=== PATIENT | female | born 1985 | race Caucasian/White ===

== ENCOUNTER 2024-01-09 06:07 | Emergency (ER) | payer OTHER, SELFPAY ==
[2024-01-09 06:11] VITALS: BP 149/101; PULSE 91; RESP 20; TEMP 36.8; O2SAT 99; BMI 24.4
--- NOTE | 2024-01-09 06:32 | ED.GENADULT ---
HPI - General Adult General Chief complaint: Chest Pain Stated complaint: Chest Pain Time Seen by Provider: 01/09/24 06:12 Source: patient Mode of arrival: ambulatory Limitations: no limitations History of Present Illness HPI narrative: 38-year-old female presents to the emergency department with 24 hours of vague chest pain and general malaise. Symptoms are very nondescript. No trauma or injury. Has a mild headache as well. Was at a track contracture pull a few nights ago and wonders if she may have ?caught something. She says that she wonders if she may have just gotten a little dehydrated from working out in the intense heat the last few days. 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 She says that when she tries to sit up she gets a little lightheaded. She has been trying to drink increased water it does not seem to be helping. She said her head hurts more when she lies down. She admits that she drinks about 8 white claws per day, less over the last couple days since she has not been feeling as well. No vomiting, no abdominal pain. No shortness of breath. Describes the chest pain as anterior lower chest, achy. Nonexertional. Has not tried any medications to help with her symptoms. No prior history of heart problems, no current GI symptoms. Reports that she had a mild URI 3 weeks ago that resolved without complication. No history of DVT or PE, no prescription medications. No bloody stools. Last menstrual cycle was about 10 days ago, ending 4 days ago, uncomplicated. Called 911 for her symptoms. No additional pertinent history or abnormalities noted by EMS team. Past medical history notable for the heavy regular alcohol use as described above, otherwise denies any long-term medical problems. No long-term medications. Heavy alcohol use as described above. ROS is notable for the generalized and chest symptoms as described above, otherwise denies times 12 systems. Related Data Home Medications ?Medication ?Instructions ?Recorded ?Confirmed No Known Home Medications 01/09/24 01/09/24 Allergies Allergy/AdvReac Type Severity Reaction Status Date / Time No Known Drug Allergies Allergy Verified 01/09/24 06:14 [facility] Social History Smoking Status: Never smoker Second hand tobacco smoke exposure: No How often do you have a drink containing alcohol: 4 or more times a week How often do you have six or more drinks on one occasion: Daily or almost daily AUDIT-C Alcohol total score: 8 Non-prescribed substance use: denies use Exam Const: Vital Signs, click to edit/add: Vital Signs - 24 hr 01/09/24 06:11 01/09/24 06:42 01/09/24 06:43 Temperature 98.2 F Pulse Rate 82 84 Pulse Rate [Right Pulse Oximeter] 91 Respiratory Rate 20 16 Blood Pressure 141/102 H Blood Pressure [Ri ght Upper Arm] 149/101 H Pulse Oximetry 99 96 97 Oxygen Delivery Me thod Room Air Documenting provider has reviewed patient's vital signs: yes Common normals: no apparent distress and alert General appearance: comfortable HENMT: Common normals: normocephalic Head and scalp: normocephalic Face and sinus: normal facial exam Mouth: oral and palatal mucosa normal Throat: posterior oropharynx normal Eye: Common normals: conjunctivae normal General eye: normal appearance of both eyes Conjunctiva: conjunctiva(e) normal Neck & C-Spine: Common normals: no lymphadenopathy General: normal visual inspection Resp: Common normals: normal respiratory effort, no use of accessory muscles and clear to auscultation bilaterally Effort & inspection: able to speak in complete sentences Auscultation: clear to auscultation bilaterally Cardio: Common normals: regular rate, regular rhythm, S1 normal heart sound, S2 normal heart sound and no murmurs Rate: regular rate Rhythm: regular rhythm Heart sounds: S1 normal and S2 normal GI: Common normals: Normal to inspection, nondistended, normoactive bowel sounds present, soft to palpation, non-tender and no masses Palpation: soft Other: Liver does feel about 1-2 cm enlarged below right costal margin. No obvious mass. Nontender Back & Pelvis: Common normals: thoracic and lumbar spine normal to inspection Extremity: Common normals: normal to inspection and normal capillary refill Neuro: Sensorium/orientation: alert Speech: speech normal Motor exam: no tremor noted and no movement abnormalities noted Psych: Attitude: engaged Mood and affect: euthymic mood Insight: insight good Judgement: judgment good Skin: Common normals: no rashes or lesions noted General skin exam: no rashes or lesions noted Course Course ED Course: 38-year-old female with 24 hours of chest pain, nonexertional in nature with generalized malaise and headache with history of heavy regular alcohol use. Differential diagnosis including acute coronary syndrome, dehydration, electrolyte abnormality, viral illness, anemia, GI illness, , amongst multiple others. Recommend basic blood work, EKG, 1 L normal saline, famotidine and Zofran. Re-evaluate once findings are back. Chest x-ray. Reevaluation(s) Time of Reevaluation #1: 07:32 Reevaluation #1: Updated patient on mostly normal labs and reassuring findings. She is not feeling any better after the famotidine, Zofran, Toradol, Vistaril and IV fluids. She is tolerating oral rehydration here in the ED, has not had any vomiting. Vitals remained stable. Chest x-ray and EKG are all reassuring as are her labs with the exception of her elevated liver enzymes. Discussed with her that this is a specific type of inflammation and pattern that we tend to see with alcohol. She is encouraged to re-evaluate her relationship with alcohol and discontinue drinking. She does verbalize understanding and agreement. She is not exhibiting any severe features of alcohol withdrawal, delirium or tremors at this time. She is encouraged to continue watchful monitoring at home, returning to the ED if symptoms worsen. Tylenol, ibuprofen. Encouraged to try some melatonin for sleep if needed. Alarm symptoms reviewed and written instructions were provided. She verbalizes understanding and agreement. Vital Signs Vital signs: Initial Vital Signs Temperature 98.2 F 01/09/24 06:11 Temperature Source Temporal Artery Scan 01/09/24 06:11 Pulse Rate 91 01/09/24 06:11 Respiratory Rate 20 01/09/24 06:11 Blood Pressure 149/101 H 01/09/24 06:11 Blood Pressure Mean 117 H 01/09/24 06:11 Blood Pressure Position Sitting 01/09/24 06:11 Pulse Oximetry 99 01/09/24 06:11 Oxygen Delivery Method Room Air 01/09/24 06:11 Vital Signs Temperature 98.2 F 01/09/24 06:11 Pulse Rate 91 01/09/24 06:11 Respiratory Rate 20 01/09/24 06:11 Blood Pressure 149/101 H 01/09/24 06:11 Pulse Oximetry 99 01/09/24 06:11 Oxygen Delivery Method Room Air 01/09/24 06:11 Temperature 98.2 F 01/09/24 06:11 Pulse Rate 84 01/09/24 06:43 Respiratory Rate 16 01/09/24 06:43 Blood Pressure 141/102 H 01/09/24 06:42 Pulse Oximetry 97 01/09/24 06:43 Oxygen Delivery Method Room Air 01/09/24 06:11 Medications Administered Medications: Discontinued Medications Generic Name Dose Route Start Last Admin Trade Name Gaurang PRN Reason Stop Dose Admin Famotidine 20 mg 01/09/24 06:27 01/09/24 06:36 Famotidine 20 Mg Tablet PO 01/09/24 06:28 20 mg ONCE ONE Administration Hydroxyzine Pamoate 50 mg 01/09/24 06:42 01/09/24 06:45 Hydroxyzine Pamoate 25 Mg Capsule PO 01/09/24 06:43 50 mg ONCE ONE Administration Sodium Chloride 1,000 mls @ 1,000 mls/hr 01/09/24 06:27 01/09/24 06:36 0.9 % Sodium Chloride 1000 Ml IV 01/09/24 07:26 1,000 mls/hr .Q1H RUBEN Administration Ketorolac Tromethamine 10 mg 01/09/24 06:54 01/09/24 07:06 Ketorolac 10 Mg Tablet PO 01/09/24 06:55 10 mg ONCE ONE Administration Ondansetron HCl 4 mg 01/09/24 06:27 01/09/24 06:36 Ondansetron 2 Mg/Ml Inj IVP 01/09/24 06:28 4 mg ONCE ONE Administration Medical Decision Making Lab Data Lab results reviewed: Yes I reviewed the patient's lab results Lab results narrative: AST to ALT ratio elevated suspicious of alcoholic liver disease. Bilirubin is okay however. Labs: Lab Results 01/09/24 01/09/24 Range/Units 06:30 06:36 WBC 5.47 (4.50-11.00) K/uL RBC 4.62 (4.00-5.20) m/uL Hgb 14.6 (12.0-16.0) gm/dL Hct 43.3 (33.0-51.0) % MCV 94 (80-100) fL MCH 32 (26-34) pg MCHC 34 (32-36) gm/dL RDW Coeff of Elliott 11.8 (11.5-15.5) % Plt Count 309 (140-440) K/uL Neut % (Auto) 59.8 (42.0-72.0) % Lymph % (Auto) 25.2 (20-44) % [place] % (Auto) 10.6 (0.0-11.0) % Eos % (Auto) 3.7 (0.0-7.0) % Baso % (Auto) 0.5 (0.0-3.0) % Neut # (Auto) 3.27 (1.7-7.0) K/uL Lymph # (Auto) 1.38 (0.90-2.90) K/uL [place] # (Auto) 0.60 (0.00-0.90) K/UL Eos # (Auto) 0.20 (0.00-0.50) K/uL Baso # (Auto) 0.03 (0.00-0.30) K/uL Abs Immat Gran (auto) 0.01 (0.00-0.30) K/uL Imm/Tot Granulo (auto) 0.2 % Sodium 142 (135-149) mmol/L Potassium 3.7 (3.6-5.1) mmol/L Chloride 107 (96-114) mmol/L Carbon Dioxide 23 (20-32) mmol/L Anion Gap 12 (7-15) mEq/L BUN 5 (5-24) mg/dL Creatinine 0.5 (0.5-1.5) mg/dL Estimated Creat Clear 166.59 Estimated GFR 124 ml/min Glucose 98 (60-115) mg/dL Calcium 9.7 (8.4-10.6) mg/dL Magnesium 2.0 (1.5-2.6) mg/dL Total Bilirubin 0.5 (0.1-1.5) mg/dL AST 134 H (12-35) U/L ALT 69 H (4-35) U/L Alkaline Phosphatase 67 (40-150) U/L Total Protein 8.5 H (6.0-8.3) g/dL Albumin 4.9 (3.3-5.0) g/dL Urine Color Yellow (Yellow) Urine Appearance Clear (Clear) Urine pH 6.5 (5.0-8.5) Ur Specific [place] 1.010 (1.000-1.030) Urine Protein Negative (Negative) Urine Glucose (UA) Negative (Negative) Urine Ketones Negative (Negative) Urine Blood Negative (Negative) Urine Nitrite Negative (Negative) Urine Bilirubin Negative (Negative) Urine Urobilinogen 0.2 (0.2-1.0) Ur Leukocyte Esterase Negative (Negative) Urine HCG, Qual Negative (Negative) SARS-CoV-2 (PCR) Negative SARS-CoV-2 (Negative) Influenza Type A (PCR) Negative PCR FLU A (Negative) Influenza Type B (PCR) Negative PCR FLU B (Negative) RSV (PCR) Negative PCR RSV (Negative) POC Troponin I 0.01 (0.01-0.04) ng/ml Imaging Data Chest x-ray: Attestation: I have reviewed the pertinent imaging results. My impression: Normal chest x-ray Radiologist's impression: Findings/Impression: Cardiovascular and mediastinum: Heart size and vasculature are normal in caliber and appearance. Mediastinum is within normal limits. Lungs and pleural spaces: Lungs are clear. No sign of infiltrate or mass. No sign of pleural effusion. No pneumothorax. Bones and soft tissues: No significant findings. Dictated by Arcenio Shi MD @ 01/09/2024 7:11:29 AM ECG Data Attestation: I personally reviewed and interpreted this ECG as follows: Prior ECG tracings: not available for review Interpretation: Normal sinus rhythm, rate of 82. No significant ST or T-wave abnormalities. Normal intervals and axis, normal EKG. Discharge Plan Discharge Clinical Impression: Acute viral syndrome, Elevated liver enzymes Patient Disposition: Home w/ Parent or Adult Condition: Stable Instructions: Viral Syndrome (ED) Additional Instructions: As we discussed, your headache, chest pain and vertigo seem to be connected to a viral syndrome. There are no signs of heart attack, strokes or infection at this time. COVID swabs are thankfully negative. To help reduce her symptoms somewhat, you were given a L of fluid, Zofran for your nausea, Toradol for her headache and some famotidine to help her stomach heal. Your blood work does reflect inflammation of the liver, specifically in a pattern with too much alcohol. It is not severe at this time but you are at a point with this disease where you do need to stop drinking all alcohol. There were no signs of electrolyte abnormality or dehydration today. I do suspect that you have a viral illness triggering these symptoms. Symptoms should improve in a few days. As we discussed, you should come back to emergency department if you have persistent vomiting, severe weakness, high fever or other signs of worsening. I would like for you to continue using Tylenol 1000 mg every 6 hours, please take this if her headache persists once you get home. You would be due for more ibuprofen at about 1:00 p.m., continue taking this every 6 hours. He has salty foods and try to drink lots of fluids and take it easy for the next 1-2 days. Please avoid alcohol. It is okay to use melatonin 10 mg at bedtime to help with sleep if needed as well. If her symptoms are not improving in 3 days, please seek re-evaluation in the clinic or urgent care. ED if symptoms are severe. Activity Level: Activity as Tolerated Discharge Diet: Regular Prescriptions: No Action No Known Home Medications Follow Up/Referrals: Provider,Not a Local [Primary Care Provider] - Stand Alone Forms: [employer] Info Instructions
[2024-01-09] MEDS: ONDANSETRON 2 MG/ML inj 4 MG IVP (06:36)
[2024-01-09] MEDS: 0.9 % SODIUM CHLORIDE 1000 ml 1,000 ML IV (06:36)
[2024-01-09] MEDS: FAMOTIDINE 20 MG TABLET PO (06:36)
--- NOTE | 2024-01-09 06:36 | CRLHL7_ITS ---
For Patients: As a result of the Century Cures Act, medical imaging exams and procedure reports are released immediately into your electronic medical record. You may view this report before your referring provider. If you have questions, please contact your health care provider. Indication: Chest pain Technique: Chest 2 views Comparison: Chest x-ray 10/15/2013 Findings/Impression: Cardiovascular and mediastinum: Heart size and vasculature are normal in caliber and appearance. Mediastinum is within normal limits. Lungs and pleural spaces: Lungs are clear. No sign of infiltrate or mass. No sign of pleural effusion. No pneumothorax. Bones and soft tissues: No significant findings. Dictated by Arcenio Shi MD @ 01/09/2024 7:11:29 AM (Electronically Signed)
[2024-01-09 06:42] VITALS: BP 141/102; PULSE 82; O2SAT 96
[2024-01-09 06:42] LABS: Appearance Urine Clear (Clear); Bilirubin Urine Negative (Negative); Blood Urine Negative (Negative); Color Urine Yellow (Yellow); Glucose Urine Negative (Negative); Ketones Urine Negative (Negative); Leukocyte Esterase Urine Negative (Negative); Nitrite Urine Negative (Negative); Protein Urine Negative (Negative); Urobilinogen Urine 0.2 (0.2-1.0); pH Urine 6.5 (5.0-8.5)
[2024-01-09 06:43] VITALS: PULSE 84; RESP 16; O2SAT 97
[2024-01-09] MEDS: hydrOXYzine pamoate 25 MG CAPSULE 50 MG PO (06:45)
[2024-01-09 06:48] LABS: Troponin, Point-of-Care* 0.01 ng/ml (0.01-0.04)
--- OUTSIDE RECORDS SUMMARY | 2024-01-09 06:51 | XMS_ITS | Encounter Summary ---
Author Organization [place] Address [facility] [place] [address] Care Team Providers Care Career Center Director Name Role Phone Alex Koo MD Primary Care Provider + Alex Koo MD Unavailable [phone] Alex Koo MD Unavailable [phone] Encounter Details Date Type Department Care Team (Latest Contact Info) Description 12/05/2023 Travel Social History Tobacco Use Types Packs/Day Years Used Date Smoking Tobacco: Never Passive Smoke Exposure: Never Smokeless Tobacco: Never Alcohol Use Standard Drinks/Week Comments Yes 0 (1 standard drink = 0.6 oz pur e alcohol) occasional 2-4 monthly PHQ-2 Answer Date Recorded PHQ-2 Score 2 03/29/2022 Adolescent Education Answer Date Record ed Getting School Help Needed Not on file 03/03 Sex and Gender Information Value Date Recorded Sex Assigned at Not on file Gender Identity Not on file Sexual Orientation Not on file documented as of this encounter Plan of Treatment Not on file documented as of this encounter Visit Diagnoses Not on filedocumented in this encounter Additional Health Concerns Assessment Noted Time PHQ-9 Depression Total Score: 5 03/29/20 22 8:19 AM CDT documented as of this encounter Care Teams Career Center Director Relationship Specialty [place] [address] [place] [address] PCP - General Family Practice 10/27/20 [place] [address] [address] [address] Family Practice 10/27/20 [place] [address] [address] [address] Assigned PCP 10/03/23 01/01/24 documented as of this encounter
--- OUTSIDE RECORDS SUMMARY | 2024-01-09 06:51 | XMS_ITS | Encounter Summary ---
Author Organization [place] Address [facility] [place] [address] Care Team Providers Care Icu Specialist Name Role Phone Alex Koo MD Primary Care Provider + Alex Koo MD Unavailable [phone] Alex Koo MD Unavailable [phone] Reason for Visit * Diagnostic Imaging XR (Routine) - Pending Review Specialty Diagnoses / Procedures Referred By Contac t Referred To Contact Radiology. Diagnoses Injury of right hand, initial encounter Procedures XR Hand Right G/E 3 Views Tequila Ojeda PA-C [address] [place] [address] Referral ID Status Reason Start Date Expiration Date V isits Requested Visits Authorized [id number] Pending Review 12/05/2023 12/04/2024 1 1 Encounter Details Date Type Department Care Team (Latest Contact Info) Description 12/05/2023 7:30 PM CDT Ancillary Procedure [facility] [address] [place] [address] Tequila Ojeda PA-C [address] [place] [address] Injury of right hand, initial encounter Social History Tobacco Use Types Packs/Day Years [...] on file documented as of this encounter Procedures Procedure Name Priority Date/Time Associated Diagnosis Comments XR HAND RIGHT G/E 3 VIEWS STAT 12/05/2023 7:42 PM CDT Injury of right hand, initial encounter documented in this encounter Results * XR Hand Right G/E 3 Views (12/05/2023 7:42 PM CDT) Anatomical Region Laterality Modality Hand, Wrist Right Computed Radiogr aphy 12/05/2023 7:42 PM CDT Impressions 12/05/2023 7:45 PM CDT IMPRESSION: Normal joint spaces and alignment. No fracture. Narrative 12/05/2023 7:45 PM CDT EXAM: XR HAND RIGHT G/E 3 VIEWS LOCATION: [facility] DATE: 12/05/2023 INDICATION: swelling ecchymosis dorsum of hand, more tender 4th and 5th metacarpals COMPARISON: None. Procedure Note Stephen Piedra MD - 12/05/2023 EXAM: XR HAND RIGHT G/E 3 VIEWS LOCATION: [facility] DATE: 12/05/2023 INDICATION: swelling ecchymosis dorsum of hand, more tender 4th and 5thmetacarpals COMPARISON: None. IMPRESSION: Normal joint spaces and alignment. No fracture. Tequila Ojeda PA-C [facility] ORDER[facility]LES documented in this encounter Visit Diagnoses Diagnosis Injury of right hand, initial encounter documented in this encounter Additional Health Concerns Assessment Noted Time PHQ-9 Depression Total Score: 5 03/29/20 22 8:19 AM CDT documented as of this encounter Care Teams Icu Specialist Relationship Specialty [place] [address] [address] [address] PCP - General Family Practice 10/27/20 [place] [address] [address] [address] Family Practice 10/27/20 [place] [address] [address] [address] Assigned PCP 10/03/23 01/01/24 documented as of this encounter
--- OUTSIDE RECORDS SUMMARY | 2024-01-09 06:51 | XMS_ITS | Encounter Summary ---
Author Organization [place] Address [facility] [place] [address] Care Team Providers Care Tie Binder Name Role Phone Alex Koo MD Primary Care Provider + Alex Koo MD Primary Care Provider + Alex Koo MD Unavailable + Radha Knight COPPER TAPPER PRESCRIPTION CLERK Unavailable + Alex Koo MD Unavailable + Radha Knight COPPER TAPPER PRESCRIPTION CLERK Unavailable + Alex Koo MD Unavailable + Radha Knight COPPER TAPPER PRESCRIPTION CLERK Unavailable + Dinesh Mac MD Unavailable [facility] September Vicki IBRAHIM Unavailable [phone] Alex Koo MD Unavailable + Rosa MoyerM Unavailable Barbara Cheng MD Unavailable [phone] Umesh iLma PA-C Unavailable + Umesh Lima PA-C Unavailable + Alex Koo MD Unavailable + Umesh Lima PA-C Unavailable Encounter Details Date Type Department Care Team (Late st Contact Info) Description 02/02/2018 [facility] Medical Advice [address], [address] [place] [address] 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, SPINE SPECIALIST Social History Tobacco Use Types Packs/Day Years Used Date Smoking Tobacco: Never Smokeless Tobacco: Never Alcohol Use Standard Drinks/Week Comments Yes 0 (1 standard drink = 0.6 oz pur e alcohol) occasional 2-4 monthly Sex and Gender Information Value Date Recorded Sex Assigned at Not on file Gender Identity Not on file Sexual Orientation Not on file documented as of this encounter Plan of Treatment Not on file documented as of this encounter Visit Diagnoses Not on filedocumented in this encounter Additional Health Concerns Assessment Noted Time PHQ-9 Depression Total Score: 2 11/17/19 17 7:16 AM CDT documented as of this encounter Care Teams Tie Binder Relationship Specialty Start Date End Date Alex Koo MD PCP - General Family Practice 04/19/16 10/26/20 [place] [address] [address] [address] PCP - General Family Practice 10/27/20 Radha Knight APRN PRESCRIPTION CLERK [address] [address] [place] [address] PCP - Assigned PCP 11/19/17 07/21/18 [place] [address] [address] [place] [address] PCP - Assigned PCP 07/22/18 08/14/18 Alex Koo MD Family Practice 10/27/20 Radha Knight APRN PRESCRIPTION CLERK [address] [place] [address] Assigned PCP 11/19/17 07/21/18 [place] [address] [place] [address] Assigned PCP 07/22/18 11/16/19 Radha Knight APRN PRESCRIPTION CLERK [address] [place] [address] Assigned PCP 11/17/19 03/14/20 Dinesh Mac MD [address] [place] [address] Assigned PCP 03/15/20 08/15/20 [place] [address] [facility] [place] [address] Assigned PCP 08/16/20 11/21/20 [place] [address] [place] [address] Assigned PCP 11/22/20 05/20/22 Rosa Moyer CNM [address] [place] [address] Assigned OBGYN Provider 12/25/2004/08 Barbara Cheng MD [address] [place] [address] Assigned OBGYN Provider 04/09/22 Umesh Lima PADanyelleC [address] [place] [address] Assigned PCP 05/21/22 10/02/23 Umesh Lima PA-C [address] [place] [address] Assigned Pain Medication Provider 06/20/22 12/09/22 [place] [address] [address] [place], [address] [address] Assigned PCP 10/03/23 01/01/24 Umesh Lima PA-C [address] [place], [address] [address] Assigned PCP 01/02/24 documented as of this encounter
--- OUTSIDE RECORDS SUMMARY | 2024-01-09 06:51 | XMS_ITS | Referral Summary ---
Author Organization [facility] Address [address] [place] [id number] Care Team Providers Care Ham Marker Name Role Phone Alex Koo MD Primary Care Provider + Alex Koo MD Unavailable [phone] Umesh Lima PA-C Unavailable + [phone] Encounters Date Type Department Care Team Description 12/05/2023 7:30 PM CDT Ancillary Procedure [address] [phone] Tequila Ojeda PA-C Injury of right hand, initial encounter 12/05/2023 Travel 12/05/2023 6:45 PM CDT Office Visit [facility] [address] [phone] Tequila Ojeda PA-C Injury of right hand, initial encounter (Primary Dx); Contusion of right hand, initial encounter from Last 3 Months Allergies No known active allergies Medications Medication Sig Dispensed Refills Start Date End Date Status melatonin 3 MG tablet Take 1 mg by mouth nightly as needed for sleep Active hydrOXYzine (ATARAX) 25 MG tabletIndications:R LQ abdominal pain Take 2 tablets (50 mg) by mouth nightly as needed for itching or other (pain, sleep) 20 tablet 1 04/06/2022 Active Additional Information Patient not taking.Reported on 07/30/2022 meloxicam (MOBIC) 15 MG tabletIndications:I njury of right hand, initial encounter,Contusion of right hand, initial encounter Take 1 tablet (15 mg) by mouth daily as needed for moderate pain 10 tablet 12/05/2023 Active Active Problems Patient Care Coordination No te Formatting of this note migh t be different from the original. [email or web address] Problem Noted Date Diagnosed Date Jaw pain 08/09/2021 Otalgia, right 08/09/2021 Recurrent major depressive d isorder, in full remission (H24) 12/08/2020 Acetabular labrum tear 01/02/2014 Encounter for medication refill 12/25/2013 Overview: Pain agreement signed 12/25/13. Percocet 5 #60 per month. Diagnosis: left hip pain, SI inflammation, possible left labral hip tear. [facility] Amie Stoll, DO .................... 12/25/2013 11:48 AM SI (sacroiliac) joint inflammation (H24) 014 Trochanteric bursitis of left hip 12/25/2013 Left hip pain 11/14/2013 Overview: MRI and physical therapy ordered. Mastalgia 04/25/2010 Overview: Right Ultrasound 04/2010 recommend follow up ultrasound in one month. Dysplasia of cervix, low grade (QUINCY 1) 8 Overview: 2005 QUINCY 1 07/2007 ASCUS, +HPV @ age 21 09/2007 colposcopy with negative ECC and biopsy. 03/2009 Normal, HPV - 05/2010 Normal 02/2012 Normal, + HR HPV (type not specified) [gap in pap follow up] 12/16/20 NIL pap, neg HR HPV. Plan 1 year cotest 01/24/22 Lost to follow-up for pap tracking 04/06/22 NIL pap, Neg HPV. Plan cotest in 3 years. Allergic rhinitis due to other allergen 02/16/20 07 Overview: CATS,PERENNIAL Resolved Problems Problem Noted Date Diagnosed Date Resolved Date Recurrent major depression (H24) 04/19/2016 12/08/2020 Other postprocedural status(V45.89) 05/30/2014 06/21/2017 Immunizations Name Administration Dates Next Due HPV Quadrivalent 08/02/2007 TDAP Vaccine (Adacel) 03/17/2009 Social History Tobacco Use Types Packs/Day Years Used Date Smoking Tobacco: Never Passive Smoke Exposure: Never Smokeless Tobacco: Never Tobacco Cessation:Counseling Given: Not Answered Alcohol Use Standard Drinks/Week Comments Yes 0 [...] on file Sexual Orientation Not on file Last Filed Vital Signs Vital Sign Reading Time Taken Comments Blood Pressure 156/99 12/05/2023 7:04 PM CDT Pulse 71 12/05/2023 7:04 PM CDT Temperature 36.4 ??C (97.5 ??F) 12/05/2023 7:04 PM CD T Respiratory Rate 16 09/28/2022 11:53 AM CDT Oxygen Saturation 99% 12/05/2023 7:04 PM CDT Inhaled Oxygen Concentration - - Weight 77.1 kg (170 lb) 12/05/2023 7:04 PM CDT Height 177.8 cm (5' 10) 12/05/2023 7:04 PM CDT Body Mass Index 24.39 12/05/2023 7:04 PM CDT Plan of Treatment Not on file Procedures Procedure Name Priority Date/Time Associated Diagnosis Comments XR HAND RIGHT G/E 3 VIEWS STAT 12/05/2023 7:42 PM CDT Injury of right hand, initial encounter HPV HIGH RISK TYPES DNA CERVICAL Routine 04/06/2022 3:42 PM CDT Dysplasia of cervix, low grade (QUINCY 1) GYNECOLOGIC CYTOLOGY Routine 04/06/2022 3:42 PM CDT Dysplasia of cervix, low grade (QUINCY 1) BASIC METABOLIC PANEL Routine 08/09/2021 2:53 PM LIGHTNING ROD ERECTOR Jaw pain from Last 3 Months or Most Recently Relevant to Health Maintenance Results * XR Hand Right G/E 3 Views (12/05/2023 7:42 PM CDT) Anatomical Region Laterality Modality Hand, Wrist Right Computed Radiogr aphy 12/05/2023 7:42 PM CDT Impressions 12/05/2023 7:45 PM CDT IMPRESSION: Normal joint spaces and alignment. No fracture. Narrative 12/05/2023 7:45 PM CDT EXAM: XR HAND RIGHT G/E 3 VIEWS LOCATION: [facility] DATE: 12/05/2023 INDICATION: swelling ecchymosis dorsum of hand, more tender 4th and 5th metacarpals COMPARISON: None. Procedure Note Stephen Piedra MD - 12/05/2023 EXAM: XR HAND RIGHT G/E 3 VIEWS LOCATION: [facility] DATE: 12/05/2023 INDICATION: swelling ecchymosis dorsum of hand, more tender 4th and 5thmetacarpals COMPARISON: None. IMPRESSION: Normal joint spaces and alignment. No fracture. Tequila Ojeda PA-C IMG DIAGNOSTIC IMAGING ORDERABLES * Pap diagnostic with HPV (04/06/2022 3:42 PM CDT) Interpretation Negative for Intraepithelial Lesion or Malignancy (NILM) 04/08/2022 2:31 PM CDT [facility] Comment Papanicolaou Test Limitations: Cervical cytology is a screening test with limited sensitivity, and regular screening is critical for cancer prevention. Pap tests are primarily effective for the diagnosis/prevent ion of squamous cell carcinoma, not adenocarcinoma or other cancers. 04/08/2022 2:31 PM CDT [facility] Specimen Adequacy Satisfactory for evaluation, endocervical/franks sformation zone component present 04/08/2022 2:31 PM CDT [facility] Clinical Information none 04/08/2022 2:31 PM CDT [facility] LMP/Menopause Date 03/13/2022 04/08/2022 2:31 PM CDT [facility] Reflex Testing Yes regardless of result 04/08/2022 2:31 PM CDT [facility] Previous Abnormal? Yes 04/08/2022 2:31 PM CDT [facility] Previous Abnormal Diagnosis history of CIN1 04/08/2022 2:31 PM CDT [facility] Performing Labs The technical component of this testing was completed at [facility] 04/08/2022 2:31 PM CDT [facility] Brushing CERVIX UTERI STRUCTURE / Unknown Non-blood Collection / Unknown 04/06/2022 3:42 PM CDT 04/06/2022 4:02 PM CDT Barbara SALAZAR - ZULEMA CARMEN [facility] Specialty Lab [address] [facility], [address] [place] [id number], [facility] [phone] * HPV High Risk Types DNA Cervical (04/06/2022 3:42 PM CDT) Other HR HPV Negative Negative 04/12/2022 2:09 PM CDT [facility] HPV16 DNA Negative Negative 04/12/2022 2:09 PM CDT [facility] HPV18 DNA Negative Negative 04/12/2022 2:09 PM CDT [facility] FINAL DIAGNOSIS This patient's sample is negative for HPV DNA. This test was developed and its performance characteristics determined by the [facility], [facility]. It has not been cleared or approved by the FDA. The laboratory is regulated under CLIA as qualified to perform high-complexity testing. This test is used for clinical purposes. It should not be regarded as investigational or for research. METHODOLOGY: The Nirav Elpidio 4800 system uses automated extraction, simultaneous amplification of HPV (L1 region) and beta-globin, followed by real time detection of fluorescent labeled HPV and beta globin using specific oligonucleotide probes. The test specifically identifies types HPV 16 DNA and HPV 18 DNA while concurrently detecting the rest of the high risk types (31, 33, 35, 39, 45, 51, 52, 56, 58, 59, 66 or 68). COMMENTS: This test is not intended for use as a screening device for woman under age 30 with normal cervical cytology. Results should be correlated with cytologic and histologic findings. Close clinical followup is recommended. 04/12/2022 2:09 PM CDT [facility] Brushing CERVIX UTERI STRUCTURE / Unknown Non-blood Collection / Unknown 04/06/2022 3:42 PM CDT 04/11/2022 9:01 AM CDT Barbara Cheng MD LAB - BLOOD ORDERABL ES [facility] Molecular Diagn[facility] [address] [facility], [address] [address], [facility] [phone] * Basic metabolic panel (08/09/2021 2:53 PM LIGHTNING ROD ERECTOR) Sodium 142 136 - 145 mmol/L 08/09/2021 8:36 PM LIGHTNING ROD ERECTOR [facility] Potassium 4.4 3.5 - 5.0 mmol/L 08/09/2021 8:36 PM LIGHTNING ROD ERECTOR [facility] Chloride 104 98 - 107 mmol/L 08/09/2021 8:36 PM LIGHTNING ROD ERECTOR [facility] Carbon Dioxide (CO2) 25 22 - 31 mmol/L 08/09/2021 8:36 PM LIGHTNING ROD ERECTOR [facility] Anion Gap 13 5 - 18 mmol/L 08/09/2021 8:36 PM LIGHTNING ROD ERECTOR [facility] Urea Nitrogen 9 8 - 22 mg/dL 08/09/2021 8:36 PM LIGHTNING ROD ERECTOR [facility] Creatinine 0.67 0.60 - 1.10 mg/dL 08/09/2021 8:36 PM LIGHTNING ROD ERECTOR [facility] Calcium 10.0 8.5 - 10.5 mg/dL 08/09/2021 8:36 PM LIGHTNING ROD ERECTOR [facility] Glucose 89 70 - 125 mg/dL 08/09/2021 8:36 PM LIGHTNING ROD ERECTOR [facility] GFR Estimate >90 >60 mL/min/1.7 3m2 08/09/2021 8:36 PM LIGHTNING ROD ERECTOR [facility] Comment:Effective May 132020 eGFRcr in adults is calculated using the 2020 CKD-EPI creatinine equation which includes age and gender (Beata et al., NEJM, DOI: 10.1056/MLXYjk4621974) Blood STRUCTURE OF RIGHT UPPER LIMB / Unknown Venipuncture / Unknown 08/09/2021 2:53 PM LIGHTNING ROD ERECTOR 08/09/2021 2:53 PM LIGHTNING ROD ERECTOR Ky Aguirre PA-C LAB - BLOOD ORDERAB LES [facility] [id number] [place] [address] from Last 3 Months or Most Recently Relevant to Health Maintenance Care Teams Ham Marker Relationship Specialty [place] [id number] [address] [address] PCP - General Family Practice 10/27/20 [place] [address] [address] [address] Family Practice 10/27/20 Umesh Lima PA-C [address] [address] [address] Assigned PCP 01/02/24
--- OUTSIDE RECORDS SUMMARY | 2024-01-09 06:51 | XMS_ITS | Clinical Summary ---
Author Organization [facility] Address [place], [place] [address] Care Team Providers Care Prospect Manager Name Role Phone Pcp, No Primary Care Provider Unavailabl e Allergies No known active allergies Medications Medication Sig Dispensed Refills Start Date End Date Status oxyCODONE-acetamin ophen, 5-325 mg, (PERCOCET) 5-325 mg per tabletIndications: Costochondritis Take 1 tablet by mouth every 12 hours if needed for Pain. Max acetaminophen dose: 4000mg in 24 hrs. 15 tablet 0 08/07/2015 Active diclofenac (VOLTAREN) 75 mg delayed-release tabletIndications: Costochondritis Take 1 tablet by mouth 2 times daily with meals. 60 tablet 0 08/07/2015 Active sertraline (ZOLOFT) 50 mg tabletIndications: Depression with anxiety TAKE ONE TABLET BY MOUTH EVERY DAY 30 tablet 0 02/17/2016 Active Active Problems Problem Noted Date Diagnosed Date Acetabular labrum tear 01/02/2014 Issue of repeat prescriptions 12/25/2013 Overview: Pain agreement signed 12/25/13. Percocet 5/325 #60 per month. Diagnosis: left hip pain, SI inflammation, possible left labral hip tear. [facility] Amie Stoll DO .................... 12/25/2013 11:48 AM SI (sacroiliac) joint inflammation 12/25/2013 Trochanteric bursitis of left hip 12/25/2013 Chest wall pain 11/14/2013 Left hip pain 11/14/2013 Overview: MRI and physical therapy ordered. Mastalgia 04/25/2010 Overview: Right Ultrasound 04/2010 recommend follow up ultrasound in one month. Dysplasia of cervix, unspecified 09/26/2007 Overview: 2005 QUINCY 1 07/2007 ASCUS, +HPV 09/2007 colposcopy with negative ECC and biopsy. 03/2009 Normal, HPV - 05/2010 Normal 02/2012 Normal, HPV + RHINITIS ALLERGIC, OTHER ALLERGEN 02/15/2007 Overview: CATS,PERENNIAL Resolved Problems Problem Noted Date Diagnosed Date Resolved Date Other abnormal Papanicolaou smear of cervix and cervical HPV(795.09) 09/26/2007 05/15/2012 Immunizations Name Administration Dates Next Due Human Papilloma Virus Vaccine 05/15/2012, 012,08/02/2007 05/14/2012 Td (Age >=7 Years) 07/13/1998 Tdap 03/17/2009 Family History Medical History Relation Name Comments Good Health Father smoker Good Health Mother Relation Name Status Comments Father Alive Mother Alive Social History Tobacco Use Types Packs/Day Years Used Date Smoking Tobacco: Never Smokeless Tobacco: Never Comments:No exposure Alcohol Use Standard Drinks/Week Comments Yes 6 (1 standard drink = 0.6 oz pur e alcohol) 0-1 drink per week Sex and Gender Information Value Date Recorded Sex Assigned at Not on file Gender Identity Not on file Sexual Orientation Not on file Obstetrics History Para Term AB IAB SAB Ectopic Multiple Livin g Live Births 0 0 0 0 0 0 0 0 0 0 Last Filed Vital Signs Vital Sign Reading Time Taken Comments Blood Pressure 122/78 03/18/2022 12:30 AM CDT Pulse 74 03/18/2022 12:30 AM CDT Temperature 37.1 ??C (98.7 ??F) 03/17/2022 11:36 PM C DT Respiratory Rate 16 03/17/2022 11:36 PM CDT Oxygen Saturation 98% 03/18/2022 12:30 AM CDT Inhaled Oxygen Concentration - - Weight 74.8 kg (165 lb) 03/17/2022 10:23 PM CDT Height 177.8 cm (5' 10) 03/17/2022 10:23 PM CDT Body Mass Index 23.68 03/17/2022 10:23 PM CDT Plan of Treatment Health Maintenance Due Date Last Done Comments HIV for age 15-65 2001 Hepatitis C screening for age 18-79 2004 Pap test for age 21-65 02/22/2015 2, 02/23/2012, 06/04/2010, Additional history exists BMI (ht and wt on same day) for age 18+ 08/07/2016 08/07/2015 Depression screening for age 12+ 08/07/2016 08/07/2015 Tetanus booster 03/17/2019 03/17/2009, 07/13/1998 COVID-19 vaccine series ( season) 2023 Influenza for age 9-49 02/11/2024 Tdap Completed 03/17/2009 Pneumococcal series for age 6-64 Aged Out No longer eligible based on patient's age to complete this topic Procedures Procedure Name Priority Date/Time Associated Diagnosis Comments MANAGER PHOTO THIN PREP PAP DIAGNOSTIC IMAGED Routine 02/23/2012 1:31 PM CDT Screening for malignant neoplasm of the cervix from Last 3 Months or Most Recently Relevant to Health Maintenance Results * MANAGER PHOTO THIN PREP PAP DIAGNOSTIC IMAGED (02/23/2012 1:31 PM CDT) CYTOLOGY CYTOPATHOLOGY REPORT [facility] Valued Relationships/[facility] Status: Final Status ?[id number] CLINICAL INFORMATION Last Date of LMP ? :02/04/2012 Last Pap Date ?:06/04/2010 Last Pap Result ?:NIL ABN [place]/Bx Past 5 YRS :None Hormone Usage ?:None Menstrual Status ? :Regular Periods [place]/Bx done today ? :No Additional Information :None given HPV Request ?:HPV and PAP. See Separate Report. SPECIMEN SOURCE ?:Cervical/vagina l ThinPrep Vial, diagnostic SPECIMEN ADEQUACY ?:Satisfactory for evaluation Endocervical component ? present. INTERPRETATION/RES ULT Negative for intraepithelial lesion or malignancy (NIL) Cytology 1st Screener ??:tll Cytology 2nd Screener ??:lgb Signed by ?:lgb This specimen was screened by the FDA approved ThinPrep Imaging System and manually reviewed. NOTE: ??The Pap test is a screening technique, not a diagnostic procedure. ??It is used ??primarily to screen for squamous cancers and precursor lesions. ??Published studies have shown that it is subject to both false negative and false positive results. ??The pap test should not be used as the sole means to diagnose or exclude pre-malignant and malignant lesions. COLLECTED:02/23/12 ? ACCESSIONED: ??02/24/12 ?? SIGNED: ??02/29/12 [facility] PAP [place] CODE NIL [facility] Tissue specimen (specimen) (Cervical/Vagina l) 02/23/2012 1:31 PM CDT 02/23/2012 1:27 PM CDT Barbara Cassidy MD PATHOLOGY/CYTOLOGY [facility] [place]NAL ZIP [id number] [place] [address] from Last 3 Months or Most Recently Relevant to Health Maintenance Care Teams Prospect Manager Relationship Specialty Start Date End Date Pcp, No . PCP - General 03/21/16
--- OUTSIDE RECORDS SUMMARY | 2024-01-09 06:51 | XMS_ITS | Clinical Summary ---
Author Organization [facility] Address [address] [facility] [place] [address] Care Team Providers Care Artifacts Conservator Name Role Phone Alex Koo MD Primary Care Provider + Alex Koo MD Unavailable [phone] Umesh Lima PA-C Unavailable + [phone] Allergies No known active allergies Medications Medication [...] migh t be different from the original. [email or web address] Problem Noted Date Diagnosed Date Jaw pain [...] 04/19/2016 12/08/2020 Other postprocedural status(V45.89) 05/30/2014 06/21/2017 Encounters Date Type Department Care Team Description 12/05/2023 7:30 PM CDT Ancillary Procedure [address] [phone] Tequila Ojeda PA-C Injury of right hand, initial encounter 12/05/2023 6:45 PM CDT Office Visit [facility] [address] [place] [address] Tequila Ojeda PA-C Injury of right hand, initial encounter (Primary Dx); Contusion of right hand, initial encounter 12/05/2023 Travel from Last 3 Months Immunizations Name Administration Dates Next Due HPV Quadrivalent 08/02/2007 TDAP Vaccine (Adacel) 03/17/2009 Family History Medical History Relation Comments Lung Cancer Paternal Grandfather Relation Status Comments Father Alive Mother Alive Paternal Grandfather Social History Tobacco Use Types Packs/Day Years [...] 12/05/2023 7:04 PM CDT Plan of Treatment Health Maintenance Due Date Last Done Comments ADVANCE CARE PLANNING 1986 HEPATITIS B IMMUNIZATION (1 of 3 - 19+ 3-dose series) 2005 HPV IMMUNIZATION (2 - 3-dose series) 08/30/2007 08/02/2007 DTAP/TDAP/TD IMMUNIZATION (2 - Td or Tdap) 03/17/2019 03/17/2009 ANNUAL REVIEW OF HM ORDERS 11/13/2021 11/13/2020 YEARLY PREVENTIVE VISIT 12/16/2021 12/16/2020 PHQ-9 09/27/2022 03/29/2022, 07/13, 11/15/2016, Additional history exists COVID-19 Vaccine ( season) 2023 INFLUENZA VACCINE (#1) 2024 GLUCOSE 08/09/2024 08/09/2021, 10/10, 03/02/2020 HPV FOLLOW-UP 04/06/2025 04/06/2022, 07/0 12/2020, 02/23/2012, Additional history exists PAP FOLLOW-UP 04/06/2025 04/06/2022, 07/0 12/2020, 02/23/2012, Additional history exists HEPATITIS C SCREENING 2026 Postpo erwin from 2004 (Other) DEPRESSION ACTION PLAN Completed 06/10/2016 PAP Discontinued 04/06/2022, 07/0 12/2020, 02/23/2012, Additional history exists HIV SCREENING Discontinued IPV IMMUNIZATION Aged Out No longer e ligible based on patient's age to complete this topic MENINGITIS IMMUNIZATION Aged Out No l onger eligible based on patient's age to complete this topic Pneumococcal Vaccine: Pediatrics (0 to 5 Years) and At-Risk Patients (6 to 64 Years) Aged Out No longer eligible based on patient's age to complete this topic RSV MONOCLONAL ANTIBODY Aged Out No l onger eligible based on patient's age to complete [...] BASIC METABOLIC PANEL Routine 08/09/2021 2:53 PM GAS LEAK INSPECTOR HELPER Jaw pain from Last 3 Months or [...] XR HAND RIGHT G/E 3 VIEWS LOCATION: [facility] DATE: 12/05/2023 INDICATION: swelling ecchymosis dorsum of hand, more tender 4th and 5th metacarpals COMPARISON: None. Procedure Note Stephen Piedra MD - 12/05/2023 EXAM: XR HAND RIGHT G/E 3 VIEWS LOCATION: [facility] DATE: 12/05/2023 INDICATION: swelling ecchymosis dorsum of [...] or other cancers. 04/08/2022 2:31 PM CDT [facility] Specimen Adequacy Satisfactory for evaluation, [...] component of this testing was completed at [facility] 04/08/2022 2:31 PM CDT [facility] Brushing CERVIX UTERI STRUCTURE / Unknown Non-blood Collection / Unknown 04/06/2022 3:42 PM CDT 04/06/2022 4:02 PM CDT Barbara SALAZAR - ZULEMA CARMEN [facility] Specialty Lab [address] [facility], [address] [address], [facility] [phone] * HPV High Risk Types DNA Cervical (04/06/2022 3:42 PM CDT) Other HR HPV Negative Negative 04/12/2022 2:09 PM CDT [facility] HPV16 DNA Negative Negative 04/12/2022 2:09 PM CDT [facility] HPV18 DNA Negative Negative 04/12/2022 2:09 PM CDT [facility] FINAL DIAGNOSIS This patient's sample is negative for HPV DNA. This test was developed and its performance characteristics determined by the [facility], Molecular Diagnostics Laboratory. It has not been [...] ORDERABL ES [facility] [address] [facility], [address] [address], [facility] [phone] * Basic metabolic panel (08/09/2021 2:53 PM GAS LEAK INSPECTOR HELPER) Sodium 142 136 - 145 mmol/L 08/09/2021 8:36 PM GAS LEAK INSPECTOR HELPER [facility] Potassium 4.4 3.5 - 5.0 mmol/L 08/09/2021 8:36 PM GAS LEAK INSPECTOR HELPER [facility] Chloride 104 98 - 107 mmol/L 08/09/2021 8:36 PM GAS LEAK INSPECTOR HELPER [facility] Carbon Dioxide (CO2) 25 22 - 31 mmol/L 08/09/2021 8:36 PM GAS LEAK INSPECTOR HELPER [facility] Anion Gap 13 5 - 18 mmol/L 08/09/2021 8:36 PM GAS LEAK INSPECTOR HELPER [facility] Urea Nitrogen 9 8 - 22 mg/dL 08/09/2021 8:36 PM GAS LEAK INSPECTOR HELPER [facility] Creatinine 0.67 0.60 - 1.10 mg/dL 08/09/2021 8:36 PM GAS LEAK INSPECTOR HELPER [facility] Calcium 10.0 8.5 - 10.5 mg/dL 08/09/2021 8:36 PM GAS LEAK INSPECTOR HELPER [facility] Glucose 89 70 - 125 mg/dL 08/09/2021 8:36 PM GAS LEAK INSPECTOR HELPER [facility] GFR Estimate >90 >60 mL/min/1.7 3m2 08/09/2021 8:36 PM GAS LEAK INSPECTOR HELPER [facility] Comment:Effective May 132020 eGFRcr in adults is calculated using the 2020 CKD-EPI creatinine equation which includes age and gender (Beata et al., NEJM, DOI: 10.1056/MRXTid4668930) Blood STRUCTURE OF RIGHT UPPER LIMB / Unknown Venipuncture / Unknown 08/09/2021 2:53 PM GAS LEAK INSPECTOR HELPER 08/09/2021 2:53 PM GAS LEAK INSPECTOR HELPER Ky Aguirre PA-C LAB - BLOOD ORDERAB LES [facility] [phone] [place] [address] from Last 3 Months or Most Recently Relevant to Health Maintenance Care Teams Artifacts Conservator Relationship Specialty [place] [address] [address] [address] PCP - General Family Practice 10/27/20 [place] [address] [address] [address] Family Practice 10/27/20 Umesh Lima PA-C [address] [address] [id number] Assigned PCP 01/02/24
--- OUTSIDE RECORDS SUMMARY | 2024-01-09 06:51 | XMS_ITS | Encounter Summary ---
Author Organization [place] Address [facility] [place] [address] Care Team Providers Care Side Show Entertainer Name Role Phone Alex Koo MD Primary Care Provider + Alex Koo MD Primary Care Provider + Alex Koo MD Unavailable + Radha Knight TABLET MAKING MACHINE OPERATOR HELPER CHURN OPERATOR MARGARINE Unavailable + Alex Koo MD Unavailable + Radha Knight TABLET MAKING MACHINE OPERATOR HELPER CHURN OPERATOR MARGARINE Unavailable + Alex Koo MD Unavailable + Radha Knight TABLET MAKING MACHINE OPERATOR HELPER CHURN OPERATOR MARGARINE Unavailable + Dinesh Mac MD Unavailable [facility] September Vicki IBRAHIM Unavailable +[phone] Alex Koo MD Unavailable + Rosa MoyerM Unavailable +[phone] Barbara Cheng MD Unavailable [phone] Umesh Lima PA-C Unavailable + Uemsh Lima PA-C Unavailable + Alex Koo MD Unavailable + Umesh Lima PA-C Unavailable Encounter Details Date Type Department Care Team (Late st Contact Info) Description 07/12/2017 [facility] [address], [address] [place] [address] Mary Joshi, SUPERVISOR FINISHING DEPARTMENT Social History Tobacco Use Types Packs/Day Years [...] documented as of this encounter Care Teams Side Show Entertainer Relationship Specialty Start Date End Date Alex Koo MD PCP - General Family Practice 04/19/16 10/26/20 [place] [address] [place] [address] PCP - General Family Practice 10/27/20 Radha Knight APRN CHURN OPERATOR MARGARINE [address] [place] [address] PCP - Assigned PCP 11/19/17 07/21/18 [place] [address] [place] [address] PCP - Assigned PCP 07/22/18 08/14/18 Alex Koo MD Family Practice 10/27/20 Radha Knight APRN CHURN OPERATOR MARGARINE [address] [place] [address] Assigned PCP 11/19/17 07/21/18 [place] [address] [place] [address] Assigned PCP 07/22/18 11/16/19 Radha nKight APRN CHURN OPERATOR MARGARINE [address] [place] [address] Assigned PCP 11/17/19 03/14/20 Dinesh Mac MD [address] [place] [address] Assigned PCP 03/15/20 08/15/20 [place] [address] [facility] [place] [address] Assigned PCP 08/16/20 11/21/20 [place] [address] [place] [address] Assigned PCP 11/22/20 05/20/22 Rosa Moyer CNM [address] [place] [address] Assigned OBGYN Provider 12/25/2004/08 Barbara Cheng MD [address] [facility] [address] Assigned OBGYN Provider 04/09/22 Umesh Lima PADanyelleC [address] [place] [address] Assigned PCP 05/21/22 10/02/23 Umesh Lima PA-C [address] [place] [address] Assigned Pain Medication Provider 06/20/22 12/09/22 [place] [address] [place] [place], [place] [address] Assigned PCP 10/03/23 01/01/24 Umesh Lima PA-C [address] [place], [place] [address] Assigned PCP 01/02/24 documented as of this encounter
--- OUTSIDE RECORDS SUMMARY | 2024-01-09 06:51 | XMS_ITS | Encounter Summary ---
Author Organization [place] Address [address] [place] [address] Care Team Providers Care Pitch Flaker Name Role Phone Alex Koo MD Primary Care Provider + Alex Koo MD Primary Care Provider + Alex Koo MD Unavailable + Alex Koo MD Unavailable + Alex Koo MD Unavailable + Radha Knight APRN CAREER SERVICES COORDINATOR Unavailable + Dinesh Mac MD Unavailable [facility] Yancy Ramirez MD Unavailable [phone] Alex Koo MD Unavailable + Rosa Moyer CNM Unavailable [phone] Barbara Cheng MD Unavailable [phone] Umesh Lima PA-C Unavailable + Umesh Lima PA-C Unavailable + Alex Koo MD Unavailable + Umesh Lima PA-C Unavailable + Encounter Details Date Type Department Care Team (Late st Contact Info) Description 07/24/2018 [facility] [address], [address] [place] [address] Mary Joshi CMA Social History Tobacco Use Types Packs/Day Years Used Date Smoking Tobacco: Never Smokeless Tobacco: Never Alcohol Use Standard Drinks/Week Comments Yes 0 (1 standard drink = 0.6 oz pur e alcohol) occasional 2-4 monthly PHQ-2 Answer Date Recorded PHQ-2 Score 6 06/20/2018 Sex and Gender Information Value Date Recorded Sex Assigned at Not on file Gender Identity Not on file Sexual Orientation Not on file documented as of this encounter Miscellaneous Notes * Telephone Encounter - Mary Joshi CMA - 08/24/2018 2:01 PM CDT Left message on personal [employer] to return call. 2nd outreach. Mary Joshi CMA (AAKY) documented in this encounter Plan of Treatment Not on file documented as of this encounter Visit Diagnoses Not on filedocumented in this encounter Additional Health Concerns Assessment Noted Time PHQ-9 Depression Total Score: 2 11/17/19 17 7:16 AM CDT documented as of this encounter Care Teams Pitch Flaker Relationship Specialty Start Date End Date Alex Koo MD PCP - General Family Practice 04/19/16 10/26/20 [place] [address] [place] [address] PCP - General Family Practice 10/27/20 [place] [address] [place] [address] PCP - Assigned PCP 07/22/18 08/14/18 Alex Koo MD Family Practice 10/27/20 [place] [address] [place] [address] Assigned PCP 07/22/18 11/16/19 Radha Knight APRN CAREER SERVICES COORDINATOR [address] [place] [address] Assigned PCP 11/17/19 03/14/20 Dinesh Mac MD [address] [place] [address] Assigned PCP 03/15/20 08/15/20 [place] [address] [place] [address] Assigned PCP 08/16/20 11/21/20 [place] [address] [place] [address] Assigned PCP 11/22/20 05/20/22 Rosa Moyer CNM [address] [place] [address] Assigned OBGYN Provider 12/25/2004/08 Barbara Cheng MD [address] [place] [address] Assigned OBGYN Provider 04/09/22 Umesh Lima PA-C [address] [place] [address] Assigned PCP 05/21/22 10/02/23 Umesh Lima PA-C [address]25[address] [place] [address] Assigned Pain Medication Provider 06/20/22 12/09/22 [place] [address] [place] [address] Assigned PCP 10/03/23 01/01/24 Umesh Lima PA-C [address]26[address] [place] [address] Assigned PCP 01/02/24 documented as of this encounter
--- OUTSIDE RECORDS SUMMARY | 2024-01-09 06:51 | XMS_ITS | Encounter Summary ---
Author Organization [place] Address [facility] [place] [address] Care Team Providers Care Visual Journalist Name Role Phone Alex Koo MD Primary Care Provider + Alex Koo MD Unavailable + Coming Yancy Vicki IBRAHIM Unavailable +[phone] Alex Koo MD Unavailable + Rosa Moyer CNM Unavailable [phone] Barbara Cheng MD Unavailable [phone] Umesh Lima PA-C Unavailable + Umesh Lmia PA-C Unavailable + Alex Koo MD Unavailable + Umesh Lima PA-C Unavailable + Encounter Details Date Type Department Care Team (Late st Contact Info) Description 10/27/2020 Records - [facility] CONVERSION Scan, Non-Provider Social History Tobacco Use Types Packs/Day Years Used Date Smoking Tobacco: Never Assessed PHQ-2 Answer Date Recorded PHQ-2 Score 2 07/31/2020 Sex and Gender Information Value Date Recorded Sex Assigned at Not on file Gender Identity Not on file Sexual Orientation Not on file documented as of this encounter Plan of Treatment Not on file documented as of this encounter Visit Diagnoses Not on filedocumented in this encounter Additional Health Concerns Assessment Noted Time PHQ-9 Depression Total Score: 4 07/31/19 21 5:02 PM DAG COATER documented as of this encounter Care Teams Visual Journalist Relationship Specialty [place] [address] [place] [address] PCP - General [facility] Practice 10/27/20 [place] [address] [place] [address] Family Practice 10/27/20 [place] [address] [address] Assigned PCP 08/16/20 11/21/20 [place] [address] [place] [address] Assigned PCP 11/22/20 05/20/22 Rosa Moyer CNM [address] [place] [address] Assigned OBGYN Provider 12/25/2004/08 Barbara Cheng MD [address] [place] [address] Assigned OBGYN Provider 04/09/22 Umesh Lima PA-C 387[address] [place] [address] Assigned PCP 05/21/22 10/02/23 Umesh Lima PA-C 26556 [place] [address] Assigned Pain Medication Provider 06/20/22 12/09/22 [place] [address] [place] [address] Assigned PCP 10/03/23 01/01/24 Umesh Lima PA-C 38169 [place] [address] Assigned PCP 01/02/24 documented as of this encounter
--- OUTSIDE RECORDS SUMMARY | 2024-01-09 06:51 | XMS_ITS | Encounter Summary ---
Author Organization [place] Address [address] [place] [address] Care Team Providers Care Handbook Writer Name Role Phone Alex Koo MD Primary Care Provider + Alex Koo MD Primary Care Provider + Alex Koo MD Unavailable + Radha Knight PARTS COUNTER SALES PERSON SAFETY ASSOCIATE Unavailable + Alex Koo MD Unavailable + Radha Knight PARTS COUNTER SALES PERSON SAFETY ASSOCIATE Unavailable + Alex Koo MD Unavailable + Radha Knight PARTS COUNTER SALES PERSON SAFETY ASSOCIATE Unavailable + Dinesh Mac MD Unavailable [facility] September Vicki IBRAHIM Unavailable [phone] Alex Koo MD Unavailable + Rosa MoyerM Unavailable Barbara Cheng MD Unavailable [phone] Umesh Lima PA-C Unavailable + Umesh Lima PA-C Unavailable + Alex Koo MD Unavailable + Umesh Lima PA-C Unavailable Reason for Visit * Reason Onset Date Comments Outreach 11/24/2017 [facility] ATT 1 Outreach 12/29/2017 [facility] ATT 2 Encounter Details Date Type Department Care Team (Late st Contact Info) Description 11/24/[address], [address] [place] [address] Eugene Radha Duenas, PARTS COUNTER SALES PERSON SAFETY ASSOCIATE [address] [place] [address] Outreach (PHS ATT 1); Outreach (PHS ATT 2) Social History Tobacco Use Types Packs/Day Years [...] encounter Miscellaneous Notes * Telephone Encounter - SinghChristie - 12/29/2017 12:51 PM CDT 12/29/2017 Call Regarding Preventive Health Screening Cervical/PAP Attempt 2 Message on voicemail Comments: Outreach Speech And Language Assistant CC * Telephone Encounter - Francisco Jeremíascastro - 11/24/2017 11:20 AM CDT 11/24/2017 Call Regarding Preventive Health Screening Cervical/PAP Attempt 1 Message on voicemail Comments: Outreach Speech And Language Assistant CC documented in this encounter Plan of Treatment Not on file documented as of this encounter Visit Diagnoses Not on filedocumented in this encounter Additional Health Concerns Assessment Noted Time PHQ-9 Depression Total Score: 2 11/17/19 17 7:16 AM CDT documented as of this encounter Care Teams Handbook Writer Relationship Specialty Start Date End Date Alex Koo MD PCP - General Family Practice 04/19/16 10/26/20 [place] [address] [place] [address] PCP - General Family Practice 10/27/20 Radha Knight APRN SAFETY ASSOCIATE [address] [place] [address] PCP - Assigned PCP 11/19/17 07/21/18 [place] [address] [place] [address] PCP - Assigned PCP 07/22/18 08/14/18 Alex Koo MD Family Practice 10/27/20 Radha Knight APRN SAFETY ASSOCIATE [address] [place] [address] Assigned PCP 11/19/17 07/21/18 [place] [address] [place] [address] Assigned PCP 07/22/18 11/16/19 Radha Knight APRN SAFETY ASSOCIATE [address] [place] [address] Assigned PCP 11/17/19 03/14/20 Dinesh Mac MD [address] [place] [address] Assigned PCP 03/15/20 08/15/20 [place] [address] [place] [address] Assigned PCP 08/16/20 11/21/20 [place] [address] [place] [address] Assigned PCP 11/22/20 05/20/22 Rosa Moyer CNM [address] [place] [address] Assigned OBGYN Provider 12/25/2004/08 Barbara Cheng MD [address] [place] [address] Assigned OBGYN Provider 04/09/22 Umesh Lima PA-C [address] [place] [address] Assigned PCP 05/21/22 10/02/23 Umesh Lima PA-C [address] [place] [address] Assigned Pain Medication Provider 06/20/22 12/09/22 [place] [address] [place] [address] Assigned PCP 10/03/23 01/01/24 Umesh Lima PA-C [address] [place] [address] Assigned PCP 01/02/24 documented as of this encounter
--- OUTSIDE RECORDS SUMMARY | 2024-01-09 06:51 | XMS_ITS | Encounter Summary ---
Author Organization [place] Address [address] [place] [address] Care Team Providers Care Clinical Quality Manager Name Role Phone Alex Koo MD Primary Care Provider + Alex Koo MD Unavailable [phone] Alex Koo MD Unavailable [phone] Reason for Referral * Diagnostic Imaging XR (Routine) - Pending Review Specialty Diagnoses / Procedures Referred By Contac t Referred To Contact Radiology. Diagnoses Injury of right hand, initial encounter Procedures XR Hand Right G/E 3 Views Tequila Ojeda PA-C [address] [place] [address] Referral ID Status Reason Start Date Expiration Date V isits Requested Visits Authorized [id number] Pending Review 12/05/2023 12/04/2024 1 1 Reason for Visit * Reason Comments Urgent Care Had rt hand crushed by horse 2d ago. Progressive swelling and bruising. Encounter Details Date Type Department Care Team (Late st Contact Info) Description 12/05/2023 6:45 PM CDT Office Visit [facility] [address] [place] [id number] Tequila Ojeda PA-C [address] [place] [address] Injury of right hand, initial encounter (Primary Dx); Contusion of right hand, initial encounter Social History [...] on file documented as of this encounter Last Filed Vital Signs Vital Sign Reading Time Taken Comments Blood Pressure 156/99 12/05/2023 7:04 PM CDT Pulse 71 12/05/2023 7:04 PM CDT Temperature 36.4 ??C (97.5 ??F) 12/05/2023 7:04 PM CD T Respiratory Rate - - Oxygen Saturation 99% 12/05/2023 7:04 PM CDT Inhaled Oxygen Concentration - - Weight 77.1 kg (170 lb) 12/05/2023 7:04 PM CDT Height 177.8 cm (5' 10) 12/05/2023 7:04 PM CDT Body Mass Index 24.39 12/05/2023 7:04 PM CDT documented in this encounter Patient Instructions * Attachments The following attachments cannot be sent through Care Everywhere. * Contusion: Hand (Rwandan) documented in this encounter Progress Notes * Tequila Ojeda PA-C - 12/05/2023 6:45 PM CDT Assessment & Plan Injury of right hand, initial encounter Acute problem. Fortunately today x-ray of the right hand is negative for acute fracture or dislocation. We discussed soft tissue contusion. Would anticipate gradual improvement in symptoms. Recommended RICE. Meloxicam is prescribed for moderate to severe pain. Advised to keep monitoring symptoms. Follow-up if any worsening symptoms. Patient agrees to the plan. - XR Hand Right G/E 3 Views - meloxicam (MOBIC) 15 MG tablet Dispense: 10 tablet; Refill: 0 Contusion of right hand, initial encounter - meloxicam (MOBIC) 15 MG tablet Dispense: 10 tablet; Refill: 0 Return in about 1 week (around 12/12/2023) for Symptoms failing to improve. Tequila Ojeda PA-C [facility] Phyllis Harmon is a 38 year old female who presents to clinic today for the following health issues: Chief Complaint Patient presents with Urgent Care Had rt hand crushed by horse 2d ago. Progressive swelling and bruising. HPI Patient is presenting to urgent care today with complaint of right hand injury. Inadvertently had her right hand stuck between a metal stall and a horse head a couple days ago. Patient reports swelling and bruising and decreased range of motion. Treatment tried: ibuprofen/Tylenol. Review of Systems Constitutional, HEENT, cardiovascular, pulmonary, GI, , musculoskeletal, neuro, skin, endocrine and psych systems are negative, except as otherwise noted. Objective BP (!) 156/99 Pulse 71 Temp 97.5 ??F (36.4 ??C) (Tympanic) Ht 1.778 m (5' 10) Wt 77.1 kg (170 lb) SpO2 99% BMI 24.39 kg/m?? Physical Exam GENERAL: alert and no distress MS: moderate swelling and ecchymosis noted on the dorsum of the right hand, there is tenderness over the fourth and fifth metacarpals, range of motion is limited due to pain. No open wounds or sores. EXAM: XR HAND RIGHT G/E 3 VIEWS LOCATION: [facility] DATE: 12/05/2023 INDICATION: swelling ecchymosis dorsum of hand, more tender 4th and 5th metacarpals COMPARISON: None. IMPRESSION: Normal joint spaces and alignment. No fracture. documented in this encounter Plan of Treatment Not on file documented as of this encounter Results * XR Hand Right G/E 3 Views (12/05/2023 7:42 PM CDT) Anatomical Region Laterality Modality Hand, Wrist Right Computed Radiogr aphy 12/05/2023 7:42 PM CDT Impressions 12/05/2023 7:45 PM CDT IMPRESSION: Normal joint spaces and alignment. No fracture. Narrative 12/05/2023 7:45 PM CDT EXAM: XR HAND RIGHT G/E 3 VIEWS LOCATION: [facility] DATE: 12/05/2023 INDICATION: swelling ecchymosis dorsum of hand, more tender 4th and 5th metacarpals COMPARISON: None. Procedure Note Stephen Piedra MD - 12/05/2023 EXAM: XR HAND RIGHT G/E 3 VIEWS LOCATION: [facility] DATE: 12/05/2023 INDICATION: swelling ecchymosis dorsum of hand, more tender 4th and 5thmetacarpals COMPARISON: None. IMPRESSION: Normal joint spaces and alignment. No fracture. Tequila Ojeda PA-C [facility] documented in this encounter Visit Diagnoses Diagnosis Injury of right hand, initial encounter- Primary Contusion of right hand, initial encounter Injury of right hand, initial encounter documented in this encounter Additional Health Concerns Assessment Noted Time PHQ-9 Depression Total Score: 5 03/29/20 22 8:19 AM CDT documented as of this encounter Care Teams Clinical Quality Manager Relationship Specialty [place] [address] [place] [place] [address] PCP - General Family Practice 10/27/20 [place] [address] [place] [address] Family Practice 10/27/20 [place] [address] [place] [address] Assigned PCP 10/03/23 01/01/24 documented as of this encounter
[2024-01-09 06:53] LABS: Ur HCG Qualitative* Negative (Negative)
[2024-01-09 06:55] LABS: Basophils Absolute Auto 0.03 K/uL (0.00-0.30); Basophils Percent Auto 0.5 % (0.0-3.0); Eosinophils Percent Auto 3.7 % (0.0-7.0); Hematocrit 43.3 % (33.0-51.0); Hemoglobin* 14.6 gm/dL (12.0-16.0); Immature Granulocytes Abs Auto 0.01 K/uL (0.00-0.30); Immature Granulocytes Pct Auto 0.2 %; Lymphocytes Absolute Auto 1.38 K/uL (0.90-2.90); Lymphocytes Percent Auto 25.2 % (20-44); Mean Corpuscular HGB Conc 34 gm/dL (32-36); Mean Corpuscular Hemoglobin 32 pg (26-34); Mean Corpuscular Volume 94 fL (80-100); Monocytes Percent Auto 10.6 % (0.0-11.0); Neutrophils Absolute Auto 3.27 K/uL (1.7-7.0); Neutrophils Percent Auto 59.8 % (42.0-72.0); Platelet Count* 309 K/uL (140-440); RDW Coefficient of Variation % 11.8 % (11.5-15.5); Red Blood Count 4.62 m/uL (4.00-5.20); White Blood Count* 5.47 K/uL (4.50-11.00)
[2024-01-09 06:59] LABS: Slide Review Reflex No
[2024-01-09 07:03] LABS: Albumin* 4.9 g/dL (3.3-5.0); Chloride* 107 mmol/L (96-114)
[2024-01-09 07:04] LABS: Potassium* 3.7 mmol/L (3.6-5.1); Sodium* 142 mmol/L (135-149)
[2024-01-09 07:06] LABS: Anion Gap 12 mEq/L (7-15); Aspartate Amino Transferase* 134 U/L (12-35); Bilirubin Total* 0.5 mg/dL (0.1-1.5); Carbon Dioxide* 23 mmol/L (20-32); Creatinine* 0.5 mg/dL (0.5-1.5); Est. Creatinine Clearance* 166.59; Estimated Glomerular Filt Rate 124 ml/min; Total Protein* 8.5 g/dL (6.0-8.3)
[2024-01-09] MEDS: KETOROLAC 10 MG TABLET PO (07:06)
[2024-01-09 07:07] LABS: Alanine Aminotransferase* 69 U/L (4-35); Alkaline Phosphatase* 67 U/L (40-150); Blood Urea Nitrogen* 5 mg/dL (5-24); Calcium* 9.7 mg/dL (8.4-10.6); Glucose* 98 mg/dL (60-115)
[2024-01-09 07:19] LABS: PCR FLU A Negative PCR FLU A (Negative); PCR FLU B Negative PCR FLU B (Negative); PCR RSV Negative PCR RSV (Negative); SARS PCR* Negative SARS-CoV-2 (Negative)
[2024-01-09 07:40] VITALS: BP 138/100; PULSE 74; RESP 18; O2SAT 96
== END 2024-01-09 07:54 | disposition home or self-care (01) ==
PROVIDERS: Emergency Provider Family Medicine
DX: B34.9 Viral infection, unspecified (principal); R74.01 Elevation of levels of liver transaminase levels
CPT/HCPCS: 36415; 71046; 80053; 81003; 81025; 83735; 84484; 85025; 87631; 93005; 96361; 96374; 99284; 99285; A9270; J2405; J7030

== ENCOUNTER 2024-01-11 23:20 | Emergency (ER) | payer OTHER, SELFPAY ==
[2024-01-11 23:32] VITALS: BP 196/128; PULSE 73; RESP 18; TEMP 35.7; O2SAT 97; BMI 24.4
--- NOTE | 2024-01-12 00:15 | CRLHL7_ITS ---
For Patients: As a result of the Century Cures Act, medical imaging exams and procedure reports are released immediately into your electronic medical record. You may view this report before your referring provider. If you have questions, please contact your health care provider. INDICATION: Headache TECHNIQUE: CT Head without i.v. contrast. Coronal and sagittal reformats were obtained. COMPARISON: 01/01/2016 FINDINGS: CSF space: The ventricles are normal for age. Brain: No evidence of mass, acute infarction or hemorrhage is seen. No mass-effect or midline shift is seen. The brain parenchyma is otherwise normal in appearance with preservation of the zapata-white matter junction. Calvarium: The visualized paranasal sinuses are well aerated. The mastoid air cells are clear. The visualized orbits are grossly unremarkable. The calvarium is unremarkable in appearance with no fractures identified. IMPRESSION: 1. No evidence of acute infarction, intracranial hemorrhage, or mass-effect seen. Please note that all CT scans at this facility use dose modulation, iterative reconstruction, and/or weight-based dosing when appropriate to reduce radiation dose to as low as reasonably achievable. Dictated by: Kvng Jones MD @ 01/12/2024 01:51:56 (Electronically Signed)
--- NOTE | 2024-01-12 00:16 | ED_ITS ---
HPI - Headache General Chief Complaint: Headache/Migraine Stated Complaint: headache Time Seen by Provider: 01/12/24 00:07 History of Present Illness HPI Narrative: Patient is a 38-year-old woman who was seen 2 days ago with a viral syndrome who presents with global headache nausea and fatigue. She drinks alcohol chronically in actually had 5 white claws to try to make herself feel better tonight which did not help. She is vomiting but not vomiting blood. She has no specific abdominal pain. She has had no blood in her stool. She has no stiff neck no fevers no chills. Her blood pressure is elevated upon arrival and she is noted by staff to be agitated. She states that she is not . Related Data Home Medications ?Medication ?Instructions ?Recorded ?Confirmed No Known Home Medications 01/09/24 01/09/24 Allergies Allergy/AdvReac Type Severity Reaction Status Date / Time No Known Drug Allergies Allergy Verified 01/09/24 06:14 Review of Systems Status of ROS: Reports: 10 or more systems reviewed and unremarkable except as noted in History and below PFSH PFS Social History Smoking Status: Never smoker Second hand tobacco smoke exposure: No How often do you have a drink containing alcohol: 4 or more times a week How many standard drinks containing alcohol do you have on a typical day: 7 to 9 How often do you have six or more drinks on one occasion: Daily or almost daily AUDIT-C Alcohol total score: 11 Non-prescribed substance use: denies use service: No Exam Narrative: Exam Narrative: EXAM GENERAL: Patient appears comfortable and well. EYES: No scleral icterus. ENT: Tympanic membranes and oropharynx normal. THYROID: no thyroid nodules or thyromegaly. LYMPH: No supraclavicular or cervical lymphadenopathy. SKIN: Visible skin seen during exam normal or with benign process only. EXT: No dependent lower extremity pedal edema. HEART: Regular rate and rhythm with no murmurs, rubs, or gallops. LUNGS: Clear to auscultation bilaterally with no crackles or wheezes. ABD: Soft, non tender, non distended. PSYCH: Good eye contact, speech is not pressured. Neurologic cranial nerves 2-12 grossly intact no focal defects. Const: Vital Signs, click to edit/add: Vital Signs - 24 hr 01/11/24 23:32 01/12/24 01:19 01/12/24 01:44 Temperature 96.3 F L 97.8 F Pulse Rate [Pulse Oximeter] 73 66 69 Respiratory Rate 18 16 16 Blood Pressure [Ri t Upper Arm] 196/128 H 153/102 H 146/111 H Pulse Oximetry 97 98 98 Oxygen Delivery Me thod Room Air Room Air Room Air Course Course ED Course: Patient seen and examined. 1 L of normal saline given 25 mg of IV Benadryl 30 mg of IV Toradol and 4 mg of IV Zofran given. CBC CMP ETOH CT of the head pending. Vital Signs Vital signs: Initial Vital Signs Temperature 96.3 F L 01/11/24 23:32 Temperature Source Temporal Artery Scan 01/11/24 23:32 Pulse Rate 73 01/11/24 23:32 Pulse Rhythm Regular 01/11/24 23:32 Respiratory Rate 18 01/11/24 23:32 Blood Pressure 196/128 H 01/11/24 23:32 Blood Pressure Mean 150 H 01/11/24 23:32 Blood Pressure Position Supine 01/11/24 23:32 Pulse Oximetry 97 01/11/24 23:32 Oxygen Delivery Method Room Air 01/11/24 23:32 Vital Signs Temperature 96.3 F L 01/11/24 23:32 Pulse Rate 73 01/11/24 23:32 Respiratory Rate 18 01/11/24 23:32 Blood Pressure 196/128 H 01/11/24 23:32 Pulse Oximetry 97 01/11/24 23:32 Oxygen Delivery Method Room Air 01/11/24 23:32 Temperature 97.8 F 01/12/24 01:44 Pulse Rate 69 01/12/24 01:44 Respiratory Rate 16 01/12/24 01:44 Blood Pressure 146/111 H 01/12/24 01:44 Pulse Oximetry 98 01/12/24 01:44 Oxygen Delivery Method Room Air 01/12/24 01:44 Medications Administered Medications: Discontinued Medications Generic Name Dose Route Start Last Admin Trade Name Freq PRN Reason Stop Dose Admin Diphenhydramine HCl 25 mg 01/12/24 00:12 01/12/24 00:25 Diphenhydramine 50 Mg/Ml Inj IVP 01/12/24 00:13 25 mg ONCE ONE Administration Sodium Chloride 1,000 mls @ 1,000 mls/hr 01/12/24 00:13 01/12/24 01:22 0.9 % Sodium Chloride 1000 Ml IV 01/12/24 01:12 Infused .Q1H RUBEN Infusion Ketorolac Tromethamine 30 mg 01/12/24 00:12 01/12/24 00:22 Ketorolac 30 Mg/Ml Inj IVP 01/12/24 00:13 30 mg ONCE ONE Administration Ondansetron HCl 4 mg 01/12/24 00:12 01/12/24 00:21 Ondansetron 2 Mg/Ml Inj IVP 01/12/24 00:13 4 mg ONCE ONE Administration MDM - Headache MDM Narrative Medical decision making narrative: Patient presents with headache general malaise and fatigue. She has been drinking and her blood alcohol is 0.12. She has elevated liver function tests that are chronic appearing. Patient was given IV Toradol IV normal saline Zofran and Benadryl with minimal change in her symptoms. Patient would like to go home now and not wait for the rest for results. Head CT in the remainder of the labs are normal on my review and I will follow up based on the radiology impression. Patient is intoxicated. This is certainly not helping her chronic headache. I did recommend close outpatient follow-up and she does have a follow-up visit. Lab Data Labs: Lab Results 01/12/24 Range/Units 01:05 WBC 8.37 (4.50-11.00) K/uL RBC 4.20 (4.00-5.20) m/uL Hgb 13.3 (12.0-16.0) gm/dL Hct 39.2 (33.0-51.0) % MCV 93 (80-100) fL MCH 32 (26-34) pg MCHC 34 (32-36) gm/dL RDW Coeff of Elliott 11.8 (11.5-15.5) % Plt Count 264 (140-440) K/uL Neut % (Auto) 68.1 (42.0-72.0) % Lymph % (Auto) 19.7 L (20-44) % [place] % (Auto) 9.0 (0.0-11.0) % Eos % (Auto) 2.6 (0.0-7.0) % Baso % (Auto) 0.4 (0.0-3.0) % Neut # (Auto) 5.70 (1.7-7.0) K/uL Lymph # (Auto) 1.60 (0.90-2.90) K/uL [place] # (Auto) 0.80 (0.00-0.90) K/UL Eos # (Auto) 0.22 (0.00-0.50) K/uL Baso # (Auto) 0.03 (0.00-0.30) K/uL Abs Immat Gran (auto) 0.02 (0.00-0.30) K/uL Imm/Tot Granulo (auto) 0.2 % Sodium 137 (135-149) mmol/L Potassium 3.4 L (3.6-5.1) mmol/L Chloride 104 (96-114) mmol/L Carbon Dioxide 22 (20-32) mmol/L Anion Gap 11 (7-15) mEq/L BUN 2 L (5-24) mg/dL Creatinine 0.4 L (0.5-1.5) mg/dL Estimated Creat Clear 208.24 Estimated GFR 131 ml/min Glucose 87 (60-115) mg/dL Calcium 9.4 (8.4-10.6) mg/dL Total Bilirubin 0.6 (0.1-1.5) mg/dL AST 92 H (12-35) U/L ALT 53 H (4-35) U/L Alkaline Phosphatase 63 (40-150) U/L Total Protein 7.6 (6.0-8.3) g/dL Albumin 4.5 (3.3-5.0) g/dL Ethyl Alcohol 0.12 H (0.01-0.03) % Discharge Plan Discharge Clinical Impression: Headache Patient Disposition: Home, Self-Care Condition: Stable Instructions: Acute Headache (ED) Additional Instructions: Rest Motrin as needed Cut down on alcohol intake Keep primary care follow-up. Activity Level: No Restrictions Discharge Diet: Regular Prescriptions: No Action No Known Home Medications Follow Up/Referrals: Provider,Not a Local [Primary Care Provider] - Stand Alone Forms: [employer] Info Instructions
[2024-01-12] MEDS: 0.9 % SODIUM CHLORIDE 1000 ml 1,000 ML IV (00:20)
[2024-01-12] MEDS: ONDANSETRON 2 MG/ML inj 4 MG IVP (00:21)
[2024-01-12] MEDS: KETOROLAC 30 MG/ML inj IVP (00:22)
[2024-01-12] MEDS: diphenhydrAMINE 50 MG/ML inj 25 MG IVP (00:25)
--- OUTSIDE RECORDS SUMMARY | 2024-01-12 00:50 | XMS_ITS | Encounter Summary ---
Author Organization [place] Address [address] [place] [address] Care Team Providers Care Patient Assessment Coordinator Name Role Phone Alex Koo MD Primary Care Provider + Alex Koo MD Primary Care Provider + Alex Koo MD Unavailable + Alex Koo MD Unavailable + Alex Koo MD Unavailable + Radha Knight APRN [employer] Unavailable + Dinesh Mac MD Unavailable [facility] Yancy Ramirez MD Unavailable [phone] Alex Koo MD Unavailable + Rosa Moyer CNM Unavailable [phone] Barbara Cheng MD Unavailable [phone] Umesh Lima PA-C Unavailable + Umesh Lima PA-C Unavailable + Alex Koo MD Unavailable + Umesh Lima PA-C Unavailable + Encounter Details Date Type Department Care Team (Late st Contact Info) Description 07/24/2018 [facility] [address], [address] [place] [address] Mary Joshi CMA Social History Tobacco Use [...] 2:01 PM CDT Left message on personal Betweenmail to return call. 2nd outreach. Mary Joshi CMA (AAMA) documented in this encounter Plan of Treatment Upcoming Encounters Date Type Department Care Team (Late st Contact Info) Description 01/15/2024 2:30 PM CDT Virtual Visit [facility] [address] [facility] [place] [address] [place] [address] [facility] [place] [address] documented as of this encounter Visit Diagnoses Not on filedocumented in this encounter Additional Health Concerns Assessment Noted Time PHQ-9 Depression Total Score: 2 11/17/19 17 7:16 AM CDT documented as of this encounter Care Teams Patient Assessment Coordinator Relationship Specialty Start Date End Date Alex Koo MD PCP - General Family Practice 04/19/16 10/26/20 [place] [address] [address] [place] [address] PCP - General Family Practice 10/27/20 [place] [address] [place] [address] PCP - Assigned PCP 07/22/18 08/14/18 Alex Koo MD Family Practice 10/27/20 [place] [address] [place] [address] Assigned PCP 07/22/18 11/16/19 Radha Knight APRN [facility] [address] [place], [place] [id number] Assigned PCP 11/17/19 03/14/20 Dinesh Mac MD [address] [facility] [place] [address] Assigned PCP 03/15/20 08/15/20 [place] [address] [place], [place] [id number] Assigned PCP 08/16/20 11/21/20 [place] [address] [place] [address] Assigned PCP 11/22/20 05/20/22 Rosa Moyer CNM [address] [place] [id number] Assigned OBGYN Provider 12/25/2004/08 Barbara Cheng MD [address] [place] [address] Assigned OBGYN Provider 04/09/22 Umesh Lima PA-C [address] [place] [address] Assigned PCP 05/21/22 10/02/23 Umesh Lima PA-C [address] [place], [place] [address] Assigned Pain Medication Provider 06/20/22 12/09/22 [place] [address] [place] [address] Assigned PCP 10/03/23 01/01/24 Umesh Lima PA-C [address] [place] [address] Assigned PCP 01/02/24 documented as of this encounter
--- OUTSIDE RECORDS SUMMARY | 2024-01-12 00:50 | XMS_ITS | Encounter Summary ---
Author Organization [place] Address [address] [place] [address] Care Team Providers Care Manager Of Digital Name Role Phone Alex Koo MD Primary Care Provider + Alex Koo MD Unavailable [phone] Alex Koo MD Unavailable [phone] Reason for Referral * Diagnostic Imaging XR (Routine) - Pending Review Specialty Diagnoses / Procedures Referred By Contac t Referred To Contact Radiology. Diagnoses Injury of right hand, initial encounter Procedures XR Hand Right G/E 3 Views Tequila Ojeda PA-C [address] [place] [address] Referral ID Status Reason Start Date Expiration Date V isits Requested Visits Authorized [id number] Pending Review 12/05/2023 12/04/2024 1 1 Reason for Visit * Reason Comments Urgent Care Had rt hand crushed by horse 2d ago. Progressive swelling and bruising. Encounter Details Date Type Department Care Team (Late st Contact Info) Description 12/05/2023 6:45 PM CDT Office Visit [facility] [place] [address] [place] [phone] Tequila Ojeda PA-C [address] [place] [address] Injury of right hand, initial [...] sent through Care Everywhere. * Contusion: Hand ([place] Islander) documented in this encounter Progress Notes * [...] Symptoms failing to improve. Tequila Ojeda PA-C [facility] [place] Phyllis Harmon is a 38 year old [...] XR HAND RIGHT G/E 3 VIEWS LOCATION: [facility] DATE: 12/05/2023 INDICATION: swelling ecchymosis dorsum of hand, more tender 4th and 5th metacarpals COMPARISON: None. IMPRESSION: Normal joint spaces and alignment. No fracture. documented in this encounter Plan of Treatment Upcoming Encounters Date Type Department Care Team (Late st Contact Info) Description 01/15/2024 2:30 PM CDT Virtual Visit [facility] [address] [place] [address] [place] [address] [place] [address] documented as of this encounter Results * XR Hand Right G/E 3 Views (12/05/2023 7:42 PM CDT) Anatomical Region Laterality Modality Hand, Wrist Right Computed Radiogr aphy 12/05/2023 7:42 PM CDT Impressions 12/05/2023 7:45 PM CDT IMPRESSION: Normal joint spaces and alignment. No fracture. Narrative 12/05/2023 7:45 PM CDT EXAM: XR HAND RIGHT G/E 3 VIEWS LOCATION: [facility] DATE: 12/05/2023 INDICATION: swelling ecchymosis dorsum of hand, more tender 4th and 5th metacarpals COMPARISON: None. Procedure Note Stephen Piedra MD - 12/05/2023 EXAM: XR HAND RIGHT G/E 3 VIEWS LOCATION: [facility] DATE: 12/05/2023 INDICATION: swelling ecchymosis dorsum [...] documented as of this encounter Care Teams Manager Of Digital Relationship Specialty [place] [address] [address] [address] PCP - General Family Practice 10/27/20 [place] [address] [address] [place] [address] Family Practice 10/27/20 [place] [address] [place] [address] Assigned PCP 10/03/23 01/01/24 documented as of this encounter
--- OUTSIDE RECORDS SUMMARY | 2024-01-12 00:50 | XMS_ITS | Encounter Summary ---
Author Organization [place] Address [address] [place] [address] Care Team Providers Care Chief Lending Officer Name Role Phone Alex Koo MD Primary Care Provider + Alex Koo MD Unavailable +September Vicki IBRAHIM Unavailable [phone] Alex Koo MD Unavailable + Rosa Moyer CNM Unavailable [phone] Barbara Cheng MD Unavailable [phone] Umesh Lima PA-C Unavailable + Umesh [...] as of this encounter Plan of Treatment Upcoming Encounters Date Type Department Care Team (Late Contact Info) Description 01/15/2024 2:30 PM CDT Virtual Visit [address] [address] [place] [address] [place] [address] documented as of this encounter Visit Diagnoses Not on filedocumented in this encounter Additional Health Concerns Assessment Noted Time PHQ-9 Depression Total Score: 4 07/31/19 21 5:02 PM ANALYTICS LEADER documented as of this encounter Care Teams Chief Lending Officer Relationship Specialty [place] [address] [place] [address] PCP - General Family Practice 10/27/20 [place] [address] [place] [address] Family Practice 10/27/20 [place] [address] [place] [address] Assigned PCP 08/16/20 11/21/20 [place] [address] [place] [address] Assigned PCP 11/22/20 05/20/22 Rosa Moyer CNM [address] [place] [address] Assigned OBGYN Provider 12/25/2004/08 Barbara Cheng MD [address] [place] [address] Assigned OBGYN Provider 04/09/22 Umesh Lima PA-C [address] [place] [address] Assigned PCP 05/21/22 10/02/23 Umesh Lima PA-C [address] [place] [address] Assigned Pain Medication Provider 06/20/22 12/09/22 [place] [address] [place] [address] Assigned PCP 10/03/23 01/01/24 Umesh Lima PA-C [address] [place] [address] Assigned PCP 01/02/24 documented as of this encounter
--- OUTSIDE RECORDS SUMMARY | 2024-01-12 00:50 | XMS_ITS | Clinical Summary ---
Author Organization [place] Address [address] [place] [address] Care Team Providers Care Black Top Raker Name Role Phone Alex Koo MD Primary Care Provider + Alex Koo MD Unavailable [phone] Umesh Lima PA-C Unavailable [phone] Allergies No known active allergies Medications Medication [...] for moderate pain 10 tablet 12/05/2023 Active sertraline (ZOLOFT) 100 MG tabletIndications:M ild episode of recurrent major depressive disorder (H24) Take 1 tablet (100 mg) by mouth daily 90 tablet 01/11/2024 Active Active Problems Patient Care Coordination No te Formatting of this note migh t be different from the original. [email or web address] Problem Noted Date Diagnosed Date Jaw pain 08/09/2021 Otalgia, right 08/09/2021 Recurrent major depressive d isorder, in full remission (H24) 12/08/2020 Acetabular labrum tear 01/02/2014 Encounter for medication refill 12/25/2013 Overview: Pain agreement signed 12/25/13. Percocet 5/325 #60 per month. Diagnosis: left hip pain, SI inflammation, possible left labral hip tear. [facility] Amie Stoll, .................... 12/25/2013 11:48 AM SI (sacroiliac) joint [...] Description 12/05/2023 7:30 PM CDT Ancillary Procedure [place] [id number] [place] [phone] Tequila Ojeda PA-C Injury of right hand, initial encounter 12/05/2023 6:45 PM CDT Office Visit [facility] [address] [place] [address] Tequila Ojeda PA-C Injury of right hand, [...] 12/05/2023 7:04 PM CDT Plan of Treatment Upcoming Encounters Date Type Department Care Team (Late st Contact Info) Description 01/15/2024 2:30 PM CDT Virtual [facility] [address] [place] [address] [place] [address] [facility] [place] [address] Health Maintenance Due Date Last Done Comments [...] 08/09/2021, 10/10, 03/02/2020 HPV FOLLOW-UP 04/06/2025 04/06/2022, 070 12/2020, 02/23/2012, Additional history exists PAP FOLLOW-UP [...] BASIC METABOLIC PANEL Routine 08/09/2021 2:53 PM EAP COUNSELOR Jaw pain from Last 3 Months or [...] XR HAND RIGHT G/E 3 VIEWS LOCATION: [facility] DATE: 12/05/2023 INDICATION: swelling ecchymosis dorsum of hand, more tender 4th and 5th metacarpals COMPARISON: None. Procedure Note Stephen Piedra MD - 12/05/2023 EXAM: XR HAND RIGHT G/E 3 VIEWS LOCATION: [facility] DATE: 12/05/2023 INDICATION: swelling ecchymosis dorsum of hand, more tender 4th and 5thmetacarpals COMPARISON: None. IMPRESSION: Normal joint spaces and alignment. No fracture. Tequila Ojeda PA-C [facility] ORDERABLES * Pap diagnostic with [...] component of this testing was completed at [facility] 04/08/2022 2:31 PM CDT SPECIALTY LABS Brushing CERVIX UTERI STRUCTURE / Unknown Non-blood Collection / Unknown 04/06/2022 3:42 PM CDT 04/06/2022 4:02 PM CDT Barbara SALAZAR - [facility]ULE[facility] Specialty Lab [address] [facility], [address] [place] [address], [facility] [phone] * HPV High Risk Types DNA Cervical (04/06/2022 3:42 PM CDT) Other HR HPV Negative Negative 04/12/2022 2:09 PM CDT [facility]ST[facility] HPV16 DNA Negative Negative 04/12/2022 2:09 PM CDT [facility] HPV18 DNA Negative Negative 04/12/2022 2:09 PM CDT [facility]ST[facility] FINAL DIAGNOSIS This patient's sample is negative for HPV DNA. This test was developed and its performance characteristics determined by the [facility], Molecular Diagnostics Laboratory. It has not [...] Cheng MD LAB - BLOOD ORDERABL ES [facility] [address] [facility], [address] [place] [address], [facility] [phone] * Basic metabolic panel (08/09/2021 2:53 PM EAP COUNSELOR) Sodium 142 136 - 145 mmol/L 08/09/2021 8:36 PM EAP COUNSELOR [facility] Potassium 4.4 3.5 - 5.0 mmol/L 08/09/2021 8:36 PM EAP COUNSELOR [facility] Chloride 104 98 - 107 mmol/L 08/09/2021 8:36 PM EAP COUNSELOR [facility] Carbon Dioxide (CO2) 25 22 - 31 mmol/L 08/09/2021 8:36 PM EAP COUNSELOR [facility] Anion Gap 13 5 - 18 mmol/L 08/09/2021 8:36 PM EAP COUNSELOR [facility] Urea Nitrogen 9 8 - 22 mg/dL 08/09/2021 8:36 PM EAP COUNSELOR [facility] Creatinine 0.67 0.60 - 1.10 mg/dL 08/09/2021 8:36 PM EAP COUNSELOR [facility] Calcium 10.0 8.5 - 10.5 mg/dL 08/09/2021 8:36 PM EAP COUNSELOR [facility] Glucose 89 70 - 125 mg/dL 08/09/2021 8:36 PM EAP COUNSELOR [facility] GFR Estimate >90 >60 mL/min/1.7 3m2 08/09/2021 8:36 PM EAP COUNSELOR [facility] Comment:Effective May 132020 eGFRcr in adults is calculated using the 2020 CKD-EPI creatinine equation which includes age and gender (Beata et al., NEJM, DOI: 10.1056/MQLCbh6082539) Blood STRUCTURE OF RIGHT UPPER LIMB / Unknown Venipuncture / Unknown 08/09/2021 2:53 PM EAP COUNSELOR 08/09/2021 2:53 PM EAP COUNSELOR Ky Aguirre PA-C LAB - BLOOD ORDERAB LES [facility] Organization Address City/State/ZIP Co de Phone Number [facility] [phone] [place] [address] from Last 3 Months or Most Recently Relevant to Health Maintenance Care Teams Black Top Raker Relationship Specialty [place] [address] [place] [address] PCP - General Family Practice 10/27/20 [place] [address] [place] [address] Family Practice 10/27/20 Umesh Lima PA-C [address] [place] [address] Assigned PCP 01/02/24
--- OUTSIDE RECORDS SUMMARY | 2024-01-12 00:50 | XMS_ITS | Referral Summary ---
Author Organization [place] Address [address] [place] [address] Care Team Providers Care Dosimetrist Name Role Phone Alex Koo MD Primary Care Provider + Alex Koo MD Unavailable [phone] Umesh Lima PA-C Unavailable + [phone] Encounters Date Type Department Care Team Description 12/05/2023 7:30 PM CDT Ancillary Procedure [address] [address] Tequila Ojeda PA-C Injury of right hand, initial encounter 12/05/2023 Travel 12/05/2023 6:45 PM CDT Office Visit [facility] [address] [phone] Tequila Ojeda PA-C Injury of right hand, [...] migh t be different from the original. [email or web address] Problem Noted Date Diagnosed Date Jaw pain 08/09/2021 Otalgia, right 08/09/2021 Recurrent major depressive d isorder, in full remission (H24) 12/08/2020 Acetabular labrum tear 01/02/2014 Encounter for medication refill 12/25/2013 Overview: Pain agreement signed 12/25/13. Percocet #60 per month. Diagnosis: left hip pain, [...] 01/15/2024 2:30 PM CDT Virtual Visit [facility] [address] [place] [address] [place] [address] [place] [address] Procedures Procedure Name Priority Date/Time Associated Diagnosis [...] BASIC METABOLIC PANEL Routine 08/09/2021 2:53 PM STEEL DIE PRESS SET UP OPERATOR Jaw pain from Last 3 Months or [...] XR HAND RIGHT G/E 3 VIEWS LOCATION: [facility] DATE: 12/05/2023 INDICATION: swelling ecchymosis dorsum of hand, more tender 4th and 5th metacarpals COMPARISON: None. Procedure Note Stephen Piedra MD - 12/05/2023 EXAM: XR HAND RIGHT G/E 3 VIEWS LOCATION: [facility] DATE: 12/05/2023 INDICATION: swelling ecchymosis dorsum of [...] component of this testing was completed at [facility] 04/08/2022 2:31 PM CDT SPECIAL[facility] LAB[facility] Brushing CERVIX UTERI STRUCTURE / Unknown Non-blood Collection / Unknown 04/06/2022 3:42 PM CDT 04/06/2022 4:02 PM CDT Barbara SALAZAR - ZULEMA [facility] Specialty Lab [address] [facility], Room [address] [place] [address], [facility] [phone] * HPV High Risk Types DNA Cervical (04/06/2022 3:42 PM CDT) Other HR HPV Negative Negative 04/12/2022 2:09 PM CDT [facility] HPV16 DNA Negative Negative 04/12/2022 2:09 PM CDT [facility] HPV18 DNA Negative Negative 04/12/2022 2:09 PM CDT [facility] FINAL DIAGNOSIS This patient's sample is negative for HPV DNA. This test was developed and its performance characteristics determined by the [facility], Molecular Diagnostics Laboratory. It has not [...] followup is recommended. 04/12/2022 2:09 PM CDT [facility] Brushing CERVIX UTERI STRUCTURE / Unknown Non-blood Collection / Unknown 04/06/2022 3:42 PM CDT 04/11/2022 9:01 AM CDT Barbara Cheng MD LAB - BLOOD ORDERABL ES [facility] Molecular Diagnostics [address] [facility], [address] [place] [phone], [facility] [phone] * Basic metabolic panel (08/09/2021 2:53 PM STEEL DIE PRESS SET UP OPERATOR) Sodium 142 136 - 145 mmol/L 08/09/2021 8:36 PM STEEL DIE PRESS SET UP OPERATOR [facility] Potassium 4.4 3.5 - 5.0 mmol/L 08/09/2021 8:36 PM STEEL DIE PRESS SET UP OPERATOR [facility] Chloride 104 98 - 107 mmol/L 08/09/2021 8:36 PM STEEL DIE PRESS SET UP OPERATOR [facility] Carbon Dioxide (CO2) 25 22 - 31 mmol/L 08/09/2021 8:36 PM STEEL DIE PRESS SET UP OPERATOR [facility] Anion Gap 13 5 - 18 mmol/L 08/09/2021 8:36 PM STEEL DIE PRESS SET UP OPERATOR [facility] Urea Nitrogen 9 8 - 22 mg/dL 08/09/2021 8:36 PM STEEL DIE PRESS SET UP OPERATOR [facility] Creatinine 0.67 0.60 - 1.10 mg/dL 08/09/2021 8:36 PM STEEL DIE PRESS SET UP OPERATOR [facility] Calcium 10.0 8.5 - 10.5 mg/dL 08/09/2021 8:36 PM STEEL DIE PRESS SET UP OPERATOR [facility] Glucose 89 70 - 125 mg/dL 08/09/2021 8:36 PM STEEL DIE PRESS SET UP OPERATOR [facility] GFR Estimate >90 >60 mL/min/1.7 3m2 08/09/2021 8:36 PM STEEL DIE PRESS SET UP OPERATOR [facility] Comment:Effective May 132020 eGFRcr in adults is calculated using the 2020 CKD-EPI creatinine equation which includes age and gender (Beata et al., NEJ, DOI: 10.1056/WGCMme1946357) Blood STRUCTURE OF RIGHT UPPER LIMB / Unknown Venipuncture / Unknown 08/09/2021 2:53 PM STEEL DIE PRESS SET UP OPERATOR 08/09/2021 2:53 PM STEEL DIE PRESS SET UP OPERATOR Ky Aguirre PA-C LAB - BLOOD ORDERAB LES [facility] Organization Address City/State/ZIP Co de Phone Number [facility] [address] [phone] from Last 3 Months or Most Recently Relevant to Health Maintenance Care Teams Dosimetrist Relationship Specialty [place] [address] [place] [address] PCP - General Family Practice 10/27/20 [place] [address] [place] [address] Family Practice 10/27/20 Umesh Lima PA-C [address] [place] [address] Assigned PCP 01/02/24
--- OUTSIDE RECORDS SUMMARY | 2024-01-12 00:50 | XMS_ITS | Encounter Summary ---
Author Organization [place] Address [address] [place] [address] Care Team Providers Care Bead Forming Machine Set Up Operator Name Role Phone Alex Koo MD Primary Care Provider + Alex Koo MD Unavailable [phone] Alex Koo MD Unavailable [phone] Encounter Details Date Type Department Care Team [...] Description 01/15/2024 2:30 PM CDT Virtual Visit [facility] [address] [place] [address] [place] [address] [place] [address] documented as of this encounter Visit Diagnoses Not on filedocumented in this encounter Additional Health Concerns Assessment Noted Time PHQ-9 Depression Total Score: 5 03/29/20 22 8:19 AM CDT documented as of this encounter Care Teams Bead Forming Machine Set Up Operator Relationship Specialty [place] [address] [place] [address] PCP - General Family Practice 10/27/20 [place] [address] [place] [address] Family Practice 10/27/20 [place] [address] [place] [address] Assigned PCP 10/03/23 01/01/24 documented as of this encounter
--- OUTSIDE RECORDS SUMMARY | 2024-01-12 00:50 | XMS_ITS | Encounter Summary ---
Author Organization [place] Address [facility] [place] [address] Care Team Providers Care Panel Installer Name Role Phone Alex Koo MD Primary Care Provider + Alex Koo MD Unavailable [phone] Alex Koo MD Unavailable [phone] Reason for Visit * Diagnostic Imaging XR (Routine) - Pending Review Specialty Diagnoses / Procedures Referred By Contac t Referred To Contact Radiology. Diagnoses Injury of right hand, initial encounter Procedures XR Hand Right G/E 3 Views Tequila Ojeda PA-C [address] [place] [address] Referral ID Status Reason Start Date Expiration Date V isits Requested Visits Authorized [id number] Pending Review 12/05/2023 12/04/2024 1 1 Encounter Details Date Type Department Care Team (Latest Contact Info) Description 12/05/2023 7:30 PM CDT Ancillary Procedure [facility] [address] [place] [address] Tequila Ojeda PA-C [address] [place] [address] Injury of right hand, initial [...] Description 01/15/2024 2:30 PM CDT Virtual Visit [facility] [address] [place] [address] [place] [address] [place] [address] documented as of this encounter Procedures Procedure [...] XR HAND RIGHT G/E 3 VIEWS LOCATION: [facility] DATE: 12/05/2023 INDICATION: swelling ecchymosis dorsum of hand, more tender 4th and 5th metacarpals COMPARISON: None. Procedure Note Stephen Piedra MD - 12/05/2023 EXAM: XR HAND RIGHT G/E 3 VIEWS LOCATION: [facility] DATE: 12/05/2023 INDICATION: swelling ecchymosis dorsum of hand, more tender 4th and 5thmetacarpals COMPARISON: None. IMPRESSION: Normal joint spaces and alignment. No fracture. Tequlia Ojeda PA-C [facility] ORDER[facility] documented in this encounter Visit Diagnoses Diagnosis Injury of right hand, initial encounter documented in this encounter Additional Health Concerns Assessment Noted Time PHQ-9 Depression Total Score: 5 03/29/20 22 8:19 AM CDT documented as of this encounter Care Teams Panel Installer Relationship Specialty [place] [address] [place] [address] PCP - General Family Practice 10/27/20 [place] [address] [place] [address] Family Practice 10/27/20 [place] [address] [place] [address] Assigned PCP 10/03/23 01/01/24 documented as of this encounter
--- OUTSIDE RECORDS SUMMARY | 2024-01-12 00:51 | XMS_ITS | Clinical Summary ---
Author Organization [employer] [facility] Address [place], [place] [address] Care Team Providers Care Refrigerator Room Clerk Name Role Phone Pcp, No Primary Care [...] Procedure Name Priority Date/Time Associated Diagnosis Comments TREE TOPPER THIN PREP PAP DIAGNOSTIC IMAGED Routine 02/23/2012 1:31 PM CDT Screening for malignant neoplasm of the cervix from Last 3 Months or Most Recently Relevant to Health Maintenance Results * TREE TOPPER THIN PREP PAP DIAGNOSTIC IMAGED (02/23/2012 1:31 PM CDT) CYTOLOGY CYTOPATHOLOGY REPORT [facility] Status: Final Status ?[id number] CLINICAL INFORMATION Last Date of LMP ? :02/04/2012 Last Pap Date ?:06/04/2010 Last Pap Result ?:NIL ABN [place]/Bx Past 5 YRS :None Hormone Usage ?:None Menstrual Status ? :Regular Periods [place]/Bx done today ? :No Additional Information :None [...] COLLECTED:02/23/12 ? ACCESSIONED: ??02/24/12 ?? SIGNED: ??02/29/12 [facility] PAP [place] CODE NIL [facility] Tissue specimen (specimen) (Cervical/Vagina l) 02/23/2012 1:31 PM CDT 02/23/2012 1:27 PM CDT Barbara Cassidy MD PATHOLOGY/CYTOLOGY [facility] INTERNAL ZIP [address] [place] [address] from Last 3 Months or Most Recently Relevant to Health Maintenance Care Teams Refrigerator Room Clerk Relationship Specialty Start Date End Date Pcp, No . PCP - General 03/21/16
--- OUTSIDE RECORDS SUMMARY | 2024-01-12 00:51 | XMS_ITS | Encounter Summary ---
Author Organization [place] Address [address] [place] [address] Care Team Providers Care Model Set Artist Name Role Phone Alex Koo MD Primary Care Provider + Alex Koo MD Primary Care Provider + Alex Koo MD Unavailable + Radha Knight HOME HEALTH CARE CASE MANAGER ICT BUSINESS ANALYST Unavailable + Alex Koo MD Unavailable + Radha Knight HOME HEALTH CARE CASE MANAGER ICT BUSINESS ANALYST Unavailable + Alex Koo MD Unavailable + Radha Knight HOME HEALTH CARE CASE MANAGER ICT BUSINESS ANALYST Unavailable + Dinesh Mac MD Unavailable [facility] September Vicki IBRAHIM Unavailable [phone] Alex Koo MD Unavailable + Rosa MoyerM Unavailable [phone] Barbara Cheng MD Unavailable [phone] Umesh Lima PA-C Unavailable + Umesh Lima PA-C Unavailable + Alex Koo MD Unavailable + Umesh Lima PA-C Unavailable Reason for Visit * Reason Onset Date Comments Outreach 11/24/2017 [facility] ATT 1 Outreach 12/29/2017 [facility] ATT 2 Encounter Details Date Type Department Care Team (Late st Contact Info) Description 11/24/2017 Telephone M [address], [address] [place] [address] [place] Radhamarie Duenas, HOME HEALTH CARE CASE MANAGER ICT BUSINESS ANALYST [address] [place] [address] Outreach (PHS ATT 1); Outreach (PHS ATT [...] encounter Miscellaneous Notes * Telephone Encounter - Christie Singh - 12/29/2017 12:51 PM CDT 12/29/2017 Call Regarding Preventive Health Screening Cervical/PAP Attempt 2 Message on voicemail Comments: Outreach Copywriting Intern CC * Telephone Encounter - Singh Christie - 11/24/2017 11:20 AM CDT 11/24/2017 Call Regarding Preventive Health Screening Cervical/PAP Attempt 1 Message on voicemail Comments: Outreach Copywriting Intern CC documented in this encounter Plan of Treatment Upcoming Encounters Date Type Department Care Team (Late st Contact Info) Description 01/15/2024 2:30 PM CDT Virtual Visit [facility] [address] [place] [address] [place] [address] [place] [address] documented as of this encounter Visit Diagnoses Not on filedocumented in this encounter Additional Health Concerns Assessment Noted Time PHQ-9 Depression Total Score: 2 11/17/19 17 7:16 AM CDT documented as of this encounter Care Teams Model Set Artist Relationship Specialty Start Date End Date Alex Koo MD PCP - General Family Practice 04/19/16 10/26/20 [place] [address] [place], [place] [address] PCP - General [facility] Practice 10/27/20 Radha Knight APRN ICT BUSINESS ANALYST [address] [place] [address] PCP - Assigned PCP 11/19/17 07/21/18 [place] [address] [address] [place], [place] [address] PCP - Assigned PCP 07/22/18 08/14/18 Alex Koo MD Family Practice 10/27/20 Radha Knight APRN ICT BUSINESS ANALYST [address] [place] [address] Assigned PCP 11/19/17 07/21/18 [place] [address] [place] [address] Assigned PCP 07/22/18 11/16/19 Radha Knight APRN ICT BUSINESS ANALYST [address] [place] [address] Assigned PCP 11/17/19 03/14/20 Dinesh Mac MD [address] [address] Assigned PCP 03/15/20 08/15/20 [place] [address] [place] [address] Assigned PCP 08/16/20 11/21/20 [place] [address] [place] [address] Assigned PCP 11/22/20 05/20/22 Rosa Moyer CNM [address] [place] [address] Assigned OBGYN Provider 12/25/2004/08 Barbara Cheng MD [address] [place] [address] Assigned OBGYN Provider 04/09/22 Umesh Lima PA-C [address] [place] [address] Assigned PCP 05/21/22 10/02/23 Umesh Lima PA-C [address] [place] [address] Assigned Pain Medication Provider 06/20/22 12/09/22 [place] [address] [place] [address] Assigned PCP 10/03/23 01/01/24 Umesh Lima PA-C [address] [place] [address] Assigned PCP 01/02/24 documented as of this encounter
--- OUTSIDE RECORDS SUMMARY | 2024-01-12 00:51 | XMS_ITS | Encounter Summary ---
Author Organization [place] Address [facility] [place] [address] Care Team Providers Care Piling Setter Name Role Phone Alex Koo MD Primary Care Provider + Alex Koo MD Primary Care Provider + Alex Koo MD Unavailable + Radha Knight ETL ARCHITECT RUG WASHER Unavailable + Alex Koo MD Unavailable + Radha Knight ETL ARCHITECT RUG WASHER Unavailable + Alex Koo MD Unavailable + Radha Knight ETL ARCHITECT RUG WASHER Unavailable + Dinesh Mac MD Unavailable [facility] September Vicki IBRAHIM Unavailable [phone] Alex Koo MD Unavailable + Roas MoyerM Unavailable [phone] Barbara Cheng MD Unavailable [phone] Umesh Lima PA-C Unavailable + Umesh Lima PA-C Unavailable + Alex Koo MD Unavailable + Umesh Lima PA-C Unavailable Encounter Details Date Type Department Care Team (Late st Contact Info) Description 07/12/2017 MyC Medical Advice [address], [address] [place] [phone] Mary Joshi, MEN'S LEATHER DRESS BELT MAKER Social History Tobacco Use Types Packs/Day Years [...] Description 01/15/2024 2:30 PM CDT Virtual Visit [facility] [address] [place] [address] [place] [address] [place] [address] documented as of this encounter Visit Diagnoses Not on filedocumented in this encounter Additional Health Concerns Assessment Noted Time PHQ-9 Depression Total Score: 2 11/17/19 17 7:16 AM CDT documented as of this encounter Care Teams Piling Setter Relationship Specialty Start Date End Date Alex Koo MD PCP - General Family Practice 04/19/16 10/26/[place] [address] [place] [address] PCP - General Family Practice 10/27/20 Radha Knight APRN CNP 42134 [place] [address] PCP - Assigned PCP 11/19/17 07/21/18 [place] [address] [place] [address] PCP - Assigned PCP 07/22/18 08/14/18 Alex Koo MD Family Practice 10/27/20 Radha Knight APRN RUG WASHER [address] [place] [address] Assigned PCP 11/19/17 07/21/18 [place] [address] [place] [address] Assigned PCP 07/22/18 11/16/19 Radha Knight APRN RUG WASHER [address] [place] [address] Assigned PCP 11/17/19 03/14/20 Dinesh Mac MD [address] [place] [address] Assigned PCP 03/15/20 08/15/20 [place] [address] [place] [address] Assigned PCP 08/16/20 11/21/20 [place] [address] [place] [address] Assigned PCP 11/22/20 05/20/22 Rosa Moyer CNM [address] [place] [address] Assigned OBGYN Provider 12/25/2004/08 Barbara Cheng MD [address] [place] [address] Assigned OBGYN Provider 04/09/22 Umesh Lima PA-C [address] [place] [address] Assigned PCP 05/21/22 10/02/23 Umesh Lima PA-C [address] [place] [address] Assigned Pain Medication Provider 06/20/22 12/09/22 [place] [address] [place] [address] Assigned PCP 10/03/23 01/01/24 Umesh Lima PA-C [address] [place] [address] Assigned PCP 01/02/24 documented as of this encounter
--- OUTSIDE RECORDS SUMMARY | 2024-01-12 00:51 | XMS_ITS | Encounter Summary ---
Author Organization [place] Address [facility] [place] [address] Care Team Providers Care Industrial Maintenance Electrician Name Role Phone Alex Koo MD Primary Care Provider + Alex Koo MD Primary Care Provider + Alex Koo MD Unavailable + Radha Knight PLAYERS CLUB REPRESENTATIVE RECORDING STUDIO INTERN Unavailable + Alex Koo MD Unavailable + Radha Knight PLAYERS CLUB REPRESENTATIVE RECORDING STUDIO INTERN Unavailable + Alex Koo MD Unavailable + Radha Knight PLAYERS CLUB REPRESENTATIVE RECORDING STUDIO INTERN Unavailable + Dinesh Mac MD Unavailable [facility] September Vicki IBRAHIM Unavailable [phone] Alex Koo MD Unavailable + Rosa MoyerM Unavailable [phone] Barbara Cheng MD Unavailable [phone] Umesh Lima PA-C Unavailable + Umesh Lima PA-C Unavailable + Alex Koo MD Unavailable + Umesh Lima PA-C Unavailable Encounter Details Date Type Department Care Team (Late st Contact Info) Description 02/02/2018 MyC Medical Advice [address], [address] [place] [phone] 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, CHEMICAL PROCESSING TECHNICIAN Social History Tobacco Use Types Packs/Day Years [...] 01/15/2024 2:30 PM CDT Virtual Visit [facility] [address] [place] [address] [place] [address] [place] [address] documented as of this encounter Visit Diagnoses Not on filedocumented in this encounter Additional Health Concerns Assessment Noted Time PHQ-9 Depression Total Score: 2 11/17/19 17 7:16 AM CDT documented as of this encounter Care Teams Industrial Maintenance Electrician Relationship Specialty Start Date End Date Alex Koo MD PCP - General Family Practice 04/19/16 10/26/20 [place] [address] [place] [address] PCP - General Family Practice 10/27/20 Radha Knight APRN CNP 66407 [place] [address] PCP - Assigned PCP 11/19/17 07/21/18 [place] [address] [place] [address] PCP - Assigned PCP 07/22/18 08/14/18 Alex Koo MD Family Practice 10/27/20 Radha Knight APRN RECORDING STUDIO INTERN [address] [place] [address] Assigned PCP 11/19/17 07/21/18 [place] [address] [place] [address] Assigned PCP 07/22/18 11/16/19 Radha Knight APRN RECORDING STUDIO INTERN [address] [place] [address] Assigned PCP 11/17/19 03/14/20 Dinesh Mac MD [address] [facility] [address] [place] [address] Assigned PCP 03/15/20 08/15/20 [place] [address] [place] [address] Assigned PCP 08/16/20 11/21/20 [place] [address] [place] [address] Assigned PCP 11/22/20 05/20/22 Rosa Moyer CNM [address] [place] [address] Assigned OBGYN Provider 12/25/2004/08 Barbara Cheng MD [address] [place] [address] Assigned OBGYN Provider 04/09/22 Umesh Lima PA-C [address] [place] [address] Assigned PCP 05/21/22 10/02/23 Umesh Lima PA-C [address] [place] [address] Assigned Pain Medication Provider 06/20/22 12/09/22 [place] [address] [place] [address] Assigned PCP 10/03/23 01/01/24 Umesh Lima PA-C [address] [place] [address] Assigned PCP 01/02/24 documented as of this encounter
[2024-01-12 01:11] LABS: Basophils Absolute Auto 0.03 K/uL (0.00-0.30); Basophils Percent Auto 0.4 % (0.0-3.0); Eosinophils Absolute Auto 0.22 K/uL (0.00-0.50); Eosinophils Percent Auto 2.6 % (0.0-7.0); Hematocrit 39.2 % (33.0-51.0); Hemoglobin* 13.3 gm/dL (12.0-16.0); Immature Granulocytes Abs Auto 0.02 K/uL (0.00-0.30); Immature Granulocytes Pct Auto 0.2 %; Lymphocytes Percent Auto 19.7 % (20-44); Mean Corpuscular HGB Conc 34 gm/dL (32-36); Mean Corpuscular Hemoglobin 32 pg (26-34); Mean Corpuscular Volume 93 fL (80-100); Neutrophils Percent Auto 68.1 % (42.0-72.0); Platelet Count* 264 K/uL (140-440); RDW Coefficient of Variation % 11.8 % (11.5-15.5); White Blood Count* 8.37 K/uL (4.50-11.00)
[2024-01-12 01:12] LABS: Slide Review Reflex No
[2024-01-12 01:19] VITALS: BP 153/102; PULSE 66; RESP 16; O2SAT 98
--- NOTE | 2024-01-12 01:21 | PC.NURSE ---
Pt states she is still having a lot of pain in forehead, top of head. Rates a 5/10. States she is feeling anxious also.
[2024-01-12 01:22] LABS: Albumin* 4.5 g/dL (3.3-5.0); Chloride* 104 mmol/L (96-114); Sodium* 137 mmol/L (135-149)
[2024-01-12 01:23] LABS: Potassium* 3.4 mmol/L (3.6-5.1)
[2024-01-12 01:25] LABS: Alanine Aminotransferase* 53 U/L (4-35); Alkaline Phosphatase* 63 U/L (40-150); Anion Gap 11 mEq/L (7-15); Aspartate Amino Transferase* 92 U/L (12-35); Bilirubin Total* 0.6 mg/dL (0.1-1.5); Blood Urea Nitrogen* 2 mg/dL (5-24); Carbon Dioxide* 22 mmol/L (20-32); Creatinine* 0.4 mg/dL (0.5-1.5); Est. Creatinine Clearance* 208.24; Estimated Glomerular Filt Rate 131 ml/min; Glucose* 87 mg/dL (60-115); Total Protein* 7.6 g/dL (6.0-8.3)
[2024-01-12 01:26] LABS: Calcium* 9.4 mg/dL (8.4-10.6); Ethanol* 0.12 % (0.01-0.03)
[2024-01-12 01:44] VITALS: BP 146/111; PULSE 69; RESP 16; TEMP 36.6; O2SAT 98
== END 2024-01-12 02:13 | disposition home or self-care (01) ==
PROVIDERS: Emergency Provider Internal Medicine
DX: R51.9 Headache, unspecified (principal)
CPT/HCPCS: 36415; 70450; 80053; 82077; 85025; 96361; 96374; 96375; 99283; 99284; J1200; J1885; J2405; J7030

== ENCOUNTER 2024-06-03 20:25 | Emergency (ER) | payer MEDICAID, SELFPAY ==
[2024-06-03 20:46] VITALS: BP 155/95; PULSE 85; RESP 18; TEMP 36.6; O2SAT 96; BMI 27.3
--- NOTE | 2024-06-03 20:50 | ED_ITS ---
HPI - Abdominal Pain General Time Seen by Provider: 20:51 <Latricia Middleton MD - Last Filed: 06/08/24 13:22> Date Seen: 06/03/24 <Latricia Middleton MD - Last Filed: 06/08/24 13:22> Chief Complaint: Abdominal Pain <Latricia Middleton MD - Last Filed: 06/08/24 13:22> Stated Complaint: severe abdomnial pain lower rt side <Latricia Middleton MD - Last Filed: 06/08/24 13:22> Time Seen by Provider: 06/03/24 20:46 <Latricia Middleton MD - Last Filed: 06/08/24 13:22> Source: patient and RN notes reviewed <Latricia Middleton MD - Last Filed: 06/08/24 13:22> Mode of arrival: ambulatory <Latricia Middleton MD - Last Filed: 06/08/24 13:22> Limitations: no limitations <Latricia Middleton MD - Last Filed: 06/08/24 13:22> History of Present Illness HPI narrative: This 38-year-old female is coming in with severe right lower quadrant abdominal pain that has been present since Monday. She has had no prior abdominal surgeries. She has had a history of imaging confirmed ovarian cysts that have ruptured. She states this feels different. Pain has progressively worsened. She has tried ice, heat, Tylenol, ibuprofen and it is not helping. She did vomit once last night, appetite has been diminished. She feels bloated. She had a small stool this morning but does not feel like she has had usual stool output. She is still feeling nauseated. She notes when she pushes to urinate or even when she had a bowel movement this morning, felt pain inside the abdomen the right lower quadrant. No dysuria or urinary changes in of itself. Her mom is present with her, they are not aware of any family history of appendicitis. She had been on control for control of her ovarian cysts, had been off of it for about a year and was not noting problems with her menstrual cycles or any recurrent pain. <Latricia Middleton MD - Last Filed: 06/08/24 13:22> MD elicited complaint: abdominal pain <Latricia Middleton MD - Last Filed: 06/08/24 13:22> Related Data Home Medications: Home Medications ?Medication ?Instructions ?Recorded ?Confirmed No Known Home Medications 01/09/24 01/09/24 <Latricia Middleton MD - Last Filed: 06/08/24 13:22> Allergies/Adverse Reactions: Allergies Allergy/AdvReac Type Severity Reaction Status Date / Time No Known Drug Allergies Allergy Verified 06/03/24 20:49 <Latricia Middleton MD - Last Filed: 06/08/24 13:22> Review of Systems Status of ROS Reports: 6 or more systems reviewed and unremarkable except as noted in History and below <Latricia Middleton MD - Last Filed: 06/08/24 13:22> PFSH PFSH Social History: Social History Smoking Status: Never smoker Second hand tobacco smoke exposure: No How often do you have a drink containing alcohol: 4 or more times a week How many standard drinks containing alcohol do you have on a typical day: 7 to 9 How often do you have six or more drinks on one occasion: Daily or almost daily AUDIT-C Alcohol total score: 11 Non-prescribed substance use: denies use service: No <Latricia Middleton MD - Last Filed: 06/08/24 13:22> Exam Const: Vital Signs, click to edit/add: Vital Signs - 24 hr 06/03/24 20:46 06/03/24 22:32 06/03/24 22:42 Temperature 97.8 F Pulse Rate [Pulse Oximeter] 85 74 Respiratory Rate 18 16 Blood Pressure [Ri ght Upper Arm] 155/95 H Pulse Oximetry 96 97 98 Oxygen Delivery Me thod Room Air Room Air This 38-year-old female is alert, interactive, no apparent distress. Sclera clear, no icterus. Able speak in complete sentences. Lungs are clear, good air entry, no wheezing crackles. CV regular rate and rhythm, no murmur, normal S1- S2, no S3-S4. Abdomen is soft, normal bowel sounds, no organomegaly, does not seem distended. She has right lower quadrant abdominal pain, no rebound or guarding at this time, do not feel any organomegaly. Bimanual exam deferred at this point. I do not feel any inguinal masses or bulging. <Latricia Middleton MD - Last Filed: 06/08/24 13:22> Vital Signs, click to edit/add: Vital Signs - 24 hr 06/03/24 20:46 06/03/24 22:32 06/03/24 22:42 Temperature 97.8 F Pulse Rate [Pulse Oximeter] 85 74 Respiratory Rate 18 16 Blood Pressure [Ri ght Upper Arm] 155/95 H Pulse Oximetry 96 97 98 Oxygen Delivery Me thod Room Air Room Air <Alis Mulligan MD - Last Filed: 06/04/24 01:47> Documenting provider has reviewed patient's vital signs: yes <Latricia Middleton MD - Last Filed: 06/08/24 13:22> Course Course ED Course: This 38-year-old female has history of very in cyst but she states this feels different, more severe. Discussed imaging starting with ultrasound versus CT. We did decide upon starting with CT imaging. She understands if this does appear to be ovarian, may need to follow up with pelvic ultrasound. Will get appropriate labs including urinalysis, confirmed negative urine test. We will start with Toradol 15 mg IV and 4 mg IV Zofran for symptom control. Unfortunately who with pain on the right side, need to consider disorders of the appendix, other disorders of bowel. Does not seem to be urinary but will look at urinalysis as well as see on CT imaging. <Latricia Middleton MD - Last Filed: 06/08/24 13:22> Reevaluation(s) Time of Reevaluation #1: 22:31 <Latricia Middleton MD - Last Filed: 06/08/24 13:22> Reevaluation #1: Toradol has not helped the patient at all. She has no concerning reactions prior with other pain medicines such as narcotics. Will try some IV morphine. <Latricia Middleton MD - Last Filed: 06/08/24 13:22> Time of Reevaluation #2: 23:05 <Latricia Middleton MD - Last Filed: 06/08/24 13:22> Reevaluation #2: Have reviewed that the CT showing no acute abnormality explain her pain. I do wonder if there is a small ovarian cyst when I looked at the CT images but Radiology is not commenting on anything. Given the severity of her pain, history of ovarian cysts, will proceed with pelvic ultrasound. <Latricia Middleton MD - Last Filed: 06/08/24 13:22> Time of Reevaluation #3: 01:45 <Alis Mulligan MD - Last Filed: 06/04/24 01:47> Reevaluation #3: Dr. Darian Xie inherited care from evening provider. CT and now ultrasound are reviewed and are negative. Labs were reassuring. Findings reviewed with patient. I suspect that her pain may be musculoskeletal in nature. There are no life-threatening causes found. Will dose hydrocodone p.o. x1 here in the ED but I am hesitant to give her narcotics as this could potentially mask any worsening and or other alarming symptoms. Evening provider had recommended this course of action as well. Counseled on Tylenol 1000 mg every 6 hours and or ibuprofen 600 mg every 6 hours as needed for pain. Heat as needed. If things are not improving at the 2 week eliseo, primary care follow-up, physical therapy referral and lumbar imaging. Okay to continue chiropractic adjustments. Alarm symptoms reviewed, written instructions provided. <Alis Mulligan MD - Last Filed: 06/04/24 01:47> Vital Signs Vital signs: Initial Vital Signs Temperature 97.8 F 06/03/24 20:46 Temperature Source Temporal Artery Scan 06/03/24 20:46 Pulse Rate 85 06/03/24 20:46 Respiratory Rate 18 06/03/24 20:46 Blood Pressure 155/95 H 06/03/24 20:46 Blood Pressure Mean 115 H 06/03/24 20:46 Blood Pressure Position Sitting 06/03/24 20:46 Pulse Oximetry 96 06/03/24 20:46 Oxygen Delivery Method Room Air 06/03/24 20:46 Vital Signs Temperature 97.8 F 06/03/24 20:46 Pulse Rate 85 06/03/24 20:46 Respiratory Rate 18 06/03/24 20:46 Blood Pressure 155/95 H 06/03/24 20:46 Pulse Oximetry 96 06/03/24 20:46 Oxygen Delivery Method Room Air 06/03/24 20:46 Temperature 98.3 F 06/04/24 01:30 Pulse Rate 71 06/04/24 01:30 Respiratory Rate 16 06/04/24 01:30 Blood Pressure 143/82 H 06/04/24 01:30 Pulse Oximetry 96 06/04/24 01:30 Oxygen Delivery Method Room Air 06/04/24 01:30 <Latricia Middleton MD - Last Filed: 06/08/24 13:22> Initial Vital Signs Temperature 97.8 F 06/03/24 20:46 Temperature Source Temporal Artery Scan 06/03/24 20:46 Pulse Rate 85 06/03/24 20:46 Respiratory Rate 18 06/03/24 20:46 Blood Pressure 155/95 H 06/03/24 20:46 Blood Pressure Mean 115 H 06/03/24 20:46 Blood Pressure Position Sitting 06/03/24 20:46 Pulse Oximetry 96 06/03/24 20:46 Oxygen Delivery Method Room Air 06/03/24 20:46 Vital Signs Temperature 97.8 F 06/03/24 20:46 Pulse Rate 85 06/03/24 20:46 Respiratory Rate 18 06/03/24 20:46 Blood Pressure 155/95 H 06/03/24 20:46 Pulse Oximetry 96 06/03/24 20:46 Oxygen Delivery Method Room Air 06/03/24 20:46 Temperature 98.3 F 06/04/24 01:30 Pulse Rate 71 06/04/24 01:30 Respiratory Rate 16 06/04/24 01:30 Blood Pressure 143/82 H 06/04/24 01:30 Pulse Oximetry 96 06/04/24 01:30 Oxygen Delivery Method Room Air 06/04/24 01:30 <Alis Mulligan MD - Last Filed: 06/04/24 01:47> Medications Administered Medications: Discontinued Medications Generic Name Dose Route Start Last Admin Trade Name Freq PRN Reason Stop Dose Admin Hydrocodone Bitart/Acetaminophen 1 tab 06/04/24 01:30 06/04/24 01:35 Hydrocodone-Acetamin 5-325 Mg 1 Tab PO 06/04/24 01:31 1 tab ONCE ONE Administration Ketorolac Tromethamine 15 mg 06/03/24 21:07 06/03/24 21:21 Ketorolac 15 Mg/Ml Inj IVP 06/03/24 21:08 15 mg ONCE ONE Administration Morphine Sulfate 4 mg 06/03/24 22:32 06/03/24 22:36 Morphine 4 Mg/Ml Inj IVP 06/03/24 22:33 4 mg ONCE ONE Administration Ondansetron HCl 4 mg 06/03/24 21:07 06/03/24 21:22 Ondansetron 2 Mg/Ml Inj IVP 06/03/24 21:08 4 mg ONCE ONE Administration <Latricia Middleton MD - Last Filed: 06/08/24 13:22> Discontinued Medications Generic Name Dose Route Start Last Admin Trade Name Felizq PRN Reason Stop Dose Admin Hydrocodone Bitart/Acetaminophen 1 tab 06/04/24 01:30 06/04/24 01:35 Hydrocodone-Acetamin 5-325 Mg 1 Tab PO 06/04/24 01:31 1 tab ONCE ONE Administration Ketorolac Tromethamine 15 mg 06/03/24 21:07 06/03/24 21:21 Ketorolac 15 Mg/Ml Inj IVP 06/03/24 21:08 15 mg ONCE ONE Administration Morphine Sulfate 4 mg 06/03/24 22:32 06/03/24 22:36 Morphine 4 Mg/Ml Inj IVP 06/03/24 22:33 4 mg ONCE ONE Administration Ondansetron HCl 4 mg 06/03/24 21:07 06/03/24 21:22 Ondansetron 2 Mg/Ml Inj IVP 06/03/24 21:08 4 mg ONCE ONE Administration <Alis Mulligan MD - Last Filed: 06/04/24 01:47> MDM - Abdominal Pain Differential Diagnosis Differential diagnosis: Likely abdominal pain, acute appendicitis, calculus of kidney, constipation, diverticulitis, endometriosis, gastroenteritis, pancreatitis and small bowel obstruction <Alis Mulligan MD - Last Filed: 06/04/24 01:47> Lab Data Attestation: I reviewed the patient's lab results. <Latricia Middleton MD - Last Filed: 06/08/24 13:22> Labs: Lab Results 06/03/24 06/03/24 Range/Units 21:13 21:18 WBC 8.13 (4.50-11.00) K/uL RBC 4.93 (4.00-5.20) m/uL Hgb 15.7 (12.0-16.0) gm/dL Hct 46.8 (33.0-51.0) % MCV 95 (80-100) fL MCH 32 (26-34) pg MCHC 34 (32-36) gm/dL RDW Coeff of [place] 11.7 (11.5-15.5) % Plt Count 327 (140-440) K/uL Neut % (Auto) 71.1 (42.0-72.0) % Lymph % (Auto) 16.4 L (20-44) % [place] % (Auto) 9.2 (0.0-11.0) % Eos % (Auto) 3.0 (0.0-7.0) % Baso % (Auto) 0.2 (0.0-3.0) % Neut # (Auto) 5.78 (1.7-7.0) K/uL Lymph # (Auto) 1.30 (0.90-2.90) K/uL [place] # (Auto) 0.70 (0.00-0.90) K/UL Eos # (Auto) 0.24 (0.00-0.50) K/uL Baso # (Auto) 0.02 (0.00-0.30) K/uL Abs Immat Gran (auto) 0.01 (0.00-0.30) K/uL Imm/Tot Granulo (auto) 0.1 % Sodium 137 (135-149) mmol/L Potassium 3.9 (3.6-5.1) mmol/L Chloride 101 (96-114) mmol/L Carbon Dioxide 29 (20-32) mmol/L Anion Gap 7 (7-15) mEq/L BUN 6 (5-24) mg/dL Creatinine 0.5 (0.5-1.5) mg/dL Estimated Creat Clear 166.59 Estimated GFR 124 ml/min Glucose 96 (60-115) mg/dL Lactate 1.0 (0.5-1.9) mmol/L Calcium 10.4 (8.4-10.6) mg/dL C-Reactive Protein < 0.5 L (0.5-1.0) mg/dL Urine Color Light yellow (Yellow) Urine Appearance Clear (Clear) Urine pH 6.0 (5.0-8.5) Ur Specific [place] < 1.005 (1.000-1.030) Urine Protein Negative (Negative) Urine Glucose (UA) Negative (Negative) Urine Ketones Negative (Negative) Urine Blood Negative (Negative) Urine Nitrite Negative (Negative) Urine Bilirubin Negative (Negative) Urine Urobilinogen 0.2 (0.2-1.0) Ur Leukocyte Esterase Negative (Negative) Urine RBC 0-2 (0-2) Urine WBC 0-2 (0-5) Ur Squamous Epith Cells None (None-Few) Urine Bacteria None (None) Urine HCG, Qual Negative (Negative) <Latricia Middleton MD - Last Filed: 06/08/24 13:22> Lab Results 06/03/24 06/03/24 Range/Units 21:13 21:18 WBC 8.13 (4.50-11.00) K/uL RBC 4.93 (4.00-5.20) m/uL Hgb 15.7 (12.0-16.0) gm/dL Hct 46.8 (33.0-51.0) % MCV 95 (80-100) fL MCH 32 (26-34) pg MCHC 34 (32-36) gm/dL RDW Coeff of [place] 11.7 (11.5-15.5) % Plt Count 327 (140-440) K/uL Neut % (Auto) 71.1 (42.0-72.0) % Lymph % (Auto) 16.4 L (20-44) % [place] % (Auto) 9.2 (0.0-11.0) % Eos % (Auto) 3.0 (0.0-7.0) % Baso % (Auto) 0.2 (0.0-3.0) % Neut # (Auto) 5.78 (1.7-7.0) K/uL Lymph # (Auto) 1.30 (0.90-2.90) K/uL [place] # (Auto) 0.70 (0.00-0.90) K/UL Eos # (Auto) 0.24 (0.00-0.50) K/uL Baso # (Auto) 0.02 (0.00-0.30) K/uL Abs Immat Gran (auto) 0.01 (0.00-0.30) K/uL Imm/Tot Granulo (auto) 0.1 % Sodium 137 (135-149) mmol/L Potassium 3.9 (3.6-5.1) mmol/L Chloride 101 (96-114) mmol/L Carbon Dioxide 29 (20-32) mmol/L Anion Gap 7 (7-15) mEq/L BUN 6 (5-24) mg/dL Creatinine 0.5 (0.5-1.5) mg/dL Estimated Creat Clear 166.59 Estimated GFR 124 ml/min Glucose 96 (60-115) mg/dL Lactate 1.0 (0.5-1.9) mmol/L Calcium 10.4 (8.4-10.6) mg/dL C-Reactive Protein < 0.5 L (0.5-1.0) mg/dL Urine Color Light yellow (Yellow) Urine Appearance Clear (Clear) Urine pH 6.0 (5.0-8.5) Ur Specific [place] < 1.005 (1.000-1.030) Urine Protein Negative (Negative) Urine Glucose (UA) Negative (Negative) Urine Ketones Negative (Negative) Urine Blood Negative (Negative) Urine Nitrite Negative (Negative) Urine Bilirubin Negative (Negative) Urine Urobilinogen 0.2 (0.2-1.0) Ur Leukocyte Esterase Negative (Negative) Urine RBC 0-2 (0-2) Urine WBC 0-2 (0-5) Ur Squamous Epith Cells None (None-Few) Urine Bacteria None (None) Urine HCG, Qual Negative (Negative) <Alis Mulligan MD - Last Filed: 06/04/24 01:47> Imaging Data CT scan - abdomen: Attestation: I have reviewed the pertinent imaging results. <Latricia Nunez MD - Last Filed: 06/08/24 13:22> Radiologist's impression: Patient: MARCUS SHORT Facility:[facility] Patient ID:?[id number] Site Patient ID:?[id number]. Site :?[id number] Study:?CT-Abdomen/Pelvis w/iv-06/03/2024 10:01:05 PM Ordering Physician:Osmel Rome Final Report: Indication: Right lower quadrant pain, nausea Technique: CT through the abdomen and pelvis following 93 mL Isovue 370 IV contrast Comparison: None Findings: Lower chest: No acute abnormality appreciated. Hepatobiliary: Hypodensity in segment 4, likely focal fatty infiltration but indeterminate. Spleen: Unremarkable. Pancreas: No acute abnormality appreciated. Adrenal glands: No acute abnormality appreciated. Kidneys: No significant parenchymal abnormality appreciated. No visualized calculi. No hydronephrosis. Bowel: No obstruction. No focal perienteric or pericolonic stranding is appreciated. The appendix is visualized and appears unremarkable. Vascular: No acute abnormality appreciated. Lymph nodes: No gross lymphadenopathy. Peritoneum: No free air. No free fluid. : No acute abnormality appreciated. Soft tissues: No acute abnormality appreciated. Bones: No acute fracture. No lytic or blastic lesion. Impression: 1. No acute abnormality appreciated to account for patient`s reported symptoms. 2. There is focal hypodensity in the posteromedial aspect of segment 4 of the liver, appearance most suggestive of focal fatty infiltration but overall indeterminate. Consider nonemergent outpatient liver ultrasound for further evaluation. Please note that all CT scans at this facility use dose modulation, iterative reconstruction, and/or weight-based dosing when appropriate to reduce radiation dose to as low as reasonably achievable. Dictated by Nabil Ray MD @ 06/03/2024 11:03:37 PM (Electronic Signature) <Latricia Middleton MD - Last Filed: 06/08/24 13:22> US pelvis: Attestation: I have reviewed the pertinent imaging results. <Alis Mulligan MD - Last Filed: 06/04/24 01:47> My impression: Negative pelvic ultrasound <Alis Mulligan MD - Last Filed: 06/04/24 01:47> Radiologist's impression: Findings: Uterus: 7.1 x 3.7 x 4.0 centimeters. No masses or other significant parenchymal abnormality appreciated. Endometrium: 8 millimeters. Endometrium appears homogeneous. Right ovary: 3.4 x 2.0 x 2.1 centimeters. Unremarkable sonographic appearance. Arterial and venous waveforms detected. Left ovary: 3.0 x 1.5 x 2.0 centimeters. Unremarkable sonographic appearance. Arterial and venous waveforms detected. Other: No free fluid. Impression: No significant sonographic abnormality appreciated. Dictated by Nabil Ray MD @ 06/04/2024 1:30:43 AM (Electronic Signature) <Alis Mulligan MD - Last Filed: 06/04/24 01:47> Discharge Plan Discharge Clinical Impression: Pelvic pain <Latricia Middleton MD - Last Filed: 06/08/24 13:22> Patient Disposition: Home w/ Parent or Adult <Latricia Middleton MD - Last Filed: 06/08/24 13:22> Additional Instructions: As we discussed, there are no signs of appendicitis, ovarian cyst, free fluid in the pelvis, kidney stones, infection or other abnormality. My guess is that your symptoms are most likely musculoskeletal in nature. These tend to resolve after about 5-7 days. It is okay for you to continue performing your typical activities, increase your food intake as tolerated. He should come back to emergency room if you have significant weakness in your legs, loss of bowel or bladder function, high fevers, bloody stools or other signs of serious abnormality. For pain, I recommend Tylenol 1000 mg every 6 hours and or ibuprofen 600 mg every 6 hours. It is okay to use heating pads, stretching as needed. It is okay to continue chiropractic adjustments if you find these helpful. If symptoms are still bothersome at the 2 week eliseo, I would recommend primary care follow-up for referral to physical therapy and/or consideration of more complete imaging of the lumbar spine. We do see some elements of this on the tests that we performed today but it would not be comprehensive. <Latricia Middleton MD - Last Filed: 06/08/24 13:22> Activity Level: No Restrictions <Latricia Middleton MD - Last Filed: 06/08/24 13:22> No Restrictions <Alsi Mulligan MD - Last Filed: 06/04/24 01:47> Discharge Diet: Regular <Latricia Middleton MD - Last Filed: 06/08/24 13:22> Regular <Alis Mulligan MD - Last Filed: 06/04/24 01:47> Prescriptions: No Action No Known Home Medications <Latricia Middleton MD - Last Filed: 06/08/24 13:22> Follow Up/Referrals: Provider,Not a Local [Primary Care Provider] - <Latricia Middleton MD - Last Filed: 06/08/24 13:22> Stand Alone Forms: MyHealth Info Instructions <Latricia Middleton MD - Last Filed: 06/08/24 13:22>
--- NOTE | 2024-06-03 21:07 | CRLHL7_ITS ---
For Patients: As a result of the Century Cures Act, medical imaging exams and procedure reports are released immediately into your electronic medical record. You may view this report before your referring provider. If you have questions, please contact your health care provider. Indication: Right lower quadrant pain, nausea Technique: CT through the abdomen and pelvis following 93 mL Isovue 370 IV contrast Comparison: None Findings: Lower chest: No acute abnormality appreciated. Hepatobiliary: Hypodensity in segment 4, likely focal fatty infiltration but indeterminate. Spleen: Unremarkable. Pancreas: No acute abnormality appreciated. Adrenal glands: No acute abnormality appreciated. Kidneys: No significant parenchymal abnormality appreciated. No visualized calculi. No hydronephrosis. Bowel: No obstruction. No focal perienteric or pericolonic stranding is appreciated. The appendix is visualized and appears unremarkable. Vascular: No acute abnormality appreciated. Lymph nodes: No gross lymphadenopathy. Peritoneum: No free air. No free fluid. : No acute abnormality appreciated. Soft tissues: No acute abnormality appreciated. Bones: No acute fracture. No lytic or blastic lesion. Impression: 1. No acute abnormality appreciated to account for patient`s reported symptoms. 2. There is focal hypodensity in the posteromedial aspect of segment 4 of the liver, appearance most suggestive of focal fatty infiltration but overall indeterminate. Consider nonemergent outpatient liver ultrasound for further evaluation. Please note that all CT scans at this facility use dose modulation, iterative reconstruction, and/or weight-based dosing when appropriate to reduce radiation dose to as low as reasonably achievable. Dictated by Nabil Ray MD @ 06/03/2024 11:03:37 PM (Electronically Signed)
[2024-06-03] MEDS: KETOROLAC 15 MG/ML inj IVP (21:21)
[2024-06-03] MEDS: ONDANSETRON 2 MG/ML inj 4 MG IVP (21:22)
[2024-06-03 21:26] LABS: Basophils Absolute Auto 0.02 K/uL (0.00-0.30); Basophils Percent Auto 0.2 % (0.0-3.0); Eosinophils Absolute Auto 0.24 K/uL (0.00-0.50); Hematocrit* 46.8 % (33.0-51.0); Hemoglobin* 15.7 gm/dL (12.0-16.0); Immature Granulocytes Abs Auto 0.01 K/uL (0.00-0.30); Immature Granulocytes Pct Auto 0.1 %; Lymphocytes Percent Auto 16.4 % (20-44); Mean Corpuscular HGB Conc 34 gm/dL (32-36); Mean Corpuscular Hemoglobin 32 pg (26-34); Mean Corpuscular Volume 95 fL (80-100); Monocytes Percent Auto 9.2 % (0.0-11.0); Neutrophils Absolute Auto 5.78 K/uL (1.7-7.0); Neutrophils Percent Auto 71.1 % (42.0-72.0); Platelet Count* 327 K/uL (140-440); RDW Coefficient of Variation % 11.7 % (11.5-15.5); Red Blood Count* 4.93 m/uL (4.00-5.20); White Blood Count* 8.13 K/uL (4.50-11.00)
[2024-06-03 21:35] LABS: Slide Review Reflex No
[2024-06-03 21:38] LABS: Appearance Urine Clear (Clear); Bilirubin Urine Negative (Negative); Blood Urine Negative (Negative); Color Urine Light yellow (Yellow); Glucose Urine Negative (Negative); Ketones Urine Negative (Negative); Leukocyte Esterase Urine Negative (Negative); Nitrite Urine Negative (Negative); Protein Urine Negative (Negative); RBC Urine 0-2 (0-2); Specific Gravity Urine < 1.005 (1.000-1.030); Urobilinogen Urine 0.2 (0.2-1.0); WBC Urine 0-2 (0-5)
[2024-06-03 21:39] LABS: Ur HCG Qualitative* Negative (Negative)
[2024-06-03 21:43] LABS: Chloride* 101 mmol/L (96-114); Potassium* 3.9 mmol/L (3.6-5.1); Sodium* 137 mmol/L (135-149)
[2024-06-03 21:46] LABS: Creatinine* 0.5 mg/dL (0.5-1.5); Est. Creatinine Clearance* 166.59; Estimated Glomerular Filt Rate 124 ml/min
[2024-06-03 21:47] LABS: Anion Gap 7 mEq/L (7-15); Blood Urea Nitrogen* 6 mg/dL (5-24); Calcium* 10.4 mg/dL (8.4-10.6); Carbon Dioxide* 29 mmol/L (20-32); Glucose* 96 mg/dL (60-115)
[2024-06-03 21:50] LABS: C Reactive Protein* < 0.5 mg/dL (0.5-1.0)
[2024-06-03 22:32] VITALS: O2SAT 97
[2024-06-03] MEDS: MORPHINE 4 MG/ML INJ IVP (22:36)
[2024-06-03 22:42] VITALS: PULSE 74; RESP 16; O2SAT 98
--- NOTE | 2024-06-03 23:06 | CRLHL7_ITS ---
For Patients: As a result of the Cures Act, medical imaging exams and procedure reports are released immediately into your electronic medical record. You may view this report before your referring provider. If you have questions, please contact your health care provider. Indication: Right lower quadrant abdominal pain, history of ovarian cysts Technique: Transabdominal and transvaginal pelvic ultrasound. Grayscale and color Doppler imaging utilized. Comparison: Same day CT abdomen and pelvis Findings: Uterus: 7.1 x 3.7 x 4.0 centimeters. No masses or other significant parenchymal abnormality appreciated. Endometrium: 8 millimeters. Endometrium appears homogeneous. Right ovary: 3.4 x 2.0 x 2.1 centimeters. Unremarkable sonographic appearance. Arterial and venous waveforms detected. Left ovary: 3.0 x 1.5 x 2.0 centimeters. Unremarkable sonographic appearance. Arterial and venous waveforms detected. Other: No free fluid. Impression: No significant sonographic abnormality appreciated. Dictated by Nabil Ray MD @ 06/04/2024 1:30:43 AM (Electronically Signed)
[2024-06-04 01:30] VITALS: BP 143/82; PULSE 71; RESP 16; TEMP 36.8; O2SAT 96
[2024-06-04] MEDS: HYDROCODONE-ACETAMIN 5-325 MG 1 TAB PO (01:35)
== END 2024-06-04 01:57 | disposition home or self-care (01) ==
PROVIDERS: Family Medicine; Emergency Provider Family Medicine
DX: R10.2 Pelvic and perineal pain (principal)
CPT/HCPCS: 36415; 74177; 76830; 76856; 80048; 81001; 81025; 83605; 85025; 86140; 93976; 94761; 96374; 96375; 99284; 99285; A9270; J1885; J2270; J2405; Q9967

== ENCOUNTER 2024-06-13 13:20 | Emergency (ER) | payer MEDICAID, SELFPAY ==
--- OUTSIDE RECORDS SUMMARY | 2024-06-13 13:24 | XMS_ITS | Encounter Summary ---
Author Organization [facility] Address [address] [place] [address] Care Team Providers Care Ski Patrol Director Name Role Phone Alex Koo MD Primary Care Provider + 2 Alex Koo MD Primary Care Provider + 2 Alex Koo MD Unavailable + Radha Knight APRN SUPERVISOR FILM PROCESSING Unavailable + Alex Koo MD Unavailable + Radha Knight APRN SUPERVISOR FILM PROCESSING Unavailable + Alex Koo MD Unavailable + Radha Knight APRN SUPERVISOR FILM PROCESSING Unavailable + Dinesh Mac MD Unavailable Coming September Vicki IBRAHIM Unavailable + [phone] Alex Koo MD Unavailable + Rosa Moyer CNM Unavailable +[phone] Barbara Cheng MD Unavailable [phone] Umesh Lima PA-C Unavailable + Umesh Lima PA-C Unavailable + Alex Koo MD Unavailable + Umesh Lima-Mandie Unavailable + Encounter Details Date Type Department Care Team (Late st Contact Info) Description 07/12/2017 [facility] Medical Advice M [address], [address] [place] [address] Mary Joshi, DERMATOLOGIST AND DERMATOPATHOLOGIST Social History Tobacco Use Types Packs/Day Years Used Date Smoking Tobacco: Never Smokeless Tobacco: Never Alcohol Use Standard Drinks/Week Comments Yes 0 (1 standard drink = 0.6 oz pur e alcohol) occasional 2-4 monthly Comments No Sex and Gender Information Value Date Recorded Sex Assigned at Not on file Legal Sex Female 11:55 AM SUPERINTENDENT PIER Gender Identity Not on file Sexual Orientation Not on file documented as of this encounter Plan of Treatment Not on file documented as of this encounter Visit Diagnoses Not on filedocumented in this encounter Additional Health Concerns Assessment Noted Time PHQ-9 Depression Total Score: 2 11/17/19 17 7:16 AM CDT documented as of this encounter Care Teams Ski Patrol Director Relationship Specialty Start Date End Date Alex Koo MD PCP - General Family Practice 04/19/16 10/26/20 [place] [address] [place] [address] PCP - General Family Practice 10/27/20 Radha Knight APRN SUPERVISOR FILM PROCESSING [address] [place] [address] PCP - Assigned PCP 11/19/17 07/21/18 [place] [address] [place] [address] PCP - Assigned PCP 07/22/18 08/14/18 Alex Koo MD Family Practice 10/27/20 Radha Knight APRN SUPERVISOR FILM PROCESSING 26938 [place] [address] Assigned PCP 11/19/17 07/21/18 [place] [address] [place] [address] Assigned PCP 07/22/18 11/16/19 Radha Knight APRN SUPERVISOR FILM PROCESSING [address] [place], [place] [address] Assigned PCP 11/17/19 03/14/20 Dinesh Mac MD [address] [facility] [address] Assigned PCP 03/15/20 08/15/20 [place] [address] [place], [place] [id number] Assigned PCP 08/16/20 11/21/20 [place] [address] [place] [address] Assigned PCP 11/22/20 05/20/22 Rosa Moyer CNM [address] [place] [address] Assigned OBGYN Provider 12/25/2004/08 Barbara Cheng MD [address] [place] [address] Assigned OBGYN Provider 04/09/22 Umesh Lima PA-C [address] [place], [place] [address] Assigned PCP 05/21/22 10/02/23 Umesh Lima PA-C 55947 [place] [address] Assigned Pain Medication Provider 06/20/22 12/09/22 [place] [address] [place] [address] Assigned PCP 10/03/23 01/01/24 Umesh Lima PA-C 79450 [place] [address] Assigned PCP 01/02/24 documented as of this encounter
--- OUTSIDE RECORDS SUMMARY | 2024-06-13 13:24 | XMS_ITS | Encounter Summary ---
Author Organization [facility] Address [address] [place] [address] Care Team Providers Care Senior Catering Sales Manager Name Role Phone Alex Koo MD Primary Care Provider + 2 Alex Koo MD Primary Care Provider + 2 Alex Koo MD Unavailable + Radha Knight APRN CO FOUNDER AND CHIEF STRATEGY OFFICER Unavailable + Alex Koo MD Unavailable + Radha Knight APRN CO FOUNDER AND CHIEF STRATEGY OFFICER Unavailable + Alex Koo MD Unavailable + Radha Knight APRN CO FOUNDER AND CHIEF STRATEGY OFFICER Unavailable + Dinesh Mac MD Unavailable Coming September Vicki IBRAHIM Unavailable + [phone] Alex Koo MD Unavailable + Rosa Moyer Unavailable +[phone] Barbara Cheng MD Unavailable +[phone] Umesh Lima-Mandie Unavailable +[phone] Umesh Lima-Mandie Unavailable + Alex Koo MD Unavailable + Umesh Lima PA-C Unavailable +[phone] Reason for Visit * Reason Onset Date Comments Outreach 11/24/2017 [facility] ATT 1 Outreach 12/29/2017 [facility] ATT 2 Encounter Details Date Type Department Care Team (Late st Contact Info) Description 11/24/[address], [address] [place] [address] Radha Knight APRN CO FOUNDER AND CHIEF STRATEGY OFFICER [address] [place] [address] Outreach ([facility] ATT 1); Outreach ([facility]S ATT 2) Social History Tobacco Use Types Packs/Day Years Used Date Smoking Tobacco: Never Smokeless Tobacco: Never Alcohol Use Standard Drinks/Week Comments Yes 0 (1 standard drink = 0.6 oz pur e alcohol) occasional 2-4 monthly Comments No Sex and Gender Information Value Date Recorded Sex Assigned at Not on file Legal Sex Female 11:55 AM DIRECTOR TRADING Gender Identity Not on file Sexual Orientation Not on file documented as of this encounter Miscellaneous Notes * Telephone Encounter - Christie Singh - 12/29/2017 12:51 PM CDT 12/29/2017 Call Regarding Preventive Health Screening Cervical/PAP Attempt 2 Message on voicemail Comments: Outreach Air Brake Tester CC * Telephone Encounter - Christie Singh - 11/24/2017 11:20 AM CDT 11/24/2017 Call Regarding Preventive Health Screening Cervical/PAP Attempt 1 Message on voicemail Comments: Outreach Air Brake Tester CC documented in this encounter Plan of Treatment Not on file documented as of this encounter Visit Diagnoses Not on filedocumented in this encounter Additional Health Concerns Assessment Noted Time PHQ-9 Depression Total Score: 2 11/17/19 17 7:16 AM CDT documented as of this encounter Care Teams Senior Catering Sales Manager Relationship Specialty Start Date End Date Alex Koo MD PCP - General Family Practice 04/19/16 10/26/20 [place] [address] [place] [address] PCP - General Family Practice 10/27/20 Radha Knight APRN CO FOUNDER AND CHIEF STRATEGY OFFICER [address] [place] [address] PCP - Assigned PCP 11/19/17 07/21/18 [place] [address] [place] [address] PCP - Assigned PCP 07/22/18 08/14/18 Alex Koo MD Family Practice 10/27/20 Radha Knight APRN CO FOUNDER AND CHIEF STRATEGY OFFICER [address] [place] [address] Assigned PCP 11/19/17 07/21/18 [place] [address] [place] [address] Assigned PCP 07/22/18 11/16/19 Radha Knight APRN CO FOUNDER AND CHIEF STRATEGY OFFICER [address] [place] [address] Assigned PCP 11/17/19 03/14/20 Dinesh Mac MD [address] [facility] [place] [address] Assigned PCP 03/15/20 08/15/20 [place] [address] [place] [address] Assigned PCP 08/16/20 11/21/20 [place] [address] [place] [address] Assigned PCP 11/22/20 05/20/22 Rosa Moyer CNM [address] [place] [address] Assigned OBGYN Provider 12/25/2004/08 Barbara Cheng MD [address] [place] [address] Assigned OBGYN Provider 04/09/22 Umesh Lima PA-C [address] [place] [address] Assigned PCP 05/21/22 10/02/23 Umesh Lima PA-C [address] [place] [address] Assigned Pain Medication Provider 06/20/22 12/09/22 [place] [address] [place] [address] Assigned PCP 10/03/23 01/01/24 Umesh Lima PA-C [address] [place] [address] Assigned PCP 01/02/24 documented as of this encounter
--- OUTSIDE RECORDS SUMMARY | 2024-06-13 13:24 | XMS_ITS | Referral Summary ---
Author Organization [facility] Address [address] [place] [address] Care Team Providers Care Ammunition Storage Superintendent Name Role Phone Alex Koo MD Primary Care Provider [phone] Alex Koo MD Unavailable Umesh Lima PA-C Unavailable [phone] Encounters Date Type Department Care Team Description 04/08/[address] [address] Luis Carlos Roblero APRN CASTING MACHINE OPERATOR Medication Refill from Last 3 Months Allergies No known active allergies Medications melatonin 3 MG tablet Take 1 mg by mouth nightly as needed for sleep Active hydrOXYzine (ATARAX) 25 MG tabletIndicatio ns:RLQ abdominal pain Take 2 tablets (50 mg) by mouth nightly as needed for itching or other (pain, sleep) 20 tablet 1 2 Active Additional Information Patient not taking.Reported on 07/30/2022 meloxicam (MOBIC) 15 MG tabletIndicatio ns:Injury of right hand, initial encounter,Contu ysabel of right hand, initial encounter Take 1 tablet (15 mg) by mouth daily as needed for moderate pain 10 tablet 4 Active ondansetron (ZOFRAN ODT) 4 MG ODT tabIndications: Nausea Take 1 tablet (4 mg) by mouth every 8 hours as needed for nausea 30 tablet 4 Active sertraline (ZOLOFT) 25 MG tabletIndicatio ns:Mild episode of recurrent major depressive disorder (H) Take 1 tablet (25 mg) by mouth daily for 7 days 7 tablet 4 Active LORazepam (ATIVAN) 0.5 MG tabletIndicatio ns:Panic attack Take 1 tablet (0.5 mg) by mouth every 8 hours as needed for anxiety. 10 tablet 4 Active sertraline (ZOLOFT) 100 MG tabletIndicatio ns:Mild episode of recurrent major depressive disorder (H) Take 1 tablet (100 mg) by mouth daily. 90 tablet 4 07/07/19 25 Active Active Problems Patient Care Coordination No te Formatting of this note migh t be different from the original. [email or web address] Problem Noted Date Diagnosed Date Jaw pain 08/09/2021 Otalgia, right 08/09/2021 Recurrent major depressive disorder, in full rem ission 12/08/2020 Acetabular labrum tear 01/02/2014 Encounter for medication refill 12/25/2013 Overview (12/16/2020): Pain agreement signed 12/25/13. Percocet #60 per month. Diagnosis: left hip pain, SI inflammation, possible left labral hip tear. [facility] Amie Stoll DO .................... 12/25/2013 11:48 AM SI (sacroiliac) joint inflammation 12/25/2013 Trochanteric bursitis of left hip 12/25/2013 Left hip pain 11/14/2013 Overview (12/16/2020): MRI and physical therapy ordered. Mastalgia 04/25/2010 Overview (12/16/2020): Right Ultrasound 04/2010 recommend follow up ultrasound in one month. Dysplasia of cervix, low grade (QUINCY 1) 8 Overview (04/14/2022): 2006 QUINCY 1 07/2007 ASCUS, +HPV @ age [...] rhinitis due to other allergen 02/16/20 07 Overview (12/16/2020): CATS,PERENNIAL Resolved Problems Problem Noted Date Diagnosed Date Resolved Date Recurrent major depression 04/19/2016 0 12/08/2020 Other postprocedural status(V45.89) 05/30/2014 06/21/2017 Immunizations [...] PHQ-2 Answer Date Recorded PHQ-2 Score 2 01/12/2024 Adolescent Education Answer Date Record ed Getting School Help Needed Not on file 03/03 Comments No Sex and Gender Information Value Date Recorded Sex Assigned at Not on file Legal Sex Female 11:55 AM SPECIAL EDUCATION AIDE Gender Identity Not on file Sexual Orientation Not on file Last Filed Vital Signs Vital Sign Reading Time Taken Comments Blood Pressure 145/90 01/12/2024 4:04 PM CDT Pulse 85 01/12/2024 4:04 PM CDT Temperature 36.6 C (97.9 F) 01/12/2024 4:04 PM CDT Respiratory Rate 14 01/12/2024 4:04 PM CDT Oxygen Saturation 100% 01/12/2024 4:04 PM CDT Inhaled Oxygen Concentration - - Weight 82.6 kg (182 lb 1.6 oz) 01/12/2024 4:04 P M CDT Height 177.8 cm (5' 10) 01/12/2024 4:04 PM CDT Body Mass Index 26.13 01/12/2024 4:04 PM CDT Plan of Treatment Not on file Procedures Procedure Name Priority Date/Time Associated Diagnosis Comments HPV HIGH RISK TYPES DNA CERVICAL Routine 04/06/2022 3:42 PM CDT Dysplasia of cervix, low grade (QUINCY 1) GYNECOLOGIC CYTOLOGY Routine 04/06/2022 3:42 PM CDT Dysplasia of cervix, low grade (QUINCY 1) BASIC METABOLIC PANEL Routine 08/09/2021 2:53 PM SPECIAL EDUCATION AIDE Jaw pain from Last 3 Months or Most Recently Relevant to Health Maintenance Results * Pap diagnostic with HPV (04/06/2022 3:42 [...] component of this testing was completed at [facility] 04/08/2022 2:31 PM CDT [facility] Brushing CERVIX UTERI STRUCTURE / Unknown Non-blood Collection / Unknown 04/06/2022 3:42 PM CDT 04/06/2022 4:02 PM CDT Barbara SALAZAR - ZULEMA CARMEN Final Result [facility] Specialty Lab [address] [facility] [address] Building, Room [address] [place] [address], [facility] [phone] * HPV High Risk Types DNA Cervical (04/06/2022 3:42 PM CDT) Other HR HPV Negative Negative 04/12/2022 2:09 PM CDT [facility] HPV16 DNA Negative Negative 04/12/2022 2:09 PM CDT [facility] HPV18 DNA Negative Negative 04/12/2022 2:09 PM CDT [facility] FINAL DIAGNOSIS This patient's sample is negative for HPV DNA. This test was developed and its performance characteristics determined by the [facility], Molecular Diagnostics Laboratory. It has not [...] 3:42 PM CDT 04/11/2022 9:01 AM CDT us Barbara Cheng MD LAB - BLOOD ORDERABLES Final R esult [facility] [address] [facility], Room [address] [place] [address], [facility] [phone] * Basic metabolic panel (08/09/2021 2:53 PM SPECIAL EDUCATION AIDE) Sodium 142 136 - 145 mmol/L 08/09/2021 8:36 PM SPECIAL EDUCATION AIDE [facility] Potassium 4.4 3.5 - 5.0 mmol/L 08/09/2021 8:36 PM SPECIAL EDUCATION AIDE [facility] Chloride 104 98 - 107 mmol/L 08/09/2021 8:36 PM SPECIAL EDUCATION AIDE [facility] Carbon Dioxide (CO2) 25 22 - 31 mmol/L 08/09/2021 8:36 PM SPECIAL EDUCATION AIDE [facility] Anion Gap 13 5 - 18 mmol/L 08/09/2021 8:36 PM SPECIAL EDUCATION AIDE [facility] Urea Nitrogen 9 8 - 22 mg/dL 08/09/2021 8:36 PM SPECIAL EDUCATION AIDE [facility] Creatinine 0.67 0.60 - 1.10 mg/dL 08/09/2021 8:36 PM SPECIAL EDUCATION AIDE [facility] Calcium 10.0 8.5 - 10.5 mg/dL 08/09/2021 8:36 PM SPECIAL EDUCATION AIDE [facility] Glucose 89 70 - 125 mg/dL 08/09/2021 8:36 PM SPECIAL EDUCATION AIDE [facility] GFR Estimate >90 >60 mL/min/1.7 3m2 08/09/2021 8:36 PM SPECIAL EDUCATION AIDE [facility] Comment:Effective May 132020 eGFRcr in adults is calculated using the 2020 CKD-EPI creatinine equation which includes age and gender (Beata et al., NEJM, DOI: 10.1056/NACByh5938105) Blood STRUCTURE OF RIGHT UPPER LIMB / Unknown Venipuncture / Unknown 08/09/2021 2:53 PM SPECIAL EDUCATION AIDE 08/09/2021 2:53 PM SPECIAL EDUCATION AIDE us Ky Aguirre PA-C LAB - BLOOD ORDERABLES Meghan l Result [facility] [address] [address], [facility] [phone] from Last 3 Months or Most Recently Relevant to Health Maintenance Care Teams Ammunition Storage Superintendent Relationship Specialty [place] [address] [place] [address] PCP - General Family Practice 10/27/20 [place] [address] [place] [address] Family Practice 10/27/20 Umesh Lima PA-C [address] [place] [address] Assigned PCP 01/02/24
--- OUTSIDE RECORDS SUMMARY | 2024-06-13 13:24 | XMS_ITS | Encounter Summary ---
Author Organization [facility] Address [address] [place] [address] Care Team Providers Care Precast Molder Name Role Phone Alex Koo MD Primary Care Provider + 2 Alex Koo MD Primary Care Provider + 2 Alex Koo MD Unavailable + Radha Knight APRN ASSOCIATE PRODUCER Unavailable + Alex Koo MD Unavailable + Radha Knight APRN ASSOCIATE PRODUCER Unavailable + Alex Koo MD Unavailable + Radha Knight APRN ASSOCIATE PRODUCER Unavailable + Dinesh Mac MD Unavailable Coming September Vicki IBRAHIM Unavailable + [phone] Alex Koo MD Unavailable + Rosa Moyer CNM Unavailable +[phone] Barbara Cheng MD Unavailable [phone] Umesh Lima PA-C Unavailable + Umesh Lima PA-C Unavailable + Alex Koo MD Unavailable + Umesh Lima-Mandie Unavailable + Encounter Details Date Type Department Care Team (Late st Contact Info) Description 02/02/2018 [facility] Medical Advice M [address], [address] [place] [address] 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, CASE CONSULTANT Social History Tobacco Use Types Packs/Day Years Used Date Smoking Tobacco: Never Smokeless Tobacco: Never Alcohol Use Standard Drinks/Week Comments Yes 0 (1 standard drink = 0.6 oz pur e alcohol) occasional 2-4 monthly Comments No Sex and Gender Information Value Date Recorded Sex Assigned at Not on file Legal Sex Female 11:55 AM NUMBERER AND WIRER Gender Identity Not on file Sexual Orientation Not on file documented as of this encounter Plan of Treatment Not on file documented as of this encounter Visit Diagnoses Not on filedocumented in this encounter Additional Health Concerns Assessment Noted Time PHQ-9 Depression Total Score: 2 11/17/19 17 7:16 AM CDT documented as of this encounter Care Teams Precast Molder Relationship Specialty Start Date End Date Alex Koo MD PCP - General Family Practice 04/19/16 10/26/20 [place] [address] [place] [address] PCP - General Family Practice 10/27/20 Radha Knight APRN ASSOCIATE PRODUCER [address]25[address] [place] [address] PCP - Assigned PCP 11/19/17 07/21/18 [place] [address] [place] [address] PCP - Assigned PCP 07/22/18 08/14/18 Alex Koo MD Family Practice 10/27/20 Radha Knight APRN ASSOCIATE PRODUCER [address] [place] [address] Assigned PCP 11/19/17 07/21/18 [place] [address] [place] [address] Assigned PCP 07/22/18 11/16/19 Radha Knight APRN ASSOCIATE PRODUCER [address] [address] [place], [place] [address] Assigned PCP 11/17/19 03/14/20 Dinesh Mac MD [address] [facility] [place] [address] Assigned PCP 03/15/20 08/15/20 [place] [address] [place], [place] [address] Assigned PCP 08/16/20 11/21/20 [place] [address] [place] [address] Assigned PCP 11/22/20 05/20/22 Rosa Moyer CNM [address] [place] [address] Assigned OBGYN Provider 12/25/2004/08 Barbara Cheng MD [address] [place] [address] Assigned OBGYN Provider 04/09/22 Umesh Lima PA-C [address] [place] [place], [place] [address] Assigned PCP 05/21/22 10/02/23 Umesh Lima PA-C 01242 [place] [address] Assigned Pain Medication Provider 06/20/22 12/09/22 [place] [address] [place] [address] Assigned PCP 10/03/23 01/01/24 Umesh Lima PA-C 55502 [place] [address] Assigned PCP 01/02/24 documented as of this encounter
--- OUTSIDE RECORDS SUMMARY | 2024-06-13 13:24 | XMS_ITS | Encounter Summary ---
Author Organization [facility] Address [address] [place] [address] Care Team Providers Care Demolition Crane Operator Name Role Phone Alex Koo MD Primary Care Provider + 2 Alex Koo MD Primary Care Provider + 2 Alex Koo MD Unavailable + Alex Koo MD Unavailable + Alex Koo MD Unavailable + Radha Knight APRN MAINTENANCE PAINTER APPRENTICE Unavailable + Dinesh Mac MD Unavailable Coming Yancy Ramirez MD Unavailable + [phone] Alex Koo MD Unavailable + Rosa Moyer CNM Unavailable [phone] Barbara Cheng MD Unavailable [phone] Umesh Lima PA-C Unavailable + Umesh Lima PA-C Unavailable + Alex Koo MD Unavailable + Umesh Lima PA-C Unavailable +[phone] Encounter Details Date Type Department Care Team (Late st Contact Info) Description 07/24/2018 [facility] Advice [address], [address] [place] [address] Mary Joshi, [facility] Social History Tobacco Use Types Packs/Day Years Used Date Smoking Tobacco: Never Smokeless Tobacco: Never Alcohol Use Standard Drinks/Week Comments Yes 0 (1 standard drink = 0.6 oz pur e alcohol) occasional 2-4 monthly PHQ-2 Answer Date Recorded PHQ-2 Score 6 06/20/2018 Comments No Sex and Gender Information Value Date Recorded Sex Assigned at Not on file Legal Sex Female 11:55 AM CASING FLUSHER Gender Identity Not on file Sexual Orientation Not on file documented as of this encounter Miscellaneous Notes * Telephone Encounter - Mary Joshi CMA - 08/24/2018 2:01 PM CDT Left message on personal [employer] to return call. 2nd outreach. Mary Joshi CMA (AAMA) documented in this encounter Plan of Treatment Not on file documented as of this encounter Visit Diagnoses Not on filedocumented in this encounter Additional Health Concerns Assessment Noted Time PHQ-9 Depression Total Score: 2 11/17/19 17 7:16 AM CDT documented as of this encounter Care Teams Demolition Crane Operator Relationship Specialty Start Date End Date Alex Koo MD PCP - General Family Practice 04/19/16 10/26/20 [place] [address] [place] [address] PCP - General Family Practice 10/27/20 [place] [address] [place] [address] PCP - Assigned PCP 07/22/18 08/14/18 Alex Koo MD Family Practice 10/27/20 [place] [address] [place] [address] Assigned PCP 07/22/18 11/16/19 Radha Knight APRN CNP [address] [place] [address] Assigned PCP 11/17/19 03/14/20 Dinesh Mac MD [address] [facility] [address] Assigned PCP 03/15/20 08/15/20 [place] [address] [facility] [place] [address] Assigned PCP 08/16/20 11/21/20 [place] [address] [place] [address] Assigned PCP 11/22/20 05/20/22 Rosa Moyer CNM [address] [place] [address] Assigned OBGYN Provider 12/25/2004/08 Barbara Cheng MD [address] [place] [address] Assigned OBGYN Provider 04/09/22 Umesh Lima PA-C [address] [place] [address] Assigned PCP 05/21/22 10/02/23 Umesh Lima PA-C 33059 [place] [address] Assigned Pain Medication Provider 06/20/22 12/09/22 [place] [address] [place] [address] Assigned PCP 10/03/23 01/01/24 Umesh Lima PA-C 82470 [place] [address] Assigned PCP 01/02/24 documented as of this encounter
--- OUTSIDE RECORDS SUMMARY | 2024-06-13 13:24 | XMS_ITS | Encounter Summary ---
Author Organization [facility] Address [address] [place] [address] Care Team Providers Care Translator Name Role Phone Alex Koo MD Primary Care Provider [phone] Alex Koo MD Unavailable September Vicki IBRAHIM Unavailable + [phone] Alex Koo MD Unavailable Rosa Moyer CNM Unavailable [phone] Barbara Cheng MD Unavailable +[phone] Umesh Lima PA-C Unavailable +[phone] Umesh Lima PA-C Unavailable +[phone] Alex Koo MD Unavailable Umesh Lima PA-C Unavailable +[phone] Encounter Details Date Type Department Care Team (Late st Contact Info) Description 10/27/2020 Records - [facility] CONVERSION Scan, Non-Provider Social History Tobacco Use Types Packs/Day Years Used Date Smoking Tobacco: Never Assessed PHQ-2 Answer Date Recorded PHQ-2 Score 2 07/31/2020 Comments No Sex and Gender Information Value Date Recorded Sex Assigned at Not on file Legal Sex Female 11:55 AM CONSTRUCTION ENGINEER Gender Identity Not on file Sexual Orientation Not on file documented as of this encounter Plan of Treatment Not on file documented as of this encounter Visit Diagnoses Not on filedocumented in this encounter Additional Health Concerns Assessment Noted Time PHQ-9 Depression Total Score: 4 07/31/19 21 5:02 PM CONSTRUCTION ENGINEER documented as of this encounter Care Teams Translator Relationship Specialty [place] [address] [place] COLES [address] PCP - General Family Practice 10/27/20 [place] [address] [place] [address] Family Practice 10/27/20 [place] [address] [facility] [place] [address] Assigned PCP 08/16/20 11/21/20 [place] [address] [place] [address] Assigned PCP 11/22/20 05/20/22 Rosa Moyer CNM [address] [place] [address] Assigned OBGYN Provider 12/25/2004/08 Barbara Cheng MD [address] [place] [address] Assigned OBGYN Provider 04/09/22 Umesh Lima PA-C 34679 [place] [address] Assigned PCP 05/21/22 10/02/23 Umesh Lima PA-C 73829 [place] [address] Assigned Pain Medication Provider 06/20/22 12/09/22 [place] [address] [place] [address] Assigned PCP 10/03/23 01/01/24 Umesh Lima PA-C 09104 [place] [address] Assigned PCP 01/02/24 documented as of this encounter
--- OUTSIDE RECORDS SUMMARY | 2024-06-13 13:24 | XMS_ITS | Clinical Summary ---
Author Organization [facility] Address [place], [place] [address] Care Team Providers Care Cistern Room Working Supervisor Name Role Phone Pcp, No Primary Care Provider Unavailabl e Allergies No known active allergies Medications oxyCODONE-acet aminophen, 5-325 mg, (PERCOCET) 5-325 mg per tabletIndicati ons:Costochond ritis Take 1 tablet by mouth every 12 hours if needed for Pain. Max acetaminophen dose: 4000mg in 24 hrs. 15 tablet 0 6 Active diclofenac (VOLTAREN) 75 mg delayed-releas e tabletIndicati ons:Costochond ritis Take 1 tablet by mouth 2 times daily with meals. 60 tablet 0 6 Active sertraline (ZOLOFT) 50 mg tabletIndicati ons:Depression with anxiety TAKE ONE TABLET BY MOUTH EVERY DAY 30 tablet 0 6 Active Active Problems Problem Noted Date Diagnosed Date Acetabular labrum tear 01/02/2014 Issue of repeat prescriptions 12/25/2013 Overview (12/25/2013): Pain agreement signed 12/25/13. Percocet 5/325 #60 per month. Diagnosis: left hip pain, SI inflammation, possible left labral hip tear. [facility] Amie Stoll, .................... 12/25/2013 11:48 AM SI (sacroiliac) joint inflammation 12/25/2013 Trochanteric bursitis of left hip 12/25/2013 Chest wall pain 11/14/2013 Left hip pain 11/14/2013 Overview (12/25/2013): MRI and physical therapy ordered. Mastalgia 04/25/2010 Overview (04/25/2010): Right Ultrasound 04/2010 recommend follow up ultrasound in one month. Dysplasia of cervix, unspecified 09/26/2007 Overview (05/15/2012): 2005 QUINCY 1 07/2007 ASCUS, +HPV 09/2007 colposcopy with negative ECC and biopsy. 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 Not on file Not on file Not on file Obstetrics History Para Term AB IAB SAB Ectopic Multiple Livin g Live Births 0 0 0 0 0 0 0 0 0 0 Last Filed Vital Signs Vital Sign Reading Time Taken Comments Blood Pressure 122/78 03/18/2022 12:30 AM CDT Pulse 74 03/18/2022 12:30 AM CDT Temperature 37.1 C (98.7 F) 03/17/2022 11:36 PM CDT Respiratory Rate 16 03/17/2022 11:36 PM CDT [...] booster 03/17/2019 03/17/2009, 07/13/1998 COVID-19 vaccine series (2023- season) 2024 Influenza for age 9-49 02/11/2024 Tdap Completed 03/17/2009 Pneumococcal series for age 6-49 Aged Out No longer eligible based on patient's age to complete this topic Procedures Procedure Name Priority Date/Time Associated Diagnosis Comments WEED INSPECTOR THIN PREP PAP DIAGNOSTIC IMAGED Routine 02/23/2012 1:31 PM CDT Screening for malignant neoplasm of the cervix from Last 3 Months or Most Recently Relevant to Health Maintenance Results * WEED INSPECTOR THIN PREP PAP DIAGNOSTIC IMAGED (02/23/2012 1:31 PM CDT) CYTOLOGY CYTOPATHOLOGY REPORT [facility] Status: Final Status [id number] CLINICAL INFORMATION Last Date of LMP :02/04/2012 Last Pap Date :06/04/2010 Last Pap Result :NIL ABN Kent/Bx Past 5 YRS :None Hormone Usage :None Menstrual Status :Regular Periods Kent/Bx done today :No Additional Information :None given HPV Request :HPV and PAP. See Separate Report. SPECIMEN SOURCE :Cervical/vaginal ThinPrep Vial, diagnostic SPECIMEN ADEQUACY :Satisfactory for evaluation Endocervical component present. INTERPRETATION/RES ULT Negative for intraepithelial lesion or malignancy (NIL) Cytology 1st Screener :tll Cytology 2nd Screener :frank Signed by :frank This specimen was screened by the FDA approved ThinPrep Imaging System and manually reviewed. NOTE: The Pap test is a screening technique, not a diagnostic procedure. It is used primarily to screen for squamous cancers and precursor lesions. Published studies have shown that it is subject to both false negative and false positive results. The pap test should not be used as the sole means to diagnose or exclude pre-malignant and malignant lesions. COLLECTED:02/23/12 ACCESSIONED: 02/24/12 SIGNED: 02/29/12 [facility] PAP [place] CODE NIL [facility] Tissue specimen (specimen) (Cervical/Vagina l) 02/23/2012 1:31 PM CDT 02/23/2012 1:27 PM CDT us Barbara Cassidy MD PATHOLOGY/CYTOLOGY Final Resu lt [facility] INTERNAL ZIP [id number] [place] [phone] from Last 3 Months or Most Recently Relevant to Health Maintenance Insurance [facility] Care Teams Cistern Room Working Supervisor Relationship Specialty Start Date End Date Pcp, No . PCP - General 03/21/16
--- OUTSIDE RECORDS SUMMARY | 2024-06-13 13:24 | XMS_ITS | Clinical Summary ---
Author Organization [facility] Address [address] [place] [address] Care Team Providers Care Inside Sales Account Representative Name Role Phone Alex Koo MD Primary Care Provider [phone] Alex Koo MD Unavailable Umesh Lima PA-C Unavailable [phone] Allergies No known active allergies Medications melatonin [...] migh t be different from the original. [email or web address] Problem Noted Date Diagnosed Date Jaw pain [...] 0 12/08/2020 Other postprocedural status(V45.89) 05/30/2014 06/21/2017 Encounters Date Type Department Care Team Description 04/08/[address] [address] Luis Carlos Roblero APRN MODEL AND DYE PERSON Medication Refill from Last 3 Months Immunizations Name Administration [...] on file Legal Sex Female 11:55 AM MANAGER EMERGENCY DEPARTMENT Gender Identity Not on file Sexual Orientation [...] 01/12/2024 4:04 PM CDT Plan of Treatment Health Maintenance Due Date Last Done Comments ADVANCE CARE PLANNING 1985 HEPATITIS B IMMUNIZATION (1 of 3 - 19+ 3-dose series) 2005 HPV IMMUNIZATION (2 - 3-dose series) 08/30/2007 08/02/2007 DTAP/TDAP/TD IMMUNIZATION (2 - Td or Tdap) 03/17/2019 03/17/2009 ANNUAL REVIEW OF HM ORDERS 11/13/2021 11/13/2020 YEARLY PREVENTIVE VISIT 12/16/2021 12/16/2020 COVID-19 Vaccine ( season) 2024 INFLUENZA VACCINE (#1) 2024 DEPRESSION 6 MO INDEX REPEAT PHQ-9 05/15/2024 01/12/2024, 03/29/2022, 07/31/2020, Additional history exists PHQ-9 07/14/2024 01/12/2024, 03/12, 07/31/2020, Additional history exists GLUCOSE 08/09/2024 08/09/2021, 10/10, 03/02/2020 HPV FOLLOW-UP 04/06/2025 04/06/2022, 07/0 12/2020, 02/23/2012, Additional history exists PAP FOLLOW-UP 04/06/2025 04/06/2022, 07/0 12/2020, 02/23/2012, Additional history exists HEPATITIS C SCREENING 2026 Postpo erwin from 2004 (Other) RSV VACCINE (1 - 1-dose 75+ series) 2061 DEPRESSION ACTION PLAN Completed 06/10/2016 PAP Discontinued 04/06/2022, 07/0 12/2020, 02/23/2012, Additional history exists HIV SCREENING Discontinued MENINGITIS IMMUNIZATION Aged Out No l onger eligible based on patient's age to complete this topic Pneumococcal Vaccine: Pediatrics (0 to 5 Years) and At-Risk Patients (6 to 49 Years) Aged Out No longer eligible based [...] BASIC METABOLIC PANEL Routine 08/09/2021 2:53 PM MANAGER EMERGENCY DEPARTMENT Jaw pain from Last 3 Months or [...] component of this testing was completed at [facility] 04/08/2022 2:31 PM CDT [facility] Brushing CERVIX UTERI STRUCTURE / Unknown Non-blood Collection / Unknown 04/06/2022 3:42 PM CDT 04/06/2022 4:02 PM CDT Barbara SALAZAR - BEAKER Final Result [facility] Specialty Lab [address] [facility], [address] [address], [facility] [phone] * HPV High Risk Types DNA Cervical (04/06/2022 3:42 PM CDT) Other HR HPV Negative Negative 04/12/2022 2:09 PM CDT [facility] HPV16 DNA Negative Negative 04/12/2022 2:09 PM CDT [facility] HPV18 DNA Negative Negative 04/12/2022 2:09 PM CDT [facility] FINAL DIAGNOSIS This patient's sample is negative for HPV DNA. This test was developed and its performance characteristics determined by the [facility]. It has not been [...] [facility] [address] [facility] [address] [facility], [address] [address], [facility] [phone] * Basic metabolic panel (08/09/2021 2:53 PM MANAGER EMERGENCY DEPARTMENT) Sodium 142 136 - 145 mmol/L 08/09/2021 8:36 PM MANAGER EMERGENCY DEPARTMENT [facility] Potassium 4.4 3.5 - 5.0 mmol/L 08/09/2021 8:36 PM MANAGER EMERGENCY DEPARTMENT [facility] Chloride 104 98 - 107 mmol/L 08/09/2021 8:36 PM MANAGER EMERGENCY DEPARTMENT [facility] Carbon Dioxide (CO2) 25 22 - 31 mmol/L 08/09/2021 8:36 PM MANAGER EMERGENCY DEPARTMENT [facility] Anion Gap 13 5 - 18 mmol/L 08/09/2021 8:36 PM MANAGER EMERGENCY DEPARTMENT [facility] Urea Nitrogen 9 8 - 22 mg/dL 08/09/2021 8:36 PM MANAGER EMERGENCY DEPARTMENT [facility] Creatinine 0.67 0.60 - 1.10 mg/dL 08/09/2021 8:36 PM MANAGER EMERGENCY DEPARTMENT [facility] Calcium 10.0 8.5 - 10.5 mg/dL 08/09/2021 8:36 PM MANAGER EMERGENCY DEPARTMENT [facility] Glucose 89 70 - 125 mg/dL 08/09/2021 8:36 PM MANAGER EMERGENCY DEPARTMENT [facility] GFR Estimate >90 >60 mL/min/1.7 3m2 08/09/2021 8:36 PM MANAGER EMERGENCY DEPARTMENT [facility] Comment:Effective May 132020 eGFRcr in adults is calculated using the 2020 CKD-EPI creatinine equation which includes age and gender (Beata et al., NEJM, DOI: 10.1056/WDETmv5470245) Blood STRUCTURE OF RIGHT UPPER LIMB / Unknown Venipuncture / Unknown 08/09/2021 2:53 PM MANAGER EMERGENCY DEPARTMENT 08/09/2021 2:53 PM MANAGER EMERGENCY DEPARTMENT us Ky Aguirre PA-C LAB - BLOOD ORDERABLES Meghan urbano Result [facility] [address] [address], [place] [phone] from Last 3 Months or Most Recently Relevant to Health Maintenance Care Teams Inside Sales Account Representative Relationship Specialty [place] [address] [address] [address] PCP - General Family Practice 10/27/20 [place] [id number] [address] [place] [address] Family Practice 10/27/20 Umesh Lima PA-C [id number] [address] [place] [id number] Assigned PCP 01/02/24
[2024-06-13 13:25] VITALS: BP 144/88; PULSE 80; RESP 18; TEMP 36.8; O2SAT 100; BMI 27.3
[2024-06-13 13:46] LABS: Appearance Urine Clear (Clear); Bilirubin Urine Negative (Negative); Blood Urine Negative (Negative); Color Urine Light yellow (Yellow); Glucose Urine Negative (Negative); Ketones Urine Trace (Negative); Leukocyte Esterase Urine Negative (Negative); Nitrite Urine Negative (Negative); Protein Urine Negative (Negative); Specific Gravity Urine <= 1.005 (1.000-1.030); Urobilinogen Urine 0.2 (0.2-1.0); pH Urine 5.5 (5.0-8.5)
--- NOTE | 2024-06-13 13:51 | ED.GENADULT ---
HPI - General Adult General Chief complaint: Back Injury/Pain Stated complaint: middle back pain Time Seen by Provider: 06/13/24 13:30 History of Present Illness HPI narrative: Patient is a 38-year-old woman here with her mom for evaluation of pain in her left flank region. She says that this started several days ago, she does do a lot of physical activity and thought she just pulled a muscle, but it has not been improving with Tylenol, ibuprofen and ice. Pain is exacerbated by any kind of movement, including deep breath. She denies respiratory symptoms otherwise, has not been short of breath, denies urinary symptoms. No fevers or chills. Has been nauseated no vomiting. Seen here little over week ago with severe right lower quadrant pain without etiology found. She says that pain has continued but is not as severe. She had a CT scan of the abdomen and pelvis at that time which was entirely negative, she did not have any kidney stones. Related Data Home Medications ?Medication ?Instructions ?Recorded ?Confirmed No Known Home Medications 01/09/24 06/13/24 Allergies Allergy/AdvReac Type Severity Reaction Status Date / Time No Known Drug Allergies Allergy Verified 06/13/24 13:34 Review of Systems Status of ROS: Reports: 10 or more systems reviewed and unremarkable except as noted in History and below PFSH [facility] Social History Smoking Status: Never smoker Second hand tobacco smoke exposure: No How often do you have a drink containing alcohol: 4 or more times a week How many standard drinks containing alcohol do you have on a typical day: 7 to 9 How often do you have six or more drinks on one occasion: Daily or almost daily AUDIT-C Alcohol total score: 11 Non-prescribed substance use: denies use service: No Exam Narrative: Exam Narrative: Vital signs reviewed In general, alert, nontoxic woman. She looks comfortable, winces with movement. Head: Normocephalic, atraumatic. Eyes: Sclera clear. Pupils equal and reactive. ENT: Mucous membranes moist. Neck: Supple without adenopathy. Heart: Regular rate and rhythm without murmur. Lungs: Clear. No increased work of breathing, crackles or wheezes. Back: Largely nontender to palpation, no visible trauma. Abdomen: Soft, nondistended. A little bit of left upper quadrant tenderness without rebound guarding or rigidity. Remainder of the abdomen is nontender palpation. Extremities: Well perfused, pulses intact. No significant edema. Neurologic: Alert, conversant. Speech fluent, face symmetric. Moves all extremities equally. Skin: Warm, dry well perfused. Affect: Normal. Const: Vital Signs, click to edit/add: Vital Signs - 24 hr 06/13/24 13:25 Temperature 98.3 F Pulse Rate [Pulse Oximeter] 80 Respiratory Rate 18 Blood Pressure [Ri ght Upper Arm] 144/88 H Pulse Oximetry 100 Oxygen Delivery Me thod Room Air Documenting provider has reviewed patient's vital signs: yes Course Course ED Course: Patient presents with pain in the left posterior thoracic region, worse with movement. This seems most likely to be musculoskeletal, but will evaluate for possible pulmonary or abdominal etiology. Given recent CT scan without kidney stones, I doubt this represents kidney stone, will check a UA to rule out pyelonephritis. Urinalysis is negative. CBC shows a normal white blood cell count of 8.3 with an unremarkable diff. Hemoglobin is normal. D-dimer is reassuring at 0.38. Metabolic panel is unremarkable aside from a sodium which is slightly low 132. Blood sugars 121, LFTs notable for mild elevations in transaminases with an AST of 66 and ALT of 38, I do not think this is directly related to her symptoms today. I did [address] scan that she had perhaps fatty infiltration of the liver, that could be reviewed further with her primary doctor. CRP is normal at 0.7. Lipase is 41. Overall, evaluation does not reveal an alternate cause for her symptoms. Presentation is consistent with muscular back pain. I recommended Tylenol and ibuprofen together 3 times daily. I have prescribed cyclobenzaprine to add for symptomatic relief as well. Continue with ice and/or heat. Discussed that symptoms should gradually improve over the next week. See primary doctor for persistent pain. Return any time for severe uncontrolled pain, high fevers, vomiting or other worsening. Vital Signs Vital signs: Initial Vital Signs Temperature 98.3 F 06/13/24 13:25 Temperature Source Temporal Artery Scan 06/13/24 13:25 Pulse Rate 80 06/13/24 13:25 Respiratory Rate 18 06/13/24 13:25 Blood Pressure 144/88 H 06/13/24 13:25 Blood Pressure Mean 106 H 06/13/24 13:25 Blood Pressure Position Sitting 06/13/24 13:25 Pulse Oximetry 100 06/13/24 13:25 Oxygen Delivery Method Room Air 06/13/24 13:25 Vital Signs Temperature 98.3 F 06/13/24 13:25 Pulse Rate 80 06/13/24 13:25 Respiratory Rate 18 06/13/24 13:25 Blood Pressure 144/88 H 06/13/24 13:25 Pulse Oximetry 100 06/13/24 13:25 Oxygen Delivery Method Room Air 06/13/24 13:25 Temperature 98.3 F 06/13/24 13:25 Pulse Rate 80 06/13/24 13:25 Respiratory Rate 18 06/13/24 13:25 Blood Pressure 144/88 H 06/13/24 13:25 Pulse Oximetry 100 06/13/24 13:25 Oxygen Delivery Method Room Air 06/13/24 13:25 Medications Administered Medications: Discontinued Medications Generic Name Dose Route Start Last Admin Trade Name Freq PRN Reason Stop Dose Admin Ketorolac Tromethamine 15 mg 06/13/24 13:43 06/13/24 13:52 Ketorolac 15 Mg/Ml Inj IVP 06/13/24 13:44 15 mg ONCE ONE Administration Ondansetron HCl 4 mg 06/13/24 13:43 06/13/24 13:52 Ondansetron 2 Mg/Ml Inj IVP 06/13/24 13:44 4 mg ONCE ONE Administration Medical Decision Making Lab Data Labs: Lab Results 06/13/24 06/13/24 Range/Units 13:34 14:02 WBC 8.26 (4.50-11.00) K/uL RBC 4.49 (4.00-5.20) m/uL Hgb 14.4 (12.0-16.0) gm/dL Hct 43.1 (33.0-51.0) % MCV 96 (80-100) fL MCH 32 (26-34) pg MCHC 33 (32-36) gm/dL RDW Coeff of Elliott 11.8 (11.5-15.5) % Plt Count 249 (140-440) K/uL Neut % (Auto) 71.7 (42.0-72.0) % Lymph % (Auto) 14.0 L (20-44) % [place] % (Auto) 10.3 (0.0-11.0) % Eos % (Auto) 3.4 (0.0-7.0) % Baso % (Auto) 0.5 (0.0-3.0) % Neut # (Auto) 5.92 (1.7-7.0) K/uL Lymph # (Auto) 1.20 (0.90-2.90) K/uL [place] # (Auto) 0.90 (0.00-0.90) K/UL Eos # (Auto) 0.28 (0.00-0.50) K/uL Baso # (Auto) 0.04 (0.00-0.30) K/uL Abs Immat Gran (auto) 0.01 (0.00-0.30) K/uL Imm/Tot Granulo (auto) 0.1 % D-Dimer Quant (PE/DVT) 0.38 (0.00-0.50) ug/ml Sodium 132 L (135-149) mmol/L Potassium 3.6 (3.6-5.1) mmol/L Chloride 100 (96-114) mmol/L Carbon Dioxide 23 (20-32) mmol/L Anion Gap 9 (7-15) mEq/L BUN 8 (5-24) mg/dL Creatinine 0.4 L (0.5-1.5) mg/dL Estimated Creat Clear 208.24 Estimated GFR 131 ml/min Glucose 121 H (60-115) mg/dL Calcium 9.4 (8.4-10.6) mg/dL Total Bilirubin 1.3 (0.1-1.5) mg/dL Direct Bilirubin 0.4 (0.0-0.5) mg/dL AST 66 H (12-35) U/L ALT 38 H (4-35) U/L Alkaline Phosphatase 55 (40-150) U/L C-Reactive Protein 0.7 (0.5-1.0) mg/dL Total Protein 8.2 (6.0-8.3) g/dL Albumin 4.6 (3.3-5.0) g/dL Lipase 41 (23-300) U/L Urine Color Light yellow (Yellow) Urine Appearance Clear (Clear) Urine pH 5.5 (5.0-8.5) Ur Specific [place] <= 1.005 (1.000-1.030) Urine Protein Negative (Negative) Urine Glucose (UA) Negative (Negative) Urine Ketones Trace A (Negative) Urine Blood Negative (Negative) Urine Nitrite Negative (Negative) Urine Bilirubin Negative (Negative) Urine Urobilinogen 0.2 (0.2-1.0) Ur Leukocyte Esterase Negative (Negative) Urine RBC 0-2 (0-2) Urine WBC 0-2 (0-5) Ur Squamous Epith Cells None (None-Few) Urine Bacteria None (None) Urine HCG, Qual Negative (Negative) Imaging Data Chest x-ray: Attestation: I have reviewed the pertinent imaging results. Radiologist's impression: Patient: Eden Seth MR#: [id number] : 1985 Acct:[id number] Loc: ED Service Date: 06/13/[address]: Ordering Physician: Gayatri Millan M.D. Date of Service: 06/13/24 Procedure(s): XR chest 2V Accession Number(s): [id number] cc: Gayatri Millan M.D.; Provider,Not a Local~ For Patients: As a result of the Cures Act, medical imaging exams and procedure reports are released immediately into your electronic medical record. You may view this report before your referring provider. If you have questions, please contact your health care provider. Indication: Left posterior thoracic pain Technique: Chest 2 views Comparison: Chest x-ray 01/09/2024 Findings/Impression: Cardiovascular and mediastinum: Heart size and vasculature are normal in caliber and appearance. Mediastinum is within normal limits. Lungs and pleural spaces: Lungs are clear. No sign of infiltrate or mass. No sign of pleural effusion. No pneumothorax. Bones and soft tissues: No significant findings. Dictated by Arcenio Shi MD @ 06/13/2024 3:33:44 PM Discharge Plan Discharge Clinical Impression: Left-sided thoracic back pain Patient Disposition: Home, Self-Care Condition: Stable Instructions: Thoracic Pain (ED) Additional Instructions: Your test today are reassuring. There is no evidence of blood clot, pneumonia, collapsed lung. Your CT scan did not show evidence of kidney stones or hydronephrosis. Pancreatic labs are normal, liver tests are largely normal although you have mild elevations in her transaminases. The CT scan you had last week showed probably fatty infiltration of the liver, which likely explains your liver function test today, but this could be discussed further with your primary doctor to see if additional evaluation is needed. I do not think these findings are responsible for symptoms today. Would recommend ibuprofen 400 mg plus Tylenol 1000 mg 3 times daily for pain. Continue with heat and or ice. I have prescribed a muscle relaxer that you can use as well. Would anticipate these symptoms to improve over the next week or so. For ongoing pain, please see your primary doctor for recheck. Return any time for new symptoms such as high fevers, severe uncontrolled pain, significant shortness of breath, vomiting or other worsening. Prescriptions: No Action No Known Home Medications Follow Up/Referrals: Provider,Not a Local [Primary Care Provider] - Stand Alone Forms: [employer] Info Instructions
[2024-06-13 13:52] LABS: Ur HCG Qualitative* Negative (Negative)
[2024-06-13] MEDS: KETOROLAC 15 MG/ML inj IVP (13:52)
[2024-06-13] MEDS: ONDANSETRON 2 MG/ML inj 4 MG IVP (13:52)
[2024-06-13 14:31] LABS: Basophils Absolute Auto 0.04 K/uL (0.00-0.30); Basophils Percent Auto 0.5 % (0.0-3.0); Eosinophils Absolute Auto 0.28 K/uL (0.00-0.50); Eosinophils Percent Auto 3.4 % (0.0-7.0); Hematocrit 43.1 % (33.0-51.0); Hemoglobin* 14.4 gm/dL (12.0-16.0); Immature Granulocytes Abs Auto 0.01 K/uL (0.00-0.30); Immature Granulocytes Pct Auto 0.1 %; Mean Corpuscular HGB Conc 33 gm/dL (32-36); Mean Corpuscular Hemoglobin 32 pg (26-34); Mean Corpuscular Volume 96 fL (80-100); Monocytes Percent Auto 10.3 % (0.0-11.0); Neutrophils Absolute Auto 5.92 K/uL (1.7-7.0); Neutrophils Percent Auto 71.7 % (42.0-72.0); Platelet Count* 249 K/uL (140-440); RDW Coefficient of Variation % 11.8 % (11.5-15.5); Red Blood Count 4.49 m/uL (4.00-5.20); White Blood Count* 8.26 K/uL (4.50-11.00)
[2024-06-13 14:42] LABS: Albumin* 4.6 g/dL (3.3-5.0); Chloride* 100 mmol/L (96-114)
[2024-06-13 14:43] LABS: Potassium* 3.6 mmol/L (3.6-5.1); Sodium* 132 mmol/L (135-149)
[2024-06-13 14:44] LABS: D Dimer Quantitative* 0.38 ug/ml (0.00-0.50); Slide Review Reflex No
[2024-06-13 14:44] LABS: RBC Urine 0-2 (0-2); WBC Urine 0-2 (0-5)
[2024-06-13 14:45] LABS: Creatinine* 0.4 mg/dL (0.5-1.5); Est. Creatinine Clearance* 208.24; Estimated Glomerular Filt Rate 131 ml/min
[2024-06-13 14:46] LABS: Alanine Aminotransferase* 38 U/L (4-35); Alkaline Phosphatase* 55 U/L (40-150); Anion Gap 9 mEq/L (7-15); Aspartate Amino Transferase* 66 U/L (12-35); Bilirubin Direct* 0.4 mg/dL (0.0-0.5); Bilirubin Total* 1.3 mg/dL (0.1-1.5); Blood Urea Nitrogen* 8 mg/dL (5-24); Calcium* 9.4 mg/dL (8.4-10.6); Carbon Dioxide* 23 mmol/L (20-32); Glucose* 121 mg/dL (60-115); Lipase* 41 U/L (23-300); Total Protein* 8.2 g/dL (6.0-8.3)
[2024-06-13 14:48] LABS: C Reactive Protein* 0.7 mg/dL (0.5-1.0)
--- NOTE | 2024-06-13 15:17 | CRLHL7_ITS ---
For Patients: As a result of the Century Cures Act, medical imaging exams and procedure reports are released immediately into your electronic medical record. You may view this report before your referring provider. If you have questions, please contact your health care provider. Indication: Left posterior thoracic pain Technique: Chest 2 views Comparison: Chest x-ray 01/09/2024 Findings/Impression: Cardiovascular and mediastinum: Heart size and vasculature are normal in caliber and appearance. Mediastinum is within normal limits. Lungs and pleural spaces: Lungs are clear. No sign of infiltrate or mass. No sign of pleural effusion. No pneumothorax. Bones and soft tissues: No significant findings. Dictated by Arcenio Shi MD @ 06/13/2024 3:33:44 PM (Electronically Signed)
== END 2024-06-13 16:02 | disposition home or self-care (01) ==
PROVIDERS: Emergency Provider Emergency Medicine
DX: M54.6 Pain in thoracic spine (principal)
CPT/HCPCS: 36415; 71046; 80048; 80076; 81001; 81003; 81025; 83690; 85025; 85379; 86140; 96374; 96375; 99283; 99284; J1885; J2405

== ENCOUNTER 2024-06-22 13:55 | Emergency (ER) | payer MEDICAID, SELFPAY ==
--- OUTSIDE RECORDS SUMMARY | 2024-06-22 13:56 | XMS_ITS | Encounter Summary ---
Author Organization [facility] Address [address] [place] [address] Care Team Providers Care Manager Process Improvement Name Role Phone Alex Koo MD Primary Care Provider + 2 Alex Koo MD Primary Care Provider + 2 Alex Koo MD Unavailable + Radha Knight APRN SOFT WORK WRAPPER LAYER AND EXAMINER Unavailable + Alex Koo MD Unavailable + Radha Knight APRN SOFT WORK WRAPPER LAYER AND EXAMINER Unavailable + Alex Koo MD Unavailable + Radha Knight APRN SOFT WORK WRAPPER LAYER AND EXAMINER Unavailable + Dinesh Mac MD Unavailable Coming September Vicki IBRAHIM Unavailable + [phone] Alex Koo MD Unavailable + Rosa Moyer CNM Unavailable [phone] Barbara Cheng MD Unavailable [phone] Umesh Lima PA-C Unavailable + Umesh Lima PA-C Unavailable + Alex Koo MD Unavailable + Umesh Lima-Mandie Unavailable + Encounter Details Date Type Department Care Team (Late st Contact Info) Description 02/02/[place] [facility] [place] [address], [address] [place] [address] 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, 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 Social History Tobacco Use Types Packs/Day Years Used Date Smoking Tobacco: Never Smokeless Tobacco: Never Alcohol Use Standard Drinks/Week Comments Yes 0 (1 standard drink = 0.6 oz pur e alcohol) occasional 2-4 monthly Comments No Sex and Gender Information Value Date Recorded Sex Assigned at Not on file Legal Sex Female 11:55 AM PRACTICE OFFICE 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 Gender Identity Not on file Sexual Orientation Not on file documented as of this encounter Plan of Treatment Not on file documented as of this encounter Visit Diagnoses Not on filedocumented in this encounter Additional Health Concerns Assessment Noted Time PHQ-9 Depression Total Score: 2 11/17/19 17 7:16 AM CDT documented as of this encounter Care Teams Manager Process Improvement Relationship Specialty Start Date End Date Alex Koo MD PCP - General Family Practice 04/19/16 10/26/20 [place] [address] [place] [address] PCP - General Family Practice 10/27/20 Radha Knight APRN SOFT WORK WRAPPER LAYER AND EXAMINER [address] [place] [address] PCP - Assigned PCP 11/19/17 07/21/18 [place] [address] [place] 13885 PCP - Assigned PCP 07/22/18 08/14/18 Alex Koo MD Family Practice 10/27/20 Radha Knight APRN SOFT WORK WRAPPER LAYER AND EXAMINER [address] [place] [address] Assigned PCP 11/19/17 07/21/18 [place] [address] [place] [address] Assigned PCP 07/22/18 11/16/19 Radha Knight APRN SOFT WORK WRAPPER LAYER AND EXAMINER [address] [address] [place], [place] [id number] Assigned PCP 11/17/19 03/14/20 Dinesh Mac MD [address] [facility] [address] Assigned PCP 03/15/20 08/15/20 [place] [address] [place], [place] [id number] Assigned PCP 08/16/20 11/21/20 [place] [address] [place] [address] Assigned PCP 11/22/20 05/20/22 Rosa Moyer CNM [address] [place] [address] Assigned OBGYN Provider 12/25/2004/08 Barbara Cheng MD [address] [place] [address] Assigned OBGYN Provider 04/09/22 Umesh Lima PA-C [address] [place], [place] [address] Assigned PCP 05/21/22 10/02/23 Umesh Lima PA-C 63369 [place] [address] Assigned Pain Medication Provider 06/20/22 12/09/22 [place] [address] [place] [address] Assigned PCP 10/03/23 01/01/24 Umesh Lima PA-C 60181 [place] [address] Assigned PCP 01/02/24 documented as of this encounter
--- OUTSIDE RECORDS SUMMARY | 2024-06-22 13:56 | XMS_ITS | Encounter Summary ---
Author Organization [facility] Address [address] [place] [address] Care Team Providers Care Fretted String Instrument Repairer Name Role Phone Alex Koo MD Primary Care Provider [phone] Alex Koo MD Unavailable September Vicki IBRAHIM Unavailable + [phone] Alex Koo MD Unavailable Rosa Moyer CNM Unavailable [phone] Barbara Cheng MD Unavailable [phone] Umesh Lima PA-C Unavailable +[phone] Umesh Lima PA-C Unavailable +[phone] Alex Koo MD Unavailable Umesh Lima PA-C Unavailable +[phone] Encounter Details Date Type Department Care Team (Late st Contact Info) Description 10/27/2020 Records - [facility] CONVERSION Scan, Non-Provider Social History Tobacco Use Types Packs/Day Years Used Date Smoking Tobacco: Never Assessed PHQ-2 Answer Date Recorded PHQ-2 Score 2 07/31/2020 Comments No Sex and Gender Information Value Date Recorded Sex Assigned at Not on file Legal Sex Female 11:55 AM HEEL WHEELER Gender Identity Not on file Sexual Orientation Not on file documented as of this encounter Plan of Treatment Not on file documented as of this encounter Visit Diagnoses Not on filedocumented in this encounter Additional Health Concerns Assessment Noted Time PHQ-9 Depression Total Score: 4 07/31/19 21 5:02 PM HEEL WHEELER documented as of this encounter Care Teams Fretted String Instrument Repairer Relationship Specialty [place] [address] [place] [address] PCP - General Family Practice 10/27/20 [place] [address] [place] [address] Family Practice 10/27/20 [place] [address] [facility] [place] [address] Assigned PCP 08/16/20 11/21/20 [place] [address] [place] [address] Assigned PCP 11/22/20 05/20/22 Rosa Moyer CNM [address] [place] [address] Assigned OBGYN Provider 12/25/2004/08 Barbara Cheng MD [address] [place] [address] Assigned OBGYN Provider 04/09/22 Umesh Lima PA-C 82043 [place] [address] Assigned PCP 05/21/22 10/02/23 Umesh Lima PA-C 94652 [place] [address] Assigned Pain Medication Provider 06/20/22 12/09/22 [place] [address] [place] [address] Assigned PCP 10/03/23 01/01/24 Umesh Lima PA-C 70329 [place] [address] Assigned PCP 01/02/24 documented as of this encounter
--- OUTSIDE RECORDS SUMMARY | 2024-06-22 13:56 | XMS_ITS | Encounter Summary ---
Author Organization [facility] Address [address] [place] [address] Care Team Providers Care Provider Relations Specialist Name Role Phone Alex Koo MD Primary Care Provider + 2 Alex Koo MD Primary Care Provider + 2 Alex Koo MD Unavailable + Alex Koo MD Unavailable + Alex Koo MD Unavailable Radha Knight APRN CISCO CONSULTANT Unavailable + Dinesh Mac MD Unavailable Coming Yancy Ramirez MD Unavailable + [phone] Alex Koo MD Unavailable + Rosa Moyer CNM Unavailable [phone] Barbara Cheng MD Unavailable [phone] Umesh Lima PA-C Unavailable + Umesh Lima PA-C Unavailable + Alex Koo MD Unavailable + Umesh Lima PA-C Unavailable [phone] Encounter Details Date Type Department Care Team (Late st Contact Info) Description 07/24/2018 [facility]ice [address], [address] [place] [address] Mary Joshi, CARD ASSEMBLER Social History Tobacco Use Types Packs/Day Years Used Date Smoking Tobacco: Never Smokeless Tobacco: Never Alcohol Use Standard Drinks/Week Comments Yes 0 (1 standard drink = 0.6 oz pur e alcohol) occasional 2-4 monthly PHQ-2 Answer Date Recorded PHQ-2 Score 6 06/20/2018 Comments No Sex and Gender Information Value Date Recorded Sex Assigned at Not on file Legal Sex Female 11:55 AM INSULATION HOSEMAN Gender Identity Not on file Sexual Orientation Not on file documented as of this encounter Miscellaneous Notes * Telephone Encounter - Mary Joshi CMA - 08/24/2018 2:01 PM CDT Left message on personal AppwoRxmail to return call. 2nd outreach. Mary Joshi CMA (AAMA) documented in this encounter Plan of Treatment Not on file documented as of this encounter Visit Diagnoses Not on filedocumented in this encounter Additional Health Concerns Assessment Noted Time PHQ-9 Depression Total Score: 2 11/17/19 17 7:16 AM CDT documented as of this encounter Care Teams Provider Relations Specialist Relationship Specialty Start Date End Date Alex Koo MD PCP - General Family Practice 04/19/16 10/26/20 [place] [address] [place] [address] PCP - General Family Practice 10/27/20 [place] [address] [place] [address] PCP - Assigned PCP 07/22/18 08/14/18 Alex Koo MD Family Practice 10/27/20 [place] [address] [place] [address] Assigned PCP 07/22/18 11/16/19 Radha Knight APRN CNP [address] [place] [address] Assigned PCP 11/17/19 03/14/20 Dinesh Mac MD [address] [facility] [place] [address] Assigned PCP 03/15/20 08/15/20 [place] [address] [facility] [place] [address] Assigned PCP 08/16/20 11/21/20 [place] [address] [place] [address] Assigned PCP 11/22/20 05/20/22 Rosa Moyer CNM [address] [place] [address] Assigned OBGYN Provider 12/25/2004/08 Barbara Cheng MD [address] [place] [address] Assigned OBGYN Provider 04/09/22 Umesh Lima PA-C [address] [place] [address] Assigned PCP 05/21/22 10/02/23 Umesh Lima PA-C 64129 [place] [address] Assigned Pain Medication Provider 06/20/22 12/09/22 [place] [address] [place] [address] Assigned PCP 10/03/23 01/01/24 Umesh Lima PA-C 90159 [place] [address] Assigned PCP 01/02/24 documented as of this encounter
--- OUTSIDE RECORDS SUMMARY | 2024-06-22 13:56 | XMS_ITS | Clinical Summary ---
Author Organization [facility] Address [address] [place] [address] Care Team Providers Care Director Network Development Name Role Phone Alex Koo MD Primary Care Provider +[phone] Alex Koo MD Unavailable Umesh Lima PA-C Unavailable [phone] Allergies No known active allergies Medications melatonin [...] ns:Mild episode of recurrent major depressive disorder Take 1 tablet (25 mg) by mouth daily for 7 days 7 tablet 4 Active LORazepam (ATIVAN) 0.5 MG tabletIndicatio ns:Panic attack Take 1 tablet (0.5 mg) by mouth every 8 hours as needed for anxiety. 10 tablet 4 Active sertraline (ZOLOFT) 100 MG tabletIndicatio ns:Mild episode of recurrent major depressive disorder Take 1 tablet (100 mg) by mouth daily. 90 tablet 4 07/07/19 25 Active Active Problems Patient Care Coordination No te Formatting of this note migh t be different from the original. [email or web address] Problem Noted Date Diagnosed Date Jaw pain [...] Type Department Care Team Description 04/08/[address] [address] Luis Carlos Roblero APRN TELESALES TEAM LEADER Medication Refill from Last 3 Months Immunizations [...] on file Legal Sex Female 11:55 AM LINEN ROOM HOUSEPERSON Gender Identity Not on file Sexual Orientation [...] BASIC METABOLIC PANEL Routine 08/09/2021 2:53 PM LINEN ROOM HOUSEPERSON Jaw pain from Last 3 Months or [...] component of this testing was completed at [facility] 04/08/2022 2:31 PM CDT [facility] Brushing CERVIX UTERI STRUCTURE / Unknown Non-blood Collection / Unknown 04/06/2022 3:42 PM CDT 04/06/2022 4:02 PM CDT Barbara Cheng MD LAB - BEAKER AP Final Result [facility] Specialty Lab [address] [facility], [address] [address], [facility] [phone] * HPV High Risk Types DNA Cervical (04/06/2022 3:42 PM CDT) Other HR HPV Negative Negative 04/12/2022 2:09 PM CDT [facility] HPV16 DNA Negative Negative 04/12/2022 2:09 PM CDT [facility] HPV18 DNA Negative Negative 04/12/2022 2:09 PM CDT [facility] FINAL DIAGNOSIS This patient's sample is negative for HPV DNA. This test was developed and its performance characteristics determined by the [facility], Molecular Diagnostics Laboratory. It has not [...] CDT Barbara Cheng MD LAB - BLOOD ORDERABLES Final R esult [facility] [address] [facility] [address] [facility], [address] [id number], [facility] [phone] * Basic metabolic panel (08/09/2021 2:53 PM LINEN ROOM HOUSEPERSON) Sodium 142 136 - 145 mmol/L 08/09/2021 8:36 PM LINEN ROOM HOUSEPERSON [facility] Potassium 4.4 3.5 - 5.0 mmol/L 08/09/2021 8:36 PM LINEN ROOM HOUSEPERSON [facility] Chloride 104 98 - 107 mmol/L 08/09/2021 8:36 PM LINEN ROOM HOUSEPERSON [facility] Carbon Dioxide (CO2) 25 22 - 31 mmol/L 08/09/2021 8:36 PM LINEN ROOM HOUSEPERSON [facility] Anion Gap 13 5 - 18 mmol/L 08/09/2021 8:36 PM LINEN ROOM HOUSEPERSON [facility] Urea Nitrogen 9 8 - 22 mg/dL 08/09/2021 8:36 PM LINEN ROOM HOUSEPERSON [facility] Creatinine 0.67 0.60 - 1.10 mg/dL 08/09/2021 8:36 PM LINEN ROOM HOUSEPERSON [facility] Calcium 10.0 8.5 - 10.5 mg/dL 08/09/2021 8:36 PM LINEN ROOM HOUSEPERSON [facility] Glucose 89 70 - 125 mg/dL 08/09/2021 8:36 PM LINEN ROOM HOUSEPERSON [facility] GFR Estimate >90 >60 mL/min/1.7 3m2 08/09/2021 8:36 PM LINEN ROOM HOUSEPERSON [facility] Comment:Effective May 132020 eGFRcr in adults is calculated using the 2020 CKD-EPI creatinine equation which includes age and gender (Beata et al., NEJM, DOI: 10.1056/BGIQyd3685130) Blood STRUCTURE OF RIGHT UPPER LIMB / Unknown Venipuncture / Unknown 08/09/2021 2:53 PM LINEN ROOM HOUSEPERSON 08/09/2021 2:53 PM LINEN ROOM HOUSEPERSON us Ky Aguirre PA-C LAB - BLOOD ORDERABLES Meghan l Result [facility] [id number] [place] [address] from Last 3 Months or Most Recently Relevant to Health Maintenance Care Teams Director Network Development Relationship Specialty [place] [address] [place] [address] PCP - General Family Practice 10/27/20 [place] [address] [place] [address] Family Practice 10/27/20 Umesh Lima PA-C 59258 [place] [address] Assigned PCP 01/02/24
--- OUTSIDE RECORDS SUMMARY | 2024-06-22 13:56 | XMS_ITS | Clinical Summary ---
Author Organization [employer] [facility] Address [place], [place] [address] Care Team Providers Care Supervisor Lending Activities Name Role Phone Pcp, No Primary Care [...] on file Legal Sex Female 5:26 AM OVERLOCK SLEEVE SETTER Gender Identity Not on file Sexual Orientation [...] Procedure Name Priority Date/Time Associated Diagnosis Comments RAILROAD SIGNAL AND SWITCH OPERATOR THIN PREP PAP DIAGNOSTIC IMAGED Routine 02/23/2012 1:31 PM CDT Screening for malignant neoplasm of the cervix from Last 3 Months or Most Recently Relevant to Health Maintenance Results * RAILROAD SIGNAL AND SWITCH OPERATOR THIN PREP PAP DIAGNOSTIC IMAGED (02/23/2012 1:31 PM CDT) CYTOLOGY CYTOPATHOLOGY REPORT [facility] Status: Final Status [id number] CLINICAL INFORMATION Last Date of LMP :02/04/2012 Last Pap Date :06/04/2010 Last Pap Result :NIL ABN [place]/Bx Past 5 YRS :None Hormone Usage :None Menstrual Status :Regular Periods Fishtail/Bx done today :No Additional Information :None given [...] malignant lesions. COLLECTED:02/23/12 ACCESSIONED: 02/24/12 SIGNED: 02/29/12 [facility] PAP [place] CODE NIL [facility] Tissue specimen (specimen) (Cervical/Vagina l) 02/23/2012 1:31 PM CDT 02/23/2012 1:27 PM CDT us Barbara Cassidy MD PATHOLOGY/CYTOLOGY Final Resu lt [facility] [place]IP [address] [place] [phone] from Last 3 Months or Most Recently Relevant to Health Maintenance Insurance [facility] Care Teams Supervisor Lending Activities Relationship Specialty Start Date End Date Pcp, No . PCP - General 03/21/16
--- OUTSIDE RECORDS SUMMARY | 2024-06-22 13:56 | XMS_ITS | Referral Summary ---
Author Organization [facility] Address [address] [place] [address] Care Team Providers Care Dish Maker Name Role Phone Alex Koo MD Primary Care Provider [phone] Alex oKo MD Unavailable Umesh Lima PA-C Unavailable [phone] Encounters Date Type Department Care Team Description 04/08/[address] [address] Luis Carlos Roblero APRN SILVERWARE WASHER Medication Refill from Last 3 Months Allergies [...] migh t be different from the original. [email or web address] Problem Noted Date Diagnosed Date Jaw pain 08/09/2021 Otalgia, right 08/09/2021 Recurrent major depressive disorder, in full rem ission 12/08/2020 Acetabular labrum tear 01/02/2014 Encounter for medication refill 12/25/2013 Overview (12/16/2020): Pain agreement signed 12/25/13. Percocet #60 per month. Diagnosis: left hip pain, SI inflammation, possible left labral hip tear. Pharmacy Family [facility]. Amie Stoll DO .................... 12/25/2013 11:48 AM [...] on file Legal Sex Female 11:55 AM LOAD TEST MECHANIC Gender Identity Not on file Sexual Orientation [...] BASIC METABOLIC PANEL Routine 08/09/2021 2:53 PM LOAD TEST MECHANIC Jaw pain from Last 3 Months or [...] component of this testing was completed at [facility] 04/08/2022 2:31 PM CDT [facility] Brushing CERVIX UTERI STRUCTURE / Unknown Non-blood Collection / Unknown 04/06/2022 3:42 PM CDT 04/06/2022 4:02 PM CDT us Barbara POOLE Final Result [facility] Specialty Lab [address] [facility], [address] [address], [facility] [phone] * HPV High Risk Types DNA Cervical (04/06/2022 3:42 PM CDT) Other HR HPV Negative Negative 04/12/2022 2:09 PM CDT [facility] HPV16 DNA Negative Negative 04/12/2022 2:09 PM CDT [facility] HPV18 DNA Negative Negative 04/12/2022 2:09 PM CDT [facility] FINAL DIAGNOSIS This patient's sample is negative for HPV DNA. This test was developed and its performance characteristics determined by the [facility], Molecular Diagnostics Laboratory. It has [...] [facility] [address] [facility] [address] Building, Room [address] [place] [address], [facility] [phone] * Basic metabolic panel (08/09/2021 2:53 PM LOAD TEST MECHANIC) Sodium 142 136 - 145 mmol/L 08/09/2021 8:36 PM LOAD TEST MECHANIC [facility] Potassium 4.4 3.5 - 5.0 mmol/L 08/09/2021 8:36 PM LOAD TEST MECHANIC [facility] Chloride 104 98 - 107 mmol/L 08/09/2021 8:36 PM LOAD TEST MECHANIC [facility] Carbon Dioxide (CO2) 25 22 - 31 mmol/L 08/09/2021 8:36 PM LOAD TEST MECHANIC [facility] Anion Gap 13 5 - 18 mmol/L 08/09/2021 8:36 PM LOAD TEST MECHANIC [facility] Urea Nitrogen 9 8 - 22 mg/dL 08/09/2021 8:36 PM LOAD TEST MECHANIC [facility] Creatinine 0.67 0.60 - 1.10 mg/dL 08/09/2021 8:36 PM LOAD TEST MECHANIC [facility] Calcium 10.0 8.5 - 10.5 mg/dL 08/09/2021 8:36 PM LOAD TEST MECHANIC [facility] Glucose 89 70 - 125 mg/dL 08/09/2021 8:36 PM LOAD TEST MECHANIC [facility] GFR Estimate >90 >60 mL/min/1.7 3m2 08/09/2021 8:36 PM LOAD TEST MECHANIC [facility] Comment:Effective May 132020 eGFRcr in adults is calculated using the 2020 CKD-EPI creatinine equation which includes age and gender (Beata et al., NEJM, DOI: 10.1056/SWXMoj6244492) Blood STRUCTURE OF RIGHT UPPER LIMB / Unknown Venipuncture / Unknown 08/09/2021 2:53 PM LOAD TEST MECHANIC 08/09/2021 2:53 PM LOAD TEST MECHANIC us Ky Aguirre PA-C LAB - BLOOD ORDERABLES Meghan l Result [facility] [address] [place] [address], [facility] [phone] from Last 3 Months or Most Recently Relevant to Health Maintenance Care Teams Dish Maker Relationship Specialty [place] [address] [place] COL[place] [address] PCP - General Family Practice 10/27/20 [place] [address] [place] [address] Family Practice 10/27/20 Umesh Lima PA-C 40913 [place] [address] Assigned PCP 01/02/24
--- OUTSIDE RECORDS SUMMARY | 2024-06-22 13:57 | XMS_ITS | Encounter Summary ---
Author Organization [facility] Address [address] [place] [address] Care Team Providers Care Shrimp Trawler Name Role Phone Alex Koo MD Primary Care Provider + 2 Alex Koo MD Primary Care Provider + 2 Alex Koo MD Unavailable + Radha Knight APRN TREE MARKER Unavailable + Alex Koo MD Unavailable + Radha Knight APRN TREE MARKER Unavailable + Alex Koo MD Unavailable + Radha Knight APRN TREE MARKER Unavailable + Dinesh Mac MD Unavailable Coming September Vicki IBRAHIM Unavailable + [phone] Alex Koo MD Unavailable + Rosa Moyer Unavailable [phone] Barbara Cheng MD Unavailable Umesh Lima-Mandie Unavailable +[phone] Umesh Lima-Mandie Unavailable + Alex Koo MD Unavailable + Umesh Lima PA-C Unavailable +[phone] Reason for Visit * Reason Onset Date Comments Outreach 11/24/2017 [facility] ATT 1 Outreach 12/29/2017 [facility] ATT 2 Encounter Details Date Type Department Care Team (Late st Contact Info) Description 11/24/[address], [address] [place] [address] Radha Knight APRN TREE MARKER [address] [place] [address] Outreach ([facility] ATT 1); Outreach (PHS ATT 2) Social History Tobacco Use Types Packs/Day Years Used Date Smoking Tobacco: Never Smokeless Tobacco: Never Alcohol Use Standard Drinks/Week Comments Yes 0 (1 standard drink = 0.6 oz pur e alcohol) occasional 2-4 monthly Comments No Sex and Gender Information Value Date Recorded Sex Assigned at Not on file Legal Sex Female 11:55 AM SHOULDER BONER Gender Identity Not on file Sexual Orientation Not on file documented as of this encounter Miscellaneous Notes * Telephone Encounter - Christie Singh - 12/29/2017 12:51 PM CDT 12/29/2017 Call Regarding Preventive Health Screening Cervical/PAP Attempt 2 Message on voicemail Comments: Outreach Hydrologist CC * Telephone Encounter - Christie Singh - 11/24/2017 11:20 AM CDT 11/24/2017 Call Regarding Preventive Health Screening Cervical/PAP Attempt 1 Message on voicemail Comments: Outreach Hydrologist CC documented in this encounter Plan of Treatment Not on file documented as of this encounter Visit Diagnoses Not on filedocumented in this encounter Additional Health Concerns Assessment Noted Time PHQ-9 Depression Total Score: 2 11/17/19 17 7:16 AM CDT documented as of this encounter Care Teams Shrimp Trawler Relationship Specialty Start Date End Date Alex Koo MD PCP - General Family Practice 04/19/16 10/26/20 [place] [address] [place] [address] PCP - General Family Practice 10/27/20 Radha Knight APRN TREE MARKER [address] [place] [address] PCP - Assigned PCP 11/19/17 07/21/18 [place] [address] [place] [address] PCP - Assigned PCP 07/22/18 08/14/18 Alex Koo MD Family Practice 10/27/20 Radha Knight APRN TREE MARKER [address] [place] [address] Assigned PCP 11/19/17 07/21/18 [place] [address] [place] [address] Assigned PCP 07/22/18 11/16/19 Radha Knight APRN TREE MARKER [address] [place] [address] Assigned PCP 11/17/19 03/14/20 Dinesh Mac MD [address] [facility] [place] [address] Assigned PCP 03/15/20 08/15/20 [place] [address] [place] [address] Assigned PCP 08/16/20 11/21/20 [place] [address] [place] [address] Assigned PCP 11/22/20 05/20/22 Rosa Moyer CNM [address] [place] [address] Assigned OBGYN Provider 12/25/2004/08 Barbara Cheng MD [address] [place] [address] Assigned OBGYN Provider 04/09/22 Umesh Lima PA-C [address] [place] [address] Assigned PCP 05/21/22 10/02/23 Umesh Lima PA-C [address] [place] [address] Assigned Pain Medication Provider 06/20/22 12/09/22 [place] [address] [place] [address] Assigned PCP 10/03/23 01/01/24 Umesh Lima PA-C [address] [place] [address] Assigned PCP 01/02/24 documented as of this encounter
--- OUTSIDE RECORDS SUMMARY | 2024-06-22 13:57 | XMS_ITS | Encounter Summary ---
Author Organization [facility] Address [address] [place] [address] Care Team Providers Care Feed Mill Supervisor Name Role Phone Alex Koo MD Primary Care Provider + 2 Alex Koo MD Primary Care Provider + 2 Alex Koo MD Unavailable + Radha Knight APRN ORTHOPEDICS PEDIATRIC PHYSICIAN Unavailable + Alex Koo MD Unavailable + Radha Knight APRN ORTHOPEDICS PEDIATRIC PHYSICIAN Unavailable + Alex Koo MD Unavailable + Radha Knight APRN ORTHOPEDICS PEDIATRIC PHYSICIAN Unavailable + Dinesh Mac MD Unavailable Coming September Vicki IBRAHIM Unavailable + [phone] Alex Koo MD Unavailable + Rosa Moyer CNM Unavailable [phone] Barbara Cheng MD Unavailable [phone] Umesh Lima PA-C Unavailable + Umesh Lima PA-C Unavailable + Alex Koo MD Unavailable + Umesh Lima-Mandie Unavailable + Encounter Details Date Type Department Care Team (Late st Contact Info) Description 07/12/2017 [facility] [place] Medical Advice M [address], [address] [place] [address] Mary Joshi, BILLING CONTROL CLERK Social History Tobacco Use Types Packs/Day Years Used Date Smoking Tobacco: Never Smokeless Tobacco: Never Alcohol Use Standard Drinks/Week Comments Yes 0 (1 standard drink = 0.6 oz pur e alcohol) occasional 2-4 monthly Comments No Sex and Gender Information Value Date Recorded Sex Assigned at Not on file Legal Sex Female 11:55 AM DATA CONVERSION ANALYST Gender Identity Not on file Sexual Orientation Not on file documented as of this encounter Plan of Treatment Not on file documented as of this encounter Visit Diagnoses Not on filedocumented in this encounter Additional Health Concerns Assessment Noted Time PHQ-9 Depression Total Score: 2 11/17/19 17 7:16 AM CDT documented as of this encounter Care Teams Feed Mill Supervisor Relationship Specialty Start Date End Date Alex Koo MD PCP - General Family Practice 04/19/16 10/26/20 [place] [address] [place] [address] PCP - General Family Practice 10/27/20 Radha Knight APRN ORTHOPEDICS PEDIATRIC PHYSICIAN [address] [address] [place] [address] PCP - Assigned PCP 11/19/17 07/21/18 [place] [address] [address] [address] PCP - Assigned PCP 07/22/18 08/14/18 Alex Koo MD Family Practice 10/27/20 Radha Knight APRN ORTHOPEDICS PEDIATRIC PHYSICIAN [address] [place] [address] Assigned PCP 11/19/17 07/21/18 [place] [address] [place] [address] Assigned PCP 07/22/18 11/16/19 Radha Knight APRN ORTHOPEDICS PEDIATRIC PHYSICIAN [address] [address] [place], [place] [id number] Assigned PCP 11/17/19 03/14/20 Dinesh Mac MD [address] [place] [address] Assigned PCP 03/15/20 08/15/20 [place] [address] [place], [place] [id number] Assigned PCP 08/16/20 11/21/20 [place] [address] [place] [address] Assigned PCP 11/22/20 05/20/22 Rosa Moyer CNM [address] [place] [address] Assigned OBGYN Provider 12/25/2004/08 Barbara Cheng MD [address] [place] [address] Assigned OBGYN Provider 04/09/22 Umesh Lima PA-C [address] [address] [place], [place] [address] Assigned PCP 05/21/22 10/02/23 Umesh Lima PA-C [address] [address] [address] Assigned Pain Medication Provider 06/20/22 12/09/22 [place] [address] [place] [address] Assigned PCP 10/03/23 01/01/24 Umesh Lima PA-C [address] [address] [address] Assigned PCP 01/02/24 documented as of this encounter
[2024-06-22 14:09] VITALS: BP 160/110; PULSE 78; RESP 18; TEMP 36.3; O2SAT 100; BMI 27.5
[2024-06-22 16:26] VITALS: BP 138/97; PULSE 73; RESP 18; O2SAT 99
--- NOTE | 2024-06-22 16:57 | ED.GENADULT ---
HPI - General Adult General Date Seen: 06/22/24 Chief complaint: Back Injury/Pain Stated complaint: Rib/back pain Time Seen by Provider: 06/22/24 16:11 History of Present Illness HPI narrative: 38-year-old female presenting the ER today with her mother with concern for left flank pain and left rib pain. They report that symptoms actually began about 2 weeks ago. Sounds like pain came on fairly abruptly initially. There was no antecedent injury or unusual activity that would have led to an injury. A she does not recall exactly what she was doing when it started. Prior to that she recalls that a few weeks ago she had some right lower quadrant abdominal pain prompting an ER visit without clear source for pain discovered. She recalls that over the past few years she has had perhaps 2 or 3 other ER visits for pelvic pain without a clear source (she has been told that she might have had ruptured ovarian cysts, but that was not a definitive diagnosis). She has no history of DVT or PE. She has no recent travel. No leg swelling. No recent cough. No chest injury. She has not noted any rash on her chest She was in the ER about 9 days ago and had a workup that was negative. She was given a prescription for muscle relaxers which were partially helpful but ultimately the pain is been getting worse and worse each day. She is out of the muscle relaxers in bed much more uncomfortable past couple of days. Now also she is getting nauseous from the pain (no vomiting). Bowel movements have been normal. Urination has been normal. No fever. No cough. She is not short of breath but her side hurts a lot when she tries to breathe in and out. Was in the ER 9 days ago on 06/13 for pain in her left flank. Workup showed: WBC 8.2, hemoglobin 14.4, platelet count 249 Sodium 132, potassium 3.6, chloride 100, bicarb 23, BUN 8, creatinine 0.4, glucose 121, AST 66, ALT 38, alk-phos 55, total bili 1.3 CRP 0.7, lipase 41 Urinalysis normal except for trace ketones Chest x-ray negative. Related Data Home Medications ?Medication ?Instructions ?Recorded ?Confirmed No Known Home Medications 01/09/24 06/22/24 Allergies Allergy/AdvReac Type Severity Reaction Status Date / Time No Known Drug Allergies Allergy Verified 06/22/24 14:16 [facility] Social History Smoking Status: Never smoker Second hand tobacco smoke exposure: No How often do you have a drink containing alcohol: 4 or more times a week How many standard drinks containing alcohol do you have on a typical day: 7 to 9 How often do you have six or more drinks on one occasion: Daily or almost daily AUDIT-C Alcohol total score: 11 Non-prescribed substance use: denies use service: No Exam Narrative: Exam Narrative: Constitutional: Appears well-developed and well-nourished. Alert. Conversant. Non toxic. Uncomfortable and is leaning slightly to the left and guarding her left flank. She requires assistance to sit forward for exam because she is too uncomfortable to sit up on her own HENT: Head: Atraumatic. Nose: Nose normal. Mouth/Throat: Oral mucosa is clear and moist. no trismus. Pharynx normal. Tonsils symmetric. No tonsillar enlargement, erythema, or exudate. Eyes: Conjunctivae normal. EOM normal. Pupils equal, round, and reactive to light. No scleral icterus. Neck: Normal range of motion. Neck supple. No tracheal deviation present. Cardiovascular: Normal rate, regular rhythm. No gallop. No friction rub. No murmur heard. Symmetric radial artery pulses Pulmonary/Chest: Effort normal. No stridor. No respiratory distress. No wheezes. No rales. No rhonchi . Marked left posterolateral rib cage tenderness. No crepitus. No redness. No rash. No bruising Abdominal: Soft. Bowel sounds normal. No distension. No mass. No anterior tenderness. No rebound. No guarding. left CVA tender Musculoskeletal: RUE: Normal range of motion. No tenderness. No deformity LUE: Normal range of motion. No tenderness. No deformity RLE: Normal range of motion. No edema. No tenderness. No deformity LLE: Normal range of motion. No edema. No tenderness. No deformity Neurological: Alert and oriented to person, place, and time. Normal strength. CN II-VII intact. No sensory deficit. GCS eye subscore is 4. GCS verbal subscore is 5. GCS motor subscore is 6. Normal coordination Skin: Skin is warm and dry. No rash noted. No pallor. Normal capillary refill. Psychiatric: Normal mood. Normal affect allowing for pain. Mother attentive.. Const: Vital Signs, click to edit/add: Vital Signs - 24 hr 06/22/24 14:09 06/22/24 16:26 06/22/24 20:00 Temperature 97.4 F L Pulse Rate [Right Pulse Oximeter] 78 73 80 Respiratory Rate 18 18 16 Blood Pressure [Ri ght Upper Arm] 160/110 H 138/97 H 137/103 H Pulse Oximetry 100 99 99 Oxygen Delivery Me thod Room Air Room Air Room Air Course Course ED Course: Recheck-somewhat more comfortable after Dilaudid. Able to text and talk with her mother Reevaluation(s) Reevaluation #1: [id number]. Discussed workup so far Vital Signs Vital signs: Initial Vital Signs Temperature 97.4 F L 06/22/24 14:09 Temperature Source Temporal Artery Scan 06/22/24 14:09 Pulse Rate 78 06/22/24 14:09 Pulse Rhythm Regular 06/22/24 14:09 Respiratory Rate 18 06/22/24 14:09 Blood Pressure 160/110 H 06/22/24 14:09 Blood Pressure Mean 126 H 06/22/24 14:09 Blood Pressure Position Sitting 06/22/24 14:09 Pulse Oximetry 100 06/22/24 14:09 Oxygen Delivery Method Room Air 06/22/24 14:09 Vital Signs Temperature 97.4 F L 06/22/24 14:09 Pulse Rate 78 06/22/24 14:09 Respiratory Rate 18 06/22/24 14:09 Blood Pressure 160/110 H 06/22/24 14:09 Pulse Oximetry 100 06/22/24 14:09 Oxygen Delivery Method Room Air 06/22/24 14:09 Temperature 97.4 F L 06/22/24 14:09 Pulse Rate 80 06/22/24 20:00 Respiratory Rate 16 06/22/24 20:00 Blood Pressure 137/103 H 06/22/24 20:00 Pulse Oximetry 99 06/22/24 20:00 Oxygen Delivery Method Room Air 06/22/24 20:00 Medications Administered Medications: Discontinued Medications Generic Name Dose Route Start Last Admin Trade Name Freq PRN Reason Stop Dose Admin Hydromorphone HCl 1 mg 06/22/24 17:20 06/22/24 18:16 Hydromorphone 0.5 Mg/0.5 Ml Inj IVP 06/22/24 17:21 1 mg ONCE ONE Administration Sodium Chloride 500 mls @ 500 mls/hr 06/22/24 17:20 06/22/24 20:12 0.9 % Sodium Chloride 500 Ml IV 06/22/24 18:19 Infused .Q1H ONE Infusion Ondansetron HCl 4 mg 06/22/24 17:20 06/22/24 18:21 Ondansetron 2 Mg/Ml Inj IVP 06/22/24 17:21 4 mg ONCE ONE Administration Oxycodone/Acetaminophen 2 tab 06/22/24 20:02 06/22/24 20:12 Oxycodone/Apap 5-325 Tablet PO 06/22/24 20:03 2 tab ONCE ONE Administration Medical Decision Making MDM Narrative Medical decision making narrative: 38-year-old female presenting to ER today accompanied by her mother. She has been experiencing pain in her left flank and left posterolateral rib cage for the past couple weeks that is been getting steadily worse. Differential is broad. No recent trauma. No signs of any bruising or abrasion on her chest wall. X-ray during her previous ER visit was negative for any visible rib fracture. CT imaging today is again negative for any fracture or other signs of trauma Recent x-ray was negative for pneumonia, pleural effusion, pneumothorax, rib fracture. Given ongoing worsening pain we decided to go ahead with CT for enhanced sensitivity and is again negative for those conditions. PE protocol CT is also obtained and is fortunately negative for PE. CT abdomen pelvis at this point shows no evidence for any splenic lesions, renal infarcts, perinephric abscess or hematoma, hydronephrosis or kidney stone. Urinalysis is normal. CT scan shows no evidence for pancreatitis, diverticulitis, perforation, abscess, retroperitoneal hematoma, or other cause for her left flank pain. Other lab workup is reassuring. Discussed the workup with the patient and her mother. At this point the cause of her pain is not certain. We discussed this could potentially be something like endometriosis. The patient did describe a pattern of recurrent episodes of pelvic pain without a clear diagnosis over the past couple of years. 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 Patient and her mother are agreeable to this plan of care. Discussed precautions for return to the ER Pain is controlled after Dilaudid here in the ER. Additional Percocet ordered as well. Instymeds prescription for Percocet provided. Opiate and sedation precautions reviewed. Patient is agreeable to plan of care Lab Data Labs: Lab Results 06/22/24 06/22/24 Range/Units 18:10 18:42 WBC 7.08 (4.50-11.00) K/uL RBC 4.55 (4.00-5.20) m/uL Hgb 14.6 (12.0-16.0) gm/dL Hct 42.8 (33.0-51.0) % MCV 94 (80-100) fL MCH 32 (26-34) pg MCHC 34 (32-36) gm/dL RDW Coeff of Elliott 11.7 (11.5-15.5) % Plt Count 312 (140-440) K/uL Neut % (Auto) 64.2 (42.0-72.0) % Lymph % (Auto) 22.9 (20-44) % Oliver % (Auto) 8.9 (0.0-11.0) % Eos % (Auto) 3.7 (0.0-7.0) % Baso % (Auto) 0.3 (0.0-3.0) % Neut # (Auto) 4.55 (1.7-7.0) K/uL Lymph # (Auto) 1.62 (0.90-2.90) K/uL Oliver # (Auto) 0.60 (0.00-0.90) K/UL Eos # (Auto) 0.26 (0.00-0.50) K/uL Baso # (Auto) 0.02 (0.00-0.30) K/uL Abs Immat Gran (auto) 0.00 (0.00-0.30) K/uL Imm/Tot Granulo (auto) 0.0 % Sodium 139 (135-149) mmol/L Potassium 3.7 (3.6-5.1) mmol/L Chloride 104 (96-114) mmol/L Carbon Dioxide 24 (20-32) mmol/L Anion Gap 11 (7-15) mEq/L BUN 6 (5-24) mg/dL Creatinine 0.5 (0.5-1.5) mg/dL Estimated Creat Clear 166.59 Estimated GFR 124 ml/min Glucose 81 (60-115) mg/dL Calcium 9.6 (8.4-10.6) mg/dL Total Bilirubin 0.6 (0.1-1.5) mg/dL AST 43 H (12-35) U/L ALT 25 (4-35) U/L Alkaline Phosphatase 57 (40-150) U/L Total Protein 8.4 H (6.0-8.3) g/dL Albumin 4.7 (3.3-5.0) g/dL Lipase 34 (23-300) U/L Urine Color Yellow (Yellow) Urine Appearance Clear (Clear) Urine pH 5.5 (5.0-8.5) Ur Specific [place] <= 1.005 (1.000-1.030) Urine Protein Negative (Negative) Urine Glucose (UA) Negative (Negative) Urine Ketones Negative (Negative) Urine Blood Negative (Negative) Urine Nitrite Negative (Negative) Urine Bilirubin Negative (Negative) Urine Urobilinogen 0.2 (0.2-1.0) Ur Leukocyte Esterase Negative (Negative) Urine RBC 0-2 (0-2) Urine WBC 0-2 (0-5) Ur Squamous Epith Cells None (None-Few) Urine Bacteria None (None) Urine HCG, Qual Negative (Negative) Imaging Data CT scan - chest: Attestation: I have reviewed the pertinent imaging results. Radiologist's impression: FINDINGS: Heart and vasculature: Contrast opacification of the pulmonary arterial tree is adequate. No sign of pulmonary embolism. Heart size is normal. Thoracic aorta and pulmonary artery are normal in caliber. Lungs and pleura: No suspicious nodules or infiltrates. Scattered atelectasis. No pleural effusions, pleural thickening, or pneumothorax. Lymph nodes/mediastinum: No mediastinal, hilar, or axillary adenopathy. Chest wall: No masses. Upper abdomen: No acute or significant findings. Bones: Unremarkable for age. IMPRESSION: No pulmonary embolism. No focal consolidations. CT scan - abdomen: Attestation: I have reviewed the pertinent imaging results. Radiologist's impression: IMPRESSION: No acute intra-abdominal/pelvic abnormality including obstructive uropathy as questioned. Discharge Plan Discharge Clinical Impression: Left-sided thoracic back pain, Left flank pain Patient Disposition: Home, Self-Care Condition: Stable Instructions: Flank Pain (ED) Additional Instructions: As we discussed, use the prescription pain killer if needed for pain. Be careful because oxycodone can cause dizziness, drowsiness, constipation, and can be addictive. Use the nausea medication if needed. Come back to the ER right away if you have any concerns especially worsening pain, trouble breathing, high fever, weakness, or any other problems Please recheck with your regular doctor or your doctors at the [facility] within the next 2-3 days. Prescriptions: No Action No Known Home Medications Follow Up/Referrals: Provider,Not a Local [Primary Care Provider] - Stand Alone Forms: [facility] Info Instructions
[2024-06-22] MEDS: 0.9 % SODIUM CHLORIDE 500 ML 500 ML IV (17:00)
--- NOTE | 2024-06-22 18:13 | CRLHL7_ITS ---
For Patients: As a result of the Century Cures Act, medical imaging exams and procedure reports are released immediately into your electronic medical record. You may view this report before your referring provider. If you have questions, please contact your health care provider. INDICATION: Left flank pain. TECHNIQUE: CT chest PE was acquired with 100 cc Omnipaque 350 IV contrast. COMPARISON: None. FINDINGS: Heart and vasculature: Contrast opacification of the pulmonary arterial tree is adequate. No sign of pulmonary embolism. Heart size is normal. Thoracic aorta and pulmonary artery are normal in caliber. Lungs and pleura: No suspicious nodules or infiltrates. Scattered atelectasis. No pleural effusions, pleural thickening, or pneumothorax. Lymph nodes/mediastinum: No mediastinal, hilar, or axillary adenopathy. Chest wall: No masses. Upper abdomen: No acute or significant findings. Bones: Unremarkable for age. IMPRESSION: No pulmonary embolism. No focal consolidations. Please note that all CT scans at this facility use dose modulation, iterative reconstruction, and/or weight-based dosing when appropriate to reduce radiation dose to as low as reasonably achievable. Dictated by Vijay Morales MD @ 06/22/2024 7:07:53 PM (Electronically Signed)
--- NOTE | 2024-06-22 18:13 | CRLHL7_ITS ---
For Patients: As a result of the Century Cures Act, medical imaging exams and procedure reports are released immediately into your electronic medical record. You may view this report before your referring provider. If you have questions, please contact your health care provider. INDICATION: Left flank pain. TECHNIQUE: CT abdomen and pelvis acquired with 100 cc Omnipaque 350 IV contrast. COMPARISON: June 03, 2024. FINDINGS: Lower chest: Unremarkable. Liver: Focal fatty infiltration adjacent to the falciform ligament. Normal in size and attenuation. No suspicious masses. Gallbladder and bile ducts: Unremarkable. No stones or inflammation. No biliary dilatation. Pancreas: Unremarkable. No mass or inflammation. Spleen: Unremarkable. Normal in size. No masses. Adrenal glands: Unremarkable. No nodules. Kidneys: Unremarkable. No suspicious masses, stones, or hydronephrosis. GI tract: Unremarkable. Normal in caliber. No sign of mass or inflammation. Normal appendix. Vasculature: Abdominal aorta is normal in caliber. Mesenteric arteries are patent. Lymph nodes: No lymphadenopathy. Peritoneum/Abdominal Wall: Unremarkable. No sign of mass or infiltration. No free air or significant free fluid. Pelvis: Trace free fluid in the pelvis, likely physiologic. Tiny bilateral ovarian cysts. Bones: Unremarkable for age. IMPRESSION: No acute intra-abdominal/pelvic abnormality including obstructive uropathy as questioned. Please note that all CT scans at this facility use dose modulation, iterative reconstruction, and/or weight-based dosing when appropriate to reduce radiation dose to as low as reasonably achievable. Dictated by Vijay Morales MD @ 06/22/2024 7:11:11 PM (Electronically Signed)
[2024-06-22] MEDS: HYDROmorphone 0.5 mg/0.5 ml inj 1 MG IVP (18:16)
[2024-06-22] MEDS: ONDANSETRON 2 MG/ML inj 4 MG IVP (18:21)
[2024-06-22 18:22] LABS: Basophils Absolute Auto 0.02 K/uL (0.00-0.30); Basophils Percent Auto 0.3 % (0.0-3.0); Eosinophils Absolute Auto 0.26 K/uL (0.00-0.50); Eosinophils Percent Auto 3.7 % (0.0-7.0); Hematocrit 42.8 % (33.0-51.0); Hemoglobin* 14.6 gm/dL (12.0-16.0); Lymphocytes Absolute Auto 1.62 K/uL (0.90-2.90); Lymphocytes Percent Auto 22.9 % (20-44); Mean Corpuscular HGB Conc 34 gm/dL (32-36); Mean Corpuscular Hemoglobin 32 pg (26-34); Mean Corpuscular Volume 94 fL (80-100); Monocytes Percent Auto 8.9 % (0.0-11.0); Neutrophils Absolute Auto 4.55 K/uL (1.7-7.0); Neutrophils Percent Auto 64.2 % (42.0-72.0); Platelet Count* 312 K/uL (140-440); RDW Coefficient of Variation % 11.7 % (11.5-15.5); Red Blood Count 4.55 m/uL (4.00-5.20); White Blood Count* 7.08 K/uL (4.50-11.00)
[2024-06-22 18:30] LABS: Slide Review Reflex No
[2024-06-22 18:46] LABS: Appearance Urine Clear (Clear); Bilirubin Urine Negative (Negative); Blood Urine Negative (Negative); Color Urine Yellow (Yellow); Glucose Urine Negative (Negative); Ketones Urine Negative (Negative); Leukocyte Esterase Urine Negative (Negative); Nitrite Urine Negative (Negative); Protein Urine Negative (Negative); Specific Gravity Urine <= 1.005 (1.000-1.030); Urobilinogen Urine 0.2 (0.2-1.0); pH Urine 5.5 (5.0-8.5)
[2024-06-22 18:48] LABS: Albumin* 4.7 g/dL (3.3-5.0)
[2024-06-22 18:48] LABS: Ur HCG Qualitative* Negative (Negative)
[2024-06-22 18:49] LABS: Chloride* 104 mmol/L (96-114); Potassium* 3.7 mmol/L (3.6-5.1); Sodium* 139 mmol/L (135-149)
[2024-06-22 18:51] LABS: Alkaline Phosphatase* 57 U/L (40-150); Anion Gap 11 mEq/L (7-15); Aspartate Amino Transferase* 43 U/L (12-35); Bilirubin Total* 0.6 mg/dL (0.1-1.5); Blood Urea Nitrogen* 6 mg/dL (5-24); Carbon Dioxide* 24 mmol/L (20-32); Creatinine* 0.5 mg/dL (0.5-1.5); Est. Creatinine Clearance* 166.59; Estimated Glomerular Filt Rate 124 ml/min; Total Protein* 8.4 g/dL (6.0-8.3)
[2024-06-22 18:52] LABS: Alanine Aminotransferase* 25 U/L (4-35); Calcium* 9.6 mg/dL (8.4-10.6); Glucose* 81 mg/dL (60-115); Lipase* 34 U/L (23-300)
[2024-06-22 19:17] LABS: RBC Urine 0-2 (0-2); WBC Urine 0-2 (0-5)
--- OUTSIDE RECORDS SUMMARY | 2024-06-22 19:40 | XMS_ITS | Encounter Summary ---
Author Organization [facility] Address [address] [place] [address] Care Team Providers Care President/Gm Production & Live Experiences Name Role Phone Alex Koo MD Primary Care Provider + 2 Alex Koo MD Primary Care Provider + 2 Alex Koo MD Unavailable + Radha Knight APRN BUDGET AND POLICY ANALYST Unavailable + Alex Koo MD Unavailable + Radha Knight APRN BUDGET AND POLICY ANALYST Unavailable + Alex Koo MD Unavailable + Radha Knight APRN BUDGET AND POLICY ANALYST Unavailable + Dinesh Mac MD Unavailable Coming September Vicki IBRAHIM Unavailable + [phone] Alex Koo MD Unavailable + Rosa Moyer Unavailable [phone] Barbara Cheng MD Unavailable [phone] Umesh Lima-Mandie Unavailable +[phone] Umesh Lima-Mandie Unavailable + Alex Koo MD Unavailable + Umesh Lima PA-C Unavailable [phone] Reason for Visit * Reason Onset Date Comments Outreach 11/24/2017 [facility] ATT 1 Outreach 12/29/2017 [facility] ATT 2 Encounter Details Date Type Department Care Team (Late st Contact Info) Description 11/24/[address], [address] [place] [address] Radha Knight APRN BUDGET AND POLICY ANALYST [address] [place] [address] Outreach ([facility] ATT 1); Outreach ([facility] ATT 2) Social History Tobacco Use Types Packs/Day Years Used Date Smoking Tobacco: Never Smokeless Tobacco: Never Alcohol Use Standard Drinks/Week Comments Yes 0 (1 standard drink = 0.6 oz pur e alcohol) occasional 2-4 monthly Comments No Sex and Gender Information Value Date Recorded Sex Assigned at Not on file 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 Gender Identity Not on file Sexual Orientation Not on file documented as of this encounter Miscellaneous Notes * Telephone Encounter - Christie Singh - 12/29/2017 12:51 PM CDT 12/29/2017 Call Regarding Preventive Health Screening Cervical/PAP Attempt 2 Message on voicemail Comments: Outreach Seat Maker CC * Telephone Encounter - Christie Singh - 11/24/2017 11:20 AM CDT 11/24/2017 Call Regarding Preventive Health Screening Cervical/PAP Attempt 1 Message on voicemail Comments: Outreach Seat Maker [employer] documented in this encounter Plan of Treatment Not on file documented as of this encounter Visit Diagnoses Not on filedocumented in this encounter Additional Health Concerns Assessment Noted Time PHQ-9 Depression Total Score: 2 11/17/19 17 7:16 AM CDT documented as of this encounter Care Teams President/[employer] Production [employer] Live Experiences Relationship Specialty Start Date End Date Alex Koo MD PCP - General Family Practice 04/19/16 10/26/20 [place] [address] [address] [address] PCP - General Family Practice 10/27/20 Radha Knight APRN BUDGET AND POLICY ANALYST [address] [place] [address] PCP - Assigned PCP 11/19/17 07/21/18 [place] [address] [place] [address] PCP - Assigned PCP 07/22/18 08/14/18 Alex Koo MD Family Practice 10/27/20 Radha Knight APRN BUDGET AND POLICY ANALYST [address] [place] [address] Assigned PCP 11/19/17 07/21/18 [place] [address] [place] [address] Assigned PCP 07/22/18 11/16/19 Radha Knight APRN BUDGET AND POLICY ANALYST [address] [place] [address] Assigned PCP 11/17/19 03/14/20 Dinesh Mac MD [address] [facility] [place] [address] Assigned PCP 03/15/20 08/15/20 [place] [address] [address] [place] [address] Assigned PCP 08/16/20 11/21/20 [place] [address] [place] [address] Assigned PCP 11/22/20 05/20/22 Rosa Moyer CNM [address] [place] [address] Assigned OBGYN Provider 12/25/2004/08 Barbara Cheng MD [address] [place] [address] Assigned OBGYN Provider 04/09/22 Umesh Lima PA-C [address] [place] [address] Assigned PCP 05/21/22 10/02/23 Umesh Lima PA-C [address] [place] [address] Assigned Pain Medication Provider 06/20/22 12/09/22 [place] [address] [place] [address] Assigned PCP 10/03/23 01/01/24 Umesh Lima PA-C [address] [place] [address] Assigned PCP 01/02/24 documented as of this encounter
--- OUTSIDE RECORDS SUMMARY | 2024-06-22 19:40 | XMS_ITS | Clinical Summary ---
Author Organization [facility] Address [address] [place] [address] Care Team Providers Care Remelt Worker Name Role Phone Alex Koo MD Primary Care Provider [phone] Alex Koo MD Unavailable Umesh Lima PA-C Unavailable [phone] Allergies No known active allergies Medications melatonin [...] migh t be different from the original. 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 Gender Identity Not on file Sexual Orientation [...] BASIC METABOLIC PANEL Routine 08/09/2021 2:53 PM PROCESS MANAGER Jaw pain from Last 3 Months or [...] component of this testing was completed at [facility] 04/08/2022 2:31 PM CDT SPECIAL[facility] LABS Brushing CERVIX UTERI STRUCTURE / Unknown Non-blood Collection / Unknown 04/06/2022 3:42 PM CDT 04/06/2022 4:02 PM CDT Barbara Cheng MD LAB - BEAKER AP Final Result SPECIALTY LABS Specialty Lab [address] [facility], [address] [address], [facility] [phone] * HPV High Risk Types DNA Cervical (04/06/2022 3:42 PM CDT) Other HR HPV Negative Negative 04/12/2022 2:09 PM CDT [facility] HPV16 DNA Negative Negative 04/12/2022 2:09 PM CDT [facility] HPV18 DNA Negative Negative 04/12/2022 2:09 PM CDT [facility]AG[facility] FINAL DIAGNOSIS This patient's sample is negative for HPV DNA. This test was developed and its performance characteristics determined by the [facility], Molecular Diagnostics Laboratory. It has [...] [facility] [address] [facility] [address] [facility], [address] [id number], [facility] [phone] * Basic metabolic panel (08/09/2021 2:53 PM PROCESS MANAGER) Sodium 142 136 - 145 mmol/L 08/09/2021 8:36 PM PROCESS MANAGER [facility] Potassium 4.4 3.5 - 5.0 mmol/L 08/09/2021 8:36 PM PROCESS MANAGER [facility] Chloride 104 98 - 107 mmol/L 08/09/2021 8:36 PM PROCESS MANAGER [facility] Carbon Dioxide (CO2) 25 22 - 31 mmol/L 08/09/2021 8:36 PM PROCESS MANAGER [facility] Anion Gap 13 5 - 18 mmol/L 08/09/2021 8:36 PM PROCESS MANAGER [facility] Urea Nitrogen 9 8 - 22 mg/dL 08/09/2021 8:36 PM PROCESS MANAGER [facility] Creatinine 0.67 0.60 - 1.10 mg/dL 08/09/2021 8:36 PM PROCESS MANAGER [facility] Calcium 10.0 8.5 - 10.5 mg/dL 08/09/2021 8:36 PM PROCESS MANAGER [facility] Glucose 89 70 - 125 mg/dL 08/09/2021 8:36 PM PROCESS MANAGER [facility] GFR Estimate >90 >60 mL/min/1.7 3m2 08/09/2021 8:36 PM PROCESS MANAGER [facility] Comment:Effective May 132020 eGFRcr in adults is calculated using the 2020 CKD-EPI creatinine equation which includes age and gender (Beata et al., NEJM, DOI: 10.1056/UWCOfl9866084) Blood STRUCTURE OF RIGHT UPPER LIMB / Unknown Venipuncture / Unknown 08/09/2021 2:53 PM PROCESS MANAGER 08/09/2021 2:53 PM PROCESS MANAGER us Ky Aguirre PA-C LAB - BLOOD ORDERABLES Meghan l Result [facility] [id number] [place] [address] from Last 3 Months or Most Recently Relevant to Health Maintenance Care Teams Remelt Worker Relationship Specialty [place] [address] [place] COLES [address] PCP - General Family Practice 10/27/20 [place] [address] [address] [address] Family Practice 10/27/20 Umesh Lima PA-C 912[address] [address] [address] [address] Assigned PCP 01/02/24
--- OUTSIDE RECORDS SUMMARY | 2024-06-22 19:40 | XMS_ITS | Referral Summary ---
Author Organization [facility] Address [address] [place] [address] Care Team Providers Care Office Machines Wirer Name Role Phone Alex Koo MD Primary Care Provider [phone] Alex oKo MD Unavailable Umesh Lima PA-C Unavailable [phone] Encounters Date Type Department Care Team Description 04/08/[address] [address] Luis Carlos Roblero APRN METAL FITTERS AND MACHINISTS Medication Refill from Last 3 Months Allergies [...] migh t be different from the original. [email or web address] Problem Noted Date Diagnosed Date Jaw pain 08/09/2021 Otalgia, right 08/09/2021 Recurrent major depressive disorder, in full rem ission 12/08/2020 Acetabular labrum tear 01/02/2014 Encounter for medication refill 12/25/2013 Overview (12/16/2020): Pain agreement signed 12/25/13. Percocet #60 per month. Diagnosis: left hip pain, SI inflammation, possible left labral hip tear. Pharmacy Family [facility]. Amie Stoll DO .................... 12/25/2013 11:48 AM [...] on file Legal Sex Female 11:55 AM REGISTRAR ASSISTANT Gender Identity Not on file Sexual Orientation [...] BASIC METABOLIC PANEL Routine 08/09/2021 2:53 PM REGISTRAR ASSISTANT Jaw pain from Last 3 Months or [...] component of this testing was completed at [facility] 04/08/2022 2:31 PM CDT SPECIALTY LABS Brushing CERVIX UTERI STRUCTURE / Unknown Non-blood Collection / Unknown 04/06/2022 3:42 PM CDT 04/06/2022 4:02 PM CDT us Barbara POOLE Final Result SPECIALTY LABS Specialty Lab [address] [facility], [address] [address], [facility] [phone] * HPV High Risk Types DNA Cervical (04/06/2022 3:42 PM CDT) Other HR HPV Negative Negative 04/12/2022 2:09 PM CDT [facility] HPV16 DNA Negative Negative 04/12/2022 2:09 PM CDT [facility] HPV18 DNA Negative Negative 04/12/2022 2:09 PM CDT [facility]ST[facility] FINAL DIAGNOSIS This patient's sample is negative for HPV DNA. This test was developed and its performance characteristics determined by the [facility], Molecular Diagnostics Laboratory. It has not been cleared or approved by the FDA. The laboratory is regulated under CLIA as qualified to perform high-complexity testing. This test is used for clinical purposes. It should not be regarded as investigational or for research. METHODOLOGY: The Nirav Elpiido 4800 system uses automated extraction, simultaneous amplification [...] [facility] 500 [facility] [address] Building, [address] [place] [address], [facility] [phone] * Basic metabolic panel (08/09/2021 2:53 PM REGISTRAR ASSISTANT) Sodium 142 136 - 145 mmol/L 08/09/2021 8:36 PM REGISTRAR ASSISTANT [facility] Potassium 4.4 3.5 - 5.0 mmol/L 08/09/2021 8:36 PM REGISTRAR ASSISTANT [facility] Chloride 104 98 - 107 mmol/L 08/09/2021 8:36 PM REGISTRAR ASSISTANT [facility] Carbon Dioxide (CO2) 25 22 - 31 mmol/L 08/09/2021 8:36 PM REGISTRAR ASSISTANT [facility] Anion Gap 13 5 - 18 mmol/L 08/09/2021 8:36 PM REGISTRAR ASSISTANT [facility] Urea Nitrogen 9 8 - 22 mg/dL 08/09/2021 8:36 PM REGISTRAR ASSISTANT [facility] Creatinine 0.67 0.60 - 1.10 mg/dL 08/09/2021 8:36 PM REGISTRAR ASSISTANT [facility] Calcium 10.0 8.5 - 10.5 mg/dL 08/09/2021 8:36 PM REGISTRAR ASSISTANT [facility] Glucose 89 70 - 125 mg/dL 08/09/2021 8:36 PM REGISTRAR ASSISTANT [facility] GFR Estimate >90 >60 mL/min/1.7 3m2 08/09/2021 8:36 PM REGISTRAR ASSISTANT [facility] Comment:Effective May 132020 eGFRcr in adults is calculated using the 2020 CKD-EPI creatinine equation which includes age and gender (Beata et al., NEJM, DOI: 10.1056/MZTRoi8522576) Blood STRUCTURE OF RIGHT UPPER LIMB / Unknown Venipuncture / Unknown 08/09/2021 2:53 PM REGISTRAR ASSISTANT 08/09/2021 2:53 PM REGISTRAR ASSISTANT us Ky Aguirre PA-C LAB - BLOOD ORDERABLES Meghan l Result [facility] [address] [place] [address], [facility] [phone] from Last 3 Months or Most Recently Relevant to Health Maintenance Care Teams Office Machines Wirer Relationship Specialty [place] [address] [address] COLES [address] PCP - General Family Practice 10/27/20 [place] [address] [place] COLES [address] Family Practice 10/27/20 Umesh Lima PA-C 139[address] [place] [address] Assigned PCP 01/02/24
--- OUTSIDE RECORDS SUMMARY | 2024-06-22 19:40 | XMS_ITS | Clinical Summary ---
Author Organization [facility] [facility] Address [place], [place] [address] Care Team Providers Care Template Maker Name Role Phone Pcp, No Primary Care [...] on file Legal Sex Female 5:26 AM BOILER HOUSE INSPECTOR Gender Identity Not on file Sexual Orientation [...] Procedure Name Priority Date/Time Associated Diagnosis Comments CAT SCAN TECHNOLOGIST THIN PREP PAP DIAGNOSTIC IMAGED Routine 02/23/2012 1:31 PM CDT Screening for malignant neoplasm of the cervix from Last 3 Months or Most Recently Relevant to Health Maintenance Results * CAT SCAN TECHNOLOGIST THIN PREP PAP DIAGNOSTIC IMAGED (02/23/2012 1:31 PM CDT) CYTOLOGY CYTOPATHOLOGY REPORT [facility] Status: Final Status [id number] CLINICAL INFORMATION Last Date of LMP :02/04/2012 Last Pap Date :06/04/2010 Last Pap Result :NIL ABN [place]/Bx Past 5 YRS :None Hormone Usage :None Menstrual Status :Regular Periods [place]/Bx done today :No Additional Information :None given [...] malignant lesions. COLLECTED:02/23/12 ACCESSIONED: 02/24/12 SIGNED: 02/29/12 [facility] PAP [place] CODE NIL [facility] Tissue specimen (specimen) (Cervical/Vagina l) 02/23/2012 1:31 PM CDT 02/23/2012 1:27 PM CDT us Barbara Cassidy MD PATHOLOGY/CYTOLOGY Final Resu lt [facility] INTERNAL ZIP [address] [place] [phone] from Last 3 Months or Most Recently Relevant to Health Maintenance Insurance [facility] Care Teams Template Maker Relationship Specialty Start Date End Date Pcp, No . PCP - General 03/21/16
--- OUTSIDE RECORDS SUMMARY | 2024-06-22 19:40 | XMS_ITS | Encounter Summary ---
Author Organization [facility] Address [address] [place] [address] Care Team Providers Care Roof Fixer Name Role Phone Alex Koo MD Primary Care Provider [phone] Alex Koo MD Unavailable September Vicki IBRAHIM Unavailable + [phone] Alex Koo MD Unavailable Rosa Moyer CNM Unavailable [phone] Barbara Cheng MD Unavailable [phone] Umesh Lima PA-C Unavailable +[phone] Umesh Lima PA-C Unavailable +[phone] Alex Koo MD Unavailable Umesh Lima PA-C Unavailable +[phone] Encounter Details Date Type Department Care Team (Late st Contact Info) Description 10/27/2020 Records - [facility] CONVERSION Scan, Non-Provider Social History Tobacco Use Types Packs/Day Years Used Date Smoking Tobacco: Never Assessed PHQ-2 Answer Date Recorded PHQ-2 Score 2 07/31/2020 Comments No Sex and Gender Information Value Date Recorded Sex Assigned at Not on file Legal Sex Female 11:55 AM ENVIRONMENTAL EDUCATION SPECIALIST Gender Identity Not on file Sexual Orientation Not on file documented as of this encounter Plan of Treatment Not on file documented as of this encounter Visit Diagnoses Not on filedocumented in this encounter Additional Health Concerns Assessment Noted Time PHQ-9 Depression Total Score: 4 07/31/19 21 5:02 PM ENVIRONMENTAL EDUCATION SPECIALIST documented as of this encounter Care Teams Roof Fixer Relationship Specialty [place] [address] [address] COLES [address] PCP - General Family Practice 10/27/20 [place] [address] [place] COLES [address] Family Practice 10/27/20 [place] [address] [facility] [place] [address] Assigned PCP 08/16/20 11/21/20 [place] [address] [place]FR[place] COLES [address] Assigned PCP 11/22/20 05/20/22 Rosa Moyer CNM [address] [place] [address] Assigned OBGYN Provider 12/25/2004/08 Barbara Cheng MD [address] [place] [address] Assigned OBGYN Provider 04/09/22 Umesh Lima PA-C [address]13[address] [place] [address] Assigned PCP 05/21/22 10/02/23 Umesh Lima PA-C 83165 [place] [address] Assigned Pain Medication Provider 06/20/22 12/09/22 [place] [address] [place] COLES [address] Assigned PCP 10/03/23 01/01/24 Umesh Lima PA-C 96889 [place] [address] Assigned PCP 01/02/24 documented as of this encounter
--- OUTSIDE RECORDS SUMMARY | 2024-06-22 19:40 | XMS_ITS | Encounter Summary ---
Author Organization [facility] Address [address] [place] [address] Care Team Providers Care Document Control Clerk Name Role Phone Alex Koo MD Primary Care Provider + 2 Alex Koo MD Primary Care Provider + 2 Alex Koo MD Unavailable + Radha Knight APRN INTERNATIONAL REPRESENTATIVE Unavailable + Alex Koo MD Unavailable + Radha Knight APRN INTERNATIONAL REPRESENTATIVE Unavailable + Alex Koo MD Unavailable + Radha Knight APRN INTERNATIONAL REPRESENTATIVE Unavailable + Dinesh Mac MD Unavailable Coming September Vicki IBRAHIM Unavailable + [phone] Alex Koo MD Unavailable + Rosa Moyer CNM Unavailable +[phone] Barbara Cheng MD Unavailable [phone] Umesh Lima PA-C Unavailable + Umesh Lima PA-C Unavailable + Alex Koo MD Unavailable + Umesh Lima-Mandie Unavailable + Encounter Details Date Type Department Care Team (Late st Contact Info) Description 07/12/2017 [facility] M [address], [address] [place] [address] Mary Joshi, LATH HAND Social History Tobacco Use Types Packs/Day Years Used Date Smoking Tobacco: Never Smokeless Tobacco: Never Alcohol Use Standard Drinks/Week Comments Yes 0 (1 standard drink = 0.6 oz pur e alcohol) occasional 2-4 monthly Comments No Sex and Gender Information Value Date Recorded Sex Assigned at Not on file Legal Sex Female 11:55 AM SMOKING PIPE COATER Gender Identity Not on file Sexual Orientation Not on file documented as of this encounter Plan of Treatment Not on file documented as of this encounter Visit Diagnoses Not on filedocumented in this encounter Additional Health Concerns Assessment Noted Time PHQ-9 Depression Total Score: 2 11/17/19 17 7:16 AM CDT documented as of this encounter Care Teams Document Control Clerk Relationship Specialty Start Date End Date Alex Koo MD PCP - General Family Practice 04/19/16 10/26/20 [place] [address] [place] COLES [address] PCP - General Family Practice 10/27/20 Radha Knight APRN INTERNATIONAL REPRESENTATIVE [address] [place] [address] PCP - Assigned PCP 11/19/17 07/21/18 [place] [address] [place] COLES [address] PCP - Assigned PCP 07/22/18 08/14/18 Alex Koo MD Family Practice 10/27/20 Radha Knight APRN INTERNATIONAL REPRESENTATIVE [address] [place] [address] Assigned PCP 11/19/17 07/21/18 [place] [address] [place] [address] Assigned PCP 07/22/18 11/16/19 Radha Knight APRN INTERNATIONAL REPRESENTATIVE [address] [place] [place], [place] 87[address] Assigned PCP 11/17/19 03/14/20 Dinesh Mac MD [address] [place] [address] Assigned PCP 03/15/20 08/15/20 [place] [address] [place], [place] [address] Assigned PCP 08/16/20 11/21/20 [place] [address] [place] [address] Assigned PCP 11/22/20 05/20/22 Rosa Moyer CNM [address] [place] [address] [place] [address] Assigned OBGYN Provider 12/25/2004/08 Barbara Cheng MD [address] [place] [address] Assigned OBGYN Provider 04/09/22 Umesh Lima PA-C [address] [place], [place]FR[place] [address] Assigned PCP 05/21/22 10/02/23 Umesh Lima PA-C 83503 [place] [address] Assigned Pain Medication Provider 06/20/22 12/09/22 [place] [address] [place] [address] Assigned PCP 10/03/23 01/01/24 Umesh Lima PA-C 95370 [place] [address] Assigned PCP 01/02/24 documented as of this encounter
--- OUTSIDE RECORDS SUMMARY | 2024-06-22 19:40 | XMS_ITS | Encounter Summary ---
Author Organization [facility] Address [address] [place] [address] Care Team Providers Care Lasting Machine Operator Bed Name Role Phone Alex Koo MD Primary Care Provider + 2 Alex Koo MD Primary Care Provider + 2 Alex Koo MD Unavailable + Radha Knight APRN BEHAVIORAL ASSISTANT Unavailable + Alex Koo MD Unavailable + Radha Knight APRN BEHAVIORAL ASSISTANT Unavailable + Alex Koo MD Unavailable + Radha Knight APRN BEHAVIORAL ASSISTANT Unavailable + Dinesh Mac MD Unavailable Coming September Vicki IBRAHIM Unavailable + [phone] Alex Koo MD Unavailable + Rosa Moyer CNM Unavailable +[phone] Barbara Cheng MD Unavailable [phone] Umesh Lima PA-C Unavailable + Umesh Lima PA-C Unavailable + Alex Koo MD Unavailable + Umesh Lima-Mandie Unavailable + Encounter Details Date Type Department Care Team (Late st Contact Info) Description 02/02/2018 [facility] [facility] [place] [address], [address] [place] [address] 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, PATROL INSPECTOR Social History Tobacco Use Types Packs/Day Years Used Date Smoking Tobacco: Never Smokeless Tobacco: Never Alcohol Use Standard Drinks/Week Comments Yes 0 (1 standard drink = 0.6 oz pur e alcohol) occasional 2-4 monthly Comments No Sex and Gender Information Value Date Recorded Sex Assigned at Not on file Legal Sex Female 11:55 AM LIVESTOCK 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 Gender Identity Not on file Sexual Orientation Not on file documented as of this encounter Plan of Treatment Not on file documented as of this encounter Visit Diagnoses Not on filedocumented in this encounter Additional Health Concerns Assessment Noted Time PHQ-9 Depression Total Score: 2 11/17/19 17 7:16 AM CDT documented as of this encounter Care Teams Lasting Machine Operator Bed Relationship Specialty Start Date End Date Alex Koo MD PCP - General Family Practice 04/19/16 10/26/20 [place] [address] [place]FR[place] COLES [address] PCP - General Family Practice 10/27/20 Radha Knight APRN BEHAVIORAL ASSISTANT [address] [place] [address] PCP - Assigned PCP 11/19/17 07/21/18 [place] [address] [place] COLES [address] PCP - Assigned PCP 07/22/18 08/14/18 Alex Koo MD Family Practice 10/27/20 Radha Knight APRN BEHAVIORAL ASSISTANT [address] [place] [address] Assigned PCP 11/19/17 07/21/18 [place] [address] [place] [address] Assigned PCP 07/22/18 11/16/19 Radha Knight APRN BEHAVIORAL ASSISTANT [address] [place], [place] [address] Assigned PCP 11/17/19 03/14/20 Dinesh Mac MD [address] [place] [address] Assigned PCP 03/15/20 08/15/20 [place] [address] [place], [place] [address] Assigned PCP 08/16/20 11/21/20 [place] [address] [place] [address] Assigned PCP 11/22/20 05/20/22 Rosa Moyer CNM [address] [place] [address] Assigned OBGYN Provider 12/25/2004/08 Barbara Cheng MD [address] [place] [address] Assigned OBGYN Provider 04/09/22 Umesh Lima PA-C [address] [place], LU[place]FR[place] [address] Assigned PCP 05/21/22 10/02/23 Umesh Lima PA-C 01971 [place] [address] Assigned Pain Medication Provider 06/20/22 12/09/22 [place] [address] [place] COLES [address] Assigned PCP 10/03/23 01/01/24 Umesh Lima PA-C [address]12 [place] [address] Assigned PCP 01/02/24 documented as of this encounter
--- OUTSIDE RECORDS SUMMARY | 2024-06-22 19:40 | XMS_ITS | Encounter Summary ---
Author Organization [facility] Address [address] [place] [address] Care Team Providers Care Treatment Counselor Name Role Phone Alex Koo MD Primary Care Provider + 2 Alex Koo MD Primary Care Provider + 2 Alex Koo MD Unavailable + Alex Koo MD Unavailable + Alex Koo MD Unavailable Radha Knight APRN MATERIAL CONTROL ANALYST Unavailable + Dinesh Mac MD Unavailable Coming Yancy Ramirez MD Unavailable + [phone] Alex Koo MD Unavailable + Rosa Moyer CNM Unavailable [phone] Barbara Cheng MD Unavailable [phone] Umesh Lima PA-C Unavailable + Umesh Lima PA-C Unavailable + Alex Koo MD Unavailable + Umesh Lima PA-C Unavailable [phone] Encounter Details Date Type Department Care Team (Late st Contact Info) Description 07/24/2018 [facility] [address], [address] [place] [address] Mary Joshi, ACTIVITY SPECIALIST Social History Tobacco Use Types Packs/Day Years Used Date Smoking Tobacco: Never Smokeless Tobacco: Never Alcohol Use Standard Drinks/Week Comments Yes 0 (1 standard drink = 0.6 oz pur e alcohol) occasional 2-4 monthly PHQ-2 Answer Date Recorded PHQ-2 Score 6 06/20/2018 Comments No Sex and Gender Information Value Date Recorded Sex Assigned at Not on file Legal Sex Female 11:55 AM TOOL CRIB 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 2nd outreach. Mary Joshi CMA (AAMA) documented in this encounter Plan of Treatment Not on file documented as of this encounter Visit Diagnoses Not on filedocumented in this encounter Additional Health Concerns Assessment Noted Time PHQ-9 Depression Total Score: 2 11/17/19 17 7:16 AM CDT documented as of this encounter Care Teams Treatment Counselor Relationship Specialty Start Date End Date Alex Koo MD PCP - General Family Practice 04/19/16 10/26/20 [place] [address] [place] COLES [address] PCP - General Family Practice 10/27/20 [place] [address] [place]FR[place] COLES [address] PCP - Assigned PCP 07/22/18 08/14/18 Alex Koo MD Family Practice 10/27/20 [place] [address] [place] COLES [address] Assigned PCP 07/22/18 11/16/19 Radha Knight APRN CNP [address] [place] [address] Assigned PCP 11/17/19 03/14/20 Dinesh Mac MD [address] [facility] [place] [address] Assigned PCP 03/15/20 08/15/20 [place] [address] [facility] [place] [place] [address] Assigned PCP 08/16/20 11/21/20 [place] [address] [place] [address] Assigned PCP 11/22/20 05/20/22 Rosa Moyer CNM [address] [place] [address] Assigned OBGYN Provider 12/25/2004/08 Barbara Cheng MD [address] [place] [address] Assigned OBGYN Provider 04/09/22 Umesh Lima PA-C [address] [place] [address] Assigned PCP 05/21/22 10/02/23 Umesh Lima PA-C 59177 [place] COLES [address] Assigned Pain Medication Provider 06/20/22 12/09/22 [place] [address] [place] COL[place] [address] Assigned PCP 10/03/23 01/01/24 Umesh Lima PA-C 01040 [place] [address] Assigned PCP 01/02/24 documented as of this encounter
[2024-06-22 20:00] VITALS: BP 137/103; PULSE 80; RESP 16; O2SAT 99
[2024-06-22] MEDS: OxyCODONE/APAP 5-325 TABLET 2 TAB PO (20:12)
== END 2024-06-22 21:04 | disposition home or self-care (01) ==
PROVIDERS: Emergency Provider Emergency Medicine
DX: M54.6 Pain in thoracic spine (principal); R10.9 Unspecified abdominal pain
CPT/HCPCS: 36415; 71275; 74177; 80053; 81001; 81025; 83690; 85025; 96374; 96375; 99284; A9270; J1171; J2405; J7030; Q9967

== ENCOUNTER 2024-09-23 16:33 | Emergency (ER) | payer OTHER, SELFPAY ==
--- OUTSIDE RECORDS SUMMARY | 2024-09-23 16:36 | XMS_ITS | Encounter Summary ---
Author Organization [facility] Address [address] [place] [address] Care Team Providers Care Pot Runner Name Role Phone Alex Koo MD Primary Care Provider + 2 Alex Koo MD Primary Care Provider + 2 Alex Koo MD Unavailable + Alex Koo MD Unavailable + Alex Koo MD Unavailable Radha Knight APRN LOCATION ANALYST Unavailable + Dinesh Mac MD Unavailable Coming Yancy Ramirez MD Unavailable + [phone] Alex Koo MD Unavailable + Rosa Moyer CNM Unavailable [phone] Barbara Cheng MD Unavailable [phone] Umesh Lima PA-C Unavailable + Umesh Lima PA-C Unavailable + Alex Koo MD Unavailable + Umesh Lima PA-C Unavailable [phone] Encounter Details Date Type Department Care Team (Late st Contact Info) Description 07/24/2018 MyC Medical Advice [address], [address] [place] [address] Mary Joshi, [facility] Social History Tobacco Use Types Packs/Day Years Used Date Smoking Tobacco: Never Smokeless Tobacco: Never Alcohol Use Standard Drinks/Week Comments Yes 0 (1 standard drink = 0.6 oz pur e alcohol) occasional 2-4 monthly PHQ-2 Answer Date Recorded PHQ-2 Score 6 06/20/2018 Comments No Sex and Gender Information Value Date Recorded Sex Assigned at Not on file Legal 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 2nd outreach. Mary Joshi CMA (AAMA) documented in this encounter Plan of Treatment Upcoming Encounters Date Type Department Care Team (Late st Contact Info) Description 10/02/2024 3:00 PM CDT Office Visit [address] [phone] Luis Carlos Roblero APRN [facility] [id number] [place] [phone] documented as of this encounter Visit Diagnoses Not on filedocumented in this encounter Additional Health Concerns Assessment Noted Time PHQ-9 Depression Total Score: 2 11/17/19 17 7:16 AM CDT documented as of this encounter Care Teams Pot Runner Relationship Specialty Start Date End Date Alex Koo MD PCP - General Family Practice 04/19/16 10/26/20 [place] [address] [address] [address] PCP - General Family Practice 10/27/20 [place] [address] [address] [address] PCP - Assigned PCP 07/22/18 08/14/18 Alex Koo MD Family Practice 10/27/20 [place] [address] [place], [place] [id number] Assigned PCP 07/22/18 11/16/19 Radha Knight APRN [facility] [address] [place], [place] [id number] Assigned PCP 11/17/19 03/14/20 Dinesh Mac MD [address] [facility] [address] [place] [address] Assigned PCP 03/15/20 08/15/20 [place] [address] [place], [place] [id number] Assigned PCP 08/16/20 11/21/20 [place] [address] [place] [address] Assigned PCP 11/22/20 05/20/22 Rosa Moyer CNM [address] [place] [address] Assigned OBGYN Provider 12/25/2004/08 Barbara Cheng MD [address] [place] [address] Assigned OBGYN Provider 04/09/22 Umesh Lima PA-C [address] [address] [address] Assigned PCP 05/21/22 10/02/23 Umesh Lima PA-C [address] [address] [address] Assigned Pain Medication Provider 06/20/22 12/09/22 [place] [address] [address] [address] Assigned PCP 10/03/23 01/01/24 Umesh Lima PA-C [address] [address] [address] Assigned PCP 01/02/24 documented as of this encounter
--- OUTSIDE RECORDS SUMMARY | 2024-09-23 16:36 | XMS_ITS | Encounter Summary ---
Author Organization [facility] Address [address] [place] [address] Care Team Providers Care Help Desk Internship Name Role Phone Alex Koo MD Primary Care Provider [phone] Alex Koo MD Unavailable Umesh Lima PA-C Unavailable [phone] Reason for Referral * Mental Health Outpatient (Priority: 1-2 Weeks) - Pending Review Specialty Diagnoses / Procedures Referred By Contac t Referred To Contact Behavioral Health Diagnoses Anxiety Recurrent major depressive disorder, in full remission Luis Carlos Roblero APRN SYSTEMS TECHNOLOGIST [address] [place] [address] Phone: tel: fax: Referral ID Status Reason Start Date Expiration Date V isits Requested Visits Authorized [id number] Pending Review 09/02/2024 09/02/2025 1 1 Question Answer Services: Substance Use Substance Use - REVIEW REFERENCE LINK BELOW: Addiction Medicine Substance: Alcohol Patient Scheduling Instructions: [facility] will call you to coordinate your care as prescribed by your provider. If you don't hear from a membership sales representative within 2 business days, please call . Only select yes if the patient has already been scheduled and requires a referral for insurance. If yes is selected, the referral will NOT route to scheduling for outreach. No Additional Information: alcohol addiction Comments Please be aware that coverage of these services is subject to the terms and limitations of your health insurance plan. Call member services at your health plan with any benefit or coverage questions. [facility] will call you to coordinate your care as prescribed by your provider. If you don't hear from a membership sales representative within 2 business days, please call . * Consultation (Priority: 1-2 Weeks) - Pending Review Specialty Diagnoses / Procedures Referred By Marco boswell Referred To Contact technology education teacher Diagnoses Pelvic pain in female Luis Carlos Roblero APRN CNP [address] [place] [address] Phone: tel: fax: Referral ID Status Reason Start Date Expiration Date V isits Requested Visits Authorized [id number] Pending Review 09/02/2024 09/02/2025 1 1 Question Answer Reason for Referral: Other My Clinical Question Is: Endometriosis work up per ED recommendations. Have orders been placed in [facility] (imaging, labs, etc.) that need to be completed prior to the patient's consult? No Patient Scheduling Instructions: [facility] will call you to coordinate your care as prescribed by your provider. If you don't hear from a membership sales representative within 2 business days, please call . Comments Please be aware that coverage of these services is subject to the terms and limitations of your health insurance plan. Call member services at your health plan with any benefit or coverage questions. [facility] will call you to coordinate your care as prescribed by your provider. If you don't hear from a membership sales representative within 2 business days, please call . Reason for Visit * Reason Comments Follow Up Abdominal Pain RLQ, has been a prob cinthia x 3 years, 3 X from May 2024-till now, severe pain, now have had L mid back pain, when in the ER did many tests and all were negative, consult for endometriosis?? Referral OBGYN-to do more osmani ts? Consult For Chronic pain, everyw here, family hx of fibromyalgia? RA and thyroid family hx-possibly blood work? Years ago Lupus test was border line?? Wants to get retested, seems to have many sx x 3 yrs? Encounter Details Date Type Department Care Team (Late st Contact Info) Description 09/02/2024 3:00 PM CDT Office Visit [facility] [address] [place] [address] Luis Carlos Roblero APRN [facility] [address] [place] [address] Pelvic pain in female (Primary Dx); Anxiety; Recurrent major depressive disorder, in full remission; Panic attack; Alcohol abuse; Weight gain Social History Tobacco Use Types Packs/Day Years Used Date Smoking Tobacco: Never Passive Smoke Exposure: Never Smokeless Tobacco: Never Alcohol Use Standard Drinks/Week Comments Yes 0 (1 standard drink = 0.6 oz pur e alcohol) occasional 2-4 monthly PHQ-2 Answer Date Recorded PHQ-2 Score 2 09/02/2024 Adolescent Education Answer Date Record ed Getting School Help Needed Not on file 03/03 Interpersonal Safety Answer Date Record ed Do you feel physically and e motionally safe where you currently live? Yes 09/02/2024 Within the past 12 months, h ave you been hit, slapped, kicked or otherwise physically hurt by someone? No 09/02/2024 Within the past 12 months, h ave you been humiliated or emotionally abused in other ways by your partner or ex-partner? No 09/02/2024 Comments No Sex and Gender Information Value Date Recorded Sex Assigned at Not on file Legal Sex Female 11:[address] DEPUTY CLERK OF [address] Gender Identity Not on file Sexual Orientation Not on file documented as of this encounter Last Filed Vital Signs Vital Sign Reading Time Taken Comments Blood Pressure 133/91 09/02/2024 2:51 PM CDT Pulse 79 09/02/2024 2:51 PM CDT Temperature 36.7 C (98.1 F) 09/02/2024 2:51 PM CDT Respiratory Rate 14 09/02/2024 2:51 PM CDT Oxygen Saturation 98% 09/02/2024 2:51 PM CDT Inhaled Oxygen Concentration - - Weight 88.5 kg (195 lb) 09/02/2024 2:51 PM CDT Height 177.8 cm (5' 10) 09/02/2024 2:51 PM CDT Body Mass Index 27.98 09/02/2024 2:51 PM CDT documented in this encounter Progress Notes * Luis Carlos RobleroAKUA SYSTEMS TECHNOLOGIST - 09/02/2024 3:00 PM CDT Assessment & Plan (R10.2) Pelvic pain in female (primary encounter diagnosis) Comment: Patient recently went to the [facility] for workup of abdominal discomfort. Patient workup per patient was relatively negative, no immediate concerns were noted. However, ER provider did recommend that patient should be worked up for concerns of endometriosis as she continues to have pel yoli/abdominal/side pain. Shared decision to place LODGE ATTENDANT referral. Patient fully understands and isagreeable with plan of care, at this point patient will follow up as needed unless acute concerns arise in the meantime. Plan: Data Coder Operator Car Cleaner Referral (F41.9) Anxiety (F33.42) Recurrent major depressive disorder, in full remission Comment: Uncontrolled. Patient anxiety quite high as of late due to multiple etiologies. Patient hesitant on restarting depression medication. However, shared decision to trial BuSpar given this works on anxiety and that is patient's biggest concern right now from a mental health perspective. Highly encourage patient to schedule with addiction medicine as well as this has been something she has been struggling with. Patient did not follow-up on previous addiction medicine referral. Patient endorsing drinking 10-12 drinks a day at times. Discussed with patient long-term effects this kind of drinking can cause. Suspect this more likely was contributing to patient's seizures that she endorsed having last year. Would like to follow-up with patient in 1 month.Discussed medication risks and benefits of BuSpar with patient in detail with patient verbal understanding. Patient fully understands and is agreeable with plan of care, at this point patient will follow up as needed unless acute concerns arise in the meantime. plan: busPIRone (BUSPAR) 5 MG tablet, Adult Mental Health Car Cleaner Referral, PRIMARY CARE FOLLOW-UP SCHEDULING (F41.0) Panic attack Comment: Patient having frequent panic attacks. Patient endorsed hydroxyzine making her feel jittery. PDMP was reviewed. Will provide small amount of Ativan to patient today. Ideally would not like her to be on this as a long-term solution. Would like addiction medicine to weigh in on plan of care regarding this if able to get scheduled. Will follow-up with patient in 1 month as above. Patient fully understands and is agreeable with plan of care, at this point patient will follow up as needed unless acute concerns arise in the meantime. Plan: LORazepam (ATIVAN) 0.5 MG tablet (F10.10) Alcohol abuse Comment: Current concern. Patient drinking heavily as noted above. Will recheck kidney function today. Given concerns of seizures in the past, discussed concern of hyponatremia that can occur with alcohol use. Plan: Basic metabolic panel (Ca, Cl, CO2, Creat, Gluc, K, Na, BUN) (R63.5) Weight gain Comment: Patient concerned thyroid may be contributing. Patient has strong family history of hypothyroidism. Requesting to have thyroid levels checked today. Will follow up on results and whether further direction is necessary. Plan: TSH with free T4 reflex The longitudinal plan of care for the diagnosis(es)/condition(s) as documented were addressed during this visit. Due to the added complexity in care, I will continue to support Eden in the subsequent management and with ongoing continuity of care. 45 minutes spent by me on the date of the encounter doing chart review, history and exam, documentation and further activities per the note BMI Estimated body mass index is 27.98 kg/m?? as calculated from the following: Height as of this encounter: 1.778 m (5' 10). Weight as of this encounter: 88.5 kg (195 lb). Subjective Eden is a 38 year old, presenting for the following health issues: Follow Up, Abdominal Pain (RLQ, has been a problem x 3 years, 3 X from May 2024-till now, severepain, now have had L mid back pain, when in the ER did many tests and all were negative, consult for endometriosis?? ), and Referral (OBGYN- to do more tests?) 09/02/2024 2:57 PM Additional Questions Roomed by Merissa Basilio History of Present Illness Mental Health Follow-up: Patient presents to follow-up on Depression & Anxiety.Patient's depression since last visit has been: Medium The patient is not having other symptoms associated with depression. Patient's anxiety since last visit has been: Worse The patient is having other symptoms associated with anxiety. Any significant life events: job concerns, financial concerns, grief or loss and health concerns Patient is feeling anxious or having panic attacks. Patient has concerns about alcohol or drug use. Reason for visit: Aniexty and other health issues im concerned about She eats 2-3 servings of fruits and vegetables daily.She consumes 1 sweetened beverage(s) daily.Sheexercises with enough effort to increase her heart rate 60 or more minutes per day. She exercises with enough effort to increase her heart rate 7 days per week. She is taking medications regularly. Mental Health -last seen January of 2024, never followed up in addiction medicine -restarted Zoloft -was having mini seizures and thought it was d/t starting Zoloft -was drinking 12 white claws at that point , patient continues to drink currently -patient lost Grandma in March of 2024 -has a lot of stressors d/t financial issues, not having a job, and family stressors -spends day mostly alone -Denies any SI or thoughts of self-harm Review of Systems Constitutional, HEENT, cardiovascular, pulmonary, GI, , musculoskeletal, neuro, skin, endocrine and psych systems are negative, except as otherwise noted. Objective Ht 1.778 m (5' 10) Wt 88.5 kg (195 lb) LMP 08/30/2024 (Exact Date) BMI 27.98 kg/m?? Body mass index is 27.98 kg/m??. Physical Exam Vitals and nursing note reviewed. Constitutional: Appearance: Normal appearance. She is well-developed. She is not ill-appearing or toxic-appearing. Cardiovascular: Rate and Rhythm: Normal rate. Pulmonary: Effort: Pulmonary effort is normal. Neurological: Mental Status: She is alert. Psychiatric: Attention and Perception: Attention and perception normal. Mood and Affect: Mood normal. Speech: Speech normal. Behavior: Behavior normal. Behavior is cooperative. Thought Content: Thought content normal. Judgment: Judgment normal. Signed Electronically by: Luis Carlos Roblero APRN CNP documented in this encounter Plan of Treatment Upcoming Encounters Date Type Department Care Team (Late st Contact Info) Description 10/02/2024 3:00 PM CDT Office Visit [address] [address] Luis Carlos Roblero APRN CNP [address] [place] [address] Scheduled Referrals Name Type Priority Associated Diagnoses Orde r Schedule Data Coder Operator Car Cleaner Referral Referral Priority: 1-2 Weeks Pelvic pain in female Expected: 09/02/2024 (Approximate), Expires: 09/02/2025 Adult Mental Health Car Cleaner Referral Referral Priority: 1-2 Weeks Anxiety Recurrent major depressive disorder, in full remission Expected: 09/02/2024 (Approximate), Expires: 09/02/2025 documented as of this encounter Procedures Procedure Name Priority Date/Time Associated Diagnosis Comments TSH WITH FREE T4 REFLEX Routine 09/02/2024 4:00 PM CDT Weight gain BASIC METABOLIC PANEL Routine 09/02/2024 4:00 PM CDT Alcohol abuse documented in this encounter Results * Basic metabolic panel (Ca, Cl, CO2, Creat, Gluc, K, Na, BUN) (09/02/2024 4:00 PM CDT) Sodium 138 135 - 145 mmol/L 09/03/2024 6:17 PM CDT [facility] Potassium 4.3 3.4 - 5.3 mmol/L 09/03/2024 6:17 PM CDT [facility] Chloride 100 98 - 107 mmol/L 09/03/2024 6:17 PM CDT [facility] Carbon Dioxide (CO2) 24 22 - 29 mmol/L 09/03/2024 6:17 PM CDT [facility] Anion Gap 14 7 - 15 mmol/L 09/03/2024 6:17 PM CDT [facility] Urea Nitrogen 9.2 6.0 - 20.0 mg/dL 09/03/2024 6:17 PM CDT [facility] Creatinine 0.74 0.51 - 0.95 mg/dL 09/03/2024 6:17 PM CDT [facility] GFR Estimate >90 >60 mL/min/1.7 3m2 09/03/2024 6:17 PM CDT [facility] Comment:eGFR calculated usin 2020 CKD-EPI equation. Calcium 9.8 8.8 - 10.4 mg/dL 09/03/2024 6:17 PM CDT [facility] Glucose 92 70 - 99 mg/dL 09/03/2024 6:17 PM CDT [facility] Blood BLOOD SPECIMEN / Unknown Venipuncture / Unknown 09/02/2024 4:00 PM CDT 09/02/2024 4:00 PM CDT Luis Carlos Roblero APRN SYSTEMS TECHNOLOGIST LAB - BLOOD ORDERABLES Meghan l Result [facility] [place] [facility] [address] [facility], [address] [phone] * TSH with free T4 reflex (09/02/2024 4:00 PM CDT) TSH 1.30 0.30 - 4.20 uIU/mL 09/03/2024 6:17 PM CDT [facility] Blood BLOOD SPECIMEN / Unknown Venipuncture / Unknown 09/02/2024 4:00 PM CDT 09/02/2024 4:00 PM CDT Luis Carlos Roblero APRN SYSTEMS TECHNOLOGIST LAB - BLOOD ORDERABLES Meghan l Result [facility] [place] [facility] [address] [facility], [address] [id number] documented in this encounter Visit Diagnoses Diagnosis Pelvic pain in female- Primary Unspecified symptom associated with female genital organs Anxiety Anxiety state, unspecified Recurrent major depressive disorder, in full remission Panic attack Panic disorder without agoraphobia Alcohol abuse Alcohol abuse, unspecified Weight gain Abnormal weight gain documented in this encounter Additional Health Concerns Assessment Noted Time PHQ-9 Depression Total Score: 7 09/03/19 2:43 PM CDT documented as of this encounter Care Teams Help Desk Internship Relationship Specialty [place] [address] [place] [address] PCP - General Family Practice 10/27/20 [place] [address] [address] [address] Family Practice 10/27/20 Umesh Lima PA-C [address] [address] [address] Assigned PCP 01/02/24 documented as of this encounter
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
--- OUTSIDE RECORDS SUMMARY | 2024-09-23 16:36 | XMS_ITS | Clinical Summary ---
Author Organization [place] Address [address] [facility] [place] [address] Care Team Providers Care Firesetter Name Role Phone Alex Koo MD Primary Care Provider [phone] Alex Koo MD Unavailable Umesh Lima PA-C Unavailable [phone] Allergies Active Allergy Reactions Criticality Noted Date Comments Influenza Virus Vaccine 09/12/2024 Influenza vaccine made patient allergic Patient ended up in hospital Had high fever Latex 09/12/2024 Medications melatonin 3 MG tablet Take 1 mg by mouth nightly as needed for sleep. Active meloxicam (MOBIC) 15 MG tabletIndicati ons:Injury of right hand, initial encounter,Cont usion of right hand, initial encounter Take 1 tablet (15 mg) by mouth daily as needed for moderate pain 10 tablet 4 Active Additional Information Patient not taking.Reported on 09/12/2024 ondansetron (ZOFRAN ODT) 4 MG ODT tabIndications :Nausea Take 1 tablet (4 mg) by mouth every 8 hours as needed for nausea 30 tablet 4 Active Additional Information Patient not taking.Reported on 09/12/2024 busPIRone (BUSPAR) 5 MG tabletIndicati ons:Anxiety Take 1 tablet (5 mg) by mouth 3 times daily. 270 tablet 5 025 Active LORazepam (ATIVAN) 0.5 MG tabletIndicati ons:Panic attack Take 1 tablet (0.5 mg) by mouth every 8 hours as needed for anxiety. 15 tablet 5 Active diphenhydrAMIN E (BENADRYL) 25 MG tablet Take 25 mg by mouth as needed for allergies. Active levonorgestrel -ethinyl estradiol (AVIANE) 0.1-20 MG-MCG tabletIndicati ons:Pelvic pain in female Take 1 tablet by mouth daily. 84 tablet 5 Active hydrOXYzine (ATARAX) 25 MG tabletIndicati ons:RLQ abdominal pain Take 2 tablets (50 mg) by mouth nightly as needed for itching or other (pain, sleep) 20 tablet 1 2 025 Discontinu ed(Stopped by Patient (No AVS)) sertraline (ZOLOFT) 25 MG tabletIndicati ons:Mild episode of recurrent major depressive disorder Take 1 tablet (25 mg) by mouth daily for 7 days 7 tablet 4 025 Discontinu ed(Stopped by Patient (No AVS)) LORazepam (ATIVAN) 0.5 MG tabletIndicati ons:Panic attack Take 1 tablet (0.5 mg) by mouth every 8 hours as needed for anxiety. 10 tablet 4 025 Discontinu ed(Reorder (No AVS)) sertraline (ZOLOFT) 100 MG tabletIndicati ons:Mild episode of recurrent major depressive disorder Take 1 tablet (100 mg) by mouth daily. 90 tablet 4 025 Discontinu ed(Stopped by Patient (No AVS)) Active Problems Patient Care Coordination No te Formatting of this note migh t be different from the original. [email or web address] Problem Noted Date Diagnosed Date Recurrent major depressive disorder, in full rem ission 12/08/2020 Dysplasia of cervix, low grade (QUINCY 1) 8 Overview (09/19/2024): 2005 QUINCY 1 07/2007 ASCUS, +HPV @ age 21 09/2007 colposcopy with negative ECC and biopsy. 03/2009 Normal, Neg HR HPV 05/2010 Normal 02/2012 Normal, + HR HPV (type not specified) [gap in pap follow up] 12/16/20 NIL pap, neg HR HPV. Plan 1 year cotest 01/24/22 Lost to follow-up for pap tracking 04/06/22 NIL pap, Neg HPV. Plan cotest in 3 years. 09/12/24 NIL Pap, Neg HR HPV Plan routine screening Allergic rhinitis due to other allergen 02/16/20 07 Overview (12/16/2020): CATS,PERENNIAL Resolved Problems Problem Noted Date Diagnosed Date Resolved Date Jaw pain 08/09/2021 09/12/2024 Otalgia, right 08/09/2021 09/12/2024 Recurrent major depression 04/19/2016 0 12/08/2020 Other postprocedural status(V45.89) 05/30/2014 06/21/2017 Acetabular labrum tear 01/02/201409/12 Encounter for medication refill 12/25/2013 09/12/2024 Overview (12/16/2020): Pain agreement signed 12/25/13. Percocet 5/325 #60 per month. Diagnosis: left hip pain, SI inflammation, possible left labral hip tear. [facility] Amie Stoll DO .................... 12/25/2013 11:48 AM SI (sacroiliac) joint inflammation 12/25/2013 09/12/2024 Trochanteric bursitis of left hip 12/25/2013 09/12/2024 Left hip pain 11/14/2013 09/12/2024 Overview (12/16/2020): MRI and physical therapy ordered. Mastalgia 04/25/2010 09/12/2024 Overview (12/16/2020): Right Ultrasound 04/2010 recommend follow up ultrasound in one month. Encounters Date Type Department Care Team Description 09/12/2024 2:00 PM CDT Office Visit [facility] [address] [place] [address] Amanda Ocasio CNM Routine health maintenance (Primary Dx); Pelvic pain in female; Cervical cancer screening; Screening examination for STI 09/12/2024 Travel 09/02/2024 3:00 PM CDT Office Visit [facility] [id number] [place] [phone] Luis Carlos Roblero APRN SHEETING PULLER Pelvic pain in female (Primary Dx); Anxiety; Recurrent major depressive disorder, in full remission; Panic attack; Alcohol abuse; Weight gain 09/02/2024 Travel 08/21/2024 MyC Refill [facility] [id number] [place] [phone] Luis Carlos Roblero APRN SHEETING PULLER Refill Request from Last 3 Months Immunizations Name Administration [...] on file 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 Gender Identity Not on file Sexual Orientation Not on file Last Filed Vital Signs Vital Sign Reading Time Taken Comments Blood Pressure 130/84 09/12/2024 2:13 PM CDT Pulse 84 09/12/2024 2:13 PM CDT Temperature 36.7 C (98.1 F) 09/02/2024 2:51 PM CDT Respiratory Rate 14 09/02/2024 2:51 PM CDT Oxygen Saturation 98% 09/02/2024 2:51 PM CDT Inhaled Oxygen Concentration - - Weight 88.5 kg (195 lb) 09/12/2024 2:13 PM CDT Height 176.5 cm (5' 9.5) 09/12/2024 2:13 PM CDT Body Mass Index 28.38 09/12/2024 2:13 PM CDT Plan of Treatment Upcoming Encounters Date Type Department Care Team (Late st Contact Info) Description 10/02/2024 3:00 PM CDT Office Visit [facility] [address] [place] [phone] Luis Carlos Roblero APRN [facility] [id number] [place] [id number] Health Maintenance Due Date Last Done Comments HEPATITIS B IMMUNIZATION (1 of 3 - 19+ 3-dose series) 2005 HPV IMMUNIZATION (2 - 3-dose series) 08/30/2007 08/02/2007 DTAP/TDAP/TD IMMUNIZATION (2 - Td or Tdap) 03/17/2019 03/17/2009 ANNUAL REVIEW OF HM ORDERS 11/13/2021 11/13/2020 COVID-19 Vaccine ( season) 2024 INFLUENZA VACCINE (#1) 2024 PHQ-9 03/05/2025 09/02/2024, 08/0 07/2023, 03/29/2022, Additional history exists YEARLY PREVENTIVE VISIT 09/12/2025 09/12/2024, 12/16 HEPATITIS C SCREENING 2026 Postpo erwin from 2004 (Other) DIABETES SCREENING 09/03/2027 09/02/2024, 0 08/09/2021, 10/27/2020, Additional history exists ADVANCE CARE PLANNING 09/12/2029 09/12/2024 HPV TEST 09/12/2029 09/12/2024, 03/13, 12/16/2020, Additional history exists PAP 09/12/2029 09/12/2024, 04/0 08/2024, 04/06/2022, Additional history exists ZOSTER IMMUNIZATION (1 of 2) 2036 DEPRESSION ACTION PLAN Completed 06/10/2016 HPV FOLLOW-UP Completed 09/12/2024, 03/13, 12/16/2020, Additional history exists PAP FOLLOW-UP Completed 09/12/2024, 0 08/2024, 04/06/2022, Additional history exists HIV SCREENING Discontinued MENINGITIS IMMUNIZATION Aged Out No l onger eligible based on patient's age to complete this topic Pneumococcal Vaccine: Pediatrics (0 to 5 Years) and At-Risk Patients (6 to 49 Years) Aged Out No longer eligible based on patient's age to complete this topic Procedures Procedure Name Priority Date/Time Associated Diagnosis Comments CHLAMYDIA TRACHOMATIS/NEISSERI A GONORRHOEAE BY PCR Routine 09/12/2024 3:28 PM CDT Screening examination for STI HPV AND GYNECOLOGIC CYTOLOGY PANEL Routine 09/12/2024 3:19 PM CDT Cervical cancer screening GYNECOLOGIC CYTOLOGY Routine 09/12/2024 3:19 PM CDT Cervical cancer screening BASIC METABOLIC PANEL Routine 09/02/2024 4:00 PM CDT Alcohol abuse TSH WITH FREE T4 REFLEX Routine 09/02/2024 4:00 PM CDT Weight gain from Last 3 Months Results * Chlamydia trachomatis/Neisseria gonorrhoeae by PCR (09/12/2024 3:28 PM CDT) Chlamydia Trachomatis Negative Negative 09/14/2024 1:36 PM CDT [facility] Comment: Negative for C. trachomatis rRNA by switchboard wire worker helper mediated amplification. A negative result by switchboard wire worker helper mediated amplification does not preclude the presence of infection because results are dependent on proper and adequate collection, absence of inhibitors and sufficient rRNA to be detected. Neisseria gonorrhoeae Negative Negative 09/14/2024 1:36 PM CDT [facility] Comment:Negative for N. gono rrhoeae rRNA by switchboard wire worker helper mediated amplification. A negative result by switchboard wire worker helper mediated amplification does not preclude the presence of C. trachomatis infection because results are dependent on proper and adequate collection, absence of inhibitors and sufficient rRNA to be detected. CTNG Specimen Source Cervix 09/14/2024 1:36 PM CDT [facility] Swab CERVIX UTERI STRUCTURE / Unknown Non-blood Collection / Unknown 09/12/2024 3:28 PM CDT 09/12/2024 3:28 PM CDT us Amanda NAIK LAB - MICRO GENERAL ORDERABLES Final Result [facility] Inf. Diseases Diag. Lab [address] [facility], [address] [place] [phone] * HPV and Gynecologic Cytology Panel ??? Recommended Age 30-65 Years (09/12/2024 3:19 PM CDT) Human Papilloma Virus 16 DNA Negative Negative 09/16/2024 7:56 PM CDT [facility] Human Papilloma Virus 18 DNA Negative Negative 09/16/2024 7:56 PM CDT [facility] Human Papilloma Virus Other Negative Negative 09/16/2024 7:56 PM CDT [facility] FINAL DIAGNOSIS This patient's sample is negative for high risk HPV DNA. METHODOLOGY: The [employer] system uses automated extraction, simultaneous amplification of HPV (E6/E7 oncogenes) and beta-globin, followed by real time detection [...] with cytologic and histologic findings. Close clinical follow up is recommended. Please see the separate Gynecologic Cytology (Pap) report from the same collection date. 09/16/2024 7:56 PM CDT MOLECULAR DIAGNOSTICS Brushing ENDOCERVICAL STRUCTURE / Unknown Non-blood Collection / Unknown 09/12/2024 3:19 PM CDT 09/12/2024 5:02 PM CDT us Amanda Ocasio CNM LAB - BLOOD ORDERABLES Final Re sult [facility] [address] [facility] [address], [address] [place] [phone], [facility] MOLECULAR DIAGNOSTICS Molecular Diagnostics [address] [facility] [address], [address] [place] [address], [facility] * Gynecologic Cytology (PAP) (09/12/2024 3:19 PM CDT) Interpretation Negative for Intraepithelial Lesion or Malignancy (NILM) 09/18/2024 3:18 PM CDT [facility] Comment Papanicolaou Test Limitations: Cervical cytology is a screening test with limited sensitivity, and regular screening is critical for cancer prevention. Pap tests are primarily effective for the diagnosis/prevent ion of squamous cell carcinoma, not adenocarcinoma or other cancers. 09/18/2024 3:18 PM CDT [facility] Specimen Adequacy Satisfactory for evaluation, endocervical/franks sformation zone component absent 09/18/2024 3:18 PM CDT [facility] Clinical Information none 09/18/2024 3:18 PM CDT [facility] LMP/Menopause Date 08/30/2024 09/18/2024 3:18 PM CDT [facility] Previous Abnormal? No Comment: see comments 09/18/2024 3:18 PM CDT [facility] Performing Labs The technical component of this testing was completed at [facility]. Stain controls for all stains resulted within this report have been reviewed and show appropriate reactivity. 09/18/2024 3:18 PM CDT [facility] Associated HPV Report Please see the associated HPV High Risk Types DNA Cervical report for Specimen [id number] from the same collection date. 09/18/2024 3:18 PM CDT [facility] Brushing ENDOCERVICAL STRUCTURE / Unknown Non-blood Collection / Unknown 09/12/2024 3:19 PM CDT 09/16/2024 8:52 AM CDT Comment:2005 QUINCY 05/2008 ASC US, +HPV @ age colposcopy with negative ECC and biopsy.03/2009 Normal, HPV -05/2010 Normal02/2012 Normal, + HR HPV (type not specified)[gap in pap follow up]12/16/20 NIL pap, neg HR HPV. Plan 1 year cotest01/24/22 Lost to follow-up for pap tracking 04/06/22 NIL pap, Neg HPV. Plan cotest in 3 years. us Amanda Ocasio CNM LAB - BEAKER AP Final Result Performing Organization Address City/[facility]/ZIP Co de Phone Number [facility] Specialty Lab [address] [facility], [address] * TSH with free T4 reflex (09/02/2024 4:00 PM CDT) TSH 1.30 0.30 - 4.20 uIU/mL 09/03/2024 6:17 PM CDT [facility] Blood BLOOD SPECIMEN / Unknown Venipuncture / Unknown 09/02/2024 4:00 PM CDT 09/02/2024 4:00 PM CDT us Luis Carlos Roblero APRN SHEETING PULLER LAB - BLOOD ORDERABLES Meghan l Result LABORATORY [facility] [address] [facility], [address] * Basic metabolic panel (Ca, Cl, CO2, [...] 6:17 PM CDT [facility] Comment:eGFR calculated 2020 CKD-EPI equation. Calcium 9.8 8.8 - 10.4 mg/dL 09/03/2024 6:17 PM CDT [facility] Glucose 92 70 - 99 mg/dL 09/03/2024 6:17 PM CDT [facility] Blood BLOOD SPECIMEN / Unknown Venipuncture / Unknown 09/02/2024 4:00 PM CDT 09/02/2024 4:00 PM CDT us Luis Carlos Roblero APRN SHEETING PULLER LAB - BLOOD ORDERABLES Meghan l Result [facility] Core Lab [address] [facility], [address] [place] [address] from Last 3 Months Care Teams Firesetter Relationship Specialty [place] [address] [address] [address] PCP - General Family Practice 10/27/20 [place] [address] [address] [address] Family Practice 10/27/20 Umesh Lima PA-C [address] [place] [address] Assigned PCP 01/02/24
--- OUTSIDE RECORDS SUMMARY | 2024-09-23 16:36 | XMS_ITS | Encounter Summary ---
Author Organization [place] Address [address] [place] [address] Care Team Providers Care Account Manager Employee Benefits Name Role Phone Alex Koo MD Primary Care Provider + 2 Alex Koo MD Primary Care Provider + 2 Alex Koo MD Unavailable + Radha Knight APRN SHIPPING AND RECEIVING SPECIALIST Unavailable + Alex Koo MD Unavailable + Radha Knight APRN SHIPPING AND RECEIVING SPECIALIST Unavailable + Alex Koo MD Unavailable + Radha Knight APRN SHIPPING AND RECEIVING SPECIALIST Unavailable + Dinesh Mac MD Unavailable Coming September Vicki IBRAHIM Unavailable + [phone] Alex Koo MD Unavailable + Rosa Moyer Unavailable [phone] Barbara Cheng MD Unavailable [phone] Umesh Lima-Mandie Unavailable +[phone] Umesh Lima-Mandie Unavailable + Alex Koo MD Unavailable + Umesh Lima PA-C Unavailable [phone] Reason for Visit * Reason Onset Date Comments Outreach 11/24/2017 [facility] ATT 1 Outreach 12/29/2017 [facility] ATT 2 Encounter Details Date Type Department Care Team (Late st Contact Info) Description 11/24/[address], [address] [place] [address] Radha Knight APRN SHIPPING AND RECEIVING SPECIALIST [address] [facility] [place] [address] Outreach ([facility] ATT 1); Outreach (PHS ATT 2) Social History Tobacco Use Types Packs/Day Years Used Date Smoking Tobacco: Never Smokeless Tobacco: Never Alcohol Use Standard Drinks/Week Comments Yes 0 (1 standard drink = 0.6 oz pur e alcohol) occasional 2-4 monthly Comments No Sex and Gender Information Value Date Recorded Sex Assigned at Not on file 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 Gender Identity Not on file Sexual Orientation Not on file documented as of this encounter Miscellaneous Notes * Telephone Encounter - Christie Singh - 12/29/2017 12:51 PM CDT 12/29/2017 Call Regarding Preventive Health Screening Cervical/PAP Attempt 2 Message on voicemail Comments: Outreach Family Welfare Social Work Professor CC * Telephone Encounter - Christie Singh - 11/24/2017 11:20 AM CDT 11/24/2017 Call Regarding Preventive Health Screening Cervical/PAP Attempt 1 Message on voicemail Comments: Outreach Family Welfare Social Work Professor CC documented in this encounter Plan of Treatment Upcoming Encounters Date Type Department Care Team (Late st Contact Info) Description 10/02/2024 3:00 PM CDT Office Visit [facility] [address] [place] [phone] Luis Carlos Roblero APRN SHIPPING AND RECEIVING SPECIALIST [address] [place] [address] documented as of this encounter Visit Diagnoses Not on filedocumented in this encounter Additional Health Concerns Assessment Noted Time PHQ-9 Depression Total Score: 2 11/17/19 17 7:16 AM CDT documented as of this encounter Care Teams Account Manager Employee Benefits Relationship Specialty Start Date End Date Alex Koo MD PCP - General Family Practice 04/19/16 10/26/20 [place] [address] [place] [address] PCP - General [facility] Practice 10/27/20 Radha Knight APRN SHIPPING AND RECEIVING SPECIALIST [address] [place] [address] PCP - Assigned PCP 11/19/17 07/21/18 [place] [address] [place] [address] PCP - Assigned PCP 07/22/18 08/14/18 Alex Koo MD Family Practice 10/27/20 Radha Knight APRN SHIPPING AND RECEIVING SPECIALIST [address] [place] [address] Assigned PCP 11/19/17 07/21/18 [place] [address] [place] [address] Assigned PCP 07/22/18 11/16/19 Radha Knight APRN SHIPPING AND RECEIVING SPECIALIST [address] [place] [address] Assigned PCP 11/17/19 03/14/20 Dinesh Mac MD [address] [facility] [place] [address] Assigned PCP 03/15/20 08/15/20 [place] [address] [place] [address] Assigned PCP 08/16/20 11/21/20 [place] [address] [place] [address] Assigned PCP 11/22/20 05/20/22 Rosa Moyer CNM [address] [place] [address] Assigned OBGYN Provider 12/25/2004/08 Barbara Cheng MD [address] [place] [address] Assigned OBGYN Provider 04/09/22 Umesh Lima PA-C [address] [place] [address] Assigned PCP 05/21/22 10/02/23 Umesh Lima PA-C [address] [place] [address] Assigned Pain Medication Provider 06/20/22 12/09/22 [place] [address] [place] [address] Assigned PCP 10/03/23 01/01/24 Umesh Lima PA-C [address] [address] [address] Assigned PCP 01/02/24 documented as of this encounter
--- OUTSIDE RECORDS SUMMARY | 2024-09-23 16:36 | XMS_ITS | Encounter Summary ---
Author Organization [place] Address [address] [place] [address] Care Team Providers Care Keyboard Teacher Name Role Phone Alex Koo MD Primary Care Provider + 2 Alex Koo MD Primary Care Provider + 2 Alex Koo MD Unavailable + Radha Knight APRN ENVIRONMENTAL COMPLIANCE INSPECTOR Unavailable + Alex Koo MD Unavailable + Radha Knight APRN ENVIRONMENTAL COMPLIANCE INSPECTOR Unavailable + Alex Koo MD Unavailable + Radha Knight APRN ENVIRONMENTAL COMPLIANCE INSPECTOR Unavailable + Dinesh Mac MD Unavailable September Vicki IBRAHIM Unavailable + [phone] Alex Koo MD Unavailable + Rosa Moyer CNM Unavailable Barbara Cheng MD Unavailable [phone] Umesh Lima PA-C Unavailable + Umesh Lima PA-C Unavailable + Alex Koo MD Unavailable + Umesh Lima-Mandie Unavailable + Encounter Details Date Type Department Care Team (Late st Contact Info) Description 02/02/2018 [facility], [address] [place] [phone] 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, INFORMATION SYSTEMS PROJECT MANAGER Social History Tobacco Use Types Packs/Day Years Used Date Smoking Tobacco: Never Smokeless Tobacco: Never Alcohol Use Standard Drinks/Week Comments Yes 0 (1 standard drink = 0.6 oz pur e alcohol) occasional 2-4 monthly Comments No Sex and Gender Information Value Date Recorded Sex Assigned at Not on file 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 Gender Identity Not on file Sexual Orientation Not on file documented as of this encounter Plan of Treatment Upcoming Encounters Date Type Department Care Team (Late st Contact Info) Description 10/02/2024 3:00 PM CDT Office Visit [facility] [address] [place] [phone] Luis Carlos Roblero APRN ENVIRONMENTAL COMPLIANCE INSPECTOR [address] [place] [address] documented as of this encounter Visit Diagnoses Not on filedocumented in this encounter Additional Health Concerns Assessment Noted Time PHQ-9 Depression Total Score: 2 11/17/19 17 7:16 AM CDT documented as of this encounter Care Teams Keyboard Teacher Relationship Specialty Start Date End Date Alex Koo MD PCP - General Family Practice 04/19/16 10/26/20 [place] [address] [address] [address] PCP - General Family Practice 10/27/20 Radha Knight APRN ENVIRONMENTAL COMPLIANCE INSPECTOR [address] [address] [address] PCP - Assigned PCP 11/19/17 07/21/18 [place] [address] [address] [address] PCP - Assigned PCP 07/22/18 08/14/18 Alex Koo MD Family Practice 10/27/20 Radha Knight APRN ENVIRONMENTAL COMPLIANCE INSPECTOR [address] [place] [address] Assigned PCP 11/19/17 07/21/18 [place] [address] [place] [address] Assigned PCP 07/22/18 11/16/19 Radha Knight APRN ENVIRONMENTAL COMPLIANCE INSPECTOR [address] [place], [place] [address] Assigned PCP 11/17/19 03/14/20 Dinesh Mac MD [address] [facility] [address] [place] [address] Assigned PCP 03/15/20 08/15/20 [place] [address] [place] [address] Assigned PCP 08/16/20 11/21/20 [place] [address] [place] [address] Assigned PCP 11/22/20 05/20/22 Rosa Moyer CNM [address] [place] [address] Assigned OBGYN Provider 12/25/2004/08 Barbara Cheng MD [address] [place] [address] Assigned OBGYN Provider 04/09/22 Umesh Lima PA-C [address] [address] [address] Assigned PCP 05/21/22 10/02/23 Umesh Lima PA-C [address] [address] [address] Assigned Pain Medication Provider 06/20/22 12/09/22 [place] [address] [address] [address] Assigned PCP 10/03/23 01/01/24 Umesh Lima PA-C [address] [address] [address] Assigned PCP 01/02/24 documented as of this encounter
--- OUTSIDE RECORDS SUMMARY | 2024-09-23 16:36 | XMS_ITS | Clinical Summary ---
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 Gender Identity Not on file Sexual Orientation [...] 03/17/2009, 07/13/1998 COVID-19 vaccine series ( season) 2024 Influenza Vaccine (Season Ended) 2025 Tdap Completed 03/17/2009 Pneumococcal series for age 6-49 Aged Out No longer eligible based on patient's age to complete this topic Procedures Procedure Name Priority Date/Time Associated Diagnosis Comments BUNK ASSEMBLER THIN PREP PAP DIAGNOSTIC IMAGED Routine 02/23/2012 1:31 PM CDT Screening for malignant neoplasm of the cervix from Last 3 Months or Most Recently Relevant to Health Maintenance Results * BUNK ASSEMBLER THIN PREP PAP DIAGNOSTIC IMAGED (02/23/2012 1:31 PM CDT) CYTOLOGY CYTOPATHOLOGY REPORT [facility] Status: Final Status [id number] CLINICAL INFORMATION Last Date of LMP :02/04/2012 Last Pap Date :06/04/2010 Last Pap Result :NIL ABN [place]/Bx Past 5 YRS :None Hormone Usage :None Menstrual Status :Regular Periods [place]/Bx done today :No Additional Information :None given [...] malignant lesions. COLLECTED:02/23/12 ACCESSIONED: 02/24/12 SIGNED: 02/29/12 [facility] PAP [place] CODE NIL [facility] Tissue specimen (specimen) (Cervical/Vagina l) 02/23/2012 1:31 PM CDT 02/23/2012 1:27 PM CDT us Barbara Cassidy MD PATHOLOGY/CYTOLOGY Final Resu lt [facility] [place] ZIP [address] [place] [address] from Last 3 Months or Most Recently Relevant to Health Maintenance Insurance [facility] Care Teams Anti Air Warfare Operations Officer Relationship Specialty Start Date End Date Pcp, No . PCP - General 03/21/16
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
--- OUTSIDE RECORDS SUMMARY | 2024-09-23 16:36 | XMS_ITS | Encounter Summary ---
Author Organization [facility] Address [address] [place] [address] Care Team Providers Care Ground Instructor Advanced Name Role Phone Alex Koo MD Primary Care Provider [phone] Alex Koo MD Unavailable September Vicki IBRAHIM Unavailable + [phone] Alex Koo MD Unavailable Rosa Moyer CNM Unavailable [phone] Barbara Cheng MD Unavailable [phone] Umesh Lima PA-C Unavailable [phone] Umesh Lima PA-C Unavailable [phone] Alex Koo MD Unavailable Umesh Lima PA-C Unavailable [phone] Encounter Details Date Type Department Care Team (Late st Contact Info) Description 10/27/2020 Records - [facility] HE CONVERSION Scan, Non-Provider Social History Tobacco Use Types Packs/Day Years Used Date Smoking Tobacco: Never Assessed PHQ-2 Answer Date Recorded PHQ-2 Score 2 07/31/2020 Comments No Sex and Gender Information Value Date Recorded Sex Assigned at Not on file 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 Gender Identity Not on file Sexual Orientation Not on file documented as of this encounter Plan of Treatment Upcoming Encounters Date Type Department Care Team (Late st Contact Info) Description 10/02/2024 3:00 PM CDT Office Visit [address] [address] Luis Carlos Roblero APRN [facility] [address] [place], [place] [phone] documented as of this encounter Visit Diagnoses Not on filedocumented in this encounter Additional Health Concerns Assessment Noted Time PHQ-9 Depression Total Score: 4 07/31/19 21 5:02 PM BATCH MIXER documented as of this encounter Care Teams Ground Instructor Advanced Relationship Specialty [place] [address] [place] [address] PCP - General Family Practice 10/27/20 [place] [address] [place] [address] Family Practice 10/27/20 [facility] [place] [address] [place] [address] Assigned PCP 08/16/20 11/21/20 [place] [address] [place] [address] Assigned PCP 11/22/20 05/20/22 Rosa Moyer CNM [address] [place] [address] Assigned OBGYN Provider 12/25/2004/08 Barbara Cheng MD [address] [place] [address] Assigned OBGYN Provider 04/09/22 Umesh Lima PA-C [address] [address] [place] [address] Assigned PCP 05/21/22 10/02/23 Umesh Lima PA-C [address] [place] [address] Assigned Pain Medication Provider 06/20/22 12/09/22 [place] [address] [place] [address] Assigned PCP 10/03/23 01/01/24 Umesh Lima PA-C [address] [address] [address] [address] Assigned PCP 01/02/24 documented as of this encounter
--- OUTSIDE RECORDS SUMMARY | 2024-09-23 16:36 | XMS_ITS | Encounter Summary ---
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 [address] [place] [address] Luis Carlos Roblero APRN [facility] [address] [place] [address] documented as of this encounter Visit Diagnoses Diagnosis Panic attack Panic disorder without agoraphobia documented in this encounter Additional Health Concerns Assessment Noted Time PHQ-9 Depression Total Score: 10 024 3:44 PM CDT documented as of this encounter Care Teams Warehouse Shipper Relationship Specialty [place] [address] [place] [place] [address] PCP - General Family Practice 10/27/20 [place] [address] [place] [address] Family Practice 10/27/20 Umesh Lima PA-C [address] [place] [address] Assigned PCP 01/02/24 documented as of this encounter
--- OUTSIDE RECORDS SUMMARY | 2024-09-23 16:36 | XMS_ITS | Encounter Summary ---
Author Organization [facility] Address [address] [place] [address] Care Team Providers Care Cinder Worker Name Role Phone Alex Koo MD Primary Care Provider + [phone] Alex Koo MD Primary Care Provider + [phone] Alex Koo MD Unavailable + Radha Knight APRN REFRIGERATION PLANT OPERATOR Unavailable + Alex Koo MD Unavailable + Radha Knight APRN REFRIGERATION PLANT OPERATOR Unavailable + Alex Koo MD Unavailable + Radha Knight APRN REFRIGERATION PLANT OPERATOR Unavailable + Dinesh Mac MD Unavailable September Vicki IBRAHIM Unavailable + [phone] Alex Koo MD Unavailable + Rosa Moyer CNM Unavailable [phone] Barbara Cheng MD Unavailable [phone] Umesh Lima PA-C Unavailable + Umesh Lima PA-C Unavailable + Alex oKo MD Unavailable + Umesh Lima-Mandie Unavailable + Encounter Details Date Type Department Care Team (Late st Contact Info) Description 07/12/2017 [facility], [address] [place] [address] Mary Joshi, [facility] Social History Tobacco Use Types Packs/Day Years Used Date Smoking Tobacco: Never Smokeless Tobacco: Never Alcohol Use Standard Drinks/Week Comments Yes 0 (1 standard drink = 0.6 oz pur e alcohol) occasional 2-4 monthly Comments No Sex and Gender Information Value Date Recorded Sex Assigned at Not on file 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 Gender Identity Not on file Sexual Orientation Not on file documented as of this encounter Plan of Treatment Upcoming Encounters Date Type Department Care Team (Late st Contact Info) Description 10/02/2024 3:00 PM CDT Office Visit [facility] [address] [place] [phone] Luis Carlos Roblero APRN REFRIGERATION PLANT OPERATOR [address] [place] [address] documented as of this encounter Visit Diagnoses Not on filedocumented in this encounter Additional Health Concerns Assessment Noted Time PHQ-9 Depression Total Score: 2 11/17/19 17 7:16 AM CDT documented as of this encounter Care Teams Cinder Worker Relationship Specialty Start Date End Date Alex Koo MD PCP - General Family Practice 04/19/16 10/26/20 [place] [address] [address] [place] [address] PCP - General Family Practice 10/27/20 Radha Knight APRN REFRIGERATION PLANT OPERATOR [address] [place] [address] PCP - Assigned PCP 11/19/17 07/21/18 [place] [address] [place] [address] PCP - Assigned PCP 07/22/18 08/14/18 Alex Koo MD Family Practice 10/27/20 Radha Knight APRN REFRIGERATION PLANT OPERATOR [address] [place] [address] Assigned PCP 11/19/17 07/21/18 [place] [address] [place] [address] Assigned PCP 07/22/18 11/16/19 Radha Knight APRN REFRIGERATION PLANT OPERATOR [address] [address] [place], [place] [id number] Assigned PCP 11/17/19 03/14/20 Dinesh Mac MD [address] [facility] [place] [address] Assigned PCP 03/15/20 08/15/20 [place] [address] [place] [address] Assigned PCP 08/16/20 11/21/20 [place] [address] [place] [address] Assigned PCP 11/22/20 05/20/22 Rosa Moyer CNM [address] [place] [address] Assigned OBGYN Provider 12/25/2004/08 Barbara Cheng MD [address] [place] [address] Assigned OBGYN Provider 04/09/22 Umesh Lima PA-C [address] [place] [address] Assigned PCP 05/21/22 10/02/23 Umesh Lima PA-C [address] [address] [address] Assigned Pain Medication Provider 06/20/22 12/09/22 [place] [address] [place] [address] Assigned PCP 10/03/23 01/01/24 Umesh Lima PA-C [address] [place] [address] Assigned PCP 01/02/24 documented as of this encounter
--- OUTSIDE RECORDS SUMMARY | 2024-09-23 16:36 | XMS_ITS | Encounter Summary ---
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 Gender Identity Not on file Sexual Orientation Not on file documented as of this encounter Plan of Treatment Upcoming Encounters Date Type Department Care Team (Late st Contact Info) Description 10/02/2024 3:00 PM CDT Office Visit [facility] [address] [place] [address] Luis Carlos Roblero APRN [facility] [address] [place] [address] documented as of this encounter Visit Diagnoses Not on filedocumented in this encounter Additional Health Concerns Assessment Noted Time PHQ-9 Depression Total Score: 7 09/03/19 25 2:43 PM CDT documented as of this encounter Care Teams Business Services Director Relationship Specialty [place] [address] [address]ES [address] PCP - General Family Practice 10/27/20 [place] [address] [address] [place]ES [address] Family Practice 10/27/20 Umesh Lima PA-C 14283 [address] [address] Assigned PCP 01/02/24 documented as of this encounter
[2024-09-23 16:37] VITALS: BP 154/95; PULSE 85; RESP 18; TEMP 36.2; O2SAT 97; BMI 28.0
--- NOTE | 2024-09-23 18:24 | ED_ITS ---
HPI - General Adult General Chief complaint: Neck Injury/Pain Stated complaint: Severe left neck pain, irregular heartbeat Time Seen by Provider: 09/23/24 17:44 History of Present Illness HPI narrative: This 38-year-old female comes in reporting pain on the left side of her neck both anteriorly and posteriorly. She does not report any recent injury event or new strenuous activity. 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 She reports pain at times with some tingling radiating down into her left arm. She also noticed some palpitations when she was laying still. Additionally she states that she feels some vertigo symptoms at times and has a headache on the left side of her head. Related Data Home Medications ?Medication ?Instructions ?Recorded ?Confirmed buspirone 5 mg tablet 5 mg PO 3XD 09/23/24 09/23/24 lorazepam 0.5 mg tablet 0.5 mg PO Q8H PRN anxiety 09/23/24 09/23/24 Previous Rx's ?Medication ?Instructions ?Recorded ketorolac 10 mg tablet 10 mg PO TID 5 days #15 tabs 09/23/24 methylprednisolone 4 mg tablets in See Rx Instructions PO .COMPLEX 09/23/24 a dose pack (Medrol (Brock)) #21 ea Allergies Allergy/AdvReac Type Severity Reaction Status Date / Time No Known Drug Allergies Allergy Verified 09/23/24 16:45 Review of Systems Status of ROS: Reports: 10 or more systems reviewed and unremarkable except as noted in History and below Narrative: Constitutional: No fevers, no weight gain or loss. Eyes: No discharge. No vision changes. HENT: No congestion, no sore throat, no ear pain. Cardiovascular: No chest pain. She reports some palpitations. Respiratory: No shortness of breath, no wheezes, no cough. Gastrointestinal: No abdominal pain, no vomiting, no diarrhea. Genitourinary: No dysuria, no hematuria. Musculoskeletal: Normal range of motion except some decreased range of motion of her neck when turning to the left. Skin: No rashes, no pruritis. Neurological: No dizziness, weakness, sensory change, speech change. Endo/Heme/Allergies: No bruising or bleeding. No polydipsia. Pysch: no suicidality, no anxiety, no insomnia. All other systems reviewed and are negative. PFSH PFSH Social History Smoking Status: Never smoker Second hand tobacco smoke exposure: No How often do you have a drink containing alcohol: 4 or more times a week How many standard drinks containing alcohol do you have on a typical day: 7 to 9 How often do you have six or more drinks on one occasion: Daily or almost daily AUDIT-C Alcohol total score: 11 Non-prescribed substance use: denies use service: No Exam Narrative: Exam Narrative: Constitutional: Well-developed, well-nourished, no acute distress. HEENT: Normocephalic, atraumatic. Neck: Normal range of motion. Nontender. Supple. Heart: Regular. No murmurs. Normal rate. Intact distal pulses. Lungs: Clear to auscultation. No chest discomfort. No wheezes, rhonchi, or rales. Abdomen: Normal bowel sounds. Nontender. No rebound tenderness. Genitalia: Deferred. Back: No midline tenderness. Normal range of motion. Extremities: Normal range of motion. No injury. Skin: Intact. No rash. Warm. No erythema or pallor. Neurologic: No altered sensation. No weakness. Alert and oriented. No facial asymmetry. Tongue is midline. Sfjvag-dy-opvv is normal. No pronator drift. Compliance Field Technician strength is equal bilaterally. Able to raise each leg from the bed. Spurling's test is negative. Psychiatric: No suicidality. No anxiety or depression. No insomnia. Nursing notes and vitals signs are reviewed. Const: Vital Signs, click to edit/add: Vital Signs - 24 hr 09/23/24 16:37 Temperature 97.1 F L Pulse Rate [Right Pulse Oximeter] 85 Respiratory Rate 18 Blood Pressure [Ri ght Upper Arm] 154/95 H Pulse Oximetry 97 Oxygen Delivery Me thod Room Air Course Vital Signs Vital signs: Initial Vital Signs Temperature 97.1 F L 09/23/24 16:37 Temperature Source Temporal Artery Scan 09/23/24 16:37 Pulse Rate 85 09/23/24 16:37 Pulse Rhythm Regular 09/23/24 16:37 Pulse Strength 3+ Normal 09/23/24 16:37 Respiratory Rate 18 09/23/24 16:37 Blood Pressure 154/95 H 09/23/24 16:37 Blood Pressure Mean 114 H 09/23/24 16:37 Blood Pressure Position Sitting 09/23/24 16:37 Pulse Oximetry 97 09/23/24 16:37 Oxygen Delivery Method Room Air 09/23/24 16:37 Vital Signs Temperature 97.1 F L 09/23/24 16:37 Pulse Rate 85 09/23/24 16:37 Respiratory Rate 18 09/23/24 16:37 Blood Pressure 154/95 H 09/23/24 16:37 Pulse Oximetry 97 09/23/24 16:37 Oxygen Delivery Method Room Air 09/23/24 16:37 Temperature 97.1 F L 09/23/24 16:37 Pulse Rate 85 09/23/24 16:37 Respiratory Rate 18 09/23/24 16:37 Blood Pressure 154/95 H 09/23/24 16:37 Pulse Oximetry 97 09/23/24 16:37 Oxygen Delivery Method Room Air 09/23/24 16:37 Medical Decision Making MDM Narrative Medical decision making narrative: This patient comes in reporting pain in the left side of her neck that sometimes radiates down her arm. Her symptoms are suspicious for some area of nerve impingement. Spurling's test was negative. I did use bedside ultrasound to assess her left artery and also took some images of her heart. This was reassuring to the patient. Her EKG also returns in normal range. The patient did receive prescription for Medrol Dosepak, Toradol, and Flexeril to treat her symptoms of neck pain. I advised her to follow-up with her primary physician or return if worsening. ECG Data Attestation: I personally reviewed and interpreted this ECG as follows: Interpretation: Normal sinus rhythm. Rate is 83 beats per minute. There are no ST or T-wave abnormalities. Discharge Plan Discharge Clinical Impression: Strain of neck muscle Patient Disposition: Home, Self-Care Condition: Stable Additional Instructions: Take medications as directed. Encourage gentle activity and increase as tolerated. Follow up with MD return if worsening. Prescriptions: New ketorolac 10 mg tablet 10 mg PO TID 5 Days Qty: 15 0RF methylprednisolone [Medrol (Brock)] 4 mg tablets,dose pack See Rx Instructions .ROUTE .COMPLEX Qty: 21 0RF Rx Instructions: orally per package directions No Action buspirone 5 mg tablet 5 mg PO 3XD lorazepam 0.5 mg tablet 0.5 mg PO Q8H PRN (Reason: anxiety) Follow Up/Referrals: Provider,Not a Local [Primary Care Provider] - Stand Alone Forms: [employer]Imp Info Instructions Procedures Ultrasound Other exam #1: Anatomical areas examined: Left carotid artery. Heart. Indications: Palpitations. Exam type: focused emergency ultrasound Description/findings: Normal patent left carotid artery. Normal appearing heart with no sign of irregularity or wall motion abnormality. Impression: Negative exam.
[2024-09-23 19:23] VITALS: BP 136/99; PULSE 82
--- OUTSIDE RECORDS SUMMARY | 2024-09-23 19:30 | XMS_ITS | Encounter Summary ---
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 Gender Identity Not on file Sexual Orientation Not on file documented as of this encounter Plan of Treatment Upcoming Encounters Date Type Department Care Team (Late st Contact Info) Description 10/02/2024 3:00 PM CDT Office Visit [facility] [address] [place] [address] Luis Carlos Roblero APRN [facility] [address] [place] [address] documented as of this encounter Visit Diagnoses Not on filedocumented in this encounter Additional Health Concerns Assessment Noted Time PHQ-9 Depression Total Score: 7 09/03/19 25 2:43 PM CDT documented as of this encounter Care Teams Body Component Engineer Relationship Specialty [place] [address] [address]FR[address]O COLES [address] PCP - General Family Practice 10/27/20 [place] [address] LUIS ALFREDO COLES [address] Family Practice 10/27/20 Umesh Lima PA-C [address] [address] [address] Assigned PCP 01/02/24 documented as of this encounter
--- OUTSIDE RECORDS SUMMARY | 2024-09-23 19:30 | XMS_ITS | Encounter Summary ---
Author Organization [facility] Address [address] [place] [address] Care Team Providers Care Cigar Wrapper Tender Automatic Name Role Phone Alex Koo MD Primary Care Provider [phone] Alex Koo MD Unavailable Umesh Lima PA-C Unavailable [phone] Reason for Referral * Mental Health Outpatient (Priority: 1-2 Weeks) - Pending Review Specialty Diagnoses / Procedures Referred By Contac t Referred To Contact Behavioral Health Diagnoses Anxiety Recurrent major depressive disorder, in full remission Luis Carlos Roblero APRN FILLER OPERATOR [address] [place] [address] Phone: tel: fax: Referral ID Status Reason Start Date Expiration Date V isits Requested Visits Authorized [id number] Pending Review 09/02/2024 09/02/2025 1 1 Question Answer Services: Substance Use Substance Use - REVIEW REFERENCE LINK BELOW: Addiction Medicine Substance: Alcohol Patient Scheduling Instructions: [facility] will call you to coordinate your care as prescribed by your provider. If you don't hear from a primary care sales representative within 2 business days, please [...] plan with any benefit or coverage questions. [facility] will call you to coordinate your care as prescribed by your provider. If you don't hear from a primary care sales representative within 2 business days, please call . * Consultation (Priority: 1-2 Weeks) - Pending Review Specialty Diagnoses / Procedures Referred By Marco boswell Referred To Contact needle straightener Diagnoses Pelvic pain in female Luis Carlos Roblero APRN CNP [address] [place] [address] Phone: tel: fax: Referral ID Status Reason Start Date Expiration Date V isits Requested Visits Authorized [id number] Pending Review 09/02/2024 09/02/2025 1 1 Question Answer Reason for Referral: Other My Clinical Question Is: Endometriosis work up per ED recommendations. Have orders been placed in [facility] (imaging, labs, etc.) that need to be completed prior to the patient's consult? No Patient Scheduling Instructions: [facility] will call you to coordinate your care as prescribed by your provider. If you don't hear from a primary care sales representative within 2 business days, please call . Comments Please be aware that coverage of these services is subject to the terms and limitations of your health insurance plan. Call member services at your health plan with any benefit or coverage questions. [facility] will call you to coordinate your care as prescribed by your provider. 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 Patient workup per patient was relatively negative, no immediate concerns were noted. However, ER provider did recommend that patient should be worked up for concerns of endometriosis as she continues to have pel yoli/abdominal/side pain. Shared decision to place ATTENUATOR referral. Patient fully understands and isagreeable with plan of care, at this point patient will follow up as needed unless acute concerns arise in the meantime. Plan: Nascar Pit Crew Person Career Center Director Referral (F41.9) Anxiety (F33.42) Recurrent major depressive [...] (BUSPAR) 5 MG tablet, Adult Mental Health Career Center Director Referral, PRIMARY CARE FOLLOW-UP SCHEDULING (F41.0) Panic [...] Description 10/02/2024 3:00 PM CDT Office Visit [address] [address] Luis Carlos Roblero APRN CNP [address] [place] [address] Scheduled Referrals Name Type Priority Associated Diagnoses Orde r Schedule Nascar Pit Crew Person Career Center Director Referral Referral Priority: 1-2 Weeks Pelvic pain in female Expected: 09/02/2024 (Approximate), Expires: 09/02/2025 Adult Mental Health Career Center Director Referral Referral Priority: 1-2 Weeks Anxiety Recurrent [...] 4:00 PM CDT Luis Carlos Roblero APRN FILLER OPERATOR LAB - BLOOD ORDERABLES Meghan l Result [facility] [place] [facility] Lab [address] [facility], [address] [address] * TSH with free T4 reflex (09/02/2024 4:00 PM CDT) TSH 1.30 0.30 - 4.20 uIU/mL 09/03/2024 6:17 PM CDT [facility] Blood BLOOD SPECIMEN / Unknown Venipuncture / Unknown 09/02/2024 4:00 PM CDT 09/02/2024 4:00 PM CDT Luis Carlos Roblero APRN FILLER OPERATOR LAB - BLOOD ORDERABLES Meghan l Result [facility] [place] [facility] [address] [facility], [address] [phone] documented in this encounter Visit Diagnoses Diagnosis [...] documented as of this encounter Care Teams Cigar Wrapper Tender Automatic Relationship Specialty [place] [address] [place] [address] PCP - General Family Practice 10/27/20 [place] [address] LUIS ALFREDO COLES [address] Family Practice 10/27/20 Umesh Lima PA-C [address] [address] [place]ES [address] Assigned PCP 01/02/24 documented as of this encounter
--- OUTSIDE RECORDS SUMMARY | 2024-09-23 19:30 | XMS_ITS | Encounter Summary ---
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 Gender Identity Not on file Sexual Orientation Not on file documented as of this encounter Plan of Treatment Upcoming Encounters Date Type Department Care Team (Late st Contact Info) Description 10/02/2024 3:00 PM CDT Office Visit [facility] [address] [place] [address] Luis Carlos Roblero APRN [facility] [address] [place] [address] documented as of this encounter Visit Diagnoses Not on filedocumented in this encounter Additional Health Concerns Assessment Noted Time PHQ-9 Depression Total Score: 7 09/03/19 25 2:43 PM CDT documented as of this encounter Care Teams Credit Verifier Relationship Specialty [place] [address] [address]FREDO COLES [address] PCP - General Family Practice 10/27/20 [place] [address] LUIS ALFREDO COLES [address] Family Practice 10/27/20 Umesh Lima PA-C [address] [address] [address] Assigned PCP 01/02/24 documented as of this encounter
--- OUTSIDE RECORDS SUMMARY | 2024-09-23 19:30 | XMS_ITS | Encounter Summary ---
Author Organization [facility] Address [address] [place] [address] Care Team Providers Care Senior Electrical Project Manager Name Role Phone Alex Koo MD Primary Care Provider [phone] Alex Koo MD Unavailable Umesh Lima PA-C Unavailable [phone] Reason for Visit * Reason Comments Physical * Consultation (Priority: 1-2 Weeks) - Pending Review Specialty Diagnoses / Procedures Referred By Contac t Referred To Contact soda maker Diagnoses Pelvic pain in female Luis Carlos Roblero APRN [employer] [address] [place] [address] Phone: tel: fax: Referral ID Status Reason Start Date Expiration Date V isits Requested Visits Authorized [id number] Pending Review 09/02/2024 09/02/2025 1 1 Encounter Details Date Type Department Care Team (Late st Contact Info) Description 09/12/2024 2:00 PM CDT Office Visit [address] [place] [address] Amanda Ocasio CNM [address] [place] [address] [phone] Routine health maintenance (Primary Dx); Pelvic pain [...] on file 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 Apply heat, such as a hot [...] Where can you learn more? Go to [email or web address].[email or web address] Enter I738 in the search box to learn more about Endometriosis: Care Instructions. Current as of: October 10, 2023 Content Version: 14.4 ?? [id number] [employer]. Care instructions adapted under license by your healthcare professional. If you have questions about a medical condition or this instruction, always ask your healthcare professional. [employer] disclaims any warranty or liability for your use of this information. documented in this encounter Progress Notes * Amanda Ocasio CNM - 09/12/2024 2:00 PM CDT Images from the original note were not included. Subjective: Eden Seth is a 38 year old female who presents for an annual exam and to discuss concerns re: pain and possible endometriosis. She is an existing ealth [facility] patient but new to [facility]. Periods are regular q 28-30 days, lasting [...] Pill Other Topics Concern Parent/sibling w/ CABG, [place] or angioplasty before 65F 55M? Not Asked [...] Description 10/02/2024 3:00 PM CDT Office Visit [facility] [address] [place] [address] Luis Carlos Roblero APRN BOX CAR BRAC[employer] [address] [place] [address] documented as of this encounter [...] Comment: Negative for C. trachomatis rRNA by director inpatient headache program mediated amplification. A negative result by director inpatient headache program mediated amplification does not preclude the presence of infection because results are dependent on proper and adequate collection, absence of inhibitors and sufficient rRNA to be detected. Neisseria gonorrhoeae Negative Negative 09/14/2024 1:36 PM CDT [facility] Comment:Negative for N. gono rrhoeae rRNA by director inpatient headache program mediated amplification. A negative result by director inpatient headache program mediated amplification does not preclude the presence [...] GENERAL ORDERABLES Final Result [facility] Inf. Diseases Diag. Lab [address] [facility], [address] [place] [address], [facility] * HPV and Gynecologic Cytology Panel ??? [...] for high risk HPV DNA. METHODOLOGY: The [employer] system uses automated extraction, simultaneous amplification of [...] sult SPECIALTY LABS [facility] [address] [facility], [address] [place] [address], [facility] MOLECULAR DIAGNOSTICS Molecular Diagnostics [address] [facility] [address], [address] [place] [address] * Gynecologic Cytology (PAP) (09/12/2024 [...] component of this testing was completed at [facility]. Stain controls for all stains resulted within this report have been reviewed and show appropriate reactivity. 09/18/2024 3:18 PM CDT SPECIALTY LABS Associated HPV Report Please see the associated HPV High Risk Types DNA Cervical report for Specimen [id number] from the same collection date. 09/18/2024 3:18 [...] [facility] [address] [facility], [address] [address], [facility] documented in this encounter Visit [...] as of this encounter Care Teams Senior Electrical Project Manager Relationship Specialty [place] [address] LU[address]FREDO COLES [address] PCP - General Family Practice 10/27/20 [place] [address] LUIS ALFREDO COLES [address] Family Practice 10/27/20 Umesh Lima PA-C [address] [address]FR[address] COLES [address] Assigned PCP 01/02/24 documented as of this encounter
--- OUTSIDE RECORDS SUMMARY | 2024-09-23 19:30 | XMS_ITS | Clinical Summary ---
Author Organization [place] Address [address] [facility] [place] [address] Care Team Providers Care Director Teen Post Name Role Phone Alex Koo MD Primary Care Provider [phone] Alex Koo MD Unavailable Umesh Lima PA-C Unavailable [phone] Allergies Active Allergy Reactions Criticality Noted Date [...] migh t be different from the original. [email or web address] Problem Noted Date Diagnosed Date Recurrent major [...] Description 09/12/2024 2:00 PM CDT Office Visit [facility] [address] [employer] [address] [place] [address] Amanda Ocasio CNM Routine health maintenance (Primary Dx); Pelvic pain in female; Cervical cancer screening; Screening examination for STI 09/12/2024 Travel 09/02/2024 3:00 PM CDT Office Visit [facility] [id number] [place] [phone] Luis Carlos Roblero APRN REPORTING CONSULTANT Pelvic pain in female (Primary Dx); Anxiety; Recurrent major depressive disorder, in full remission; Panic attack; Alcohol abuse; Weight gain 09/02/2024 Travel 08/21/2024 MyC Refill [facility] [id number] [place] [phone] Luis Carlos Roblero APRN REPORTING CONSULTANT Refill Request from Last 3 Months Immunizations [...] on file 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 trachomatis rRNA by ticket clerk mediated amplification. A negative result by ticket clerk mediated amplification does not preclude the presence of infection because results are dependent on proper and adequate collection, absence of inhibitors and sufficient rRNA to be detected. Neisseria gonorrhoeae Negative Negative 09/14/2024 1:36 PM CDT [facility] Comment:Negative for N. gono rrhoeae rRNA by ticket clerk mediated amplification. A negative result by ticket clerk mediated amplification does not preclude the presence [...] GENERAL ORDERABLES Final Result [facility] Inf. Diseases Diag. Lab [address] [facility], [address] [place] [address] * HPV and Gynecologic Cytology Panel [...] for high risk HPV DNA. METHODOLOGY: The Bunch system uses automated extraction, simultaneous amplification of [...] sult SPECIALTY LABS [facility] [address] [facility] [address], [address] [place] [address], [facility] MOLECULAR DIAGNOSTICS Molecular Diagnostics [address] [facility] [address], [address] [place] [address], [facility] * Gynecologic Cytology (PAP) (09/12/2024 3:19 PM [...] component of this testing was completed at [facility]. Stain controls for all stains resulted within this report have been reviewed and show appropriate reactivity. 09/18/2024 3:18 PM CDT SPECIALTY LABS Associated HPV Report Please see the associated HPV High Risk Types DNA Cervical report for Specimen [id number] from the same collection date. 09/18/2024 3:18 [...] BEAKER AP Final Result Performing Organization Address City/[facility]/ZIP Co de Phone Number SPECIALTY LABS Specialty Lab [address] [facility], [address] * TSH with free T4 reflex (09/02/2024 4:00 PM CDT) TSH 1.30 0.30 - 4.20 uIU/mL 09/03/2024 6:17 PM CDT [facility] Blood BLOOD SPECIMEN / Unknown Venipuncture / Unknown 09/02/2024 4:00 PM CDT 09/02/2024 4:00 PM CDT us Luis Carlos Roblero APRN REPORTING CONSULTANT LAB - BLOOD ORDERABLES Meghan l Result LABORATORY [facility] [place] [facility] Lab [address] [facility], [address] * Basic metabolic panel (Ca, Cl, [...] PM CDT us Luis Carlos Roblero APRN REPORTING CONSULTANT LAB - BLOOD ORDERABLES Meghan l Result [facility] Core Lab [address] [facility], [address] [place] [address] from Last 3 Months Care Teams Director Teen Post Relationship Specialty [place] [address] [address] [address] PCP - General Family Practice 10/27/20 [place] [address] [address] [place] [address] Family Practice 10/27/20 Umesh Lima PA-C [address] [place] [address] Assigned PCP 01/02/24
--- OUTSIDE RECORDS SUMMARY | 2024-09-23 19:30 | XMS_ITS | Encounter Summary ---
Author Organization [place] Address [address] [place] [address] Care Team Providers Care Sql Report Writer Name Role Phone Alex Koo MD Primary Care Provider [phone] Alex Koo MD Unavailable September Vicki IBRAHIM Unavailable + [phone] Alex Koo MD Unavailable Rosa Moyer CNM Unavailable [phone] Barbara Cheng MD Unavailable [phone] Umesh Lima PA-C Unavailable +[phone] Umesh Lima PA-C Unavailable +[phone] Alex Koo MD Unavailable Umesh Lima PA-C Unavailable [phone] Encounter Details Date Type Department Care Team (Late st Contact Info) Description 10/27/2020 Records - [facility] HE CONVERSION Scan, Non-Provider Social History Tobacco Use Types Packs/Day Years Used Date Smoking Tobacco: Never Assessed PHQ-2 Answer Date Recorded PHQ-2 Score 2 07/31/2020 Comments No Sex and Gender Information Value Date Recorded Sex Assigned at Not on file 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 Gender Identity Not on file Sexual Orientation Not on file documented as of this encounter Plan of Treatment Upcoming Encounters Date Type Department Care Team (Late st Contact Info) Description 10/02/2024 3:00 PM CDT Office Visit [address] [phone] Luis Carlos Roblero APRN [facility] [address] [place], [place] [phone] documented as of this encounter Visit Diagnoses Not on filedocumented in this encounter Additional Health Concerns Assessment Noted Time PHQ-9 Depression Total Score: 4 07/31/19 21 5:02 PM AIR TRAFFIC CONTROLLER documented as of this encounter Care Teams Sql Report Writer Relationship Specialty [place] [address] [place] [address] PCP - General Family Practice 10/27/20 [place] [address] [place] [address] Family Practice 10/27/20 [facility] [place] [address] [place] [address] Assigned PCP 08/16/20 11/21/20 [place] [address] [place] [address] Assigned PCP 11/22/20 05/20/22 Rosa Moyer CNM [address] [place] [address] Assigned OBGYN Provider 12/25/2004/08 Barbara Cheng MD [address] [place] [address] Assigned OBGYN Provider 04/09/22 Umehs Lima PA-C [address] [address] [place] [address] Assigned PCP 05/21/22 10/02/23 Umesh Lima PA-C [address]443 [address] [address] Assigned Pain Medication Provider 06/20/22 12/09/22 [place] [address] [address] [place] [address] Assigned PCP 10/03/23 01/01/24 Umesh Lima PA-C [address] [address] [place] [address] Assigned PCP 01/02/24 documented as of this encounter
--- OUTSIDE RECORDS SUMMARY | 2024-09-23 19:31 | XMS_ITS | Encounter Summary ---
Author Organization [place] Address [address] [place] [address] Care Team Providers Care Educational Assistant Teacher Name Role Phone Alex Koo MD Primary Care Provider + 2 Alex Koo MD Primary Care Provider + 2 Alex Koo MD Unavailable + Radha Knight APRN CODING DIRECTOR Unavailable + Alex Koo MD Unavailable + Radha Knight APRN CODING DIRECTOR Unavailable + Alex Koo MD Unavailable + Radha Knight APRN CODING DIRECTOR Unavailable + Dinesh Mac MD Unavailable September Vicki IBRAHIM Unavailable + [phone] Alex Koo MD Unavailable + Rosa Moyer CNM Unavailable +[phone] Barbara Cheng MD Unavailable [phone] Umesh Lima PA-C Unavailable + Umesh Lima PA-C Unavailable + Alex Koo MD Unavailable + Umesh Lima-Mandie Unavailable + Encounter Details Date Type Department Care Team (Late st Contact Info) Description 02/02/2018 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 Gender Identity Not on file Sexual Orientation Not on file documented as of this encounter Plan of Treatment Upcoming Encounters Date Type Department Care Team (Late st Contact Info) Description 10/02/2024 3:00 PM CDT Office Visit [facility] [address] [place] [phone] Luis Carlos Roblero APRN CODING DIRECTOR [address] [place] [address] documented as of this encounter Visit Diagnoses Not on filedocumented in this encounter Additional Health Concerns Assessment Noted Time PHQ-9 Depression Total Score: 2 11/17/19 17 7:16 AM CDT documented as of this encounter Care Teams Educational Assistant Teacher Relationship Specialty Start Date End Date Alex Koo MD PCP - General Family Practice 04/19/16 10/26/20 [place] [address] [address] [place] [address] PCP - General Family Practice 10/27/20 Radha Knight APRN CODING DIRECTOR [address] [place] [address] PCP - Assigned PCP 11/19/17 07/21/18 [place] [address] [address] [address] PCP - Assigned PCP 07/22/18 08/14/18 Alex Koo MD Family Practice 10/27/20 Radha Knight APRN CODING DIRECTOR [address] [place] [address] Assigned PCP 11/19/17 07/21/18 [place] [address] [place] [address] Assigned PCP 07/22/18 11/16/19 Radha Knight APRN CODING DIRECTOR [address] [place], [place] [address] Assigned PCP 11/17/19 03/14/20 Dinesh Mac MD [address] [facility] [place] [address] Assigned PCP 03/15/20 08/15/20 [place] [address] [place] [address] Assigned PCP 08/16/20 11/21/20 [place] [address] [place] [address] Assigned PCP 11/22/20 05/20/22 Rosa Moyer CNM [address] [place] [address] Assigned OBGYN Provider 12/25/2004/08 Barbara Cheng MD [address] [place] [address] Assigned OBGYN Provider 04/09/22 Umesh Lima PA-C [address] [address] [place] [address] Assigned PCP 05/21/22 10/02/23 Umesh Lima PA-C [address]99[address] [address] [place] [address] Assigned Pain Medication Provider 06/20/22 12/09/22 [place] [address] [address] [place] [address] Assigned PCP 10/03/23 01/01/24 Umesh Lima PA-C [address] [address] [place] [address] Assigned PCP 01/02/24 documented as of this encounter
--- OUTSIDE RECORDS SUMMARY | 2024-09-23 19:31 | XMS_ITS | Clinical Summary ---
Author Organization [employer] [facility] Address Formerly [facility] [place] [address] Care Team Providers Care Land Degradation Analyst Name Role Phone Pcp, No Primary Care [...] left labral hip tear. [facility] Amei Stoll, .................... 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 Gender Identity Not on file Sexual Orientation [...] Procedure Name Priority Date/Time Associated Diagnosis Comments DEPUTY SHERIFF THIN PREP PAP DIAGNOSTIC IMAGED Routine 02/23/2012 1:31 PM CDT Screening for malignant neoplasm of the cervix from Last 3 Months or Most Recently Relevant to Health Maintenance Results * DEPUTY SHERIFF THIN PREP PAP DIAGNOSTIC IMAGED (02/23/2012 1:31 PM CDT) CYTOLOGY CYTOPATHOLOGY REPORT [facility] Status: Final Status [id number] CLINICAL INFORMATION Last Date of LMP :02/04/2012 Last Pap Date :06/04/2010 Last Pap Result :NIL ABN [place]/Bx Past 5 YRS :None Hormone Usage :None Menstrual Status :Regular Periods [place]/Bx done today :No Additional Information :None given [...] malignant lesions. COLLECTED:02/23/12 ACCESSIONED: 02/24/12 SIGNED: 02/29/12 [facility] NIL [facility] Tissue specimen (specimen) (Cervical/Vagina l) 02/23/2012 1:31 PM CDT 02/23/2012 1:27 PM CDT us Barbara Cassidy MD PATHOLOGY/CYTOLOGY Final Resu lt [facility] INTERNAL ZIP [address] [place] [address] from Last 3 Months or Most Recently Relevant to Health Maintenance Insurance [facility] Care Teams Land Degradation Analyst Relationship Specialty Start Date End Date Pcp, No . PCP - General 03/21/16
--- OUTSIDE RECORDS SUMMARY | 2024-09-23 19:31 | XMS_ITS | Encounter Summary ---
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 Gender Identity Not on file Sexual Orientation Not on file documented as of this encounter Plan of Treatment Upcoming Encounters Date Type Department Care Team (Late st Contact Info) Description 10/02/2024 3:00 PM CDT Office Visit [facility] [address] [place] [address] Luis Carlos Roblero APRN [facility] [address] [place] [address] documented as of this encounter Visit Diagnoses Diagnosis Panic attack Panic disorder without agoraphobia documented in this encounter Additional Health Concerns Assessment Noted Time PHQ-9 Depression Total Score: 10 024 3:44 PM CDT documented as of this encounter Care Teams Real Estate Professor Relationship Specialty [place] [address] [address] [place] [address] PCP - General Family Practice 10/27/20 [place] [address] [address] [place] [address] Family Practice 10/27/20 Umesh Lima PA-C [address] [address] [place] [address] Assigned PCP 01/02/24 documented as of this encounter
--- OUTSIDE RECORDS SUMMARY | 2024-09-23 19:31 | XMS_ITS | Encounter Summary ---
Author Organization [place] Address [address] [place] [address] Care Team Providers Care Shield Operator Name Role Phone Alex Koo MD Primary Care Provider + 2 Alex Koo MD Primary Care Provider + 2 Alex Koo MD Unavailable + Radha Knight APRN DRYING CAN WORKER Unavailable + Alex Koo MD Unavailable + Radha Knight APRN DRYING CAN WORKER Unavailable + Alex Koo MD Unavailable + Radha Knight APRN DRYING CAN WORKER Unavailable + Dinesh Mac MD Unavailable September Vicki IBRAHIM Unavailable + [phone] Alex Koo MD Unavailable + Rosa Moyer CNM Unavailable +[phone] Barbara Cheng MD Unavailable [phone] Umesh Lima PA-C Unavailable + Umesh Lima PA-C Unavailable + Alex Koo MD Unavailable + Umesh Lima-Mandie Unavailable + Encounter Details Date Type Department Care Team (Late st Contact Info) Description 07/12/2017 [facility] [employer] [facility], [address] [place] [address] Mary Joshi, [facility] Social History Tobacco Use Types Packs/Day Years Used Date Smoking Tobacco: Never Smokeless Tobacco: Never Alcohol Use Standard Drinks/Week Comments Yes 0 (1 standard drink = 0.6 oz pur e alcohol) occasional 2-4 monthly Comments No Sex and Gender Information Value Date Recorded Sex Assigned at Not on file Legal 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 Female 11:55 AM AIR DISPATCHER Gender Identity Not on file Sexual Orientation Not on file documented as of this encounter Plan of Treatment Upcoming Encounters Date Type Department Care Team (Late st Contact Info) Description 10/02/2024 3:00 PM CDT Office Visit [facility] [address] [place] [phone] Luis Carlos Roblero APRN DRYING CAN WORKER [address] [place] [address] documented as of this encounter Visit Diagnoses Not on filedocumented in this encounter Additional Health Concerns Assessment Noted Time PHQ-9 Depression Total Score: 2 11/17/19 17 7:16 AM CDT documented as of this encounter Care Teams Shield Operator Relationship Specialty Start Date End Date Alex Koo MD PCP - General Family Practice 04/19/16 10/26/20 [place] [address] [place] [address] PCP - General Family Practice 10/27/20 Radha Knight APRN DRYING CAN WORKER [address] [place] [address] PCP - Assigned PCP 11/19/17 07/21/18 [place] [address] [place] [address] PCP - Assigned PCP 07/22/18 08/14/18 Alex Koo MD Family Practice 10/27/20 Radha Knight APRN DRYING CAN WORKER [address] [place] [address] Assigned PCP 11/19/17 07/21/18 [place] [address] [place] [address] Assigned PCP 07/22/18 11/16/19 Radha Knight APRN DRYING CAN WORKER [address] [place], [place] [address] Assigned PCP 11/17/19 03/14/20 Dinesh Mac MD [address] [facility] [place] [address] Assigned PCP 03/15/20 08/15/20 [place] [address] [place] [address] Assigned PCP 08/16/20 11/21/20 [place] [address] [place] [address] Assigned PCP 11/22/20 05/20/22 Rosa Moyer CNM [address] [place] [address] Assigned OBGYN Provider 12/25/2004/08 Barbara Cheng MD [address] [place] [address] Assigned OBGYN Provider 04/09/22 Umesh Lima PA-C [address] [place] [address] Assigned PCP 05/21/22 10/02/23 Umesh Lima PA-C 101[address] [place] [address] Assigned Pain Medication Provider 06/20/22 12/09/22 [place] [address] [place] [address] Assigned PCP 10/03/23 01/01/24 Umesh Lima PA-C [address]32[address] [address] [address] Assigned PCP 01/02/24 documented as of this encounter
--- OUTSIDE RECORDS SUMMARY | 2024-09-23 19:31 | XMS_ITS | Encounter Summary ---
Author Organization [place] Address [address] [place] [address] Care Team Providers Care Clinical Review Specialist Name Role Phone Alex Koo MD Primary Care Provider + 2 Alex Koo MD Primary Care Provider + 2 Alex Koo MD Unavailable + Radha Knight APRN INSPECTOR PACKER Unavailable + Alex Koo MD Unavailable + Radha Knight APRN INSPECTOR PACKER Unavailable + Alex Koo MD Unavailable + Radha Knight APRN INSPECTOR PACKER Unavailable + Dinesh Mac MD Unavailable Coming September Vicki IBRAHIM Unavailable + [phone] Alex Koo MD Unavailable + Rosa Moyer Unavailable [phone] Barbraa Cheng MD Unavailable +[phone] Umesh Lima-Mandie Unavailable +[phone] Umesh Lima-Mandie Unavailable + Alex Koo MD Unavailable + Umesh Lima PA-C Unavailable +[phone] Reason for Visit * Reason Onset Date Comments Outreach 11/24/2017 [facility] ATT 1 Outreach 12/29/2017 [facility] ATT 2 Encounter Details Date Type Department Care Team (Late st Contact Info) Description 11/24/[address], [address] [place] [address] Radha Knight APRN INSPECTOR PACKER [address] [facility] [address] Outreach ([facility] ATT 1); Outreach ([facility] ATT 2) Social History Tobacco Use Types Packs/Day Years Used Date Smoking Tobacco: Never Smokeless Tobacco: Never Alcohol Use Standard Drinks/Week Comments Yes 0 (1 standard drink = 0.6 oz pur e alcohol) occasional 2-4 monthly Comments No Sex and Gender Information Value Date Recorded Sex Assigned at Not on file 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 Gender Identity Not on file Sexual Orientation Not on file documented as of this encounter Miscellaneous Notes * Telephone Encounter - Christie Singh - 12/29/2017 12:51 PM CDT 12/29/2017 Call Regarding Preventive Health Screening Cervical/PAP Attempt 2 Message on voicemail Comments: Outreach Press Set Up CC * Telephone Encounter - Christie Singh - 11/24/2017 11:20 AM CDT 11/24/2017 Call Regarding Preventive Health Screening Cervical/PAP Attempt 1 Message on voicemail Comments: Outreach Press Set Up CC documented in this encounter Plan of Treatment Upcoming Encounters Date Type Department Care Team (Late st Contact Info) Description 10/02/2024 3:00 PM CDT Office Visit [facility] [address] [place] [phone] Luis Carlos Roblero APRN INSPECTOR PACKER [address] [place] [address] documented as of this encounter Visit Diagnoses Not on filedocumented in this encounter Additional Health Concerns Assessment Noted Time PHQ-9 Depression Total Score: 2 11/17/19 17 7:16 AM CDT documented as of this encounter Care Teams Clinical Review Specialist Relationship Specialty Start Date End Date Alex Koo MD PCP - General Family Practice 04/19/16 10/26/20 [place] [address] [place] [address] PCP - General [facility] Practice 10/27/20 Radha Knight APRN INSPECTOR PACKER [address] [place] [address] PCP - Assigned PCP 11/19/17 07/21/18 [place] [address] [place] [address] PCP - Assigned PCP 07/22/18 08/14/18 Alex Koo MD Family Practice 10/27/20 Radha Knight APRN INSPECTOR PACKER [address] [place] [address] Assigned PCP 11/19/17 07/21/18 [place] [address] [place] [address] Assigned PCP 07/22/18 11/16/19 Radha Knight APRN INSPECTOR PACKER [address] [place] [address] Assigned PCP 11/17/19 03/14/20 Dinesh Mac MD [address] [facility] [place] [address] Assigned PCP 03/15/20 08/15/20 [place] [address] [place] [address] Assigned PCP 08/16/20 11/21/20 [place] [address] [place] [address] Assigned PCP 11/22/20 05/20/22 Rosa Moyer CNM [address] [place] [address] Assigned OBGYN Provider 12/25/2004/08 Barbara Cheng MD [address] [place] [address] Assigned OBGYN Provider 04/09/22 Umesh Lima PA-C [address] [place] [address] Assigned PCP 05/21/22 10/02/23 Umesh Lima PA-C [address] [place] [address] Assigned Pain Medication Provider 06/20/22 12/09/22 [place] [address] [place] [address] Assigned PCP 10/03/23 01/01/24 Umesh Lima PA-C [address]143 [address] [place] [address] Assigned PCP 01/02/24 documented as of this encounter
--- OUTSIDE RECORDS SUMMARY | 2024-09-23 19:31 | XMS_ITS | Encounter Summary ---
Author Organization [facility] Address [address] [place] [address] Care Team Providers Care Soft Water Mechanic Name Role Phone Alex Koo MD Primary Care Provider + [phone] Alex Koo MD Primary Care Provider + 2 Alex Koo MD Unavailable + Alex Koo MD Unavailable + Alex Koo MD Unavailable Radha Knight APRN DRILLING SUPERINTENDENT Unavailable + Dinesh Mac MD Unavailable Coming Yancy Ramirez MD Unavailable + [phone] Alex Koo MD Unavailable + Rosa Moyer CNM Unavailable [phone] Barbara Cheng MD Unavailable [phone] Umesh Lima PA-C Unavailable + Umesh Lima PA-C Unavailable + Alex Koo MD Unavailable + Umesh Lima PA-C Unavailable +[phone] Encounter Details Date Type Department Care Team (Late st Contact Info) Description 07/24/2018 [facility] Medical Advice [address], [address] [place] [address] Mary Joshi, [facility] Social History Tobacco Use Types Packs/Day Years Used Date Smoking Tobacco: Never Smokeless Tobacco: Never Alcohol Use Standard Drinks/Week Comments Yes 0 (1 standard drink = 0.6 oz pur e alcohol) occasional 2-4 monthly PHQ-2 Answer Date Recorded PHQ-2 Score 6 06/20/2018 Comments No Sex and Gender Information Value Date Recorded Sex Assigned at Not on file 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 2nd outreach. Mary Joshi CMA (AAMA) documented in this encounter Plan of Treatment Upcoming Encounters Date Type Department Care Team (Late st Contact Info) Description 10/02/2024 3:00 PM CDT Office Visit [address] [phone] Luis Carlos Roblero APRN [facility] [id number] [place] [id number] documented as of this encounter Visit Diagnoses Not on filedocumented in this encounter Additional Health Concerns Assessment Noted Time PHQ-9 Depression Total Score: 2 11/17/19 17 7:16 AM CDT documented as of this encounter Care Teams Soft Water Mechanic Relationship Specialty Start Date End Date Alex Koo MD PCP - General Family Practice 04/19/16 10/26/20 [place] [address] [place] [address] PCP - General Family Practice 10/27/20 [place] [address] [place] [address] PCP - Assigned PCP 07/22/18 08/14/18 Alex Koo MD Family Practice 10/27/20 [place] [address] [place], [place] [id number] Assigned PCP 07/22/18 11/16/19 Radha Knight APRN [facility] [address] [place], [place] [id number] Assigned PCP 11/17/19 03/14/20 Dinesh Mac MD [facility] [place] [address] Assigned PCP 03/15/20 08/15/20 [place] [address] [place], [place] [id number] Assigned PCP 08/16/20 11/21/20 [place] [address] [place] [address] Assigned PCP 11/22/20 05/20/22 Rosa Moyer CNM [address] [place] [address] Assigned OBGYN Provider 12/25/2004/08 Barbara Cheng MD [address] [place] [address] Assigned OBGYN Provider 04/09/22 Umesh Lima PA-C [address] [place] [address] Assigned PCP 05/21/22 10/02/23 Umesh Lima PA-C [address]11[address] [place] [address] Assigned Pain Medication Provider 06/20/22 12/09/22 [place] [address] [place] [address] Assigned PCP 10/03/23 01/01/24 Umesh Lima PA-C [address] [place] [address] Assigned PCP 01/02/24 documented as of this encounter
== END 2024-09-23 19:32 | disposition home or self-care (01) ==
LOC: ED 19:28
PROVIDERS: Emergency Provider Emergency Medicine Emergency Medical Services
DX: M54.2 Cervicalgia (principal); R00.2 Palpitations
CPT/HCPCS: 76604; 76705; 93005; 93308; 99284; 99285

== ENCOUNTER 2025-01-07 20:14 | Emergency (ER) | payer BC, SELFPAY ==
--- OUTSIDE RECORDS SUMMARY | 2025-01-07 20:17 | XMS_ITS | Encounter Summary ---
Author Organization [facility] Address [address] [place] [address] Care Team Providers Care Bereavement Program Coordinator Name Role Phone Alex Koo MD Primary Care Provider +[phone] Alex Koo MD Primary Care Provider +[phone] Alex Koo MD Unavailable + Alex Koo MD Unavailable + Alex Koo MD Unavailable + Radha Knight APRN BOILER HOUSE SUPERVISOR Unavailable + Dinesh Mac MD Unavailable Coming Yancy Ramirez MD Unavailable + [phone] Alex Koo MD Unavailable + Rosa Moyer CNM Unavailable [phone] Barbara Cheng MD Unavailable [phone] Umesh Lima PA-C Unavailable + Umesh Lima-C Unavailable + Alex Koo MD Unavailable + Umesh Lima PA-C Unavailable + Amanda Ocasio CNM Unavailable +[phone] Encounter Details Date Type Department Care Team (Late st Contact Info) Description 07/24/2018 [facility] [address], [address] [place] [phone] Mary Joshi CMA Social History Tobacco Use [...] on file 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 2nd outreach. Mary Joshi CMA (AAMA) documented in this encounter Plan of Treatment Not on file documented as of this encounter Visit Diagnoses Not on filedocumented in this encounter Additional Health Concerns Assessment Noted Time PHQ-9 Depression Total Score: 2 11/17/19 17 7:16 AM CDT documented as of this encounter Care Teams Bereavement Program Coordinator Relationship Specialty Start Date End Date Alex Koo MD PCP - General Family Practice 04/19/16 10/26/20 [place] [address] [place] [address] PCP - General Family Practice 10/27/20 [place] [address] [place] [address] PCP - Assigned PCP 07/22/18 08/14/18 Alex Koo MD Family Practice 10/27/20 [place] [address] [place] [address] Assigned PCP 07/22/18 11/16/19 Radha Knight APRN BOILER HOUSE SUPERVISOR [address] [place] [address] Assigned PCP 11/17/19 03/14/20 Dinesh Mac MD [address] [facility] [address] Assigned PCP 03/15/20 08/15/20 [place] [address] [place], [place] [phone] Assigned PCP 08/16/20 11/21/20 [place] [address] [address] [place], [place] [address] Assigned PCP 11/22/20 05/20/22 Rosa Moyer CNM [address] [place] [address] Assigned OBGYN Provider 12/25/2004/08 Barbara Cheng MD [address] [place] [address] Assigned OBGYN Provider 04/09/22 Umesh Lima PA-C [address] [place] [address] Assigned PCP 05/21/22 10/02/23 Umesh Lima PA-C [address] [place] [address] Assigned Pain Medication Provider 06/20/22 12/09/22 [place] [address] [place] [address] Assigned PCP 10/03/23 01/01/24 Umesh Lima PA-C 527[address] [place] [address] Assigned PCP 01/02/24 Amanda Ocasio CNM [address] [place] [address] Assigned OBGYN Provider 10/02/24 documented as of this encounter
--- OUTSIDE RECORDS SUMMARY | 2025-01-07 20:17 | XMS_ITS | Encounter Summary ---
Author Organization [place] [facility] Address [address] [place] [address] Care Team Providers Care Tool And Die Engineer Name Role Phone Alex Koo MD Primary Care Provider [phone] Alex Koo MD Unavailable Coming Hay Yancy Vicki IBRAHIM Unavailable + [phone] Alex Koo MD Unavailable Rosa Moyer CNM Unavailable [phone] Barbara Cheng MD Unavailable [phone] Umesh Lima PA-C Unavailable +[phone] Umesh Lima PA-C Unavailable +[phone] Alex Koo MD Unavailable Umesh Lima PA-C Unavailable +[phone] Amanda Ocasio CNM Unavailable [phone] Encounter Details Date Type Department Care Team (Late st Contact Info) Description 10/27/2020 Records - [facility] CONVERSION Scan, Non-Provider Social History Tobacco Use Types Packs/Day Years Used Date Smoking Tobacco: Never Assessed PHQ-2 Answer Date Recorded PHQ-2 Score 2 07/31/2020 Comments No Sex and Gender Information Value Date Recorded Sex Assigned at Not on file 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 Gender Identity Not on file Sexual Orientation Not on file documented as of this encounter Plan of Treatment Not on file documented as of this encounter Visit Diagnoses Not on filedocumented in this encounter Additional Health Concerns Assessment Noted Time PHQ-9 Depression Total Score: 4 07/31/19 21 5:02 PM MULTIPLE RESAW OPERATOR documented as of this encounter Care Teams Tool And Die Engineer Relationship Specialty [place] [address] [place] [address] PCP - General Family Practice 10/27/20 [place] [address] [place] [address] Family Practice 10/27/20 [facility] [place] [address] [place] [address] Assigned PCP 08/16/20 11/21/20 [place] [address] [place] [address] Assigned PCP 11/22/20 05/20/22 Rosa Moyer CNM [address] [place] [address] Assigned OBGYN Provider 12/25/2004/08 Barbara Cheng MD [address] [place] [address] Assigned OBGYN Provider 04/09/22 Umesh Lima PA-C [address] [place] [address] Assigned PCP 05/21/22 10/02/23 Umesh Lima PA-C [address] [place] [address] Assigned Pain Medication Provider 06/20/22 12/09/22 [place] [address] [address] [place] [address] Assigned PCP 10/03/23 01/01/24 Umesh Lima PA-C [address] [address] [place] [address] Assigned PCP 01/02/24 Amanda Ocasio, [facility] [place] [address] Assigned OBGYN Provider 10/02/24 documented as of this encounter
--- OUTSIDE RECORDS SUMMARY | 2025-01-07 20:17 | XMS_ITS | Clinical Summary ---
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 Gender Identity Not on file Sexual Orientation [...] Hepatitis C screening for age 18-79 2004 Hepatitis B series for 19+ (1 of 3 - 19+ 3-dose series) 2005 Pap test for age 21-65 02/22/2015 2, 02/23/2012, 06/04/2010, Additional history exists BMI (ht and wt on same day) for age 18+ 08/07/2016 08/07/2015 Depression screening for age 12+ 08/07/2016 08/07/2015 Tetanus booster 03/17/2019 03/17/2009, 07/13/1998 COVID-19 vaccine series (2023- season) 2024 Influenza Vaccine (#1) 2025 Pneumococcal series for age 6-49 Aged Out No longer eligible based on patient's age to complete this topic Procedures Procedure Name Priority Date/Time Associated Diagnosis Comments SHAKER PLATE OPERATOR THIN PREP PAP DIAGNOSTIC IMAGED Routine 02/23/2012 1:31 PM CDT Screening for malignant neoplasm of the cervix from Last 3 Months or Most Recently Relevant to Health Maintenance Results * SHAKER PLATE OPERATOR THIN PREP PAP DIAGNOSTIC IMAGED (02/23/2012 1:31 PM CDT) CYTOLOGY CYTOPATHOLOGY REPORT [facility] Status: Final Status [id number] CLINICAL INFORMATION Last Date of LMP :02/04/2012 Last Pap Date :06/04/2010 Last Pap Result :NIL ABN [place]/Bx Past 5 YRS :None Hormone Usage :None Menstrual Status :Regular Periods [place]/Bx done today :No Additional Information :None given [...] malignant lesions. COLLECTED:02/23/12 ACCESSIONED: 02/24/12 SIGNED: 02/29/12 [facility] PAP [place] CODE NIL [facility] Tissue specimen (specimen) (Cervical/Vagina l) 02/23/2012 1:31 PM CDT 02/23/2012 1:27 PM CDT us Barbara Cassidy MD PATHOLOGY/CYTOLOGY Final Resu lt [facility] [place]NAL ZIP [address] [place] [address] from Last 3 Months or Most Recently Relevant to Health Maintenance Insurance [facility] Care Teams Setter Induction Heating Equipment Relationship Specialty Start Date End Date Pcp, No . PCP - General 03/21/16
--- OUTSIDE RECORDS SUMMARY | 2025-01-07 20:17 | XMS_ITS | Encounter Summary ---
Author Organization [facility] Address [address] [place] [address] Care Team Providers Care Ic Design Engineer Name Role Phone Alex Koo MD Primary Care Provider [phone] Alex Koo MD Primary Care Provider +[phone] Alex Koo MD Unavailable + Radha Knight APRN WATERMASTER Unavailable + Alex Koo MD Unavailable + Radha Knight APRN WATERMASTER Unavailable + Alex Koo MD Unavailable + Radha Knight APRN WATERMASTER Unavailable + Dinesh Mac MD Unavailable [facility] Vicki IBRAHIM Unavailable + [phone] Alex Koo MD Unavailable + Rosa Moyer CNM Unavailable Barbara Cheng MD Unavailable [phone] Umesh Lima PA-C Unavailable + Umesh Lima PA-C Unavailable + Alex Koo MD Unavailable + Umesh Lima PA-C Unavailable + Amanda Ocasio CNM Unavailable [phone] Encounter Details Date Type Department Care Team (Late st Contact Info) Description 07/12/2017 [facility] Medical Advice [address], [address] [place] [address] Mary Johsi, BLADE CHANGER Social History Tobacco Use Types Packs/Day Years Used Date Smoking Tobacco: Never Smokeless Tobacco: Never Alcohol Use Standard Drinks/Week Comments Yes 0 (1 standard drink = 0.6 oz pur e alcohol) occasional 2-4 monthly Comments No Sex and Gender Information Value Date Recorded Sex Assigned at Not on file 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 Gender Identity Not on file Sexual Orientation Not on file documented as of this encounter Plan of Treatment Not on file documented as of this encounter Visit Diagnoses Not on filedocumented in this encounter Additional Health Concerns Assessment Noted Time PHQ-9 Depression Total Score: 2 11/17/19 17 7:16 AM CDT documented as of this encounter Care Teams Ic Design Engineer Relationship Specialty Start Date End Date Alex Koo MD PCP - General Family Practice 04/19/16 10/26/20 [place] [address] [place] [address] PCP - General Family Practice 10/27/20 Radha Knight APRN CNP 97496 [place] [address] PCP - Assigned PCP 11/19/17 07/21/18 [place] [address] [place] [address] PCP - Assigned PCP 07/22/18 08/14/18 Alex Koo MD Family Practice 10/27/20 Radha Knight APRN WATERMASTER [address] [place] [address] Assigned PCP 11/19/17 07/21/18 [place] [address] [place] [address] Assigned PCP 07/22/18 11/16/19 Radha Knight APRN WATERMASTER [address] [place] [address] Assigned PCP 11/17/19 03/14/20 Dinesh Mac MD [address] [facility] [place] [address] Assigned PCP 03/15/20 08/15/20 [place] [address] [place], [place] [id number] Assigned PCP 08/16/20 11/21/20 [place] [address] [place] [address] Assigned PCP 11/22/20 05/20/22 Rosa Moyer CNM [address] [place] [address] Assigned OBGYN Provider 12/25/2004/08 Barbara Cheng MD [address] [place] [address] Assigned OBGYN Provider 04/09/22 Umesh Lima PA-C [address] [place] [address] Assigned PCP 05/21/22 10/02/23 Umesh Lima PA-C 77267 [place] [address] Assigned Pain Medication Provider 06/20/22 12/09/22 [place] [address] [place] [address] Assigned PCP 10/03/23 01/01/24 Umesh Lima PA-C [address]74[address] [place] [address] Assigned PCP 01/02/24 Amanda Ocasio, ARAVIND [address] [place] [address] Assigned OBGYN Provider 10/02/24 documented as of this encounter
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
--- OUTSIDE RECORDS SUMMARY | 2025-01-07 20:17 | XMS_ITS | Encounter Summary ---
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 Plan was to have BP check within 1 month of OCP start. Chart review shows one elevated BP on 10/23/24 with normal on recheck. Rx approved for 12 months. Millie Gonzalez APRN CNM on 12/26/2024 at 10:37 AM * Telephone Encounter - Merle Lui CMA - 12/26/2024 8:59 AM CDT Incoming faxed medication refill request received from [facility] in [place], [place]. Medication requested: Pending Prescriptions: Disp Refills levonorgestrel-ethinyl estradiol (AVIANE)*84 tab*3 Sig: Take 1 tablet by mouth daily. Medication last prescribed: 09/12/24 Last visit with [facility] CNM group: 09/12/24 Upcoming appointments: None Refill request routed to on-call CNM for review. documented in this encounter Plan of Treatment Not on file documented as of this encounter Visit Diagnoses Diagnosis Pelvic pain in female Unspecified symptom associated with female genital organs documented in this encounter Additional Health Concerns Assessment Noted Time PHQ-9 Depression Total Score: 7 10/03/19 25 3:10 PM CDT documented as of this encounter Care Teams Auto Bumper Mechanic Relationship Specialty [place] [address] [place] [address] PCP - General Family Practice 10/27/20 [place] [address] [address] [place] [address] Family Practice 10/27/20 Umesh Lima PA-C [address] [address] [place] [address] Assigned PCP 01/02/24 Amanda [place] [address] Assigned OBGYN Provider 10/02/24 documented as of this encounter
--- OUTSIDE RECORDS SUMMARY | 2025-01-07 20:17 | XMS_ITS | Encounter Summary ---
Author Organization [place] Address [address] [place] [address] Care Team Providers Care Halal Butcher Name Role Phone Alex Koo MD Primary Care Provider [phone] Alex Koo MD Unavailable Umesh Lima PA-C Unavailable [phone] Amanda Ocasio [facility] Unavailable [phone] Reason for Visit * Reason Comments Medication Refill Encounter Details Date Type Department Care Team (Late st Contact Info) Description 01/01/[address] [address] Luis Carlos Roblero APRN [facility] [id number] [place] [address] Medication Refill Social History Tobacco Use Types Packs/Day Years [...] on file Legal Sex Female 11:55 AM PRESCRIPTIONIST Gender Identity Not on file Sexual Orientation Not on file documented as of this encounter Plan of Treatment Not on file documented as of this encounter Goals Goal Patient Goal Type Associated Problems Recent Progress Patient-Stated? Author [facility]C ECC DEP WELCOME- GOAL TEMPLATE Care Plan MYC ECC DEP WELCOME- PROBLEM TEMPLATE No Background, Analytics documented as of this encounter Visit Diagnoses Diagnosis Anxiety Anxiety state, unspecified documented in this encounter Additional Health Concerns Active Problems Noted Date Diagnosed Date MYC ECC DEP WELCOME- PROBLEM TEMPLATE 12/30/2024 Assessment Noted Time PHQ-9 Depression Total Score: 7 10/03/19 25 3:10 PM CDT documented as of this encounter Care Teams Halal Butcher Relationship Specialty [place] [address] [address] [place] [address] PCP - General Family Practice 10/27/20 [place] [address] [address] [place] [address] Family Practice 10/27/20 Umesh Lima PA-C [address] [address] [place] [address] Assigned PCP 01/02/24 Amanda [place]cas[place] [address] Assigned OBGYN Provider 10/02/24 documented as of this encounter
--- OUTSIDE RECORDS SUMMARY | 2025-01-07 20:17 | XMS_ITS | Encounter Summary ---
Author Organization [place] Address [address] [place] [address] Care Team Providers Care Activity Aid Name Role Phone Alex Koo MD Primary Care Provider [phone] Alex Koo MD Unavailable Umesh Lima PA-C Unavailable [phone] Amanda Ocasio [facility] Unavailable [phone] Encounter Details Date Type Department Care Team (Late st Contact Info) Description 10/23/2024 Results Follow-Up [facility] [id number] [place] [address] Devi Hernández PA-C [address] [place] [address] Social History Tobacco Use Types Packs/Day Years [...] on file 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 Gender Identity Not on file Sexual Orientation Not on file documented as of this encounter Plan of Treatment Not on file documented as of this encounter Visit Diagnoses Not on filedocumented in this encounter Additional Health Concerns Assessment Noted Time PHQ-9 Depression Total Score: 7 10/03/19 25 3:10 PM CDT documented as of this encounter Care Teams Activity Aid Relationship Specialty [place] [address] [address] [place] [address] PCP - General Family Practice 10/27/20 [place] [address] [address] [place] [address] Family Practice 10/27/20 Umesh Lima PA-C [address] [address] [place] [address] Assigned PCP 01/02/24 Amanda Ocasio [place] [address] Assigned OBGYN Provider 10/02/24 documented as of this encounter
--- OUTSIDE RECORDS SUMMARY | 2025-01-07 20:17 | XMS_ITS | Encounter Summary ---
Author Organization [place] Address [address] [place] [address] Care Team Providers Care Missionary Coordinator Name Role Phone Alex Koo MD Primary Care Provider [phone] Alex Koo MD Primary Care Provider [phone] Alex Koo MD Unavailable + Radha Knight APRN RECRUITER COORDINATOR Unavailable + Alex Koo MD Unavailable + Radha Knight APRN RECRUITER COORDINATOR Unavailable + Alex Koo MD Unavailable + Radha Knight APRN RECRUITER COORDINATOR Unavailable + Dinesh Mac MD Unavailable [facility] Unavailable [phone] Alex Koo MD Unavailable + Rosa Moyer CNM Unavailable [phone] Barbara Cheng MD Unavailable [phone] Umesh Lima PA-C Unavailable + Umesh Lima PA-C Unavailable + Alex Koo MD Unavailable + Umesh Lima PA-C Unavailable + Amanda Ocasio CNM Unavailable [phone] Encounter Details Date Type Department Care Team (Late st Contact Info) Description 02/02/2018 [facility] Medical Advice [address], [address] [place] [address] 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, REVENUE LIAISON Social History Tobacco Use Types Packs/Day Years Used Date Smoking Tobacco: Never Smokeless Tobacco: Never Alcohol Use Standard Drinks/Week Comments Yes 0 (1 standard drink = 0.6 oz pur e alcohol) occasional 2-4 monthly Comments No Sex and Gender Information Value Date Recorded Sex Assigned at Not on file 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 Gender Identity Not on file Sexual Orientation Not on file documented as of this encounter Plan of Treatment Not on file documented as of this encounter Visit Diagnoses Not on filedocumented in this encounter Additional Health Concerns Assessment Noted Time PHQ-9 Depression Total Score: 2 11/17/19 17 7:16 AM CDT documented as of this encounter Care Teams Missionary Coordinator Relationship Specialty Start Date End Date Alex Koo MD PCP - General Family Practice 04/19/16 10/26/20 [place] [address] [address] [place] [address] PCP - General Family Practice 10/27/20 Radha Knight APRN CNP [address] [address] [place] [address] PCP - Assigned PCP 11/19/17 07/21/18 [place] [address] [address] [place] [address] PCP - Assigned PCP 07/22/18 08/14/18 Alex Koo MD Family Practice 10/27/20 Radha Knight APRN RECRUITER COORDINATOR [address] [place] [address] Assigned PCP 11/19/17 07/21/18 [place] [address] [place] [address] Assigned PCP 07/22/18 11/16/19 Radha Knight APRN RECRUITER COORDINATOR [address] [place] [address] Assigned PCP 11/17/19 03/14/20 Dinesh Mac MD [address] [facility] [address] [place] [address] Assigned PCP 03/15/20 08/15/20 [place] [address] [place], [place] [address] Assigned PCP 08/16/20 11/21/20 [place] [address] [place] [address] Assigned PCP 11/22/20 05/20/22 Rosa Moyer CNM [address] [place] [address] Assigned OBGYN Provider 12/25/2004/08 Barbara Cheng MD [address] [place] [address] Assigned OBGYN Provider 04/09/22 Umesh Lima PA-C [address] [address] [place] [address] Assigned PCP 05/21/22 10/02/23 Umesh Lima PA-C [address] [address] [place] [address] Assigned Pain Medication Provider 06/20/22 12/09/22 [place] [address] [address] [place] [address] Assigned PCP 10/03/23 01/01/24 Umesh Lima PA-C [address] [address] [place] [address] Assigned PCP 01/02/24 Amanda Ocasio, ARAVIND [address] [place] [address] Assigned OBGYN Provider 10/02/24 documented as of this encounter
[2025-01-07 20:22] VITALS: BP 147/114; PULSE 93; RESP 18; TEMP 36.2; O2SAT 98; BMI 27.0
--- NOTE | 2025-01-07 20:31 | ED_ITS ---
HPI - Abdominal Pain General Time Seen by Provider: 20:31 Date Seen: 01/07/25 Chief Complaint: Abdominal Pain Stated Complaint: pain in lower abdomen/dizziness Time Seen by Provider: 01/07/25 20:31 Source: patient Mode of arrival: ambulatory History of Present Illness HPI narrative: Eden is a 39-year-old female who presents to the emergency department for evaluation of abdominal pain. Patient complains of right lower quadrant abdominal pain/pelvic pain that has been constant since Monday. Patient reports constant pain however worsening symptoms tonight. Patient describes the pain as a severe pain 9/10 with no improvement despite taking Tylenol and ibuprofen at home. Patient reports nausea but denies any vomiting. Patient denies any fever. Patient reports concern for possible appendicitis, , ovarian cyst. Patient reports history of ovarian cysts in the past and has been on and off OCPs. Patient states she recently was back on her oral contraceptives in September. Patient states she did have some spotting last week but did not get a full.. Also noticed a little spotting when she wiped today. Patient denies any dysuria, hematuria, vaginal discharge, no concern for sexually transmitted infection. Patient denies any chest pain, cough, no other complaints. Related Data Home Medications ?Medication ?Instructions ?Recorded ?Confirmed buspirone 5 mg tablet 5 mg PO 3XD 09/23/24 5 lorazepam 0.5 mg tablet 0.5 mg PO Q8H PRN anxiety 09/23/24 Previous Rx's ?Medication ?Instructions ?Recorded ketorolac 10 mg tablet 10 mg PO TID 5 days #15 tabs 09/23/24 methylprednisolone 4 mg tablets in See Rx Instructions PO .COMPLEX 09/23/24 a dose pack (Medrol (Brock)) #21 ea Allergies Allergy/AdvReac Type Severity Reaction Status Date / Time No Known Drug Allergies Allergy Verified 01/07/25 21:07 Review of Systems Narrative Past medical history, past surgical history, medications, allergies, family history, and social history were reviewed with the patient. No additional pertinent items. A medically appropriate review of systems was performed with pertinent positives and negatives noted in HPI, all other systems negative. [facility] Social History Smoking Status: Never smoker Do you use any of these nicotine containing products: None Second hand tobacco smoke exposure: No How often do you have a drink containing alcohol: 4 or more times a week How many standard drinks containing alcohol do you have on a typical day: 7 to 9 How often do you have six or more drinks on one occasion: Daily or almost daily AUDIT-C Alcohol total score: 11 Non-prescribed substance use: denies use service: No Exam Narrative: Exam Narrative: General: Afebrile, in distress secondary to pain HEENT: Normocephalic, atraumatic, conjunctiva normal. MMM Neck: non-tender, supple Cardio: regular rate. regular rhythm Resp: Normal work of breathing, no respiratory distress, lungs clear bilaterally, no wheezing, rhonchi, rales Chest/Back: no visual signs of trauma, no midline tenderness, no CVA tenderness Abdomen: soft, non distension, tenderness to palpation right lower quadrant and right pelvic area, no rebound, guarding, no peritoneal signs Neuro: alert and fully oriented. CN II-XII grossly intact. Grossly normal strength and sensation in all extremities. MSK: no deformities. Normal range of motion Integumentary/Skin: no rash visualized, normal color Psych: normal affect, normal behavior Const: Vital Signs, click to edit/add: Vital Signs - 24 hr 01/07/25 20:22 Temperature 97.2 F L Pulse Rate [Left P ulse Oximeter] 93 Respiratory Rate 18 Blood Pressure [Ri ght Upper Arm] 147/114 H Pulse Oximetry 98 Oxygen Delivery Me thod Room Air Course Vital Signs Vital signs: Initial Vital Signs Temperature 97.2 F L 01/07/25 20:22 Temperature Source Temporal Artery Scan 01/07/25 20:22 Pulse Rate 93 01/07/25 20:22 Pulse Rhythm Regular 01/07/25 20:22 Respiratory Rate 18 01/07/25 20:22 Blood Pressure 147/114 H 01/07/25 20:22 Blood Pressure Mean 125 H 01/07/25 20:22 Blood Pressure Position Sitting 01/07/25 20:22 Pulse Oximetry 98 01/07/25 20:22 Oxygen Delivery Method Room Air 01/07/25 20:22 Vital Signs Temperature 97.2 F L 01/07/25 20:22 Pulse Rate 93 01/07/25 20:22 Respiratory Rate 18 01/07/25 20:22 Blood Pressure 147/114 H 01/07/25 20:22 Pulse Oximetry 98 01/07/25 20:22 Oxygen Delivery Method Room Air 01/07/25 20:22 Temperature 97.2 F L 01/07/25 20:22 Pulse Rate 93 01/07/25 20:22 Respiratory Rate 18 01/07/25 20:22 Blood Pressure 147/114 H 01/07/25 20:22 Pulse Oximetry 98 01/07/25 20:22 Oxygen Delivery Method Room Air 01/07/25 20:22 Medications Administered Medications: Discontinued Medications Generic Name Dose Route Start Last Admin Trade Name Felizq PRN Reason Stop Dose Admin Hydromorphone HCl 0.5 mg 01/07/25 21:02 01/07/25 21:18 Hydromorphone 0.5 Mg/0.5 Ml Inj IVP 01/07/25 21:03 0.5 mg ONCE ONE Administration Sodium Chloride 1,000 mls @ 1,000 mls/hr 01/07/25 21:15 01/07/25 22:38 0.9 % Sodium Chloride 1000 Ml IV 01/07/25 22:14 Infused .Q1H RUBEN Infusion Ketorolac Tromethamine 15 mg 01/07/25 22:49 01/07/25 22:52 Ketorolac 15 Mg/Ml Inj IVP 01/07/25 22:50 15 mg ONCE ONE Administration Ondansetron HCl 4 mg 01/07/25 21:02 01/07/25 21:12 Ondansetron 2 Mg/Ml Inj IVP 01/07/25 21:03 4 mg ONCE ONE Administration MDM - Abdominal Pain MDM Narrative Medical decision making narrative: Eden is a 39-year-old female who presents to the emergency department for evaluation of abdominal pain. Upon arrival patient is nontoxic appearing, afebrile, in distress secondary to pain. Patient hypertensive upon arrival 147/114, heart rate 93, oxygen 98% on room air. On examination patient with tenderness to palpation right lower quadrant of her abdomen and right pelvic area. Differential diagnosis includes but is not limited to versus ectopic versus ovarian cyst versus ovarian torsion versus cystitis versus pyelonephritis versus nephrolithiasis versus appendicitis versus colitis among others. Upon arrival patient was treated with IV Zofran, IV Dilaudid, 1 L IV fluid bolus. Comprehensive labs performed and remarkable for no leukocytosis white blood cell count 7.4, hemoglobin 15.3, no acute metabolic or electrolyte abnormality, normal creatinine, liver function tests slightly elevated with AST 129, ALT 67, normal bilirubin, normal lipase. Urinalysis with no evidence of acute infection, trace amount of blood with no red blood cells, negative . (patient does report spotting). I personally reviewed interpreted pelvic ultrasound which is unremarkable with no evidence of adnexal mass, no evidence of torsion, normal blood flow. On re- evaluation patient with ongoing pain so additional dose of pain medications were provided. Patient received Toradol, and discuss further evaluation with CT imaging. I personally reviewed interpreted CT imaging which is unremarkable with no acute intra-abdominal infection, no evidence of hydronephrosis, no visualized calculi, normal appendix. There is some mild bladder wall thickening however urinalysis with no evidence of UTI/cystitis. I discussed results with patient. At this time would hold off on antibiotics however did discuss with patient would consider starting antibiotic if ongoing pain, or urinary symptoms. Will discharge patient with Insty med prescription to start in 24-48 hours if developed urinary symptoms (macrobid). Plan for discharge home with continued supportive care, Tylenol, ibuprofen, oral hydration, close outpatient follow-up. Strict return precautions discussed. Patient was given 1 dose of oxycodone prior to discharge. Patient understands and agrees the plan. Medical Records Attestation: I reviewed the patient's medical records. Lab Data Attestation: I reviewed the patient's lab results. Labs: Lab Results 01/07/25 01/07/25 01/07/25 Range/Units 20:30 21:00 21:04 WBC 7.46 (4.50-11.00) K/uL RBC 4.80 (4.00-5.20) m/uL Hgb 15.3 (12.0-16.0) gm/dL Hct 44.9 (33.0-51.0) % MCV 94 (80-100) fL MCH 32 (26-34) pg MCHC 34 (32-36) gm/dL RDW Coeff of Elliott 11.4 L (11.5-15.5) % Plt Count 339 (140-440) K/uL Neut % (Auto) 66.0 (42.0-72.0) % Lymph % (Auto) 20.9 (20-44) % [place] % (Auto) 8.7 (0.0-11.0) % Eos % (Auto) 3.6 (0.0-7.0) % Baso % (Auto) 0.7 (0.0-3.0) % Neut # (Auto) 4.92 (1.7-7.0) K/uL Lymph # (Auto) 1.56 (0.90-2.90) K/uL [place] # (Auto) 0.60 (0.00-0.90) K/UL Eos # (Auto) 0.27 (0.00-0.50) K/uL Baso # (Auto) 0.05 (0.00-0.30) K/uL Abs Immat Gran (auto) 0.01 (0.00-0.30) K/uL Imm/Tot Granulo (auto) 0.1 % Sodium 140 (135-149) mmol/L Potassium 3.6 (3.6-5.1) mmol/L Chloride 103 (96-114) mmol/L Carbon Dioxide 25 (20-32) mmol/L Anion Gap 12 (7-15) mEq/L BUN 3 L (5-24) mg/dL Creatinine 0.6 (0.5-1.5) mg/dL Estimated Creat Clear 137.48 Estimated GFR 118 ml/min Glucose 100 (60-115) mg/dL Calcium 9.9 (8.4-10.6) mg/dL Total Bilirubin 0.8 (0.1-1.5) mg/dL AST 129 H (12-35) U/L ALT 67 H (4-35) U/L Alkaline Phosphatase 69 (40-150) U/L Total Protein 8.5 H (6.0-8.3) g/dL Albumin 4.7 (3.3-5.0) g/dL Lipase 62 (23-300) U/L Urine Color Yellow (Yellow) Urine Appearance Clear (Clear) Urine pH 6.5 (5.0-8.5) Ur Specific [place] <= 1.005 (1.000-1.030) Urine Protein Negative (Negative) Urine Glucose (UA) Negative (Negative) Urine Ketones Negative (Negative) Urine Blood Trace-intact A (Negative) Urine Nitrite Negative (Negative) Urine Bilirubin Negative (Negative) Urine Urobilinogen 0.2 (0.2-1.0) Ur Leukocyte Esterase Negative (Negative) Urine RBC 0-2 (0-2) Urine WBC 0-2 (0-5) Ur Squamous Epith Cells Few (None-Few) Urine Bacteria None (None) Urine HCG, Qual Negative (Negative) Discharge Plan Discharge Clinical Impression: Lower abdominal pain Patient Disposition: Home, Self-Care Condition: Stable Additional Instructions: Please follow-up with your primary care provider in the next 2-3 days for further evaluation and follow-up. Please call to schedule an appointment. Please rest, drink plenty of fluids (water). Please alternate taking [id number] Tylenol 1000 mg and ibuprofen 600 mg every 6 hours as needed for pain. If your alternating these medications you will be taking something every 3 hours. Your urinalysis does not show infection however there is some bladder wall thickening on your CT imaging. If you developed urinary symptoms (pain or burning when you urinate, ongoing pain, blood in your urine) please start taking the antibiotics as directed (1 tablet twice a day for 5 days). Please return to the emergency department if he develops high fever, severe pain, persistent vomiting, new or worsening symptoms. It was a pleasure taking care of you today. We hope you feel better soon. Prescriptions: No Action buspirone 5 mg tablet 5 mg PO 3XD lorazepam 0.5 mg tablet 0.5 mg PO Q8H PRN (Reason: anxiety) ketorolac 10 mg tablet 10 mg PO TID 5 Days Qty: 15 0RF methylprednisolone [Medrol (Brock)] 4 mg tablets,dose pack See Rx Instructions .ROUTE .COMPLEX Qty: 21 0RF Rx Instructions: orally per package directions Follow Up/Referrals: Provider,Not a Local [Primary Care Provider, Family Practice] Stand Alone Forms: [employer] Info Instructions
[2025-01-07 20:43] LABS: Appearance Urine Clear (Clear)
[2025-01-07 21:12] LABS: Ur HCG Qualitative* Negative (Negative)
[2025-01-07] MEDS: ONDANSETRON 2 MG/ML inj 4 MG IVP (21:12)
[2025-01-07 21:14] LABS: Hematocrit 44.9 % (33.0-51.0); Hemoglobin* 15.3 gm/dL (12.0-16.0); Immature Granulocytes Abs Auto 0.01 K/uL (0.00-0.30); Immature Granulocytes Pct Auto 0.1 %; Lymphocytes Absolute Auto 1.56 K/uL (0.90-2.90); Mean Corpuscular HGB Conc 34 gm/dL (32-36); Mean Corpuscular Hemoglobin 32 pg (26-34); Mean Corpuscular Volume 94 fL (80-100); RDW Coefficient of Variation % 11.4 % (11.5-15.5); Red Blood Count 4.80 m/uL (4.00-5.20); White Blood Count* 7.46 K/uL (4.50-11.00)
--- NOTE | 2025-01-07 21:15 | CRLHL7_ITS ---
For Patients: As a result of the Century Cures Act, medical imaging exams and procedure reports are released immediately into your electronic medical record. You may view this report before your referring provider. If you have questions, please contact your health care provider. INDICATION: Right-sided pelvic pain. TECHNIQUE: Ultrasound pelvis transabdominal and transvaginal for better assessment or to better visualize the endometrium. Real-time sonographic images with spectral and color Doppler imaging of the ovaries were obtained. COMPARISON: None. FINDINGS: Uterus: 9.4 x 3.8 x 4.2 cm. Normal echotexture of the myometrium. No masses. Nabothian cysts small volume of fluid within the endocervical canal. Endometrium: Transvaginal imaging was performed to better evaluate the endometrium. Endometrial thickness measures 7 mm. No sign of endometrial mass or fluid. Right ovary measures 3.4 x 1.5 x 2.2 cm. Left ovary measures 3.0 x 2.5 x 2.7 cm. No ovarian or adnexal masses. Normal arterial and venous blood flow is demonstrated in both ovaries. Cul-de-sac: No significant free fluid. IMPRESSION: Unremarkable pelvic ultrasound. No acute findings or adnexal mass. Dictated by Andrews Jack MD @ 01/07/2025 10:54:27 PM (Electronically Signed)
[2025-01-07 21:16] LABS: Slide Review Reflex No
[2025-01-07 21:42] LABS: Albumin* 4.7 g/dL (3.3-5.0); Chloride* 103 mmol/L (96-114); Potassium* 3.6 mmol/L (3.6-5.1); Sodium* 140 mmol/L (135-149)
[2025-01-07 21:44] LABS: Blood Urea Nitrogen* 3 mg/dL (5-24); Creatinine* 0.6 mg/dL (0.5-1.5); Est. Creatinine Clearance* 137.48; Estimated Glomerular Filt Rate 118 ml/min
[2025-01-07 21:45] LABS: Alanine Aminotransferase* 67 U/L (4-35); Alkaline Phosphatase* 69 U/L (40-150); Anion Gap 12 mEq/L (7-15); Aspartate Amino Transferase* 129 U/L (12-35); Bilirubin Total* 0.8 mg/dL (0.1-1.5); Carbon Dioxide* 25 mmol/L (20-32); Total Protein* 8.5 g/dL (6.0-8.3)
[2025-01-07 21:46] LABS: Calcium* 9.9 mg/dL (8.4-10.6); Glucose* 100 mg/dL (60-115)
--- NOTE | 2025-01-07 22:37 | CRLHL7_ITS ---
For Patients: As a result of the Century Cures Act, medical imaging exams and procedure reports are released immediately into your electronic medical record. You may view this report before your referring provider. If you have questions, please contact your health care provider. Indication: Right lower abdominal pain Technique: CT through the abdomen and pelvis following 92 mL Isovue 370 IV contrast Comparison: Same day pelvic ultrasound, CT abdomen and pelvis performed 06/22/2024 Findings: Lower chest: No acute abnormality appreciated. Hepatobiliary: No significant parenchymal abnormality is appreciated. Spleen: Unremarkable. Pancreas: No acute abnormality appreciated. Adrenal glands: No acute abnormality appreciated. Kidneys: No significant parenchymal abnormality appreciated. No visualized calculi. No hydronephrosis. Bowel: No obstruction. No focal perienteric or pericolonic stranding is appreciated. The appendix is visualized and appears unremarkable. Vascular: No acute abnormality appreciated. Lymph nodes: No gross lymphadenopathy. Peritoneum: No free air. No free fluid. : Mild bladder wall thickening. Soft tissues: No acute abnormality appreciated. Bones: No acute fracture. No lytic or blastic lesion. Impression: Mild bladder wall thickening, nonspecific but can be correlated for UTI/cystitis. No other acute abnormality appreciated to account for patient`s reported symptoms. Please note that all CT scans at this facility use dose modulation, iterative reconstruction, and/or weight-based dosing when appropriate to reduce radiation dose to as low as reasonably achievable. Dictated by Nabil Ray MD @ 01/07/2025 11:15:25 PM (Electronically Signed)
[2025-01-08 00:06] VITALS: BP 142/117; PULSE 86; RESP 18; O2SAT 100
== END 2025-01-08 00:11 | disposition home or self-care (01) ==
PROVIDERS: Emergency Provider Emergency Medicine
DX: R10.31 Right lower quadrant pain (principal); R11.0 Nausea
CPT/HCPCS: 36415; 74177; 76830; 76856; 80053; 81001; 81025; 83690; 85025; 93976; 96361; 96374; 96375; 99284; 99285; A9270; J1171; J1885; J2405; J7030; Q9967

== ENCOUNTER 2025-02-07 16:11 | Emergency (ER) | payer BC, SELFPAY ==
--- OUTSIDE RECORDS SUMMARY | 2025-02-07 16:13 | XMS_ITS | Encounter Summary ---
Author Organization [facility] Address [address] [place] [address] Care Team Providers Care Account Manager Education Name Role Phone Alex Koo MD Primary Care Provider [phone] Alex Koo MD Unavailable Umesh Lima PA-C Unavailable [phone] Amanda Ocasio [facility] Unavailable [phone] Reason for Visit * Reason Onset Date Comments Refill Request 01/29/2025 Encounter Details Date Type Department Care Team (Late st Contact Info) Description 01/29/2025 MyC Refill [address] [address] Luis Carlos Roblero APRN [facility] [id number] [place] [address] Refill Request Social History Tobacco Use Types [...] on file 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 Pt used full name in voicemail so mortgage loan underwriter left vague message letting pt know we filled prescription but she will need follow up for further fills Carolyn Napier RN on 01/29/2025 at 2:20 PM documented in this encounter Plan of Treatment Not on file documented as of this encounter Visit Diagnoses Diagnosis Panic attack Panic disorder without agoraphobia Anxiety Anxiety state, unspecified documented in this encounter Additional Health Concerns Assessment Noted Time PHQ-9 Depression Total Score: 7 10/03/19 25 3:10 PM CDT documented as of this encounter Care Teams Account Manager Education Relationship Specialty [place] [address] [address] [place] [address] PCP - General Family Practice 10/27/20 [place] [address] [address] [place] [address] Family Practice 10/27/20 Umesh Lima PA-C [address] [address] [place] [address] Assigned PCP 01/02/24 Amanda Ocasio CNM [address] [place] [address] Assigned OBGYN Provider 10/02/24 documented as of this encounter
--- OUTSIDE RECORDS SUMMARY | 2025-02-07 16:13 | XMS_ITS | Clinical Summary ---
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 Gender Identity Not on file Sexual [...] Procedure Name Priority Date/Time Associated Diagnosis Comments WIDE AREA NETWORK ADMINISTRATOR THIN PREP PAP DIAGNOSTIC IMAGED Routine 02/23/2012 1:31 PM CDT Screening for malignant neoplasm of the cervix from Last 3 Months or Most Recently Relevant to Health Maintenance Results * WIDE AREA NETWORK ADMINISTRATOR THIN PREP PAP DIAGNOSTIC IMAGED (02/23/2012 1:31 PM CDT) CYTOLOGY CYTOPATHOLOGY REPORT [facility] Status: Final Status [id number] CLINICAL INFORMATION Last Date of LMP :02/04/2012 Last Pap Date :06/04/2010 Last Pap Result :NIL ABN [place]/Bx Past 5 YRS :None Hormone Usage :None Menstrual Status :Regular Periods [place]/Bx done today :No Additional Information :None given [...] malignant lesions. COLLECTED:02/23/12 ACCESSIONED: 02/24/12 SIGNED: 02/29/12 [facility] PAP [place] CODE NIL [facility] Tissue specimen (specimen) (Cervical/Vagina l) 02/23/2012 1:31 PM CDT 02/23/2012 1:27 PM CDT us Barbara Cassidy MD PATHOLOGY/CYTOLOGY Final Resu lt [facility] [place]NAL ZIP [address] [place] [address] from Last 3 Months or Most Recently Relevant to Health Maintenance Insurance [facility] Care Teams Case Liner Relationship Specialty Start Date End Date Pcp, No . PCP - General 03/21/16
--- OUTSIDE RECORDS SUMMARY | 2025-02-07 16:13 | XMS_ITS | Encounter Summary ---
Author Organization [facility] Address [address] [place] [address] Care Team Providers Care Laundry Laborer Name Role Phone Alex Koo MD Primary Care Provider + 2 Alex Koo MD Primary Care Provider + 2 Alex Koo MD Unavailable + Radha Knight APRN SECURITY ORDERLY Unavailable + Alex Koo MD Unavailable + Radha Knight APRN SECURITY ORDERLY Unavailable + Alex Koo MD Unavailable + Radha Knight APRN SECURITY ORDERLY Unavailable + Dinesh Mac MD Unavailable Daniel Ramirez Yancy Vicki IBRAHIM Unavailable + [phone] Alex Koo MD Unavailable + Rosa Moyer TOWER LOADER OPERATOR CNM Unavailable Unavaila Barbara Mckeon MD Unavailable [phone] Umesh Lima-Mandie Unavailable + Umesh Lima-Mandie Unavailable + Alex Koo MD Unavailable + Umesh Lima-Mandie Unavailable + Amanda Ocasio CNM Unavailable [phone] Encounter Details Date Type Department Care Team (Late st Contact Info) Description 02/02/2018 [facility] [place] [address], [address] [place] [address] 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, ED EDUCATIONAL AIDE Social History Tobacco Use Types Packs/Day Years Used Date Smoking Tobacco: Never Smokeless Tobacco: Never Alcohol Use Standard Drinks/Week Comments Yes 0 (1 standard drink = 0.6 oz pur e alcohol) occasional 2-4 monthly Comments No Sex and Gender Information Value Date Recorded Sex Assigned at Not on file 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 Gender Identity Not on file Sexual Orientation Not on file documented as of this encounter Plan of Treatment Not on file documented as of this encounter Visit Diagnoses Not on filedocumented in this encounter Additional Health Concerns Assessment Noted Time PHQ-9 Depression Total Score: 2 11/17/19 17 7:16 AM CDT documented as of this encounter Care Teams Laundry Laborer Relationship Specialty Start Date End Date Alex Koo MD PCP - General Family Practice 04/19/16 10/26/20 [place] [address] [address] [place] [address] PCP - General Family Practice 10/27/20 Radha Knight APRN CNP 49265 [place] [address] PCP - Assigned PCP 11/19/17 07/21/18 [place] [address] [place] [address] PCP - Assigned PCP 07/22/18 08/14/18 Alex Koo MD Family Practice 10/27/20 Radha Knight APRN SECURITY ORDERLY [address] [place] [address] Assigned PCP 11/19/17 07/21/18 [place] [address] [place] [address] Assigned PCP 07/22/18 11/16/19 Radha Knight APRN SECURITY ORDERLY [address] [address] [place], [place] 8356068 Assigned PCP 11/17/19 03/14/20 Dinesh Mac MD [address] [facility] [place] [address] Assigned PCP 03/15/20 08/15/20 [place] [address] [place], [place] [address] Assigned PCP 08/16/20 11/21/20 [place] [address] [address] [place], [place] 8772968 Assigned PCP 11/22/20 05/20/22 Rosa Moyer APRN CN Assigned OBGYN Provider 12/25/20 04/08/22 Barbara Cheng MD [address] [place] [address] Assigned OBGYN Provider 04/09/22 Umesh Lima PA-C [address] [address] [place], [place] 36828[address] Assigned PCP 05/21/22 10/02/23 Umesh Lima PA-C 29552 [address] [place] [address] Assigned Pain Medication Provider 06/20/22 12/09/22 [place] [address] [address] [address] Assigned PCP 10/03/23 01/01/24 Umesh Lima PA-C [address]3811 [address] [place] [address] Assigned PCP 01/02/24 Amanda Ocas[facility] [place] [address] Assigned OBGYN Provider 10/02/24 documented as of this encounter
--- OUTSIDE RECORDS SUMMARY | 2025-02-07 16:13 | XMS_ITS | Encounter Summary ---
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 Medication requested: Pending Prescriptions: Disp Refills levonorgestrel-ethinyl estradiol (AVIANE)*84 tab*3 Sig: Take 1 tablet by mouth daily. Medication last prescribed: 09/12/24 Last visit with [facility] CNM group: 09/12/24 Upcoming appointments: None Refill [...] documented as of this encounter Care Teams Video Surveillance Technician Relationship Specialty [place] [address] [place] [address] PCP - General Family Practice 10/27/20 [place] [address] [address] [place] [address] Family Practice 10/27/20 Umesh Lima PA-C [address] [address] [place] [address] Assigned PCP 01/02/24 Amanda [place]cas[place] [address] Assigned OBGYN Provider 10/02/24 documented as of this encounter
--- OUTSIDE RECORDS SUMMARY | 2025-02-07 16:13 | XMS_ITS | Encounter Summary ---
Author Organization [facility] Address [address] [place] [address] Care Team Providers Care Manager Transmission Name Role Phone Alex Koo MD Primary Care Provider [phone] Alex Koo MD Unavailable Daniel Yancy Vicki IBRAHIM Unavailable + [phone] Alex Koo MD Unavailable Rosa Moyer APRN CNM Unavailable Unavaila [facility] Barbara Cheng MD Unavailable [phone] Umesh Lima PA-C Unavailable +[phone] Umesh Lima PA-C Unavailable +[phone] Alex Koo MD Unavailable Umesh Lima PA-C Unavailable +[phone] Amanda Ocasio CNM Unavailable [phone] Encounter Details Date Type Department Care Team (Late st Contact Info) Description 10/27/2020 Records - [facility] CONVERSION Scan, Non-Provider Social History Tobacco Use Types Packs/Day Years Used Date Smoking Tobacco: Never Assessed PHQ-2 Answer Date Recorded PHQ-2 Score 2 07/31/2020 Comments No Sex and Gender Information Value Date Recorded Sex Assigned at Not on file Legal 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 Female 11:55 AM PUMPER HAND Gender Identity Not on file Sexual Orientation Not on file documented as of this encounter Plan of Treatment Not on file documented as of this encounter Visit Diagnoses Not on filedocumented in this encounter Additional Health Concerns Assessment Noted Time PHQ-9 Depression Total Score: 4 07/31/19 21 5:02 PM PUMPER HAND documented as of this encounter Care Teams Manager Transmission Relationship Specialty [place] [address] [address] [place] [address] PCP - General Family Practice 10/27/20 [place] [address] [address] [place] [address] Family Practice 10/27/20 [place] [address] [facility] [place] [address] Assigned PCP 08/16/20 11/21/20 [place] [address] [address] [place] [address] Assigned PCP 11/22/20 05/20/22 Rosa Moyer APRN CNM Assigned OBGYN Provider 12/25/20 04/08/22 Barbara Cheng MD [address] [place] [address] Assigned OBGYN Provider 04/09/22 Umesh Lima PA-C [address] [place] [address] Assigned PCP 05/21/22 10/02/23 Umesh Lima PA-C [address] [place] [address] Assigned Pain Medication Provider 06/20/22 12/09/22 [place] [address] [address] [place] [address] Assigned PCP 10/03/23 01/01/24 Umesh Lima PA-C 33738 [address] [place] [address] Assigned PCP 01/02/24 Amanda Ocasio [place]M [address] [place] [address] Assigned OBGYN Provider 10/02/24 documented as of this encounter
--- OUTSIDE RECORDS SUMMARY | 2025-02-07 16:13 | XMS_ITS | Encounter Summary ---
Author Organization [facility] Address [address] [place] [address] Care Team Providers Care Bruise Trimmer Name Role Phone Alex Koo MD Primary Care Provider [phone] Alex Koo MD Unavailable Umesh Lima PA-C Unavailable [phone] Amanda Ocasio [facility] Unavailable [phone] Encounter Details Date Type Department Care Team (Late st Contact Info) Description 10/23/2024 Results Follow-Up [facility] [id number] [place] [address] Devi Hernández PA-C [address] [place] [address] Social History Tobacco Use Types [...] on file 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 Gender Identity Not on file Sexual Orientation Not on file documented as of this encounter Plan of Treatment Not on file documented as of this encounter Visit Diagnoses Not on filedocumented in this encounter Additional Health Concerns Assessment Noted Time PHQ-9 Depression Total Score: 7 10/03/19 25 3:10 PM CDT documented as of this encounter Care Teams Bruise Trimmer Relationship Specialty [place] [address] [address] [address] PCP - General Family Practice 10/27/20 [place] [address] [address] [address] Family Practice 10/27/20 Umesh Lima PA-C [address] [address] [place] [place] [address] Assigned PCP 01/02/24 Amanda Ocasio [place] [address] Assigned OBGYN Provider 10/02/24 documented as of this encounter
--- OUTSIDE RECORDS SUMMARY | 2025-02-07 16:13 | XMS_ITS | Encounter Summary ---
Author Organization [facility] Address [address] [place] [address] Care Team Providers Care Paralegal Instructor Name Role Phone Alex Koo MD Primary Care Provider + 2 Alex Koo MD Primary Care Provider + 2 Alex Koo MD Unavailable + Radha Knight APRN ESCROW CLERK Unavailable + Alex Koo MD Unavailable + Radha Knight APRN ESCROW CLERK Unavailable + Alex Koo MD Unavailable + Radha Knight APRN ESCROW CLERK Unavailable + Dinesh Mac MD Unavailable Daniel Ramirez Yancy Vicki IBRAHIM Unavailable + [phone] Alex Koo MD Unavailable + Rosa Moyer GLOVE STITCHER CNM Unavailable Unavaila Barbara Mckeon MD Unavailable [phone] Umesh Lima-Mandie Unavailable + Umesh Lima-Mandie Unavailable + Alex Koo MD Unavailable + Umesh Lima-Mandie Unavailable + Amanda Ocasio CNM Unavailable [phone] Encounter Details Date Type Department Care Team (Late st Contact Info) Description 07/12/2017 [facility] [place] [facility] [address], [address] [place] [address] Mary Joshi, MANAGER ORGANIZATIONAL Social History Tobacco Use Types Packs/Day Years Used Date Smoking Tobacco: Never Smokeless Tobacco: Never Alcohol Use Standard Drinks/Week Comments Yes 0 (1 standard drink = 0.6 oz pur e alcohol) occasional 2-4 monthly Comments No Sex and Gender Information Value Date Recorded Sex Assigned at Not on file 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 Gender Identity Not on file Sexual Orientation Not on file documented as of this encounter Plan of Treatment Not on file documented as of this encounter Visit Diagnoses Not on filedocumented in this encounter Additional Health Concerns Assessment Noted Time PHQ-9 Depression Total Score: 2 11/17/19 17 7:16 AM CDT documented as of this encounter Care Teams Paralegal Instructor Relationship Specialty Start Date End Date Alex Koo MD PCP - General Family Practice 04/19/16 10/26/20 [place] [address] [address] [place] [address] PCP - General Family Practice 10/27/20 Radha Knihgt APRN CNP 80216 [place] [address] PCP - Assigned PCP 11/19/17 07/21/18 [place] [address] [place] [address] PCP - Assigned PCP 07/22/18 08/14/18 Alex Koo MD Family Practice 10/27/20 Radha Knight APRN ESCROW CLERK [address] [place] [address] Assigned PCP 11/19/17 07/21/18 [place] [address] [place] [address] Assigned PCP 07/22/18 11/16/19 Radha Knight APRN ESCROW CLERK [address] [address] [place], [place] 6[address]8668 Assigned PCP 11/17/19 03/14/20 Dinesh Mac MD 3305 [facility] [place] [address] Assigned PCP 03/15/20 08/15/20 [place] [address] [address] [place], [place] [address] Assigned PCP 08/16/20 11/21/20 [place] [address] [address] [place], [place] 4245968 Assigned PCP 11/22/20 05/20/22 Rosa Moyer APRN CN Assigned OBGYN Provider 12/25/20 04/08/22 Barbara Cheng MD [address] [place] [address] Assigned OBGYN Provider 04/09/22 Umesh Lima PA-C [address] [address] [place], [place] 0792168 Assigned PCP 05/21/22 10/02/23 Umesh Lima PA-C 1948[address] [address] [place] [address] Assigned Pain Medication Provider 06/20/22 12/09/22 [place] [address] [address] [place] [address] Assigned PCP 10/03/23 01/01/24 Umesh Lima PA-C 55857 [address] [place] [address] Assigned PCP 01/02/24 Amanda Ocas[facility] [place] [address] Assigned OBGYN Provider 10/02/24 documented as of this encounter
--- OUTSIDE RECORDS SUMMARY | 2025-02-07 16:13 | XMS_ITS | Clinical Summary ---
Author Organization [facility] Address [address] [place] [address] Care Team Providers Care Radio Broadcaster Name Role Phone Alex Koo MD Primary Care Provider [phone] Alex Koo MD Unavailable Umesh Lima PA-C Unavailable [phone] Amanda Ocasio Unavailable [phone] Allergies Active Allergy Reactions Criticality Noted Date Comments Influenza Virus Vaccine 09/12/2024 Influenza vaccine made patient allergic Patient ended up in hospital Had high fever Latex 09/12/2024 Medications melatonin 3 MG tablet Take 1 mg by mouth nightly as needed for sleep. Active diphenhydrAMIN E (BENADRYL) 25 MG tablet Take 25 mg by mouth as needed for allergies. Active LORazepam (ATIVAN) 0.5 MG tabletIndicati ons:Panic attack Take 1 tablet (0.5 mg) by mouth every 8 hours as needed for anxiety. 15 tablet 10/03/19 25 Active mupirocin (BACTROBAN) 2 % external ointmentIndica tions:Rash, skin Apply topically 2 times daily. 30 g 1 10/24/19 25 Active triamcinolone (KENALOG) 0.1 % external creamIndicatio ns:Scalp irritation Apply topically 2 times daily. Use for up to 2 weeks then stop for 2 weeks 30 g 1 10/24/19 25 Active levonorgestrel -ethinyl estradiol (AVIANE) 0.1-20 MG-MCG tabletIndicati ons:Pelvic pain in female Take 1 tablet by mouth daily. 84 tablet 3 12/27/19 25 Active busPIRone (BUSPAR) 10 MG tabletIndicati ons:Anxiety Take 1 tablet (10 mg) by mouth 3 times daily. 270 tablet 01/30/20 25 Active busPIRone (BUSPAR) 10 MG tabletIndicati ons:Anxiety Take 1 tablet (10 mg) by mouth 3 times daily. 270 tablet 10/03/19 25 025 Discontinued busPIRone (BUSPAR) 10 MG tabletIndicati ons:Anxiety TAKE 1 TABLET BY MOUTH 3 TIMES DAILY 270 tablet 01/30/20 25 025 Discontinued Active Problems Patient Care Coordination No te Formatting of this note migh t be different from the original. [email or web address] Problem Noted Date Diagnosed Date Recurrent major [...] Encounters Date Type Department Care Team Description 01/29/2025 MyC Refill M [address] [address] Luis Carlos Roblero APRN HAMMER DRIVER Refill Request 01/01/2025 Refill M [address] [address] Luis Carlos Roblero APRN HAMMER DRIVER Medication Refill 12/26/2024 Refill M [facility] [address] [place] [address] Millie Gonzalez APRN CNM from Last 3 Months Immunizations Immunization Administration [...] on file Legal Sex Female 11:55 AM GM MOBILE Gender Identity Not on file Sexual Orientation [...] Name Priority Date/Time Associated Diagnosis Comments HPV AND GYNECOLOGIC CYTOLOGY PANEL Routine 09/12/2024 3:19 PM CDT Cervical cancer screening BASIC METABOLIC PANEL Routine 09/02/2024 4:00 PM CDT Alcohol abuse from Last 3 Months or Most Recently Relevant to Health Maintenance Results * HPV and Gynecologic Cytology Panel ??? [...] for high risk HPV DNA. METHODOLOGY: The [employer] system uses automated extraction, simultaneous amplification of [...] CDT 09/12/2024 5:02 PM CDT us Amanda [facility] - BLOOD ORDERABLES Final Re sult [facility] Specialty Lab [address] [place] [address], [facility] Molecular Diagnostics [address], [address] [place] [address], [facility] * Basic metabolic panel (Ca, [...] PM CDT us Luis Carlos Roblero APRN HAMMER DRIVER LAB - BLOOD ORDERABLES Meghan urbano Result [facility] [address] [facility] [place] [address], [facility] from Last 3 Months or Most Recently Relevant to Health Maintenance Additional Health Concerns Active Problems Noted Date Diagnosed Date MYC ECC DEP WELCOME- PROBLEM TEMPLATE 02/03/2025 [place] Care Teams Radio Broadcaster Relationship Specialty [place] [address] [address] [place] [address] PCP - General Family Practice 10/27/20 [place] [address] [address] [place] [address] Family Practice 10/27/20 Umesh Lima PA-C 472[address] [address] [address] Assigned PCP 01/02/24 Amanda Ocasio CNM [address] [address] Assigned OBGYN Provider 10/02/24
--- OUTSIDE RECORDS SUMMARY | 2025-02-07 16:13 | XMS_ITS | Encounter Summary ---
Author Organization [facility] Address [address] [place] [address] Care Team Providers Care Insurance And Financial Services Agent Name Role Phone Alex Koo MD Primary Care Provider [phone] Alex Koo MD Unavailable Umesh Lima PA-C Unavailable [phone] Amanda Ocasio [facility] Unavailable [phone] Reason for Visit * Reason Comments Medication Refill Encounter Details Date Type Department Care Team (Late st Contact Info) Description 01/01/[address] [address] Luis Carlos Roblero APRN [facility] [address] [place] [address] Medication Refill Social History Tobacco Use [...] on file 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 Regarding: busPIRone (BUSPAR) 10 MG tablet was sent to [facility] in [place] as unable to [facility]crib[facility] [place]. Patient needs to follow-up with PCP or establish care with new PCP for further refills. Action to take: Transfer to site RN green line (or update telephone encounter in after-hours) KEVIN Rodriguez RN [facility] * Telephone Encounter - Luis Carlos Roblero APRN CNP - 01/29/2025 11:00 AM CDT Chart reviewed. Refilled. Please let patient know she should follow back up w/ PCP or establish care w/ new PCP. Failed to e prescribe to [facility], sent to [facility] in [place]. Luis Carlos Roblero APRN CNP documented in this encounter Plan of Treatment Not on file documented as of this encounter Visit Diagnoses Diagnosis Anxiety Anxiety state, unspecified documented in this encounter Additional Health Concerns Assessment Noted Time PHQ-9 Depression Total Score: 7 10/03/19 25 3:10 PM CDT documented as of this encounter Care Teams Insurance And Financial Services Agent Relationship Specialty [place] [address] [place] [address] PCP - General Family Practice 10/27/20 [place] [address] [address] [place] [address] Family Practice 10/27/20 Umesh Lima PA-C 22832 [address] [place] [address] Assigned PCP 01/02/24 Amanda Ocasio CNM [address] [place] [address] [place] [address] [place] [address] Assigned OBGYN Provider 10/02/24 documented as of this encounter
--- OUTSIDE RECORDS SUMMARY | 2025-02-07 16:13 | XMS_ITS | Encounter Summary ---
Author Organization [facility] Address [address] [place] [address] Care Team Providers Care Managed Care Specialist Name Role Phone Alex Koo MD Primary Care Provider [phone] Alex Koo MD Primary Care Provider [phone] Alex Koo MD Unavailable + Alex Koo MD Unavailable Alex Koo MD Unavailable Radha Knight APRN HEAD BONE GRINDER Unavailable + Dinesh Mac MD Unavailable Yancy Delgadillo MD Unavailable + [phone] Alex Koo MD Unavailable Rosa Moyer PAYROLL AND BENEFITS MANAGER CNM Unavailable Unavaila Barbara Mckeon MD Unavailable [phone] Umesh Lima PA-C Unavailable +[phone] Umesh Lima PA-C Unavailable +[phone] Alex Koo MD Unavailable + Umesh Lima PA-C Unavailable +[phone] Amanda Ocasio CNM Unavailable [phone] Encounter Details Date Type Department Care Team (Late st Contact Info) Description 07/24/2018 [facility] [address], [address] [place] [address] Mary Joshi CMA Social History Tobacco Use [...] on file 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 2nd outreach. Mary Joshi CMA (AAMA) documented in this encounter Plan of Treatment Not on file documented as of this encounter Visit Diagnoses Not on filedocumented in this encounter Additional Health Concerns Assessment Noted Time PHQ-9 Depression Total Score: 2 11/17/19 17 7:16 AM CDT documented as of this encounter Care Teams Managed Care Specialist Relationship Specialty Start Date End Date Alex Koo MD PCP - General Family Practice 04/19/16 10/26/20 [place] [address] [address] [address] PCP - General Family Practice 10/27/20 [place] [address] [address] [place] [address] PCP - Assigned PCP 07/22/18 08/14/18 Alex Koo MD Family Practice 10/27/20 [place] [address] [place] [address] Assigned PCP 07/22/18 11/16/19 Radha Knight APRN HEAD BONE GRINDER [address] [place] [address] Assigned PCP 11/17/19 03/14/20 Dinesh Mac MD [address] [place] [address] Assigned PCP 03/15/20 08/15/20 [place] [address] [facility], [place] [id number] Assigned PCP 08/16/20 11/21/20 [place] [address] [place] [address] Assigned PCP 11/22/20 05/20/22 Rosa Moyer APRN CN Assigned OBGYN Provider 12/25/20 04/08/22 Barbara Cheng MD [address] [place] [address] Assigned OBGYN Provider 04/09/22 Umesh Lima PA-C [address] [place] [address] Assigned PCP 05/21/22 10/02/23 Umesh Lima PA-C [address] [place] [address] Assigned Pain Medication Provider 06/20/22 12/09/22 [place] [address] [place] [address] Assigned PCP 10/03/23 01/01/24 Umesh Lima PA-C [address] [place] [address] Assigned PCP 01/02/24 Amanda Ocasio CNM [address] [place] [address] Assigned OBGYN Provider 10/02/24 documented as of this encounter
[2025-02-07 16:17] VITALS: BP 151/99; PULSE 82; RESP 16; TEMP 36.3; O2SAT 99; BMI 26.8
[2025-02-07 16:32] LABS: Appearance Urine Clear (Clear)
--- NOTE | 2025-02-07 16:49 | ED.GENADULT ---
HPI - General Adult General Chief complaint: Abdominal Pain Stated complaint: lower abdomen pain/ hard time breathing Time Seen by Provider: 02/07/25 16:33 History of Present Illness HPI narrative: Right sided abdominal pain (previous workup for this that was negative other than a possible UTI) that has continued and slightly worsened. Less appetite as well. Took Tylenol and ibuprofen. 39-year-old woman presenting to the emergency department with concern of intense pain in the right lower abdomen. Has described it is actually in the right inguinal area. Can be worse with walking. Not affected really though by movement specifically or least flexion of the thigh. Can radiate up a little bit to the right. She describes it as persistent, burning pain. No dysuria. She has been experiencing some bloated abdomen. Does not really have food intolerance is though is wondering maybe bread might be contributing to most recent bloating. No fevers. No rashes. Was seen 1 month ago in this department with negative abdominal pelvic CT and pelvic ultrasound. There was some mild bladder wall thickening and ultimately took a course of antibiotics she says. Discomfort was may be lessened for a week or so and then intensified again. She had also been given ketorolac. Has had this pain intermittently over 2 years or so. There was some question endometriosis though has not had a laparoscopic exam and does not seem to correlate with menstrual cycle. She does take oral contraception regularly. Has tried topical patches like Salonpas without significant relief. Furthermore tends to react to adhesives. She does have a history of of left hip for labral tear and repair. The pain she is having in the right inguinal area is less tolerable than what she experienced around that left hip surgery and subsequently what was thought to be SI joint related pain. Regarding this right groin area pain, she does not recall specific injury. 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 Notes herself also to be rather tough. Related Data Home Medications ?Medication ?Instructions ?Recorded ?Confirmed buspirone 5 mg tablet 5 mg PO 3XD 09/23/24 09/23/24 levonorgestrel-ethinyl estradiol 1 tab PO DAILY 02/07/25 02/07/25 0.1 mg-20 mcg tablet (Vienva) Previous Rx's ?Medication ?Instructions ?Recorded gabapentin 300 mg capsule 300 mg PO TID #45 caps 02/07/25 Allergies Allergy/AdvReac Type Severity Reaction Status Date / Time No Known Drug Allergies Allergy Verified 01/07/25 21:07 Review of Systems Status of ROS: Reports: 6 or more systems reviewed and unremarkable except as noted in History and below [facility] Social History Smoking Status: Never smoker Do you use any of these nicotine containing products: None Second hand tobacco smoke exposure: No How often do you have a drink containing alcohol: 4 or more times a week How many standard drinks containing alcohol do you have on a typical day: 7 to 9 How often do you have six or more drinks on one occasion: Daily or almost daily AUDIT-C Alcohol total score: 11 Non-prescribed substance use: denies use service: No Exam Narrative: Exam Narrative: Pleasant. Tall. NAD. Breathing easily. Heart in regular rate and rhythm. Skin is warm and dry without rash or swelling. No flank pain. Abdomen is soft and nontender until palpation in the right medial aspect just above the right inguinal area. Even relatively light touch in a patch approximately 7 x 4 cm it is very tender. I do not appreciate discrete swelling or wall defect. This is not in the adnexal area. Discomfort is not exacerbated with flexion of the thigh or resisted internal or external rotation. There is no pain to palpation over the anterior iliac crest or insertion of hip flexors. No suprapubic illness nor to palpation over the pubic symphysis. Const: Vital Signs, click to edit/add: Vital Signs - 24 hr 02/07/25 16:17 Temperature 97.3 F L Pulse Rate [Pulse Oximeter] 82 Respiratory Rate 16 Blood Pressure [Ri ght Upper Arm] 151/99 H Pulse Oximetry 99 Oxygen Delivery Me thod Room Air Documenting provider has reviewed patient's vital signs: yes Course Vital Signs Vital signs: Initial Vital Signs Temperature 97.3 F L 02/07/25 16:17 Temperature Source Temporal Artery Scan 02/07/25 16:17 Pulse Rate 82 02/07/25 16:17 Respiratory Rate 16 02/07/25 16:17 Blood Pressure 151/99 H 02/07/25 16:17 Blood Pressure Mean 116 H 02/07/25 16:17 Blood Pressure Position Sitting 02/07/25 16:17 Pulse Oximetry 99 02/07/25 16:17 Oxygen Delivery Method Room Air 02/07/25 16:17 Vital Signs Temperature 97.3 F L 02/07/25 16:17 Pulse Rate 82 02/07/25 16:17 Respiratory Rate 16 02/07/25 16:17 Blood Pressure 151/99 H 02/07/25 16:17 Pulse Oximetry 99 02/07/25 16:17 Oxygen Delivery Method Room Air 02/07/25 16:17 Temperature 97.3 F L 02/07/25 16:17 Pulse Rate 82 02/07/25 16:17 Respiratory Rate 16 02/07/25 16:17 Blood Pressure 151/99 H 02/07/25 16:17 Pulse Oximetry 99 02/07/25 16:17 Oxygen Delivery Method Room Air 02/07/25 16:17 Medications Administered Medications: Discontinued Medications Generic Name Dose Route Start Last Admin Trade Name Felizq PRN Reason Stop Dose Admin Hydrocodone Bitart/Acetaminophen 2 tab 02/07/25 17:20 02/07/25 17:44 Hydrocodone-Acetamin 5-325 Mg 1 Tab PO 02/07/25 17:21 2 tab ONCE ONE Administration Ketorolac Tromethamine 30 mg 02/07/25 17:20 02/07/25 17:52 Ketorolac 30 Mg/Ml Inj IVP 02/07/25 17:21 Not Given ONCE ONE Ketorolac Tromethamine 60 mg 02/07/25 17:50 02/07/25 18:02 Ketorolac 60 Mg/2 Ml Inj IM 02/07/25 17:51 60 mg ONCE ONE Administration Lidocaine 1 patch 02/07/25 17:20 02/07/25 17:44 Lidocaine 5% Patch TRANSDERMA 02/07/25 17:21 1 patch ONCE ONE Administration Protocol Medical Decision Making [facility] Narrative Medical decision making narrative: Has irritation to even light touch in the right upper inguinal area/lower abdomen without wall defect. It is not associated with movement of the leg. I think probably nerve entrapment or hypesthesia of unclear etiology. I think symptoms in the abdomen are distinct from what is actually going on the inguinal area. Maybe some celiac discomfort. I am not convinced that further imaging would be helpful today. Would check CBC and CRP perhaps looking for marked elevation to prompt further investigation. Ordered for Rogers and ketorolac and then placed a lidocaine patch in the area above as mentioned. Labs are unremarkable including normal UA and HCG. On reassessment though pain has not really changed. Exploring other options for pain management I propose localized anesthetic injection, partly as a test. We decided to proceed after risks and benefits discussed. Injected the area with a total of 4 mL of bupivacaine fanned out. This did result in near full resolution of discomfort. I think this is a cutaneous nerve issue. Might benefit from Neurontin or maybe lidocaine patches or acupuncture? I am not sure if any surgical intervention is possible. Nerve ablation? Might need EMG testing to locate? Still has concerns for recurrence of her pain in the short term until next steps are arranged. Discussed options. She is cognizant of opiate concerns. Limits herself historically with oxycodone use. See patient discharge plan for further discussion I wonder if this pain might be related to cutaneous nerve irritation. I think it is helpful to know that the localized, superficial injection of bupivacaine was helpful in relieving your discomfort. As such, a you can continue to try lidocaine patches if they seem to be helping and not causing too much skin irritation. I am prescribing, as discussed, a trial of gabapentin. After 7-10 days of taking this, if you are otherwise tolerating it but does not seem completely helpful, could go up to 600 mg 3 times a day. To consider any further dosing increases though I would follow-up in primary care. You had mentioned that low-dose oxycodone in the form of Percocet has been helpful before. I can prescribe you some of these as well for temporary use. Stay well-hydrated, keep up your fiber intake. I would follow-up in primary care otherwise to discuss next steps in evaluation for this right inguinal area pain. You might consider being seen by acupuncture or maybe a pain specialist. Medical Records Medical records reviewed: Yes I reviewed the patient's medical records Lab Data Lab results reviewed: Yes I reviewed the patient's lab results Labs: Lab Results 02/07/25 02/07/25 02/07/25 Range/Units 16:22 16:53 17:33 WBC 8.31 (4.50-11.00) K/uL RBC 4.30 (4.00-5.20) m/uL Hgb 13.9 (12.0-16.0) gm/dL Hct 40.3 (33.0-51.0) % MCV 94 (80-100) fL MCH 32 (26-34) pg MCHC 35 (32-36) gm/dL RDW Coeff of Elliott 11.4 L (11.5-15.5) % Plt Count 280 (140-440) K/uL Neut % (Auto) 72.5 H (42.0-72.0) % Lymph % (Auto) 16.8 L (20-44) % [place] % (Auto) 7.8 (0.0-11.0) % Eos % (Auto) 2.4 (0.0-7.0) % Baso % (Auto) 0.4 (0.0-3.0) % Neut # (Auto) 6.00 (1.7-7.0) K/uL Lymph # (Auto) 1.40 (0.90-2.90) K/uL [place] # (Auto) 0.60 (0.00-0.90) K/UL Eos # (Auto) 0.20 (0.00-0.50) K/uL Baso # (Auto) 0.03 (0.00-0.30) K/uL Abs Immat Gran (auto) 0.01 (0.00-0.30) K/uL Imm/Tot Granulo (auto) 0.1 % C-Reactive Protein 0.6 (0.5-1.0) mg/dL Urine Color Yellow (Yellow) Urine Appearance Clear (Clear) Urine pH 6.0 (5.0-8.5) Ur Specific [place] <= 1.005 (1.000-1.030) Urine Protein Negative (Negative) Urine Glucose (UA) Negative (Negative) Urine Ketones Negative (Negative) Urine Blood Negative (Negative) Urine Nitrite Negative (Negative) Urine Bilirubin Negative (Negative) Urine Urobilinogen 0.2 (0.2-1.0) Ur Leukocyte Esterase Negative (Negative) Urine RBC 0-2 (0-2) Urine WBC 0-2 (0-5) Ur Squamous Epith Cells None (None-Few) Urine Bacteria None (None) Urine HCG, Qual Negative (Negative) Discharge Plan Discharge Clinical Impression: Rt inguinal pain Patient Disposition: Home w/ Parent or Adult Condition: Improved Additional Instructions: I wonder if this pain might be related to cutaneous nerve irritation. I think it is helpful to know that the localized, superficial injection of bupivacaine was helpful in relieving your discomfort. As such, a you can continue to try lidocaine patches if they seem to be helping and not causing too much skin irritation. I am prescribing, as discussed, a trial of gabapentin. After 7-10 days of taking this, if you are otherwise tolerating it but does not seem completely helpful, could go up to 600 mg 3 times a day. To consider any further dosing increases though I would follow-up in primary care. You had mentioned that low-dose oxycodone in the form of Percocet has been helpful before. I can prescribe you some of these as well for temporary use. Stay well-hydrated, keep up your fiber intake. I would follow-up in primary care otherwise to discuss next steps in evaluation for this right inguinal area pain. You might consider being seen by acupuncture or maybe a pain specialist. Prescriptions: New gabapentin 300 mg capsule 300 mg PO TID Qty: 45 1RF No Action buspirone 5 mg tablet 5 mg PO 3XD levonorgestrel-ethinyl estrad [Vienva] 0.1-20 mg-mcg tablet 1 tab PO DAILY Follow Up/Referrals: Provider,Not a Local [Primary Care Provider, Family Practice] Stand Alone Forms: PacketSledth Info Instructions
[2025-02-07 17:07] LABS: Ur HCG Qualitative* Negative (Negative)
[2025-02-07 17:44] LABS: Hematocrit 40.3 % (33.0-51.0); Hemoglobin* 13.9 gm/dL (12.0-16.0); Immature Granulocytes Abs Auto 0.01 K/uL (0.00-0.30); Immature Granulocytes Pct Auto 0.1 %; Lymphocytes Absolute Auto 1.40 K/uL (0.90-2.90); Mean Corpuscular HGB Conc 35 gm/dL (32-36); Mean Corpuscular Hemoglobin 32 pg (26-34); Mean Corpuscular Volume 94 fL (80-100); RDW Coefficient of Variation % 11.4 % (11.5-15.5); Red Blood Count 4.30 m/uL (4.00-5.20); White Blood Count* 8.31 K/uL (4.50-11.00)
[2025-02-07] MEDS: LIDOCAINE 5% PATCH 1 PATCH TRANSDERMA (17:44)
[2025-02-07] MEDS: HYDROCODONE-ACETAMIN 5-325 MG 1 TAB 2 TAB PO (17:44)
[2025-02-07 17:45] LABS: Slide Review Reflex No
== END 2025-02-07 19:31 | disposition home or self-care (01) ==
PROVIDERS: Emergency Provider Family Medicine
DX: R10.31 Right lower quadrant pain (principal)
CPT/HCPCS: 36415; 81001; 81025; 85025; 86140; 96372; 99284; A9270; J1885

== ENCOUNTER 2025-03-16 20:51 | Emergency (ER) | payer BC, SELFPAY ==
--- OUTSIDE RECORDS SUMMARY | 2025-03-16 20:53 | XMS_ITS | Clinical Summary ---
Author Organization [facility] Address [address] [place] [address] Care Team Providers Care Train Electronic Technician Name Role Phone Alex Koo MD Primary Care Provider [phone] Alex Koo MD Unavailable Umesh Lima PA-C Unavailable [phone] Amanda Ocasio Unavailable [phone] Allergies Active Allergy Reactions Criticality Noted [...] needed for anxiety. 15 tablet 5 Active mupirocin (BACTROBAN) 2 % [...] mouth daily. 84 tablet 3 5 Active busPIRone (BUSPAR) 10 MG tabletIndicatio ns:Anxiety Take 1 tablet (10 mg) by mouth 3 times daily. 270 tablet 5 Active Active Problems Patient Care Coordination No te Formatting of this note migh t be different from the original. 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 METHODOLOGY: The [employer] system uses automated extraction, simultaneous amplification of [...] 09/12/2024 5:02 PM CDT us Amanda Ocasio [facility] - BLOOD ORDERABLES Final Re sult SPECIALTY LABS Specialty Lab [address] [facility], [address] [address], [facility] Molecular Diagnostics [address] [facility], [address] [place] [address], [facility] * Basic metabolic panel (Ca, [...] 4:00 PM CDT Luis Carlos Roblero APRN ROOF TILER LAB - BLOOD ORDERABLES Meghan urbano Result [facility] [place] Core Lab [address] [facility], [address] [place] [address], [facility] from Last 3 Months or Most Recently Relevant to Health Maintenance [place] Care Teams Train Electronic Technician Relationship Specialty [place] [address] [place] [address] PCP - General Family Practice 10/27/20 [place] [address] [place] [address] Family Practice 10/27/20 Umesh Lima PA-C [address] [place] [address] Assigned PCP 01/02/24 [place] [address] Assigned OBGYN Provider 10/02/24
--- OUTSIDE RECORDS SUMMARY | 2025-03-16 20:53 | XMS_ITS | Encounter Summary ---
Author Organization [facility] Address [address] [place] [address] Care Team Providers Care Enrollment Eligibility Representative Name Role Phone Alex Koo MD Primary Care Provider + [phone] Alex Koo MD Primary Care Provider + 2 Alex Koo MD Unavailable + Radha Knight APRN HAT MEASURER Unavailable + Alex Koo MD Unavailable + Radha Knight APRN HAT MEASURER Unavailable + Alex Koo MD Unavailable + Radha Knight APRN HAT MEASURER Unavailable + Dinesh Mac MD Unavailable Yancy Delgadillo MD Unavailable + [phone] Alex Koo MD Unavailable + Rosa Moyer STAFFING ADMINISTRATOR CNM Unavailable Unavaila Barbara Mckeon MD Unavailable [phone] Umesh Lima-Mandie Unavailable + Umesh Lima-Mandie Unavailable + Alex Koo MD Unavailable + Umesh Lima-Mandie Unavailable + Amanda Ocasio CNM Unavailable [phone] Encounter Details Date Type Department Care Team (Late st Contact Info) Description 07/12/2017 [facility] [address], [address] [place] [address] Mary Joshi, ASSEMBLER UNIT Social History Tobacco Use Types Packs/Day Years Used Date Smoking Tobacco: Never Smokeless Tobacco: Never Alcohol Use Standard Drinks/Week Comments Yes 0 (1 standard drink = 0.6 oz pur e alcohol) occasional 2-4 monthly Comments No Sex and Gender Information Value Date Recorded Sex Assigned at Not on file 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 Gender Identity Not on file Sexual Orientation Not on file documented as of this encounter Plan of Treatment Not on file documented as of this encounter Visit Diagnoses Not on filedocumented in this encounter Additional Health Concerns Assessment Noted Time PHQ-9 Depression Total Score: 2 11/17/19 17 7:16 AM CDT documented as of this encounter Care Teams Enrollment Eligibility Representative Relationship Specialty Start Date End Date Alex Koo MD PCP - General Family Practice 04/19/16 10/26/20 [place] [address] [address] [address] PCP - General Family Practice 10/27/20 Radha Knight APRN CNP [address] [address] [place] [address] PCP - Assigned PCP 11/19/17 07/21/18 [place] [address] [address] [place] [address] PCP - Assigned PCP 07/22/18 08/14/18 Alex Koo MD Family Practice 10/27/20 Radha Knight APRN HAT MEASURER [address] [place] [address] Assigned PCP 11/19/17 07/21/18 [place] [address] [place] [address] Assigned PCP 07/22/18 11/16/19 Radha Knight APRN HAT MEASURER [address] [address] [place], [place] [id number] Assigned PCP 11/17/19 03/14/20 Dinesh Mac MD [address] [facility] [place] [address] Assigned PCP 03/15/20 08/15/20 [place] [address] [place] [id number] Assigned PCP 08/16/20 11/21/20 [place] [address] [address] [place], [place] [id number] Assigned PCP 11/22/20 05/20/22 Rosa Moyer APRN CN Assigned OBGYN Provider 12/25/20 04/08/22 Barbara Cheng MD [address] [place] [address] Assigned OBGYN Provider 04/09/22 Umesh Lima PA-C [address] [address] [place], [place] [id number] Assigned PCP 05/21/22 10/02/23 Umesh Lima PA-C [address] [address] Assigned Pain Medication Provider 06/20/22 12/09/22 [place] [address] [address] [address] Assigned PCP 10/03/23 01/01/24 Umesh Lima PA-C [address] [address] [address] Assigned PCP 01/02/24 Amanda Ocasio [facility] [address] Assigned OBGYN Provider 10/02/24 documented as of this encounter
--- OUTSIDE RECORDS SUMMARY | 2025-03-16 20:53 | XMS_ITS | Encounter Summary ---
Author Organization [facility] Address [address] [place] [address] Care Team Providers Care Security Police Officer Name Role Phone Alex Koo MD Primary Care Provider [phone] Alex oKo MD Unavailable Umesh Lima PA-C Unavailable [phone] Amanda Ocasio [facility] Unavailable [phone] Reason for Visit * Reason Comments Medication Refill Encounter Details Date Type Department Care Team (Late st Contact Info) Description 01/01/[address] [address] Luis Carlos Roblero APRN [facility] [id number] [place] [address] Medication Refill Social History Tobacco Use [...] on file 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 Regarding: busPIRone (BUSPAR) 10 MG tablet was sent to [facility] in [place] as unable to e-prescribeto [facility] in [place]. Patient needs to follow-up with PCP or establish care with new PCP for further refills. Action to take: Transfer to site RN green line (or update telephone encounter in after-hours) KEVIN Rodriguez RN [facility] * Telephone Encounter - Luis Carlos Roblero APRN CNP - 01/29/2025 11:00 AM CDT Chart reviewed. Refilled. Please let patient know she should follow back up w/ PCP or establish care w/ new PCP. Failed to e prescribe to [facility], sent to [facility] in [place]. Luis Carlos Roblero APRN CNP documented in this encounter Plan of Treatment Not on file documented as of this encounter Visit Diagnoses Diagnosis Anxiety Anxiety state, unspecified documented in this encounter Additional Health Concerns Assessment Noted Time PHQ-9 Depression Total Score: 7 10/03/19 25 3:10 PM CDT documented as of this encounter Care Teams Security Police Officer Relationship Specialty [place] [address] [place] [address] PCP - General Family Practice 10/27/20 [place] [address] [address] [address] Family Practice 10/27/20 Umesh Lima PA-C [address] [address] [address] Assigned PCP 01/02/24 Amanda Ocasio CNM [place] [address] [place] [address] [place] [address] Assigned OBGYN Provider 10/02/24 documented as of this encounter
--- OUTSIDE RECORDS SUMMARY | 2025-03-16 20:53 | XMS_ITS | Encounter Summary ---
Author Organization [place] Address [address] [place] [address] Care Team Providers Care Bird Tender Name Role Phone Alex Koo MD Primary Care Provider [phone] Alex Koo MD Primary Care Provider +[phone] Alex Koo MD Unavailable + Alex Koo MD Unavailable Alex Koo MD Unavailable Radha Knight APRN LOG HANDLER Unavailable + Dinesh Mac MD Unavailable Yancy Delgadillo MD Unavailable + [phone] Alex Koo MD Unavailable Rosa Moyer ADMINISTRATIVE ASST CNM Unavailable Unavaila Barbara Mckeon MD Unavailable [phone] Umesh Lima PA-C Unavailable +[phone] Umesh Lima PA-C Unavailable +[phone] Alex Koo MD Unavailable + Umesh Lima PA-C Unavailable +[phone] Amanda Ocasio CNM Unavailable [phone] Encounter Details Date Type Department Care Team (Late st Contact Info) Description 07/24/2018 [facility] [address], [address] [place] [address] Mary Joshi CMA Social History [...] on file 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 2nd outreach. Mary Joshi CMA (AAMA) documented in this encounter Plan of Treatment Not on file documented as of this encounter Visit Diagnoses Not on filedocumented in this encounter Additional Health Concerns Assessment Noted Time PHQ-9 Depression Total Score: 2 11/17/19 17 7:16 AM CDT documented as of this encounter Care Teams Bird Tender Relationship Specialty Start Date End Date Alex Koo MD PCP - General Family Practice 04/19/16 10/26/20 [place] [address] [address] [place] [address] PCP - General Family Practice 10/27/20 [place] [address] [address] [place] [address] PCP - Assigned PCP 07/22/18 08/14/18 Alex Koo MD Family Practice 10/27/20 [place] [address] [place] [address] Assigned PCP 07/22/18 11/16/19 Radha Knight APRN LOG HANDLER [address] [place] [address] Assigned PCP 11/17/19 03/14/20 Dinesh Mac MD [address] [facility] [place] [address] Assigned PCP 03/15/20 08/15/20 [place] [address] [facility] [place] [id number] Assigned PCP 08/16/20 11/21/20 [place] [address] [place] [address] Assigned PCP 11/22/20 05/20/22 Rosa Moyer APRN CN Assigned OBGYN Provider 12/25/20 04/08/22 Barbara Cheng MD [address] [place] [address] Assigned OBGYN Provider 04/09/22 Umesh Lima PA-C [address] [place] [address] Assigned PCP 05/21/22 10/02/23 Umesh Lima PA-C [address] [place] [address] Assigned Pain Medication Provider 06/20/22 12/09/22 [place] [address] [place] [address] Assigned PCP 10/03/23 01/01/24 Umesh Lima PA-C [address] [place] [address] Assigned PCP 01/02/24 Amanda Ocasio CNM [address] [place] [address] Assigned OBGYN Provider 10/02/24 documented as of this encounter
--- OUTSIDE RECORDS SUMMARY | 2025-03-16 20:53 | XMS_ITS | Encounter Summary ---
Author Organization [place] Address [address] [place] [address] Care Team Providers Care Machine Former Name Role Phone Alex Koo MD Primary Care Provider [phone] Alex Koo MD Unavailable Daniel Ramirez Yancy Vicki IBRAHIM Unavailable + [phone] Alex Koo MD Unavailable Rosa Moyer APRN CNM Unavailable Unavaila [facility] Barbara Cheng MD Unavailable [phone] Umesh Lima PA-C Unavailable +[phone] Umesh Lima PA-C Unavailable +[phone] Alex Koo MD Unavailable Umesh Lima PA-C Unavailable +[phone] Amanda Ocasio CNM Unavailable [phone] Encounter Details Date Type Department Care Team (Late st Contact Info) Description 10/27/2020 Records - [facility] CONVERSION Scan, Non-Provider Social History Tobacco Use Types Packs/Day Years Used Date Smoking Tobacco: Never Assessed PHQ-2 Answer Date Recorded PHQ-2 Score 2 07/31/2020 Comments No Sex and Gender Information Value Date Recorded Sex Assigned at Not on file 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 Gender Identity Not on file Sexual Orientation Not on file documented as of this encounter Plan of Treatment Not on file documented as of this encounter Visit Diagnoses Not on filedocumented in this encounter Additional Health Concerns Assessment Noted Time PHQ-9 Depression Total Score: 4 07/31/19 21 5:02 PM PARTS PRODUCT ANALYST documented as of this encounter Care Teams Machine Former Relationship Specialty [place] [address] [address] [place] [address] PCP - General Family Practice 10/27/20 [place] [address] [address] [place] [address] Family Practice 10/27/20 [place] [address] [facility] [place] [address] Assigned PCP 08/16/20 11/21/20 [place] [address] [address] [place] [address] Assigned PCP 11/22/20 05/20/22 Rosa Moyer APRN CNM Assigned OBGYN Provider 12/25/20 04/08/22 Barbara hCeng MD [address] [place] [address] Assigned OBGYN Provider 04/09/22 Umesh Lima PA-C [address] [place] [address] Assigned PCP 05/21/22 10/02/23 Umesh Lima PA-C [address] [place] [address] Assigned Pain Medication Provider 06/20/22 12/09/22 [place] [address] [address] [place] [address] Assigned PCP 10/03/23 01/01/24 Umesh Lima PA-C [address] [address] [place] [address] Assigned PCP 01/02/24 Amanda Ocasio CN[address] [place] [address] Assigned OBGYN Provider 10/02/24 documented as of this encounter
--- OUTSIDE RECORDS SUMMARY | 2025-03-16 20:53 | XMS_ITS | Encounter Summary ---
Author Organization [place] Address [address] [place] [address] Care Team Providers Care Loader Unloader Name Role Phone Alex Koo MD Primary Care Provider [phone] Alex Koo MD Unavailable Umesh Lima PA-C Unavailable [phone] Amanda Ocasio [facility] Unavailable [phone] Reason for Visit * Reason Onset Date Comments Refill Request 01/29/2025 Encounter Details Date Type Department Care Team (Late st Contact Info) Description 01/29/2025 MyC Refill [address] [address] Luis Carlos Roblero APRN [facility] [id number] [place] [address] [id number] Refill Request Social History Tobacco Use Types [...] on file 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 Pt used full name in voicemail so writer editor left vague message letting pt know we [...] documented as of this encounter Care Teams Loader Unloader Relationship Specialty [place] [address] [address] [place] [address] PCP - General Family Practice 10/27/20 [place] [address] [address] [place] [address] Family Practice 10/27/20 Umehs Lima PA-C [address] [address] [place] [address] Assigned PCP 01/02/24 Amanda Ocasio CNM [address] [place] [address] Assigned OBGYN Provider 10/02/24 documented as of this encounter
--- OUTSIDE RECORDS SUMMARY | 2025-03-16 20:53 | XMS_ITS | Clinical Summary ---
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 Gender Identity Not on file Sexual [...] 03/17/2009, 07/13/1998 COVID-19 vaccine series ( season) 2025 Influenza Vaccine (#1) 2025 RSV vaccine for adults or (1 - 1-dose 75+ series) 2061 HPV series for age 9-45 Completed 05/15/20 12, 01/13/2012, 08/02/2007 Pneumococcal series for age 6-49 Aged Out No longer eligible based on patient's age to complete this topic Procedures Procedure Name Priority Date/Time Associated Diagnosis Comments 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 THIN PREP PAP DIAGNOSTIC IMAGED Routine 02/23/2012 1:31 PM CDT Screening for malignant neoplasm of the cervix from Last 3 Months or Most Recently Relevant to Health Maintenance Results * 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 See Separate Report. SPECIMEN SOURCE :Cervical/vaginal ThinPrep Vial, diagnostic SPECIMEN ADEQUACY :Satisfactory for evaluation Endocervical component present. INTERPRETATION/RES ULT Negative for intraepithelial lesion or malignancy (NIL) Cytology 1st Screener :tll Cytology 2nd Screener :savnaahb Signed by :frank This specimen was screened [...] malignant lesions. COLLECTED:02/23/12 ACCESSIONED: 02/24/12 SIGNED: 02/29/12 [facility] P[facility] [place] CODE NIL [facility] Tissue specimen (specimen) (Cervical/Vagina l) 02/23/2012 1:31 PM CDT 02/23/2012 1:27 PM CDT us Barbara Cassidy MD PATHOLOGY/CYTOLOGY Final Resu lt [facility] INTERNAL ZIP [address] [place] [address] from Last 3 Months or Most Recently Relevant to Health Maintenance Insurance [facility] Care Teams Varnish Thinner Relationship Specialty Start Date End Date Pcp, No . PCP - General 03/21/16
--- OUTSIDE RECORDS SUMMARY | 2025-03-16 20:53 | XMS_ITS | Encounter Summary ---
Author Organization [place] Address [address] [place] [address] Care Team Providers Care Operators Teacher Name Role Phone Alex Koo MD Primary Care Provider + [phone] Alex Koo MD Primary Care Provider + 2 Alex Koo MD Unavailable + Radha Knight APRN WRAPPER HANDS SPRAYER Unavailable + Alex Koo MD Unavailable + Radha Knight APRN WRAPPER HANDS SPRAYER Unavailable + Alex Koo MD Unavailable + Radha Knight APRN WRAPPER HANDS SPRAYER Unavailable + Dinesh Mac MD Unavailable Yancy Delgadillo MD Unavailable + [phone] Alex Koo MD Unavailable + Rosa Moyer DOCUMENT PREPARATION SPECIALIST CNM Unavailable Unavaila Barbara Mckeon MD Unavailable [phone] Umesh Lima-Mandie Unavailable + Umesh Lima-Mandie Unavailable + Alex Koo MD Unavailable + Umesh Lima-Mandie Unavailable + Amanda Ocasio CNM Unavailable [phone] Encounter Details Date Type Department Care Team (Late st Contact Info) Description 02/02/2018 [facility] Advice [address], [address] [place] [address] 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, GR[employer]SROOTS ORGANIZER Social History Tobacco Use Types Packs/Day Years Used Date Smoking Tobacco: Never Smokeless Tobacco: Never Alcohol Use Standard Drinks/Week Comments Yes 0 (1 standard drink = 0.6 oz pur e alcohol) occasional 2-4 monthly Comments No Sex and Gender Information Value Date Recorded Sex Assigned at Not on file 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 Gender Identity Not on file Sexual Orientation Not on file documented as of this encounter Plan of Treatment Not on file documented as of this encounter Visit Diagnoses Not on filedocumented in this encounter Additional Health Concerns Assessment Noted Time PHQ-9 Depression Total Score: 2 11/17/19 17 7:16 AM CDT documented as of this encounter Care Teams Operators Teacher Relationship Specialty Start Date End Date Alex Koo MD PCP - General Family Practice 04/19/16 10/26/20 [place] [address] [address] [place] [address] PCP - General Family Practice 10/27/20 Radha Knight APRN CNP [address] [address] [place] [address] PCP - Assigned PCP 11/19/17 07/21/18 [place] [address] [address] [place] [address] PCP - Assigned PCP 07/22/18 08/14/18 Alex Koo MD Family Practice 10/27/20 Radha Knight APRN WRAPPER HANDS SPRAYER [address] [place] [address] Assigned PCP 11/19/17 07/21/18 [place] [address] [place] [address] Assigned PCP 07/22/18 11/16/19 aRdha Knight APRN WRAPPER HANDS SPRAYER [address] [address] [place], [place] [address] Assigned PCP 11/17/19 03/14/20 Dinesh Mac MD [address] [facility] [place] [address] Assigned PCP 03/15/20 08/15/20 [place] [address] [address] [place] [address] Assigned PCP 08/16/20 11/21/20 [place] [address] [address] [place], [place] [address] Assigned PCP 11/22/20 05/20/22 Rosa Moyer APRN CN Assigned OBGYN Provider 12/25/20 04/08/22 Barbara Cheng MD [address] [place] [address] Assigned OBGYN Provider 04/09/22 Umesh Lima PA-C [address] [address] [place], [place] [address] Assigned PCP 05/21/22 10/02/23 Umesh Lima PA-C [address] [address] [place] [address] Assigned Pain Medication Provider 06/20/22 12/09/22 [place] [address] [address] [place] [address] Assigned PCP 10/03/23 01/01/24 Umesh Lima PA-C [address] [address] [address] Assigned PCP 01/02/24 [facility]cas[facility] [place] [address] Assigned OBGYN Provider 10/02/24 documented as of this encounter
[2025-03-16 20:55] VITALS: BP 136/119; PULSE 90; RESP 16; TEMP 37; O2SAT 98; BMI 27.3
[2025-03-16 21:04] LABS: Appearance Urine Slightly Cloudy (Clear)
[2025-03-16 21:08] LABS: Ur HCG Qualitative* Negative (Negative)
--- NOTE | 2025-03-16 21:39 | ED.ABDPAIN ---
HPI - Abdominal Pain General Chief Complaint: Abdominal Pain Stated Complaint: R side pain Time Seen by Provider: 03/16/25 21:01 History of Present Illness HPI narrative: This 39-year-old female comes in reporting right upper quadrant abdominal pain for the past few days. She does state that she drinks more alcohol than she should. She does not report pain in the mid abdomen and does not report any reflux symptoms. She did have a CT scan a couple months ago with no acute findings. She has not had ultrasound of her right upper quadrant. She denies having any dysuria symptoms. She did feel feverish this morning but did not measure a temperature. She arrives here with normal vital signs. Related Data Home Medications ?Medication ?Instructions ?Recorded ?Confirmed buspirone 5 mg tablet 5 mg PO 3XD 09/23/24 09/23/24 levonorgestrel-ethinyl estradiol 1 tab PO DAILY 02/07/25 02/07/25 0.1 mg-20 mcg tablet (Vienva) Previous Rx's ?Medication ?Instructions ?Recorded gabapentin 300 mg capsule 300 mg PO TID #45 caps 02/07/25 Allergies Allergy/AdvReac Type Severity Reaction Status Date / Time No Known Drug Allergies Allergy Verified 01/07/25 21:07 Review of Systems Status of ROS Reports: 10 or more systems reviewed and unremarkable except as noted in History and below Narrative Constitutional: No fevers, no weight gain or loss. Eyes: No discharge. No vision changes. HENT: No congestion, no sore throat, no ear pain. Cardiovascular: No chest pain, no palpitations. Respiratory: No shortness of breath, no wheezes, no cough. Gastrointestinal: No vomiting, no diarrhea. Abdominal pain as described above. Genitourinary: No dysuria, no hematuria. Musculoskeletal: Normal range of motion. Skin: No rashes, no pruritis. Neurological: No dizziness, weakness, sensory change, speech change. Endo/Heme/Allergies: No bruising or bleeding. No polydipsia. Pysch: no suicidality, no anxiety, no insomnia. All other systems reviewed and are negative. [facility] Social History Smoking Status: Never smoker Do you use any of these nicotine containing products: None Second hand tobacco smoke exposure: No How often do you have a drink containing alcohol: 4 or more times a week How many standard drinks containing alcohol do you have on a typical day: 7 to 9 How often do you have six or more drinks on one occasion: Daily or almost daily AUDIT-C Alcohol total score: 11 Non-prescribed substance use: denies use service: No Exam Narrative: Exam Narrative: Constitutional: Well-developed, well-nourished, no acute distress. HEENT: Normocephalic, atraumatic. Neck: Normal range of motion. Nontender. Supple. Heart: Regular. No murmurs. Normal rate. Intact distal pulses. Lungs: Clear to auscultation. No chest discomfort. No wheezes, rhonchi, or rales. Abdomen: Normal bowel sounds. Diffuse tenderness in the right upper quadrant. No rebound tenderness. Genitalia: Deferred. Back: No midline tenderness. Normal range of motion. Extremities: Normal range of motion. No injury. Skin: Intact. No rash. Warm. No erythema or pallor. Neurologic: No altered sensation. No weakness. Alert and oriented. Psychiatric: No suicidality. No anxiety or depression. No insomnia. Nursing notes and vitals signs are reviewed. Const: Vital Signs, click to edit/add: Vital Signs - 24 hr 03/16/25 20:55 Temperature 98.6 F Pulse Rate [Pulse Oximeter] 90 Respiratory Rate 16 Blood Pressure [Ri ght Upper Arm] 136/119 H Pulse Oximetry 98 Oxygen Delivery Me thod Room Air Course Vital Signs Vital signs: Initial Vital Signs Temperature 98.6 F 03/16/25 20:55 Temperature Source Temporal Artery Scan 03/16/25 20:55 Pulse Rate 90 03/16/25 20:55 Respiratory Rate 16 03/16/25 20:55 Blood Pressure 136/119 H 03/16/25 20:55 Blood Pressure Mean 124 H 03/16/25 20:55 Blood Pressure Position Sitting 03/16/25 20:55 Pulse Oximetry 98 03/16/25 20:55 Oxygen Delivery Method Room Air 03/16/25 20:55 Vital Signs Temperature 98.6 F 03/16/25 20:55 Pulse Rate 90 03/16/25 20:55 Respiratory Rate 16 03/16/25 20:55 Blood Pressure 136/119 H 03/16/25 20:55 Pulse Oximetry 98 03/16/25 20:55 Oxygen Delivery Method Room Air 03/16/25 20:55 Temperature 98.6 F 03/16/25 20:55 Pulse Rate 90 03/16/25 20:55 Respiratory Rate 16 03/16/25 20:55 Blood Pressure 136/119 H 03/16/25 20:55 Pulse Oximetry 98 03/16/25 20:55 Oxygen Delivery Method Room Air 03/16/25 20:55 MDM - Abdominal Pain MDM Narrative Medical decision making narrative: This patient comes in reporting right upper quadrant abdominal pain as described above. I did use bedside ultrasound to evaluate her gallbladder which appeared normal without evidence of stones or obstruction. Labs are acquired also and these returned with reassuring findings. Her AST liver enzyme is a bit elevated as is typical with taking more alcohol than 1 should. Lipase is returns in normal range. The patient is reassured with these results. She is okay to be discharged home. I did also review prior records of labs and CT scan of her abdomen that occurred a couple months ago. She received [facility] prescriptions for Zofran and Toradol. Lab Data Labs: Lab Results 03/16/25 03/16/25 Range/Units 20:57 21:50 WBC 7.65 (4.50-11.00) K/uL RBC 4.21 (4.00-5.20) m/uL Hgb 13.6 (12.0-16.0) gm/dL Hct 39.1 (33.0-51.0) % MCV 93 (80-100) fL MCH 32 (26-34) pg MCHC 35 (32-36) gm/dL RDW Coeff of Elliott 11.7 (11.5-15.5) % Plt Count 310 (140-440) K/uL Neut % (Auto) 65.0 (42.0-72.0) % Lymph % (Auto) 19.7 L (20-44) % [place] % (Auto) 11.1 H (0.0-11.0) % Eos % (Auto) 3.3 (0.0-7.0) % Baso % (Auto) 0.8 (0.0-3.0) % Neut # (Auto) 4.97 (1.7-7.0) K/uL Lymph # (Auto) 1.50 (0.90-2.90) K/uL [place] # (Auto) 0.80 (0.00-0.90) K/UL Eos # (Auto) 0.25 (0.00-0.50) K/uL Baso # (Auto) 0.06 (0.00-0.30) K/uL Abs Immat Gran (auto) 0.01 (0.00-0.30) K/uL Imm/Tot Granulo (auto) 0.1 % Sodium 135 (135-149) mmol/L Potassium 4.0 (3.6-5.1) mmol/L Chloride 101 (96-114) mmol/L Carbon Dioxide 23 (20-32) mmol/L Anion Gap 11 (7-15) mEq/L BUN 2 L (5-24) mg/dL Creatinine 0.5 (0.5-1.5) mg/dL Estimated Creat Clear 164.97 Estimated GFR 123 ml/min Glucose 104 (60-115) mg/dL Calcium 9.5 (8.4-10.6) mg/dL Total Bilirubin 0.5 (0.1-1.5) mg/dL Direct Bilirubin 0.2 (0.0-0.5) mg/dL AST 77 H (12-35) U/L ALT 35 (4-35) U/L Alkaline Phosphatase 44 (40-150) U/L Total Protein 8.1 (6.0-8.3) g/dL Albumin 4.4 (3.3-5.0) g/dL Lipase 49 (23-300) U/L Urine Color Yellow (Yellow) Urine Appearance Slightly Cloudy A (Clear) Urine pH 6.0 (5.0-8.5) Ur Specific [place] <= 1.005 (1.000-1.030) Urine Protein Negative (Negative) Urine Glucose (UA) Negative (Negative) Urine Ketones Negative (Negative) Urine Blood Negative (Negative) Urine Nitrite Negative (Negative) Urine Bilirubin Negative (Negative) Urine Urobilinogen 0.2 (0.2-1.0) Ur Leukocyte Esterase Negative (Negative) Urine RBC 0-2 (0-2) Urine WBC 0-2 (0-5) Ur Squamous Epith Cells Few (None-Few) Amorphous Sediment Few A (None) Urine Bacteria Few A (None) Urine HCG, Qual Negative (Negative) Discharge Plan Discharge Clinical Impression: Abdominal pain Patient Disposition: Home, Self-Care Condition: Stable Additional Instructions: Take medication as needed and directed. Activity as tolerated. Follow up with MD return if worsening. Prescriptions: No Action buspirone 5 mg tablet 5 mg PO 3XD levonorgestrel-ethinyl estrad [Vienva] 0.1-20 mg-mcg tablet 1 tab PO DAILY gabapentin 300 mg capsule 300 mg PO TID Qty: 45 1RF Follow Up/Referrals: Provider,Not a Local [Primary Care Provider, Family Practice] Stand Alone Forms: [facility] [employer] Info Instructions Procedures POC Ultrasound Biliary Anatomical areas examined: gallbladder, long and short axis and common bile duct Indications: RUQ/epigastric pain Exam type: limited abdominal ultrasound; RUQ Impression: normal exam Description/Findings: Normal appearing gallbladder and common bile duct.
[2025-03-16 21:58] LABS: Hematocrit* 39.1 % (33.0-51.0); Hemoglobin* 13.6 gm/dL (12.0-16.0); Immature Granulocytes Abs Auto 0.01 K/uL (0.00-0.30); Immature Granulocytes Pct Auto 0.1 %; Mean Corpuscular HGB Conc 35 gm/dL (32-36); Mean Corpuscular Hemoglobin 32 pg (26-34); Mean Corpuscular Volume 93 fL (80-100); RDW Coefficient of Variation % 11.7 % (11.5-15.5); Red Blood Count* 4.21 m/uL (4.00-5.20); White Blood Count* 7.65 K/uL (4.50-11.00)
[2025-03-16 22:03] LABS: Lymphocytes Absolute Auto 1.50 K/uL (0.90-2.90); Slide Review Reflex No
[2025-03-16 22:08] LABS: Chloride* 101 mmol/L (96-114)
[2025-03-16 22:09] LABS: Albumin* 4.4 g/dL (3.3-5.0); Potassium* 4.0 mmol/L (3.6-5.1); Sodium* 135 mmol/L (135-149)
[2025-03-16 22:12] LABS: Alanine Aminotransferase* 35 U/L (4-35); Alkaline Phosphatase* 44 U/L (40-150); Anion Gap 11 mEq/L (7-15); Aspartate Amino Transferase* 77 U/L (12-35); Bilirubin Direct* 0.2 mg/dL (0.0-0.5); Bilirubin Total* 0.5 mg/dL (0.1-1.5); Blood Urea Nitrogen* 2 mg/dL (5-24); Calcium* 9.5 mg/dL (8.4-10.6); Carbon Dioxide* 23 mmol/L (20-32); Creatinine* 0.5 mg/dL (0.5-1.5); Est. Creatinine Clearance* 164.97; Estimated Glomerular Filt Rate 123 ml/min; Glucose* 104 mg/dL (60-115); Total Protein* 8.1 g/dL (6.0-8.3)
[2025-03-16 22:32] VITALS: BP 132/84; PULSE 81; RESP 16; TEMP 36.7; O2SAT 98
[2025-03-16 22:35] VITALS: BP 132/84; PULSE 81; RESP 16; TEMP 36.7
== END 2025-03-16 22:35 | disposition home or self-care (01) ==
PROVIDERS: Emergency Provider Emergency Medicine Emergency Medical Services
DX: R10.11 Right upper quadrant pain (principal)
CPT/HCPCS: 36415; 76705; 80048; 80076; 81001; 81025; 83690; 85025; 87086; 99284

== ENCOUNTER 2025-03-18 11:27 | Emergency (ER) | payer BC, SELFPAY ==
[2025-03-18 11:29] VITALS: BP 141/90; PULSE 75; RESP 18; TEMP 36.3; O2SAT 97; BMI 27.0
--- OUTSIDE RECORDS SUMMARY | 2025-03-18 11:30 | XMS_ITS | Encounter Summary ---
Author Organization [facility] Address [address] [place] [address] Care Team Providers Care Practice Business Asst Name Role Phone Alex Koo MD Primary Care Provider [phone] Alex Koo MD Primary Care Provider +[phone] Alex Koo MD Unavailable + Aelx Koo MD Unavailable Alex Koo MD Unavailable Radha Knight APRN RUBBER COMPOUNDER MIXER Unavailable + Dinesh Mac MD Unavailable Yancy Delgadillo MD Unavailable + [phone] Alex Koo MD Unavailable Rosa Moyer SOCK LINER CNM Unavailable Unavaila Barbara Mckeon MD Unavailable [phone] Umesh Lima PA-C Unavailable +[phone] Umesh Lima PA-C Unavailable +[phone] Alex Koo MD Unavailable + Umesh Lima PA-C Unavailable +[phone] Amanda Ocasio CNM Unavailable [phone] Encounter Details Date Type Department Care Team (Late st Contact Info) Description 07/24/2018 [facility] [address], [address] [place] [address] Mary Joshi CMA Social History [...] on file 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 2nd outreach. Mary Joshi CMA (AAMA) documented in this encounter Plan of Treatment Not on file documented as of this encounter Visit Diagnoses Not on filedocumented in this encounter Additional Health Concerns Assessment Noted Time PHQ-9 Depression Total Score: 2 11/17/19 17 7:16 AM CDT documented as of this encounter Care Teams Practice Business Asst Relationship Specialty Start Date End Date Alex Koo MD PCP - General Family Practice 04/19/16 10/26/20 [place] [address] [address] [address] PCP - General Family Practice 10/27/20 [place] [address] [address] [place] [address] PCP - Assigned PCP 07/22/18 08/14/18 Alex Koo MD Family Practice 10/27/20 [place] [address] [place] [address] Assigned PCP 07/22/18 11/16/19 Radha Knight APRN RUBBER COMPOUNDER MIXER [address] [place] [address] Assigned PCP 11/17/19 03/14/20 Dinesh Mac MD [address] [facility] [place] [address] Assigned PCP 03/15/20 08/15/20 [place] [address] [facility], [place] [id number] Assigned PCP 08/16/20 11/21/20 [place] [address] [place] [address] Assigned PCP 11/22/20 05/20/22 Rosa Moyer APRN CN Assigned OBGYN Provider 12/25/20 04/08/22 Barbara Cheng MD [address] [place] [address] Assigned OBGYN Provider 04/09/22 Umesh Lima PA-C [address] [place] [address] Assigned PCP 05/21/22 10/02/23 Umesh Lima PA-C [address] [place] [address] Assigned Pain Medication Provider 06/20/22 12/09/22 [place] [address] [place] [address] Assigned PCP 10/03/23 01/01/24 Umesh Lima PA-C [address] [place] [address] Assigned PCP 01/02/24 Amanda Ocasio CNM [address] [place] [address] Assigned OBGYN Provider 10/02/24 documented as of this encounter
--- OUTSIDE RECORDS SUMMARY | 2025-03-18 11:30 | XMS_ITS | Clinical Summary ---
Author Organization [facility] Address [address] [place] [address] Care Team Providers Care Fountain Worker Name Role Phone Alex Koo MD Primary Care Provider [phone] Alex Koo MD Unavailable Umesh Lima PA-C Unavailable [phone] Amanda Ocasio Unavailable [phone] Allergies Active Allergy Reactions Criticality Noted [...] migh t be different from the original. 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 METHODOLOGY: The [employer] system uses automated extraction, simultaneous amplification of [...] 09/12/2024 5:02 PM CDT us Amanda Ocasio [facility] - BLOOD ORDERABLES Final Re sult SPECIALTY LABS Specialty Lab [address] [facility], [address] [address], [facility] DIAGNOSTICS Molecular Diagnostics [address] [facility], Room [address] [place] [id number], [facility] * Basic metabolic panel (Ca, Cl, CO2, [...] 4:00 PM CDT Luis Carlos Roblero APRN HAY RAKE OPERATOR LAB - BLOOD ORDERABLES Meghan urbano Result [facility] [address] [facility], [address] [place] [address], [facility] from Last 3 Months or Most Recently Relevant to Health Maintenance [place] Care Teams Fountain Worker Relationship Specialty [place] [address] [place] [address] PCP - General Family Practice 10/27/20 [place] [address] [place] [address] Family Practice 10/27/20 Umesh Lima PA-C [address] [place] [address] Assigned PCP 01/02/24 [place] [address] Assigned OBGYN Provider 10/02/24
--- OUTSIDE RECORDS SUMMARY | 2025-03-18 11:30 | XMS_ITS | Encounter Summary ---
Author Organization [facility] Address [address] [place] [address] Care Team Providers Care Cloth Doubling Machine Operator Name Role Phone Alex Koo MD Primary Care Provider + 2 Alex Koo MD Primary Care Provider + 2 Alex Koo MD Unavailable + Radha Knight APRN INVESTMENT SALES ASSISTANT Unavailable + Alex Koo MD Unavailable + Radha Knight APRN INVESTMENT SALES ASSISTANT Unavailable + Alex Koo MD Unavailable + Radha Knight APRN INVESTMENT SALES ASSISTANT Unavailable + Dinesh Mac MD Unavailable Yancy Delgadillo MD Unavailable + [phone] Alex Koo MD Unavailable + Rosa Moyer HAIRSPRING ASSEMBLER CNM Unavailable Unavaila Barbara Mckeon MD Unavailable [phone] Umesh Lima-Mandie Unavailable + Umesh Lima-Mandie Unavailable + Alex Koo MD Unavailable + Umesh Lima-Mandie Unavailable + Amanda Ocasio CNM Unavailable [phone] Encounter Details Date Type Department Care Team (Late st Contact Info) Description 02/02/2018 [facility] Medical Advice [address], [address] [place] [address] Emliy Mercedes, SMOKING TOBACCO CUTTER OPERATOR Social History Tobacco Use Types Packs/Day Years Used Date Smoking Tobacco: Never Smokeless Tobacco: Never Alcohol Use Standard Drinks/Week Comments Yes 0 (1 standard drink = 0.6 oz pur e alcohol) occasional 2-4 monthly Comments No Sex and Gender Information Value Date Recorded Sex Assigned at Not on file 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 Gender Identity Not on file Sexual Orientation Not on file documented as of this encounter Plan of Treatment Not on file documented as of this encounter Visit Diagnoses Not on filedocumented in this encounter Additional Health Concerns Assessment Noted Time PHQ-9 Depression Total Score: 2 11/17/19 17 7:16 AM CDT documented as of this encounter Care Teams Cloth Doubling Machine Operator Relationship Specialty Start Date End Date Alex Koo MD PCP - General Family Practice 04/19/16 10/26/20 [place] [address] [place] [place] [address] PCP - General Family Practice 10/27/20 Radha Knight APRN CNP [address] [place] [address] PCP - Assigned PCP 11/19/17 07/21/18 [place] [address] [address] [place] [address] PCP - Assigned PCP 07/22/18 08/14/18 Alex Koo MD Family Practice 10/27/20 Radha Knight APRN INVESTMENT SALES ASSISTANT [address] [place] [address] Assigned PCP 11/19/17 07/21/18 [place] [address] [place] [address] Assigned PCP 07/22/18 11/16/19 Radha Knight APRN INVESTMENT SALES ASSISTANT [address] [address] [place], [place] [id number] Assigned PCP 11/17/19 03/14/20 Dinesh Mac MD [address] [facility] [place] [address] Assigned PCP 03/15/20 08/15/20 [place] [address] [place], [place] [id number] Assigned PCP 08/16/20 11/21/20 [place] [address] [address] [place], [place] [address]68 Assigned PCP 11/22/20 05/20/22 Rosa Moyer APRN CN Assigned OBGYN Provider 12/25/20 04/08/22 Barbara Cheng MD [address] [place] [address] Assigned OBGYN Provider 04/09/22 Umesh Lima PA-C [address] [address] [place], [place] [id number] Assigned PCP 05/21/22 10/02/23 Umesh Lima PA-C [address] [place] [address] Assigned Pain Medication Provider 06/20/22 12/09/22 [place] [address] [place] [address] Assigned PCP 10/03/23 01/01/24 Umesh Lima PA-C 09160 [place] [address] Assigned PCP 01/02/24 Amanda [facility]cas[facility] [place] [address] Assigned OBGYN Provider 10/02/24 documented as of this encounter
--- OUTSIDE RECORDS SUMMARY | 2025-03-18 11:30 | XMS_ITS | Encounter Summary ---
Author Organization [facility] Address [address] [place] [address] Care Team Providers Care Estimator Printing Name Role Phone Alex Koo MD Primary Care Provider + 2 Alex Koo MD Primary Care Provider + 2 Alex Koo MD Unavailable + Radha Knight APRN MULTIFOCAL BUTTON GENERATOR Unavailable + Alex Koo MD Unavailable + Radha Knight APRN MULTIFOCAL BUTTON GENERATOR Unavailable + Alex Koo MD Unavailable + Radha Knight APRN MULTIFOCAL BUTTON GENERATOR Unavailable + Dinesh Mac MD Unavailable Yancy Delgadillo MD Unavailable + [phone] Alex Koo MD Unavailable + Rosa Moyer CONTINUOUS PILLOWCASE CUTTER CNM Unavailable Unavaila Barbara Mckeon MD Unavailable [phone] Umesh Lima-Mandie Unavailable + Umesh Lima-Mandie Unavailable + Alex Koo MD Unavailable + Umesh Lima-Mandie Unavailable + Amanda Ocasio CNM Unavailable [phone] Encounter Details Date Type Department Care Team (Late st Contact Info) Description 07/12/2017 [facility] Medical Advice [address], [address] [place] [address] Mary Joshi, ROTARY PEEL OVEN TENDER Social History Tobacco Use Types Packs/Day Years Used Date Smoking Tobacco: Never Smokeless Tobacco: Never Alcohol Use Standard Drinks/Week Comments Yes 0 (1 standard drink = 0.6 oz pur e alcohol) occasional 2-4 monthly Comments No Sex and Gender Information Value Date Recorded Sex Assigned at Not on file 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 Gender Identity Not on file Sexual Orientation Not on file documented as of this encounter Plan of Treatment Not on file documented as of this encounter Visit Diagnoses Not on filedocumented in this encounter Additional Health Concerns Assessment Noted Time PHQ-9 Depression Total Score: 2 11/17/19 17 7:16 AM CDT documented as of this encounter Care Teams Estimator Printing Relationship Specialty Start Date End Date Alex Koo MD PCP - General Family Practice 04/19/16 10/26/20 [place] [address] [address] [place] [address] PCP - General Family Practice 10/27/20 Radha Knight APRN CNP 49398 [place] [address] PCP - Assigned PCP 11/19/17 07/21/18 [place] [address] [place] [address] PCP - Assigned PCP 07/22/18 08/14/18 Alex Koo MD Family Practice 10/27/20 Radha Knight APRN MULTIFOCAL BUTTON GENERATOR [address] [place] [address] Assigned PCP 11/19/17 07/21/18 [place] [address] [place] [address] Assigned PCP 07/22/18 11/16/19 Radha Knight APRN MULTIFOCAL BUTTON GENERATOR [address] [address] [place], [place] 6[address] Assigned PCP 11/17/19 03/14/20 Dinesh Mac MD [address] [facility] [place] [address] Assigned PCP 03/15/20 08/15/20 [place] [address] [place], [place] [id number] Assigned PCP 08/16/20 11/21/20 [place] [address] [address] [place], [place] [address] Assigned PCP 11/22/20 05/20/22 Rosa Moyer APRN CN Assigned OBGYN Provider 12/25/20 04/08/22 Barbara Cheng MD [address] [place] [address] Assigned OBGYN Provider 04/09/22 Umesh Lima PA-C [address] [address] [place], [place] [id number] Assigned PCP 05/21/22 10/02/23 Umesh Lima PA-C [address] [address] [address] Assigned Pain Medication Provider 06/20/22 12/09/22 [place] [address] [address] [place] [address] Assigned PCP 10/03/23 01/01/24 Umesh Lima PA-C [address]774 [place] [address] Assigned PCP 01/02/24 [facility] [place] [address] Assigned OBGYN Provider 10/02/24 documented as of this encounter
--- OUTSIDE RECORDS SUMMARY | 2025-03-18 11:30 | XMS_ITS | Encounter Summary ---
Author Organization [facility] Address [address] [place] [address] Care Team Providers Care Director Dance Name Role Phone Alex Koo MD Primary Care Provider [phone] Alex Koo MD Unavailable Daniel Ramirez Yancy Vicki IBRAHIM Unavailable + [phone] Alex Koo MD Unavailable Rosa Moyer APRN CNM Unavailable Unavaila banner Barbara Cheng MD Unavailable [phone] Umesh Lima PA-C Unavailable +[phone] Umesh Lima PA-C Unavailable +[phone] Alex Koo MD Unavailable Umesh Lima PA-C Unavailable +[phone] Amanda Ocasio CNM Unavailable [phone] Encounter Details Date Type Department Care Team (Late st Contact Info) Description 10/27/2020 Records - [facility] CONVERSION Scan, Non-Provider Social History Tobacco Use Types Packs/Day Years Used Date Smoking Tobacco: Never Assessed PHQ-2 Answer Date Recorded PHQ-2 Score 2 07/31/2020 Comments No Sex and Gender Information Value Date Recorded Sex Assigned at Not on file Legal Sex Female 11:55 AM PROCUREMENT FORESTER Gender Identity Not on file Sexual Orientation Not on file documented as of this encounter Plan of Treatment Not on file documented as of this encounter Visit Diagnoses Not on filedocumented in this encounter Additional Health Concerns Assessment Noted Time PHQ-9 Depression Total Score: 4 07/31/19 21 5:02 PM PROCUREMENT FORESTER documented as of this encounter Care Teams Director Dance Relationship Specialty [place] [address] [address] [place] [address] PCP - General Family Practice 10/27/20 [place] [address] [address] [place] [address] Family Practice 10/27/20 [place] [address] [facility] [place] [address] Assigned PCP 08/16/20 11/21/20 [place] [address] [address] [place] [address] Assigned PCP 11/22/20 05/20/22 Rosa Moyer APRN CNM Assigned OBGYN Provider 12/25/20 04/08/22 Barbara Cheng MD [address] [place] [address] Assigned OBGYN Provider 04/09/22 Umesh Lima PA-C [address] [place] [address] Assigned PCP 05/21/22 10/02/23 Umesh Lima PA-C [address] [place] [address] Assigned Pain Medication Provider 06/20/22 12/09/22 [place] [address] [place] [address] Assigned PCP 10/03/23 01/01/24 Umesh Lima PA-C 520[address] [place] [address] Assigned PCP 01/02/24 Amanda Ocasio CN[address] [place] [address] Assigned OBGYN Provider 10/02/24 documented as of this encounter
--- OUTSIDE RECORDS SUMMARY | 2025-03-18 11:30 | XMS_ITS | Clinical Summary ---
Author Organization [facility] Address Formerly [facility] [place] [address] Care Team Providers Care Market Research Senior Project Manager Name Role Phone Pcp, No Primary [...] on file Legal Sex Female 5:26 AM STOCK LIFTER Gender Identity Not on file Sexual Orientation [...] Procedure Name Priority Date/Time Associated Diagnosis Comments WELL SERVICE PUMP EQUIPMENT OPERATOR THIN PREP PAP DIAGNOSTIC IMAGED Routine 02/23/2012 1:31 PM CDT Screening for malignant neoplasm of the cervix from Last 3 Months or Most Recently Relevant to Health Maintenance Results * WELL SERVICE PUMP EQUIPMENT OPERATOR THIN PREP PAP DIAGNOSTIC IMAGED (02/23/2012 1:31 PM CDT) CYTOLOGY CYTOPATHOLOGY REPORT [facility] Status: Final Status [id number] CLINICAL INFORMATION Last Date of LMP :02/04/2012 Last Pap Date :06/04/2010 Last Pap Result :NIL ABN Ruffin/Bx Past 5 YRS :None Hormone Usage :None Menstrual Status :Regular Periods Ruffin/Bx done today :No Additional Information :None given HPV Request :HPV and PAP. See Separate Report. SPECIMEN SOURCE :Cervical/vaginal ThinPrep Vial, diagnostic SPECIMEN ADEQUACY :Satisfactory for evaluation Endocervical component present. INTERPRETATION/RES ULT Negative for intraepithelial lesion or malignancy (NIL) Cytology 1st Screener :tll Cytology 2nd Screener :savanahb Signed by :frank This specimen was screened [...] malignant lesions. COLLECTED:02/23/12 ACCESSIONED: 02/24/12 SIGNED: 02/29/12 [facility] PAP [place] CODE NIL [facility] Tissue specimen (specimen) (Cervical/Vagina l) 02/23/2012 1:31 PM CDT 02/23/2012 1:27 PM CDT us Barbara Cassidy MD PATHOLOGY/CYTOLOGY Final Resu lt [facility] [place] ZIP [phone] [place] [address] from Last 3 Months or Most Recently Relevant to Health Maintenance Insurance [facility] Care Teams Market Research Senior Project Manager Relationship Specialty Start Date End Date Pcp, No . PCP - General 03/21/16
--- NOTE | 2025-03-18 11:42 | ED.GENADULT ---
HPI - General Adult General Chief complaint: Rib Pain Stated complaint: pain in right side of ribs Time Seen by Provider: 03/18/25 11:30 History of Present Illness HPI narrative: Patient presents to the emergency department complaining of right side rib pain. Patient states she has been seen in our ER for this recently and nothing was found at that time. Patient states pain has not improved. Someone she knows who works in the medical field suggested she return to ER. 39-year-old woman presenting to the emergency department with continuing right-sided area pain. She was seen in this department a couple of days ago with unremarkable point of care right upper quadrant ultrasound. AST was notable to be slightly elevated not inconsistent with reported alcohol ingestion. Pain is not been present a little bit more than a week November. It has been are quite persistent essentially constant and sharp. If worsening. Has had not had any fever. Cough or cold symptoms. No rashes noted other than she did try lidocaine patch and not unexpectedly had quite a flare of a rash which she treated with hydrocortisone cream. Was seen by myself sometime back with right inguinal area pain. I thought had some right inguinal hip esthesia or nerve entrapment. Overall this is better. Had been helped with the gabapentin but she has run out and without a car does not have refills. 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 Reports historical higher tolerance to pain. Does not recall specific injury to cause this discomfort right chest. Friend who accompanies is concerned of potential gallbladder or hepatic problem. Related Data Home Medications ?Medication ?Instructions ?Recorded ?Confirmed buspirone 5 mg tablet 5 mg PO 3XD 09/23/24 03/18/25 levonorgestrel-ethinyl estradiol 1 tab PO DAILY 02/07/25 03/18/25 0.1 mg-20 mcg tablet (Vienva) Previous Rx's ?Medication ?Instructions ?Recorded gabapentin 300 mg capsule 300 mg PO TID #45 caps 02/07/25 gabapentin 300 mg capsule 300 mg PO TID #90 caps 03/18/25 hydrocodone 5 mg-acetaminophen 325 1 - 2 tab PO BID PRN pain #8 tabs 03/18/25 mg tablet Allergies Allergy/AdvReac Type Severity Reaction Status Date / Time No Known Drug Allergies Allergy Verified 03/18/25 11:34 Review of Systems Status of ROS: Reports: 6 or more systems reviewed and unremarkable except as noted in History and below PFSH PFSH Social History Smoking Status: Never smoker Do you use any of these nicotine containing products: None Second hand tobacco smoke exposure: No How often do you have a drink containing alcohol: 4 or more times a week How many standard drinks containing alcohol do you have on a typical day: 7 to 9 How often do you have six or more drinks on one occasion: Daily or almost daily AUDIT-C Alcohol total score: 11 Non-prescribed substance use: denies use service: No Exam Narrative: Exam Narrative: Pleasant. NAD. Breathing easily. Winces a little bit with movement. Skin is warm and dry without apparent rash. Abdomen is soft and maybe some tenderness in the right upper quadrant but on repeated palpation she clearly is most tender over the right anterior chest wall just below the breast. Not quite at the rib margin. No flank pain. Lungs are clear. Heart in regular rate and rhythm. No scleral icterus. No jaundice. Opposition compressing testing is negative. Const: Vital Signs, click to edit/add: Vital Signs - 24 hr 03/18/25 11:29 Temperature 97.3 F L Pulse Rate [Right Pulse Oximeter] 75 Respiratory Rate 18 Blood Pressure [Ri ght Upper Arm] 141/90 H Pulse Oximetry 97 Oxygen Delivery Me thod Room Air Documenting provider has reviewed patient's vital signs: yes Course Vital Signs Vital signs: Initial Vital Signs Temperature 97.3 F L 03/18/25 11:29 Temperature Source Temporal Artery Scan 03/18/25 11:29 Pulse Rate 75 03/18/25 11:29 Pulse Rhythm Regular 03/18/25 11:29 Pulse Strength 3+ Normal 03/18/25 11:29 Respiratory Rate 18 03/18/25 11:29 Blood Pressure 141/90 H 03/18/25 11:29 Blood Pressure Mean 107 H 03/18/25 11:29 Blood Pressure Position Sitting 03/18/25 11:29 Pulse Oximetry 97 03/18/25 11:29 Oxygen Delivery Method Room Air 03/18/25 11:29 Vital Signs Temperature 97.3 F L 03/18/25 11:29 Pulse Rate 75 03/18/25 11:29 Respiratory Rate 18 03/18/25 11:29 Blood Pressure 141/90 H 03/18/25 11:29 Pulse Oximetry 97 03/18/25 11:29 Oxygen Delivery Method Room Air 03/18/25 11:29 Temperature 97.3 F L 03/18/25 11:29 Pulse Rate 75 03/18/25 11:29 Respiratory Rate 18 03/18/25 11:29 Blood Pressure 141/90 H 03/18/25 11:29 Pulse Oximetry 97 03/18/25 11:29 Oxygen Delivery Method Room Air 03/18/25 11:29 Medications Administered Medications: Discontinued Medications Generic Name Dose Route Start Last Admin Trade Name Gaurang PRN Reason Stop Dose Admin Hydrocodone Bitart/Acetaminophen 2 tab 03/18/25 12:10 03/18/25 12:33 Hydrocodone-Acetamin 5-325 Mg 1 Tab PO 03/18/25 12:11 2 tab ONCE ONE Administration Ibuprofen 600 mg 03/18/25 12:10 03/18/25 12:33 Ibuprofen 200 Mg Tablet PO 03/18/25 12:11 600 mg ONCE ONE Administration Medical Decision Making MDM Narrative Medical decision making narrative: Symptoms might suggest more of a costochondritis; quite reproducible. Not really with the kind of discomfort or reproducibility that I would associate with biliary colic. No symptoms otherwise to suggest hepatitis. No prodrome to suggest a pneumonia. Doubtful pneumothorax. Think this is unlikely to be pulmonary embolus. She has had diagnosis costochondritis before in other locations. I do not think this represents any rib fracture. Would check chest x-ray though for possible osteolytic/osteoblastic lesion. Potential pneumothorax. This does not appear to be ischemic cardiovascular. Think this is chest wall pain of some sort. Given medication for pain in the emergency department. Winthrop and ibuprofen. Right side ribs with one-view chest independently reviewed by me is without pneumothorax and without apparent rib fracture. Normal mediastinum and cardiac silhouette. No infiltrate. Discussed concerns of pain management. She is hopeful for work note today. See patient discharge plan for further discussion Consider icing a few times daily over the next few days. I think it would be a good idea to take regularly dosed NSAID like ibuprofen 400-600 mg 2-3 times daily over the next 5 days. Alternative would be 375 mg of naproxen twice daily over the same time. I think it would be a good idea to restart your gabapentin considering other underlying pain as well. Will send in a new prescription for you along with some [place] as discussed. Please establish primary care provider for follow-up. Medical Records Medical records reviewed: Yes I reviewed the patient's medical records Discharge Plan Discharge Clinical Impression: Chest wall pain Patient Disposition: Home w/ Parent or Adult Condition: Stable Additional Instructions: Consider icing a few times daily over the next few days. I think it would be a good idea to take regularly dosed NSAID like ibuprofen 400-600 mg 2-3 times daily over the next 5 days. Alternative would be 375 mg of naproxen twice daily over the same time. I think it would be a good idea to restart your gabapentin considering other underlying pain as well. Will send in a new prescription for you along with some [place] as discussed. Please establish primary care provider for follow-up. Prescriptions: New gabapentin 300 mg capsule 300 mg PO TID Qty: 90 2RF hydrocodone-acetaminophen 5-325 mg tablet 1 - 2 tab PO BID PRN (Reason: pain) Qty: 8 0RF No Action buspirone 5 mg tablet 5 mg PO 3XD levonorgestrel-ethinyl estrad [Vienva] 0.1-20 mg-mcg tablet 1 tab PO DAILY gabapentin 300 mg capsule 300 mg PO TID Qty: 45 1RF Follow Up/Referrals: Provider,Not a Local [Primary Care Provider, Family Practice] Stand Alone Forms: [employer] Info Instructions
--- NOTE | 2025-03-18 12:03 | CRLHL7_ITS ---
For Patients: As a result of the Cures Act, medical imaging exams and procedure reports are released immediately into your electronic medical record. You may view this report before your referring provider. If you have questions, please contact your health care provider. INDICATION: Right mid and lower anterior rib pain TECHNIQUE: Chest and right ribs 6 views. COMPARISON: Chest radiograph 06/13/2024, CTA chest 06/22/2024. FINDINGS: Cardiovascular and mediastinum: Heart size and vasculature are normal in caliber and appearance. Mediastinum is within normal limits. Lungs and pleural spaces: Lungs are clear. No sign of infiltrate or mass. No sign of pleural effusion. No pneumothorax. Bones and soft tissues: Detailed oblique images of the right ribs demonstrate no fractures or bone lesions. IMPRESSION: Unremarkable chest and right ribs. Dictated by Caroline Schilling MD @ 03/18/2025 12:42:26 PM (Electronically Signed)
[2025-03-18] MEDS: IBUPROFEN 200 MG TABLET 600 MG PO (12:33)
[2025-03-18] MEDS: HYDROCODONE-ACETAMIN 5-325 MG 1 TAB 2 TAB PO (12:33)
== END 2025-03-18 13:09 | disposition home or self-care (01) ==
PROVIDERS: Emergency Provider Family Medicine
DX: R07.89 Other chest pain (principal)
CPT/HCPCS: 71101; 99284; A9270

== ENCOUNTER 2025-03-31 01:39 | Emergency (ER) | payer BC, SELFPAY ==
--- OUTSIDE RECORDS SUMMARY | 2025-03-31 01:42 | XMS_ITS | Encounter Summary ---
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 This RX was transferred from [facility] with no refills links. * Telephone Encounter - Shweta Rousseau MA - 03/19/2025 12:57 PM CDT Incoming faxed request for completion of written orders for New RX, form received from [facility]. PerPharmacy: Patient is requesting a new Rx for Viena. documented in this encounter Plan of Treatment Not on file documented as of this encounter Visit Diagnoses Diagnosis Pelvic pain in female Unspecified symptom associated with female genital organs documented in this encounter Additional Health Concerns Assessment Noted Time PHQ-9 Depression Total Score: 7 10/03/19 25 3:10 PM CDT documented as of this encounter Care Teams Coach Relationship Specialty [place] [address] [place] [address] [address] PCP - General Family Practice 10/27/20 [place] [address] [place] [address] Family Practice 10/27/20 Umesh Lima PA-C [address] [address] [address] Assigned PCP 01/02/24 Amanad Ocasio CNM [facility]5 Cruz Leyva [address] [address] Assigned OBGYN Provider 10/02/24 documented as of this encounter
--- OUTSIDE RECORDS SUMMARY | 2025-03-31 01:42 | XMS_ITS | Encounter Summary ---
Author Organization [place] Address [address] [place] [address] Care Team Providers Care Time Clock Inspector Name Role Phone Alex Koo MD Primary Care Provider + 2 Alex Koo MD Primary Care Provider + 2 Alex Koo MD Unavailable + Radha Knight APRN RESIST COATER DEVELOPER Unavailable + Alex Koo MD Unavailable + Radha Knight APRN RESIST COATER DEVELOPER Unavailable + Alex Koo MD Unavailable + Radha Knight APRN RESIST COATER DEVELOPER Unavailable + Dinesh Mac MD Unavailable Yancy Delgadillo MD Unavailable + [phone] Alex Koo MD Unavailable + Rosa Moyer SALT CUTTER CNM Unavailable Unavaila Barbara Mckeon MD Unavailable [phone] Umesh Lima-Mandie Unavailable + Umesh Lima-Mandie Unavailable + Alex Koo MD Unavailable + Umesh Lima-Mandie Unavailable + Amanda Ocasio CNM Unavailable [phone] Encounter Details Date Type Department Care Team (Late st Contact Info) Description 07/12/2017 [facility] [address], [address] [place] [address] Mary Joshi, PARCEL POST OFFICER Social History Tobacco Use Types Packs/Day Years Used Date Smoking Tobacco: Never Smokeless Tobacco: Never Alcohol Use Standard Drinks/Week Comments Yes 0 (1 standard drink = 0.6 oz pur e alcohol) occasional 2-4 monthly Comments No Sex and Gender Information Value Date Recorded Sex Assigned at Not on file Legal Sex Female 11:55 AM REGISTERED VETERINARY TECHNICIAN Gender Identity Not on file Sexual Orientation Not on file documented as of this encounter Plan of Treatment Not on file documented as of this encounter Visit Diagnoses Not on filedocumented in this encounter Additional Health Concerns Assessment Noted Time PHQ-9 Depression Total Score: 2 11/17/19 17 7:16 AM CDT documented as of this encounter Care Teams Time Clock Inspector Relationship Specialty Start Date End Date Alex Koo MD PCP - General Family Practice 04/19/16 10/26/20 [place] [address] [address] [address] PCP - General Family Practice 10/27/20 Radha Knight APRN CNP 68761 [place] [address] PCP - Assigned PCP 11/19/17 07/21/18 [place] [address] [place] [address] PCP - Assigned PCP 07/22/18 08/14/18 Alex Koo MD Family Practice 10/27/20 Radha Knight APRN RESIST COATER DEVELOPER [address] [place] [address] Assigned PCP 11/19/17 07/21/18 [place] [address] [place] [address] Assigned PCP 07/22/18 11/16/19 Radha Knight APRN RESIST COATER DEVELOPER [address] [address] [place], [place] 36776[address] Assigned PCP 11/17/19 03/14/20 Dinesh Mac MD [address] [facility] [place] [address] Assigned PCP 03/15/20 08/15/20 [place] [address] [place], [place] [id number] Assigned PCP 08/16/20 11/21/20 [place] [address] [address] [place], [place] 9[address]5968 Assigned PCP 11/22/20 05/20/22 Rosa Moyer APRN CN Assigned OBGYN Provider 12/25/20 04/08/22 Barbara Cheng MD [address] [place] [address] Assigned OBGYN Provider 04/09/22 Umesh Lima PA-C [address] [address] [place], [place] 30677[address] Assigned PCP 05/21/22 10/02/23 Umesh Lima PA-C 475[address] [place] [address] Assigned Pain Medication Provider 06/20/22 12/09/22 [place] [address] [place] [address] Assigned PCP 10/03/23 01/01/24 Umesh Lima PA-C [address]95[address] [address] [address] Assigned PCP 01/02/24 [facility] [place] [address] Assigned OBGYN Provider 10/02/24 documented as of this encounter
--- OUTSIDE RECORDS SUMMARY | 2025-03-31 01:42 | XMS_ITS | Clinical Summary ---
Author Organization [facility] Address [facility]ly [facility] [place] [address] Care Team Providers Care Mission Worker Name Role Phone Pcp, No Primary Care [...] on file Legal Sex Female 5:26 AM CURRICULUM DEVELOPMENT SPECIALIST Gender Identity Not on file Sexual [...] Procedure Name Priority Date/Time Associated Diagnosis Comments DUST COLLECTOR ATTENDANT THIN PREP PAP DIAGNOSTIC IMAGED Routine 02/23/2012 1:31 PM CDT Screening for malignant neoplasm of the cervix from Last 3 Months or Most Recently Relevant to Health Maintenance Results * DUST COLLECTOR ATTENDANT THIN PREP PAP DIAGNOSTIC IMAGED (02/23/2012 1:31 PM CDT) CYTOLOGY CYTOPATHOLOGY REPORT [facility] Status: Final Status [id number] CLINICAL INFORMATION Last Date of LMP :02/04/2012 Last Pap Date :06/04/2010 Last Pap Result :NIL ABN [place]/Bx Past 5 YRS :None Hormone Usage :None Menstrual Status :Regular Periods [place]/Bx done today :No Additional Information :None given [...] malignant lesions. COLLECTED:02/23/12 ACCESSIONED: 02/24/12 SIGNED: 02/29/12 [facility] PAP [place] CODE NIL [facility] Tissue specimen (specimen) (Cervical/Vagina l) 02/23/2012 1:31 PM CDT 02/23/2012 1:27 PM CDT us Barbara Cassidy MD PATHOLOGY/CYTOLOGY Final Resu lt [facility] INTERNAL ZIP [address] [place] [address] from Last 3 Months or Most Recently Relevant to Health Maintenance Insurance [facility] [place] [address] Care Teams Mission Worker Relationship Specialty Start Date End Date Pcp, No . PCP - General 03/21/16
--- OUTSIDE RECORDS SUMMARY | 2025-03-31 01:42 | XMS_ITS | Clinical Summary ---
Author Organization [place] Address [address] [place] [address] Care Team Providers Care Airplane Flight Attendant Name Role Phone Alex Koo MD Primary Care Provider [phone] Alex Koo MD Unavailable Umesh Lima PA-C Unavailable [phone] Amanda Ocasio Unavailable [phone] Allergies Active Allergy Reactions Criticality Noted [...] 2 weeks 30 g 1 5 Active busPIRone (BUSPAR) 10 MG tabletIndicatio ns:Anxiety Take 1 tablet (10 mg) by mouth 3 times daily. 270 tablet 5 Active levonorgestrel- ethinyl estradiol (AVIANE) 0.1-20 MG-MCG tabletIndicatio ns:Pelvic pain in female Take 1 tablet by mouth daily. 84 tablet 1 5 Active levonorgestrel- ethinyl estradiol (AVIANE) 0.1-20 MG-MCG tabletIndicatio ns:Pelvic pain in female Take 1 tablet by mouth daily. 84 tablet 3 5 03/19/20 25 Discontinu ed(Reorder (No AVS)) Active Problems Patient Care Coordination No te Formatting of this note migh t be different from the original. [email or web address] Problem Noted Date Diagnosed Date Recurrent major [...] Encounters Date Type Department Care Team Description 03/19/2025 Refill M [place] [id number] [facility] [address] [place] [phone] Amanda Ocasio CNM 01/29/2025 MyC Refill M [address] [address] Luis Carlos Roblero APRN SLEEP SCIENTIST Refill Request 01/01/2025 Refill M [address] [address] Luis Carlos Roblero APRN SLEEP SCIENTIST Medication Refill from Last 3 Months Immunizations Immunization Administration [...] on file Legal Sex Female 11:55 AM MIX MAKER Gender Identity Not on file Sexual Orientation [...] OF HM ORDERS 11/13/2021 11/13/2020 COVID-19 VACCINE (1 - 2025-26 season) 2025 INFLUENZA VACCINE (#1) 2025 PHQ-9 04/03/2025 10/02/2024, 08/11, 01/12/2024, Additional history exists YEARLY PREVENTIVE VISIT 09/12/2025 09/12/2024, 12/16 HEPATITIS C SCREENING 2026 Postpo erwin from 2004 (Other) DIABETES SCREENING 09/03/2027 09/02/2024, 0 08/09/2021, 10/27/2020, Additional history exists ADVANCE CARE PLANNING 09/12/2029 09/12/2024 HPV TEST 09/12/2029 09/12/2024, 03/13, 12/16/2020, Additional history exists PAP 09/12/2029 09/12/2024, 040 08/2024, 04/06/2022, Additional history exists ZOSTER VACCINE (1 of 2) 2036 DEPRESSION ACTION PLAN Completed 06/10/2016 HPV FOLLOW-UP Completed 09/12/2024, 03/13, 12/16/2020, Additional history exists PAP FOLLOW-UP Completed 09/12/2024, 040 08/2024, 04/06/2022, Additional history exists HIV SCREENING [...] for high risk HPV DNA. METHODOLOGY: The PATHSENSORS system uses automated extraction, simultaneous amplification of [...] PM CDT 09/12/2024 5:02 PM CDT Amanda NAIK LAB - BLOOD ORDERABLES Final Re sult [facility] Specialty Lab [address] [facility], [address] [address], [facility] Diagnostics [address] [facility], Room [address] [place] [address], [facility] * Basic metabolic panel (Ca, Cl, [...] PM CDT us Luis Carlos Roblero APRN SLEEP SCIENTIST LAB - BLOOD ORDERABLES Meghan urbano Result [facility] Core Lab [address] [facility], [address] [place] [address], [facility] from Last 3 Months or Most Recently Relevant to Health Maintenance Insurance [place] Care Teams Airplane Flight Attendant Relationship Specialty [place] [address] [place] [address] PCP - General Family Practice 10/27/20 [place] [address] [place] [address] Family Practice 10/27/20 Umesh Lima PA-[place] [address] [place] [address] Assigned PCP 01/02/24 [place] [address] Assigned OBGYN Provider 10/02/24
--- OUTSIDE RECORDS SUMMARY | 2025-03-31 01:42 | XMS_ITS | Encounter Summary ---
Author Organization [place] Address [address] [place] [address] Care Team Providers Care Entry Level Electrician Name Role Phone Alex Koo MD Primary Care Provider + 2 Alex Koo MD Primary Care Provider + 2 Alex Koo MD Unavailable + Radha Knight APRN MEDICAL RECORD ASSISTANT Unavailable + Alex Koo MD Unavailable + Radha Knight APRN MEDICAL RECORD ASSISTANT Unavailable + Alex Koo MD Unavailable + Radha Knihgt APRN MEDICAL RECORD ASSISTANT Unavailable + Dinesh Mac MD Unavailable Yancy Delgadillo MD Unavailable + [phone] Alex Koo MD Unavailable + Rosa Moyer ACADEMIC SUPPORT DIRECTOR CNM Unavailable Unavaila Barbara Mckeon MD Unavailable [phone] Umesh Lima-Mandie Unavailable + Umesh Lima-Mandie Unavailable + Alex Koo MD Unavailable + Umesh Lima-Mandie Unavailable + Amanda Ocasio CNM Unavailable [phone] Encounter Details Date Type Department Care Team (Late st Contact Info) Description 02/02/2018 [facility] Advice [address], [address] [place] [address] 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, POWDERER Social History Tobacco Use Types Packs/Day Years Used Date Smoking Tobacco: Never Smokeless Tobacco: Never Alcohol Use Standard Drinks/Week Comments Yes 0 (1 standard drink = 0.6 oz pur e alcohol) occasional 2-4 monthly Comments No Sex and Gender Information Value Date Recorded Sex Assigned at Not on file Legal Sex Female 11:55 AM IT SUPPORT SPECIALIST Gender Identity Not on file Sexual Orientation Not on file documented as of this encounter Plan of Treatment Not on file documented as of this encounter Visit Diagnoses Not on filedocumented in this encounter Additional Health Concerns Assessment Noted Time PHQ-9 Depression Total Score: 2 11/17/19 17 7:16 AM CDT documented as of this encounter Care Teams Entry Level Electrician Relationship Specialty Start Date End Date Alex Koo MD PCP - General Family Practice 04/19/16 10/26/20 [place] [address] [address] [place] [address] PCP - General Family Practice 10/27/20 Radha Knight APRN CNP 12028 [place] [address] PCP - Assigned PCP 11/19/17 07/21/18 [place] [address] [place] [address] PCP - Assigned PCP 07/22/18 08/14/18 Alex Koo MD Family Practice 10/27/20 Radha Knight APRN MEDICAL RECORD ASSISTANT [address] [place] [address] Assigned PCP 11/19/17 07/21/18 [place] [address] [place] [address] Assigned PCP 07/22/18 11/16/19 Radha Knight APRN MEDICAL RECORD ASSISTANT [address] [address] [place], [place] 12[address] Assigned PCP 11/17/19 03/14/20 Dinesh Mac MD [address] [facility] [place] [address] Assigned PCP 03/15/20 08/15/20 [place] [address] [address] [place], [place] [address] Assigned PCP 08/16/20 11/21/20 [place] [address] [address] [place], [place] [address] Assigned PCP 11/22/20 05/20/22 Rosa Moyer APRN CN Assigned OBGYN Provider 12/25/20 04/08/22 Barbara Cheng MD [address] [place] [address] Assigned OBGYN Provider 04/09/22 Umesh Lima PA-C [address] [address] [place], [place] [address]46[address] Assigned PCP 05/21/22 10/02/23 Umesh Lima PA-C 219[address] [place] [address] Assigned Pain Medication Provider 06/20/22 12/09/22 [place] [address] [place] [address] Assigned PCP 10/03/23 01/01/24 Umesh Lima PA-C 57395 [place] [address] Assigned PCP 01/02/24 Amanda Ocasio CNM [facility] [place] [address] Assigned OBGYN Provider 10/02/24 documented as of this encounter
--- OUTSIDE RECORDS SUMMARY | 2025-03-31 01:42 | XMS_ITS | Encounter Summary ---
Author Organization [place] Address [address] [place] [address] Care Team Providers Care Grade Teacher Name Role Phone Alex Koo MD Primary Care Provider [phone] Alex Koo MD Unavailable Daniel Ramirez Yancy Vicki IBRAHIM Unavailable + [phone] Alex Koo MD Unavailable Rosa Moyer APRN CNM Unavailable Unavaila [facility] Barbara Cheng MD Unavailable [phone] Umesh Lima PA-C Unavailable +[phone] Umesh Lima PA-C Unavailable +[phone] Alex Koo MD Unavailable Umesh Lima PA-C Unavailable +[phone] Amanda Ocasio CNM Unavailable [phone] Encounter Details Date Type Department Care Team (Late st Contact Info) Description 10/27/2020 Records - [facility] CONVERSION Scan, Non-Provider Social History Tobacco Use Types Packs/Day Years Used Date Smoking Tobacco: Never Assessed PHQ-2 Answer Date Recorded PHQ-2 Score 2 07/31/2020 Comments No Sex and Gender Information Value Date Recorded Sex Assigned at Not on file Legal Sex Female 11:55 AM PROCUREMENT ASSISTANT Gender Identity Not on file Sexual Orientation Not on file documented as of this encounter Plan of Treatment Not on file documented as of this encounter Visit Diagnoses Not on filedocumented in this encounter Additional Health Concerns Assessment Noted Time PHQ-9 Depression Total Score: 4 07/31/19 21 5:02 PM PROCUREMENT ASSISTANT documented as of this encounter Care Teams Grade Teacher Relationship Specialty [place] [address] [address] [place] [address] PCP - General Family Practice 10/27/20 [place] [address] [address] RAMINFanta [place] [address] Family Practice 10/27/20 [place] [address] [facility] [place] [address] Assigned PCP 08/16/20 11/21/20 [place] [address] [address] [place] [address] Assigned PCP 11/22/20 05/20/22 Rosa Moyer APRN CNM Assigned OBGYN Provider 12/25/20 04/08/22 Barbara Cheng MD [address] [place] [address] Assigned OBGYN Provider 04/09/22 Umesh Lima PA-C [address] [place] [address] Assigned PCP 05/21/22 10/02/23 Umesh Lima PA-C [address] [place] [address] Assigned Pain Medication Provider 06/20/22 12/09/22 [place] [address] [place] [address] Assigned PCP 10/03/23 01/01/24 Umesh Lima PA-C 62856 [place] [address] Assigned PCP 01/02/24 Amanda Ocasio CN[address] [place] [address] Assigned OBGYN Provider 10/02/24 documented as of this encounter
--- OUTSIDE RECORDS SUMMARY | 2025-03-31 01:42 | XMS_ITS | Encounter Summary ---
Author Organization [facility] Address [address] [place] [address] Care Team Providers Care Sanitation Truck Cleaner Name Role Phone Alex Koo MD Primary Care Provider [phone] Alex oKo MD Primary Care Provider +[phone] Alex Koo MD Unavailable + Alex Koo MD Unavailable Alex Koo MD Unavailable Radha Knight APRN CLINICAL PROGRAM DIRECTOR Unavailable + Dinesh Mac MD Unavailable Yancy Delgadillo MD Unavailable + [phone] Alex Koo MD Unavailable Rosa Moyer INJECTION MOLDING TECHNICIAN CNM Unavailable Unavaila Barbara Mckeon MD Unavailable [phone] Umesh Lima PA-C Unavailable +[phone] Umesh Lima PA-C Unavailable +[phone] Alex Koo MD Unavailable + Umesh Lima PA-C Unavailable +[phone] Amanda Ocasio CNM Unavailable [phone] Encounter Details Date Type Department Care Team (Late st Contact Info) Description 07/24/2018 [facility] [address], [address] [place] [address] Mary Joshi CMA Social History [...] on file Legal Sex Female 11:55 AM SURVEY ENGINEER Gender Identity Not on file Sexual Orientation Not on file documented as of this encounter Miscellaneous Notes * Telephone Encounter - Mary Joshi CMA - 08/24/2018 2:01 PM CDT Left message on personal Usermindmail to return call. 2nd outreach. Mary Joshi CMA (AAMA) documented in this encounter Plan of Treatment Not on file documented as of this encounter Visit Diagnoses Not on filedocumented in this encounter Additional Health Concerns Assessment Noted Time PHQ-9 Depression Total Score: 2 11/17/19 17 7:16 AM CDT documented as of this encounter Care Teams Sanitation Truck Cleaner Relationship Specialty Start Date End Date Alex Koo MD PCP - General Family Practice 04/19/16 10/26/20 [place] [address] [place] [address] PCP - General Family Practice 10/27/20 [place] [address] [place] [address] PCP - Assigned PCP 07/22/18 08/14/18 Alex Koo MD Family Practice 10/27/20 [place] [address] [place] [address] Assigned PCP 07/22/18 11/16/19 Radha Knight APRN CLINICAL PROGRAM DIRECTOR [address] [place] [address] Assigned PCP 11/17/19 03/14/20 Dinesh Mac MD [address] [facility] [place] [address] Assigned PCP 03/15/20 08/15/20 [place] [address] [facility], [place] [address] Assigned PCP 08/16/20 11/21/20 [place] [address] [place] [address] Assigned PCP 11/22/20 05/20/22 Rosa Moyer APRN CN Assigned OBGYN Provider 12/25/20 04/08/22 Barbara Cheng MD [address] [place] [address] Assigned OBGYN Provider 04/09/22 Umesh Lima PA-C [address] [place] [address] Assigned PCP 05/21/22 10/02/23 Umesh Lima PA-C [address] [place] [address] Assigned Pain Medication Provider 06/20/22 12/09/22 [place] [address] [place] [address] Assigned PCP 10/03/23 01/01/24 Umesh Lima PA-C [address] [place] [address] Assigned PCP 01/02/24 Amanda Ocasio CNM [address] [place] [address] Assigned OBGYN Provider 10/02/24 documented as of this encounter
--- NOTE | 2025-03-31 01:43 | ED_ITS ---
HPI - Extremity Injury (Upper) General Chief Complaint: Extremity Pain/Injury, Upper Stated Complaint: left wrist injury, rib pain Time Seen by Provider: 03/31/25 01:43 Source: patient and other (Friend) Mode of arrival: ambulatory Limitations: no limitations History of Present Illness HPI narrative: 31-year-old female who comes in today with left-sided rib pain as well as left wrist pain. Patient notes that she has had left-sided rib pain for couple of weeks, no known injury. Pain with movement and breathing. Has been taking Tylenol and ibuprofen for this. Yesterday horse kicked her the left wrist and she has had pain and left wrist since then. No other injuries, denies any falls. Related Data Home Medications ?Medication ?Instructions ?Recorded ?Confirmed buspirone 5 mg tablet 5 mg PO 3XD 09/23/24 5 levonorgestrel-ethinyl estradiol 1 tab PO DAILY 03/31/25 0.1 mg-20 mcg tablet (Vienva) Previous Rx's ?Medication ?Instructions ?Recorded gabapentin 300 mg capsule 300 mg PO TID #45 caps 02/07 gabapentin 300 mg capsule 300 mg PO TID #90 caps 03/18 hydrocodone 5 mg-acetaminophen 325 1 - 2 tab PO BID MT N pain #8 tabs 03/18/25 mg tablet lidocaine 5 % topical patch 1 patch topical DAILY #15 ea 03/31/25 Allergies Allergy/AdvReac Type Severity Reaction Status Date / Time No Known Drug Allergies Allergy Verified 03/18/25 11:34 [facility] Social History Smoking Status: Never smoker Do you use any of these nicotine containing products: None Second hand tobacco smoke exposure: No How often do you have a drink containing alcohol: 4 or more times a week How many standard drinks containing alcohol do you have on a typical day: 7 to 9 How often do you have six or more drinks on one occasion: Daily or almost daily AUDIT-C Alcohol total score: 11 Non-prescribed substance use: denies use service: No Exam Narrative: Exam Narrative: General: well nourished , NAD Head: Atraumatic and normocephalic ENT: External ears and external nose are normal Eyes: Conjunctiva clear, pupils are equal reactive, external ocular motions are intact Neck: Full spontaneous range of motion of the neck Lungs: No respiratory distress, left lateral chest wall tenderness Musculoskeletal: Swelling and tenderness over the dorsum left wrist, flexion a nd extension at the wrist intact Neurologic: No gross focal neurologic deficits Skin: No rashes Psych: Mood and affect are appropriate Const: Vital Signs, click to edit/add: Vital Signs - 24 hr 03/31/25 01:46 Temperature 98 F Pulse Rate [Pulse Oximeter] 93 Respiratory Rate 16 Blood Pressure [Ri ght Upper Arm] 190/139 H Pulse Oximetry 98 Oxygen Delivery Me thod Room Air Course Course ED Course: Reviewed most recent primary care office visit from October 2024 which was for follow-up of skin rash, vaginal spotting, and elevated blood pressure reading, patient was not started on medications at that time. Patient with history of tobacco use alcohol use who presents today with left rib pain for couple of weeks, no known injury, worse with breathing and movement and reproducible on exam. Low risk by Wells criteria, perc negative, no indication for D-dimer or CT PE study, x-ray ordered. Patient also was kicked left wrist prior horse yesterday, swelling and tenderness over the distal wrist, x-rays ordered. Oxycodone ordered in the emergency department for pain. Reevaluation(s) Time of Reevaluation #1: 02:18 Reevaluation #1: X-ray of the left wrist negative for acute findings. X-ray of the left ribs reveals a nondisplaced subacute fracture. Patient is stable for discharge with outpatient follow-up. Vital Signs Vital signs: Initial Vital Signs Temperature 98 F 03/31/25 01:46 Temperature Source Temporal Artery Scan 03/31/25 01:46 Pulse Rate 93 03/31/25 01:46 Respiratory Rate 16 03/31/25 01:46 Blood Pressure 190/139 H 03/31/25 01:46 Blood Pressure Mean 156 H 03/31/25 01:46 Blood Pressure Position Sitting 03/31/25 01:46 Pulse Oximetry 98 03/31/25 01:46 Oxygen Delivery Method Room Air 03/31/25 01:46 Vital Signs Temperature 98 F 03/31/25 01:46 Pulse Rate 93 03/31/25 01:46 Respiratory Rate 16 03/31/25 01:46 Blood Pressure 190/139 H 03/31/25 01:46 Pulse Oximetry 98 03/31/25 01:46 Oxygen Delivery Method Room Air 03/31/25 01:46 Temperature 98 F 03/31/25 01:46 Pulse Rate 93 03/31/25 01:46 Respiratory Rate 16 03/31/25 01:46 Blood Pressure 190/139 H 03/31/25 01:46 Pulse Oximetry 98 03/31/25 01:46 Oxygen Delivery Method Room Air 03/31/25 01:46 Medications Administered Medications: Discontinued Medications Generic Name Dose Route Start Last Admin Trade Name Freq PRN Reason Stop Dose Admin Oxycodone HCl 5 mg 03/31/25 01:53 03/31/25 02:19 Oxycodone 5 Mg Tablet PO 03/31/25 01:54 5 mg ONCE ONE Administration Discharge Plan Discharge Clinical Impression: Contusion of left wrist, Fracture of rib Patient Disposition: Home, Self-Care Condition: Stable Instructions: Rib Fracture (ED), Contusion in Adults (ED) Additional Instructions: Splint or Nader wrap for comfort Tylenol and ibuprofen as needed for pain, oxycodone for more severe pain. Lidoderm patch for comfort Activity Level: Wear Brace Discharge Diet: Regular Prescriptions: New lidocaine 5 % adhesive patch,medicated 1 patch topical DAILY Qty: 15 0RF Rx Instructions: leave on most painful area for up to 12 hrs No Action buspirone 5 mg tablet 5 mg PO 3XD levonorgestrel-ethinyl estrad [Vienva] 0.1-20 mg-mcg tablet 1 tab PO DAILY gabapentin 300 mg capsule 300 mg PO TID Qty: 45 1RF gabapentin 300 mg capsule 300 mg PO TID Qty: 90 2RF hydrocodone-acetaminophen 5-325 mg tablet 1 - 2 tab PO BID PRN (Reason: pain) Qty: 8 0RF Follow Up/Referrals: Provider,Not a Local [Primary Care Provider, Family Practice] Stand Alone Forms: [place] [employer] Info Instructions
[2025-03-31 01:46] VITALS: BP 190/139; PULSE 93; RESP 16; TEMP 36.6; O2SAT 98; BMI 27.3
--- NOTE | 2025-03-31 01:53 | CRLHL7_ITS ---
For Patients: As a result of the Cures Act, medical imaging exams and procedure reports are released immediately into your electronic medical record. You may view this report before your referring provider. If you have questions, please contact your health care provider. Indication: Trauma Technique: Frontal view of the chest and two views of the left ribs Comparison: CTA chest performed 06/22/2024 Findings/Impression: Fracture of the left lateral 9th rib, though appearing subacute by this examination. CT could be considered if there is concern for acute fracture. Dictated by Nabil Ray MD @ 03/31/2025 2:31:58 AM (Electronically Signed)
--- NOTE | 2025-03-31 01:53 | CRLHL7_ITS ---
For Patients: As a result of the Cures Act, medical imaging exams and procedure reports are released immediately into your electronic medical record. You may view this report before your referring provider. If you have questions, please contact your health care provider. Indication: Trauma Technique: Three views of the left wrist Comparison: None Findings/Impression: No acute radiographic abnormality appreciated. Dictated by Nabil Ray MD @ 03/31/2025 2:29:41 AM (Electronically Signed)
== END 2025-03-31 03:04 | disposition home or self-care (01) ==
PROVIDERS: Emergency Provider Family Medicine
DX: S22.32XA Fracture of one rib, left side, initial encounter for closed fracture (principal); S60.212A Contusion of left wrist, initial encounter; W55.12XA Struck by horse, initial encounter
CPT/HCPCS: 71101; 73110; 99284; A9270

== ENCOUNTER 2025-05-05 15:41 | Emergency (ER) | payer BC, SELFPAY ==
--- OUTSIDE RECORDS SUMMARY | 2025-04-02 11:50 | XMS_ITS | Encounter Summary ---
Author Organization [place] Address [address] [place] [address] Care Team Providers Care Electronic Integrated Systems Mechanic Name Role Phone Alex Koo MD Primary Care Provider [phone] Alex Koo MD Unavailable Umesh Lima PA-C Unavailable [phone] Amanda Ocasio [facility] Unavailable [phone] Reason for Visit * Reason Comments Urgent Care Sinus congestion/CARTAGENA/ sore throat/fever x 1 week last 2 days gotten worse Encounter Details Date Type Department Care Team (Late st Contact Info) Description 04/02/2025 12:50 PM CDT Office Visit 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 Gender Identity Not on file Sexual Orientation Not on file documented as of this encounter Last Filed Vital Signs Vital Sign Reading Time Taken Comments Blood Pressure 152/90 04/02/2025 12:55 PM CDT Pulse 78 04/02/2025 12:55 PM CDT Temperature 36.4 C (97.5 F) 04/02/2025 12:55 PM CDT Respiratory Rate 26 04/02/2025 12:5 5 PM CDT Oxygen Saturation 99% 04/02/2025 12: 55 PM CDT Inhaled Oxygen Concentration - - Weight 85.7 kg (188 lb 14.4 oz) 025 12:55 PM CDT Height - - Body Mass Index 27.1 10/23/2024 3:02 PM CDT documented in this encounter Patient Instructions * Attachments The following attachments cannot be sent through Care Everywhere. * Sinusitis: Acute (American) * Sore Throat (American) documented in this encounter Progress Notes * Flores Samuels MA - 04/02/2025 12:50 PM CDT Urgent Care Clinic Visit Chief Complaint Patient presents with Urgent Care Sinus congestion/CARTAGENA/sore throat/fever x 1 week last 2 days gotten worse 04/02/2025 12:58 PM Additional Questions Roomed by Flores Accompanied by self Does the patient have a sore throat and either history of fever >100.4 in the previous 24 hours or recent exposure to a known case of strep throat? Yes Does the patient have a productive cough that started within the past 7 days? No * Tequila Ojeda PA-C - 04/02/2025 12:50 PM CDT Assessment & Plan Acute non-recurrent maxillary sinusitis Augmentin Rx. She notes Tylenol/Motrin not helping much with headache and sinus pain. Diclofenac isprescribed as needed for pain. Close monitoring of symptoms. Follow up if any worsening symptoms. Patient agrees. - amoxicillin-clavulanate (AUGMENTIN) 875-125 MG tablet Dispense: 14 tablet; Refill: 0 - diclofenac (VOLTAREN) 75 MG EC tablet Dispense: 14 tablet; Refill: 0 Throat pain RST is negative today. Throat culture is pending. Suspect throat pain due to postnasal drainage. Patient will be notified if any abnormal finding on the throat culture results. Patient agrees with the plan. - Streptococcus A Rapid Screen w/Reflex to PCR - Clinic Collect - Group A Streptococcus PCR Throat Swab Return in about 1 week (around 04/09/2025) for Symptoms failing to improve. Tequila Ojeda PA-C [facility] Phyllis Harmon is a 39 year old female who presents to clinic today for the following health issues: Chief Complaint Patient presents with Urgent Care Sinus congestion/CARTAGENA/sore throat/fever x 1 week last 2 days gotten worse 04/02/2025 12:58 PM Additional Questions Roomed by Flores Accompanied by self HPI URI Adult Onset of symptoms was 1 week(s) ago. Course of illness is worsening. Severity moderate Current and Associated symptoms: CARTAGENA, sinus pain, sinus pressure, sinus congestion, ST, hoarse voice No fever. No cough Treatment measures tried include Tylenol/Ibuprofen--- not helping. Predisposing factors include None. Review of Systems Constitutional, HEENT, cardiovascular, pulmonary, GI, , musculoskeletal, neuro, skin, endocrine and psych systems are negative, except as otherwise noted. Objective BP (!) 152/90 Pulse 78 Temp 97.5 ??F (36.4 ??C) (Tympanic) Resp 26 Wt 85.7 kg (188 lb 14.4 oz) LMP 03/24/2025 (Approximate) SpO2 99% BMI 27.10 kg/m?? Physical Exam GENERAL: alert and no distress HENT: ear canals and TM's normal, nose with boggy turbinates, maxillary sinuses are tender to percussion, posterior pharynx inflammation, uvula is midline, without ulcers or lesions NECK: no adenopathy, no asymmetry, masses, or scars RESP: lungs clear to auscultation - no rales, rhonchi or wheezes CV: regular rate and rhythm, normal S1 S2 MS: no gross musculoskeletal defects noted, no edema SKIN: no suspicious lesions or rashes Recent Results (from the past 24 hours) Streptococcus A Rapid Screen w/Reflex to PCR - Clinic Collect Specimen: Throat; Swab Result Value Ref Range Group A Strep antigen Negative Negative documented in this encounter Plan of Treatment Not on file documented as of this encounter Procedures Procedure Name Priority Date/Time Associated Diagnosis Comments STREPTOCOCCUS A RAPID SCREEN W REFELX TO PCR Routine 04/02/2025 1:00 PM CDT Throat pain GROUP A STREPTOCOCCUS PCR THROAT SWAB Routine 04/02/2025 1:00 PM CDT Throat pain documented in this encounter Results * Group A Streptococcus PCR Throat Swab (04/02/2025 1:00 PM CDT) Group A strep by PCR Not Detected Not Detected 04/02/2025 8:48 PM CDT [facility] Swab STRUCTURE OF ANTERIOR REGION OF NECK / Unknown Non-blood Collection / Unknown 04/02/2025 1:00 PM CDT 04/02/2025 1:17 PM CDT Narrative [facility] - 04/02/2025 8:48 PM CDT The Xpert Xpress Strep A test, performed on the [employer], is a rapid, qualitative in vitro diagnostic test for the detection of Streptococcus pyogenes (Group A -hemolytic Streptococcus, Strep A) in throat swab specimens from patients with signs and symptoms of pharyngitis. The Xpert Xpress Strep A test can be used as an aid in the diagnosis of Group A Streptococcal pharyngitis. The assay is not intended to monitor treatment for Group A Streptococcus infections. The Xpert Xpress Strep A test utilizes an automated real-time polymerase chain reaction (PCR) to detect Streptococcus pyogenes DNA. us Carolyn Wood MD LAB - MICRO GENERAL ORDERABLE S Final Result [facility] Di[facility] [address] [facility], [address] [place] [address], [facility] * Streptococcus A Rapid Screen w/Reflex to PCR - Clinic Collect (04/02/2025 1:00 PM CDT) Group A Strep antigen Negative Negative 04/02/2025 1:17 PM CDT [facility] Swab STRUCTURE OF ANTERIOR REGION OF NECK / Unknown Non-blood Collection / Unknown 04/02/2025 1:00 PM CDT 04/02/2025 1:06 PM CDT us Carolyn Wood MD LAB - MICRO GENERAL ORDERABLE S Final Result [facility] [address] [facility] (no room number, 1st floor of clinic) [place] [address], [facility] documented in this encounter Visit Diagnoses Diagnosis Acute non-recurrent maxillary sinusitis- Primary Throat pain documented in this encounter Additional Health Concerns Assessment Noted Time PHQ-9 Depression Total Score: 7 10/03/19 25 3:10 PM CDT documented as of this encounter Care Teams Electronic Integrated Systems Mechanic Relationship Specialty [place] [address] [address] [address] PCP - General Family Practice 10/27/20 [place] [address] [address] [address] Family Practice 10/27/20 Umesh Lima PA-C [address] [address] [address] Assigned PCP 01/02/24 05/03/25 Amanda Ocasio CNM [address] [address] Assigned OBGYN Provider 10/02/24 documented as of this encounter
[2025-05-05] VITALS (9 sets, daily range): BP systolic 135–165; BP diastolic 85–124; PULSE 71–90; RESP 18–21; TEMP 36.1–36.8; O2SAT 95–99; BMI 27.0
--- NOTE | 2025-05-05 17:32 | US_ITS ---
Patient: MARCUS SHORT Facility:?[facility] Patient ID:?[id number] Site Patient ID:?[id number]. Site :?[id number] Study:?US-Abdomen limited-05/05/2025 6:54:48 PM Ordering Physician:Berto Torres Final Report: INDICATION: Right upper quadrant pain. COMPARISON: CT abdomen and pelvis 06/03/2024. TECHNIQUE: Abdomen ultrasound limited right upper quadrant. Grayscale and color Doppler was performed of the right upper quadrant. FINDINGS: Liver: The liver is normal in size. There is increased echogenicity throughout the liver, most likely reflecting hepatic steatosis. Biliary tree: The common bile duct is normal in caliber, measuring 5 mm. Gallbladder: No gallbladder wall thickening, pericholecystic fluid or sonographic evidence of cholelithiasis. Sonographic Junior`s sign was reported as negative. Pancreas: The visualized portions of the pancreas are unremarkable. The tail was not completely visualized secondary to bowel gas. Right kidney: The right kidney measures 11.4 x 3.4 x 5.5 cm. No shadowing calculus or hydronephrosis. Vasculature: The proximal portions of the aorta and inferior vena cava are unremarkable. IMPRESSION: 1. No sonographic evidence of acute cholecystitis. No biliary ductal dilation. 2. Hepatic steatosis. Dictated by Kali Dickson MD @ 05/05/2025 7:31:21 PM Signed by:?Kali Dickson MD @05/05/2025 7:31:21 PM (Electronic Signature)
--- OUTSIDE RECORDS SUMMARY | 2025-05-05 17:40 | XMS_ITS | Encounter Summary ---
Author Organization [place] Address [address] [place] [address] Care Team Providers Care Cash Control Specialist Name Role Phone Alex Koo MD Primary Care Provider [phone] Alex Koo MD Primary Care Provider [phone] Alex Koo MD Unavailable Alex Koo MD Unavailable Alex Koo MD Unavailable Radha Knight APRN RESOURCE DIRECTOR Unavailable [phone] Dinesh Mac MD Unavailable [facility] Yancy Ramirez MD Unavailable [phone] Alex Koo MD Unavailable Rosa Moyer PICKING MACHINE OPERATOR HELPER CNM Unavailable Unavaila [facility] Barbara Cheng MD Unavailable [phone] Umesh Lima PA-C Unavailable [phone] Umesh Lima PA-C Unavailable [phone] Alex Koo MD Unavailable Umesh Lima PA-C Unavailable [phone] Amanda Ocasio CNM Unavailable [phone] [place] [address] Unavail able Encounter Details Date Type Department Care Team (Late st Contact Info) Description 07/24/2018 [facility] [place] [facility] [address], [address] [place] [address] Mary Jsohi CMA Social History Tobacco Use Types Packs/Day Years Used Date Smoking Tobacco: Never Smokeless Tobacco: Never Alcohol Use Standard Drinks/Week Comments Yes 0 (1 standard drink = 0.6 oz pur e alcohol) occasional 2-4 monthly PHQ-2 Answer Date Recorded PHQ-2 Score 6 06/20/2018 Comments No Sex and Gender Information Value Date Recorded Sex Assigned at Not on file 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 2nd outreach. Mary Joshi CMA (AAMA) documented in this encounter Plan of Treatment Not on file documented as of this encounter Visit Diagnoses Not on filedocumented in this encounter Additional Health Concerns Assessment Noted Time PHQ-9 Depression Total Score: 2 11/17/19 17 7:16 AM CDT documented as of this encounter Care Teams Cash Control Specialist Relationship Specialty Start Date End Date Alex Koo MD PCP - General Family Practice 04/19/16 10/26/20 [place] [address] [address] [address] PCP - General Family Practice 10/27/20 [place] [address] [address] [place] [address] PCP - Assigned PCP 07/22/18 08/14/18 Alex Koo MD Family Practice 10/27/20 [place] [address] [address] [place], [place] [id number] Assigned PCP 07/22/18 11/16/19 Radha Knight APRN RESOURCE DIRECTOR [address] [address] [place], [place] [id number] Assigned PCP 11/17/19 03/14/20 Dinesh Mac MD [address] [place] [address] Assigned PCP 03/15/20 08/15/20 [place] [address] [place], [place] [id number] Assigned PCP 08/16/20 11/21/20 [place] [address] [place] [address] Assigned PCP 11/22/20 05/20/22 Rosa Moyer APRN [facility] Assigned OBGYN Provider 12/25/20 04/08/22 Barbara Cheng MD [address] [place] [address] Assigned OBGYN Provider 04/09/22 Umesh Lima PA-C [address] [place] [address] Assigned PCP 05/21/22 10/02/23 Umesh Lima PA-C [address] [place] [address] Assigned Pain Medication Provider 06/20/22 12/09/22 [place] [address] [place] [address] Assigned PCP 10/03/23 01/01/24 Umesh Lima PA-C [address] [place] [address] Assigned PCP 01/02/24 05/03/25 Amanda Ocasio CNM [facility] [place] [address] Assigned OBGYN Provider 10/02/24 [facility] [id number] [place] [address] Assigned PCP 05/04/25 documented as of this encounter
--- OUTSIDE RECORDS SUMMARY | 2025-05-05 17:40 | XMS_ITS | Clinical Summary ---
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 Gender Identity Not on file Sexual [...] 08/07/2016 08/07/2015 Tetanus booster 03/17/2019 03/17/2009, 07/13/1998 Influenza Vaccine (#1) 2025 RSV vaccine for adults or (1 - 1-dose 75+ series) 2061 HPV series for age 9-45 Completed 05/15/20 12, 01/13/2012, 08/02/2007 Pneumococcal series for age 6-49 Aged Out No longer eligible based on patient's age to complete this topic Procedures Procedure Name Priority Date/Time Associated Diagnosis Comments TINSMITH APPRENTICE THIN PREP PAP DIAGNOSTIC IMAGED Routine 02/23/2012 1:31 PM CDT Screening for malignant neoplasm of the cervix from Last 3 Months or Most Recently Relevant to Health Maintenance Results * TINSMITH APPRENTICE THIN PREP PAP DIAGNOSTIC IMAGED (02/23/2012 1:31 PM CDT) CYTOLOGY CYTOPATHOLOGY REPORT [facility] Status: Final Status [id number] CLINICAL INFORMATION Last Date of LMP :02/04/2012 Last Pap Date :06/04/2010 Last Pap Result :NIL ABN [place]/Bx Past 5 YRS :None Hormone Usage :None Menstrual Status :Regular Periods [place]/Bx done today :No Additional Information :None given [...] lesions. COLLECTED:02/23/12 ACCESSIONED: 02/24/12 SIGNED: 02/29/12 [facility] PAP [place] CODE NIL [facility] Tissue specimen (specimen) (Cervical/Vagina l) 02/23/2012 1:31 PM CDT 02/23/2012 1:27 PM CDT us Barbara Cassidy MD PATHOLOGY/CYTOLOGY Final Resu lt [facility] INTERNAL ZIP [address] [place] [id number] from Last 3 Months or Most Recently Relevant to Health Maintenance Insurance [facility] Care Teams Client Services Director Relationship Specialty Start Date End Date Pcp, No . PCP - General 03/21/16
--- OUTSIDE RECORDS SUMMARY | 2025-05-05 17:40 | XMS_ITS | Encounter Summary ---
Author Organization [place] Address [address] [place] [address] Care Team Providers Care Career Manager Name Role Phone Alex Koo MD Primary Care Provider + [phone] Alex Koo MD Primary Care Provider + Alex oKo MD Unavailable + Radha Knight APRN ASSISTANT NURSE MANAGER Unavailable + Alex Koo MD Unavailable + Radha Knight APRN ASSISTANT NURSE MANAGER Unavailable + Alex Koo MD Unavailable + Radha Knight APRN ASSISTANT NURSE MANAGER Unavailable + Dinesh Mac MD Unavailable [facility] Vicki IBRAHIM Unavailable + [phone] Alex Koo MD Unavailable + Rosa Moyer KAIAWHINA KOHANGA REO CNM Unavailable Unavaila Barbara Mckeon MD Unavailable [phone] Umehs Lima-C Unavailable + Umesh Lima-C Unavailable + Alex Koo MD Unavailable + Umesh Lima PA-C Unavailable + Amanda Ocasio CNM Unavailable [phone] [place] [address] Encounter Details Date Type Department Care Team (Late st Contact Info) Description 02/02/[address] 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 Gender Identity Not on file Sexual Orientation Not on file documented as of this encounter Plan of Treatment Not on file documented as of this encounter Visit Diagnoses Not on filedocumented in this encounter Additional Health Concerns Assessment Noted Time PHQ-9 Depression Total Score: 2 11/17/19 17 7:16 AM CDT documented as of this encounter Care Teams Career Manager Relationship Specialty Start Date End Date Alex Koo MD PCP - General Family Practice 04/19/16 10/26/20 [place] [address] [address] [address] PCP - General Family Practice 10/27/20 Radha Knight APRN ASSISTANT NURSE MANAGER [address] [address] [address] PCP - Assigned PCP 11/19/17 07/21/18 [place] [address] [address] [place] [address] PCP - Assigned PCP 07/22/18 08/14/18 Alex Koo MD Family Practice 10/27/20 Radha Knight APRN ASSISTANT NURSE MANAGER [address] [place] [place] [id number] Assigned PCP 11/19/17 07/21/18 [place] [address] [place] [id number] Assigned PCP 07/22/18 11/16/19 Radha Knight APRN ASSISTANT NURSE MANAGER [address] [place], [place] [id number] Assigned PCP 11/17/19 03/14/20 Dinesh Mac MD [address] [address] [facility] [address] [place] [id number] Assigned PCP 03/15/20 08/15/20 [place] [address] [place], [place] [id number] Assigned PCP 08/16/20 11/21/20 [place] [address] [place] [address] Assigned PCP 11/22/20 05/20/22 Rosa Moyer APRN CNM Assigned OBGYN Provider 12/25/20 04/08/22 Barbara Cheng MD [address] [place] [address] Assigned OBGYN Provider 04/09/22 Umesh Lima PA-C [address] [place] [address] Assigned PCP 05/21/22 10/02/23 Umesh Lima PA-C [address] [place] [address] Assigned Pain Medication Provider 06/20/22 12/09/22 [place] [address] [place] [address] Assigned PCP 10/03/23 01/01/24 Umesh Lima PA-C [address] [place] [address] Assigned PCP 01/02/24 05/03/25 Amanda Ocasio CNM [address] [place] [address] Assigned OBGYN Provider 10/02/24 [facility] [id number] [place] [address] Assigned PCP 05/04/25 documented as of this encounter
--- OUTSIDE RECORDS SUMMARY | 2025-05-05 17:40 | XMS_ITS | Clinical Summary ---
Author Organization [place] Address [address] [place] [address] Care Team Providers Care Network Relations Consultant Name Role Phone Alex Koo MD Primary Care Provider [phone] Alex Koo MD Unavailable [facility] Unavailable [phone] [place] [address] Unavail able Allergies Active Allergy Reactions Criticality Noted Date [...] mouth daily. 84 tablet 1 5 Active diclofenac (VOLTAREN) 75 MG EC tabletIndicatio ns:Acute non-recurrent maxillary sinusitis Take 1 tablet (75 mg) by mouth 2 times daily for 7 days. 14 tablet 5 Active amoxicillin-cla vulanate (AUGMENTIN) 875-125 MG tabletIndicatio ns:Acute non-recurrent maxillary sinusitis Take 1 tablet by mouth 2 times daily for 7 days. 14 tablet 5 04/09/20 25 Active Problems Patient Care Coordination No te Formatting of this note migh t be different from the original. [email or web address] Problem Noted Date Diagnosed Date Recurrent major [...] Encounters Date Type Department Care Team Description 04/03/2025 Results Follow-Up [facility] [address] [place] [address] Niurka Valladares RN Subj: Test Result 04/02/2025 12:50 PM CDT Office Visit [facility] [address] [place] [address] Tequila Ojeda PA-C Acute non-recurrent maxillary sinusitis (Primary Dx); Throat pain 04/02/2025 Travel 03/19/2025 Refill [facility] [address] [facility] [address] [place] [address] Amanda Ocasio CNM from Last 3 Months Immunizations Immunization [...] on file 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 Gender Identity Not on file Sexual Orientation [...] 14.4 oz) 025 12:55 PM CDT Height 177.8 cm (5' 10) 10/23/2024 3:02 PM CDT Body Mass Index 27.1 10/23/2024 3:02 PM CDT Plan of Treatment Health Maintenance Due Date Last Done Comments HEPATITIS B VACCINE (1 of 3 - 19+ 3-dose series) 2005 HPV VACCINE (2 - 3-dose series) 08/30/2007 08/02/2007 DTAP/TDAP/TD VACCINE (2 - Td or Tdap) 03/17/2019 03/17/2009 ANNUAL REVIEW OF HM ORDERS 11/13/2021 11/13/2020 COVID-19 VACCINE ( - season) 2025 INFLUENZA [...] Procedure Name Priority Date/Time Associated Diagnosis Comments GROUP A STREPTOCOCCUS PCR THROAT SWAB Routine 04/02/2025 1:00 PM CDT Throat pain STREPTOCOCCUS A RAPID SCREEN W REFELX TO PCR Routine 04/02/2025 1:00 PM CDT Throat pain HPV AND GYNECOLOGIC CYTOLOGY PANEL Routine 09/12/2024 3:19 PM CDT Cervical cancer screening BASIC METABOLIC PANEL Routine 09/02/2024 4:00 PM CDT Alcohol abuse from Last 3 Months or Most Recently Relevant to Health Maintenance Results * Streptococcus A Rapid Screen w/Reflex to PCR - Clinic Collect (04/02/2025 1:00 PM CDT) Group A Strep antigen Negative Negative 04/02/2025 1:17 PM CDT [facility] Swab STRUCTURE OF ANTERIOR REGION OF NECK / Unknown Non-blood Collection / Unknown 04/02/2025 1:00 PM CDT 04/02/2025 1:06 PM CDT us Carolyn Wood MD LAB - MICRO GENERAL ORDERABLE S Final Result LABORATORY [facility] [place] [facility] [address] [facility] Lab (no room number, 1st floor of clinic) [place] [address], [facility] * Group A Streptococcus PCR Throat Swab (04/02/2025 1:00 PM CDT) Pathologist [facility] Group A strep by PCR Not Detected Not Detected 04/02/2025 8:48 PM CDT [facility] Swab STRUCTURE OF ANTERIOR REGION OF NECK / Unknown Non-blood Collection / Unknown 04/02/2025 1:00 PM CDT 04/02/2025 1:17 PM CDT Narrative [facility] - 04/02/2025 8:48 PM CDT The Xpert Xpress Strep A test, performed on the [employer], is a rapid, qualitative in [...] ORDERABLE S Final Result [facility] Inf. Diseases Diag. Lab [address] [facility], [address] [place] [address], [facility] * HPV and Gynecologic Cytology [...] for high risk HPV DNA. METHODOLOGY: The [employer] system uses automated extraction, simultaneous amplification of [...] CDT 09/12/2024 5:02 PM CDT us Amanda NAIKM LAB - BLOOD ORDERABLES Final Re sult [facility] Specialty Lab [address] [facility], [address] [place] [phone] MOLECULAR DIAGNOSTICS Molecular Diagnostics [address] [facility], [address] [place] [phone] * Basic metabolic panel (Ca, Cl, CO2, Creat, Gluc, K, Na, BUN) (09/02/2024 4:00 PM CDT) [facility] Sodium 138 135 - 145 mmol/L 09/03/2024 [...] PM CDT us Luis Carlos Roblero APRN LUMPIA WRAPPER MAKER LAB - BLOOD ORDERABLES Meghan urbano Result [facility] Remus Core Lab [address] [facility], [address] [place] [phone], [facility] from Last 3 Months or Most Recently Relevant to Health Maintenance Insurance [employer] Care Teams Network Relations Consultant Relationship Specialty [place] [address] [address] [address] PCP - General Family Practice 10/27/20 [place] [address] [place] [address] Family Practice 10/27/20 Amanda Ocasio CNM [address] [place] [address] Assigned OBGYN Provider 10/02/24 [facility] [place] [facility] [address] [place] [address] Assigned PCP 05/04/25
--- OUTSIDE RECORDS SUMMARY | 2025-05-05 17:40 | XMS_ITS | Encounter Summary ---
Author Organization [place] Address [address] [place] [address] Care Team Providers Care Corporate Sales Manager Name Role Phone Alex Koo MD Primary Care Provider [phone] Alex Koo MD Unavailable September Vicki IBRAHIM Unavailable + [phone] Alex Koo MD Unavailable Rosa Moyer APRN CNM Unavailable Unavaila [facility] Barbara Cheng MD Unavailable [phone] Umesh Lima PA-C Unavailable +[phone] Umesh Lima PA-C Unavailable +[phone] Alex Koo MD Unavailable Umesh Lima PA-C Unavailable +[phone] Amanda Ocasio CNM Unavailable [phone] [place] [address] Unavail able Encounter Details Date Type Department Care Team (Late st Contact Info) Description 10/27/2020 Records - [facility] CONVERSION Scan, Non-Provider Social History Tobacco Use Types Packs/Day Years Used Date Smoking Tobacco: Never Assessed PHQ-2 Answer Date Recorded PHQ-2 Score 2 07/31/2020 Comments No Sex and Gender Information Value Date Recorded Sex Assigned at Not on file 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 Gender Identity Not on file Sexual Orientation Not on file documented as of this encounter Plan of Treatment Not on file documented as of this encounter Visit Diagnoses Not on filedocumented in this encounter Additional Health Concerns Assessment Noted Time PHQ-9 Depression Total Score: 4 07/31/19 21 5:02 PM SUCTION DRUM DRIER OPERATOR documented as of this encounter Care Teams Corporate Sales Manager Relationship Specialty [place] [address] [address] [address] PCP - General Family Practice 10/27/20 [place] [address] [address] [address] [facility] 10/27/20 [place] [address] [place] [address] Assigned PCP 08/16/20 11/21/20 [place] [address] [address] [place] [address] Assigned PCP 11/22/20 05/20/22 Rosa Moyer APRN CNM Assigned OBGYN Provider 12/25/20 04/08/22 Barbara Cheng MD [address] [place] [address] Assigned OBGYN Provider 04/09/22 Umesh Lima PA-C [address] [address] [place] [address] Assigned PCP 05/21/22 10/02/23 Umesh Lima PA-C [address] [address] [address] Assigned Pain Medication Provider 06/20/22 12/09/22 [place] [address] [address] [place] [address] Assigned PCP 10/03/23 01/01/24 Umesh Lima PA-C [address] [place] [address] Assigned PCP 01/02/24 05/03/25 Amanda Ocasio CNM [address] [place] [address] Assigned OBGYN Provider 10/02/24 [facility] [address] [address] Assigned PCP 05/04/25 documented as of this encounter
--- OUTSIDE RECORDS SUMMARY | 2025-05-05 17:40 | XMS_ITS | Encounter Summary ---
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 Gender Identity Not on file Sexual Orientation Not on file documented as of this encounter Plan of Treatment Not on file documented as of this encounter Visit Diagnoses Not on filedocumented in this encounter Additional Health Concerns Assessment Noted Time PHQ-9 Depression Total Score: 7 10/03/19 25 3:10 PM CDT documented as of this encounter Care Teams Telegraphic Typewriter Operator Chief Relationship Specialty [place] [address] [address] [address] PCP - General Family Practice 10/27/20 [place] [address] [address] [address] Family Practice 10/27/20 Umesh Lima PA-C [address] [address] [address] Assigned PCP 01/02/24 05/03/25 Amanda Ocas[place] [address] Assigned OBGYN Provider 10/02/24 documented as of this encounter
--- OUTSIDE RECORDS SUMMARY | 2025-05-05 17:40 | XMS_ITS | Encounter Summary ---
Author Organization [place] Address [address] [place] [address] Care Team Providers Care Coronary Care Unit Nurse Name Role Phone Alex Koo MD Primary Care Provider [phone] Alex Koo MD Unavailable Umesh Lima PA-C Unavailable [phone] Amanda Ocasio Unavailable [phone] [place] [address] - [facility] Unavail able Encounter Details Date Type Department Care Team (Late st Contact Info) Description 04/03/2025 Results Follow-Up [facility] [address] [address] Niurka Garcia RN Subj: Test Result Social History Tobacco Use Types Packs/Day Years [...] file 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 Gender Identity Not on file Sexual Orientation Not on file documented as of this encounter Plan of Treatment Not on file documented as of this encounter Visit Diagnoses Not on filedocumented in this encounter Additional Health Concerns Assessment Noted Time PHQ-9 Depression Total Score: 7 10/03/19 25 3:10 PM CDT documented as of this encounter Care Teams Coronary Care Unit Nurse Relationship Specialty [place] [address] [address] [address] PCP - General Family Practice 10/27/20 [place] [address] [address] [place] [address] Family Practice 10/27/20 Umesh Lima PA-C [address] [address] [place] [address] Assigned PCP 01/02/24 05/03/25 Amanda [place] [address] Assigned OBGYN Provider 10/02/24 Clinic - [facility] [address] [place] [address] Assigned PCP 05/04/25 documented as of this encounter
--- OUTSIDE RECORDS SUMMARY | 2025-05-05 17:40 | XMS_ITS | Encounter Summary ---
Author Organization [place] Address [address] [place] [address] Care Team Providers Care Healthcare Economics Manager Name Role Phone Alex Koo MD Primary Care Provider + [phone] Alex Koo MD Primary Care Provider + Alex Koo MD Unavailable + Radha Knight APRN CORRECTIONS COUNSELOR Unavailable + Alex Koo MD Unavailable + Radha Knight APRN CORRECTIONS COUNSELOR Unavailable + Alex Koo MD Unavailable + Radha Knight APRN CORRECTIONS COUNSELOR Unavailable + Dinesh Mac MD Unavailable [facility]placed By [facility] Vicki IBRAHIM Unavailable + [phone] Alex Koo MD Unavailable + Rosa Moyer ROLLER MAKER CNM Unavailable Unavaila Barbara Mckeon MD Unavailable [phone] Umesh Lima-C Unavailable + Umesh Lima-C Unavailable + Alex Koo MD Unavailable + Umesh Lima PA-C Unavailable + Amanda Ocasio CNM Unavailable [phone] [facility] Encounter Details Date Type Department Care Team (Late st Contact Info) Description 07/12/2017 MyC Medical Advice [facility] [address] [facility], [address] [place] [phone] Mary Joshi, VINYL DIPPER Social History Tobacco Use Types Packs/Day Years Used Date Smoking Tobacco: Never Smokeless Tobacco: Never Alcohol Use Standard Drinks/Week Comments Yes 0 (1 standard drink = 0.6 oz pur e alcohol) occasional 2-4 monthly Comments No Sex and Gender Information Value Date Recorded Sex Assigned at Not on file 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 Gender Identity Not on file Sexual Orientation Not on file documented as of this encounter Plan of Treatment Not on file documented as of this encounter Visit Diagnoses Not on filedocumented in this encounter Additional Health Concerns Assessment Noted Time PHQ-9 Depression Total Score: 2 11/17/19 17 7:16 AM CDT documented as of this encounter Care Teams Healthcare Economics Manager Relationship Specialty Start Date End Date Alex Koo MD PCP - General Family Practice 04/19/16 10/26/20 [place] [address] [address] [address] PCP - General Family Practice 10/27/20 Radha Knight APRN CORRECTIONS COUNSELOR [address] [address] [address] PCP - Assigned PCP 11/19/17 07/21/18 [place] [address] [address] [address] PCP - Assigned PCP 07/22/18 08/14/18 Alex Koo MD Family Practice 10/27/20 Radha Knight APRN CORRECTIONS COUNSELOR [address] [place], [place] [id number] Assigned PCP 11/19/17 07/21/18 [place] [address] [address] [place] [id number] Assigned PCP 07/22/18 11/16/19 Radha Knight APRN CORRECTIONS COUNSELOR [address] [address] [place], [place] [id number] Assigned PCP 11/17/19 03/14/20 Dinesh Mac MD [address] [facility] [address] [place] [id number] Assigned PCP 03/15/20 08/15/20 [place] [address] [place], [place] [id number] Assigned PCP 08/16/20 11/21/20 [place] [address] [place] [address] Assigned PCP 11/22/20 05/20/22 Rosa Moyer APRN CNM Assigned OBGYN Provider 12/25/20 04/08/22 Barbara Cheng MD [address] [place] [address] Assigned OBGYN Provider 04/09/22 Umesh Lima PA-C [address] [place] [address] Assigned PCP 05/21/22 10/02/23 Umesh Lima PA-C [address] [place] [address] Assigned Pain Medication Provider 06/20/22 12/09/22 [place] [address] [place] [address] Assigned PCP 10/03/23 01/01/24 Umesh Lima PA-C [address] [place] [address] Assigned PCP 01/02/24 05/03/25 Amanda Ocasio CNM [address] [place] [address] Assigned OBGYN Provider 10/02/24 [facility] [address] [place] [address] Assigned PCP 05/04/25 documented as of this encounter
[2025-05-05 17:45] LABS: Appearance Urine Clear (Clear)
[2025-05-05 17:46] LABS: Ur HCG Qualitative* Negative (Negative)
[2025-05-05 18:20] LABS: Hematocrit* 43.5 % (33.0-51.0); Hemoglobin* 14.5 gm/dL (12.0-16.0); Immature Granulocytes Abs Auto 0.01 K/uL (0.00-0.30); Immature Granulocytes Pct Auto 0.1 %; Mean Corpuscular HGB Conc 33 gm/dL (32-36); Mean Corpuscular Hemoglobin 32 pg (26-34); Mean Corpuscular Volume 96 fL (80-100); RDW Coefficient of Variation % 11.4 % (11.5-15.5); Red Blood Count* 4.54 m/uL (4.00-5.20); White Blood Count* 10.63 K/uL (4.50-11.00)
[2025-05-05 18:21] LABS: Troponin, Point-of-Care* 0.00 ng/ml (0.01-0.04)
[2025-05-05 18:24] LABS: Lymphocytes Absolute Auto 2.10 K/uL (0.90-2.90); Slide Review Reflex No
[2025-05-05] MEDS: ONDANSETRON 2 MG/ML inj 4 MG IVP (18:26)
--- NOTE | 2025-05-05 18:28 | ED.ABDPAIN ---
HPI - Abdominal Pain General Date Seen: 05/05/25 Chief Complaint: Abdominal Pain Stated Complaint: right side pin/ blacked out twice today Time Seen by Provider: 05/05/25 17:11 Source: patient, family, RN notes reviewed and old records reviewed Mode of arrival: ambulatory Limitations: no limitations History of Present Illness HPI narrative: Patient is a 39-year-old female presents here with right upper quadrant pain. She has had this now for approximately 1 month the became acutely worse today, said it buckled her to her knees and she actually passed out twice with the pain. She was in here, had multiple chest x-rays, and a point of care ultrasound, the did not show any etiology of her discomfort. No history of previous syncopal issues. She does have a history of heavy alcohol use. Greater than 6 drinks per day. Denies any falls or injury leading up to this. 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 She was placed on her last visit here on a early part of March on gabapentin, but a stop this this did work for some of her discomfort. She presents with her boyfriend, He has no chest pain, no shortness of breath, she has no pro retic nature to this. She says food does not affect this at all and she has not been vomiting her bowel movements have been normal. There is no dysuria frequency, she tells me that she can not be . MD elicited complaint: abdominal pain Related Data Home Medications ?Medication ?Instructions ?Recorded ?Confirmed buspirone 5 mg tablet 5 mg PO 3XD 09/23/24 05/05/25 levonorgestrel-ethinyl estradiol 1 tab PO DAILY 02/07/25 05/05/25 0.1 mg-20 mcg tablet (Vienva) Previous Rx's ?Medication ?Instructions ?Recorded gabapentin 300 mg capsule 300 mg PO TID #45 caps 02/07/25 gabapentin 300 mg capsule 300 mg PO TID #90 caps 03/18/25 hydrocodone 5 mg-acetaminophen 325 1 - 2 tab PO BID PRN pain #8 tabs 03/18/25 mg tablet lidocaine 5 % topical patch 1 patch topical DAILY #15 ea 03/31/25 gabapentin 300 mg capsule 300 mg PO TID #90 caps 05/05/25 Allergies Allergy/AdvReac Type Severity Reaction Status Date / Time No Known Drug Allergies Allergy Verified 05/05/25 16:01 Review of Systems Status of ROS Reports: 10 or more systems reviewed and unremarkable except as noted in History and below [facility] Social History Smoking Status: Never smoker Do you use any of these nicotine containing products: None Second hand tobacco smoke exposure: No How often do you have a drink containing alcohol: 4 or more times a week How many standard drinks containing alcohol do you have on a typical day: 7 to 9 How often do you have six or more drinks on one occasion: Daily or almost daily AUDIT-C Alcohol total score: 11 Non-prescribed substance use: denies use service: No Exam Narrative: Exam Narrative: On examination in room 2 she is in no apparent distress she is pleasant alert her pupils equal round reactive to light her vital signs are normal with a slight elevation of blood pressure notable. With a systolic of 160 and a diastolic of 120. Neck is supple no evidence of trauma over the head or neck region. Her TMs are normal chest is good air entry bilaterally no wheezing crackles noted heart sounds are normal no clicks murmurs or gallops her abdomen shows some mild tenderness to moderate in the epigastric right upper quadrant tenderness. Mildly positive Junior sign is noted. No CVA tenderness is noted. No lower abdominal tenderness is noted bowel sounds are normal. She moves all extremities independently and well. Back is nontender, she is able to walk and move around normally. Forward flexion backward extension lateral flexion thoracic rotation are all normal with no palpable masses or tenderness noted over her thoracic or lumbar spine. SLR is are negative to 90?. Const: Vital Signs, click to edit/add: Vital Signs - 24 hr 05/05/25 15:54 05/05/25 17:33 05/05/25 19:54 Temperature 97 F L Pulse Rate 79 Pulse Rate [Pulse Oximeter] 77 Respiratory Rate 18 21 Blood Pressure 160/116 H Blood Pressure [Le ft Forearm] 165/124 H Pulse Oximetry 99 95 96 Oxygen Delivery Me thod Room Air 05/05/25 20:02 05/05/25 20:53 05/05/25 21:02 Temperature Pulse Rate 75 90 86 Pulse Rate [Pulse Oximeter] Respiratory Rate 18 20 18 Blood Pressure 146/94 H 139/90 H 156/105 H Blood Pressure [Le ft Forearm] Pulse Oximetry 98 97 95 Oxygen Delivery Me thod 05/05/25 21:45 05/05/25 21:50 05/05/25 22:06 Temperature 98.2 F 98.2 F 98.2 F Pulse Rate 88 Pulse Rate [Pulse Oximeter] 71 71 Respiratory Rate 18 18 18 Blood Pressure 135/85 Blood Pressure [Le ft Forearm] 145/89 H 145/89 H Pulse Oximetry 96 96 Oxygen Delivery Me thod Room Air Documenting provider has reviewed patient's vital signs: yes Course Vital Signs Vital signs: Initial Vital Signs Temperature 97 F L 05/05/25 15:54 Temperature Source Temporal Artery Scan 05/05/25 15:54 Pulse Rate 77 05/05/25 15:54 Pulse Rhythm Regular 05/05/25 15:54 Respiratory Rate 18 05/05/25 15:54 Blood Pressure 165/124 H 05/05/25 15:54 Blood Pressure Mean 137 H 05/05/25 15:54 Pulse Oximetry 99 05/05/25 15:54 Oxygen Delivery Method Room Air 05/05/25 15:54 Vital Signs Temperature 97 F L 05/05/25 15:54 Pulse Rate 77 05/05/25 15:54 Respiratory Rate 18 05/05/25 15:54 Blood Pressure 165/124 H 05/05/25 15:54 Pulse Oximetry 99 05/05/25 15:54 Oxygen Delivery Method Room Air 05/05/25 15:54 Temperature 98.2 F 05/05/25 22:06 Pulse Rate 71 05/05/25 22:06 Respiratory Rate 18 05/05/25 22:06 Blood Pressure 145/89 H 05/05/25 22:06 Pulse Oximetry 96 05/05/25 21:50 Oxygen Delivery Method Room Air 05/05/25 21:50 Medications Administered Medications: Discontinued Medications Generic Name Dose Route Start Last Admin Trade Name Freq PRN Reason Stop Dose Admin Hydromorphone HCl 0.5 mg 05/05/25 18:09 05/05/25 18:26 Hydromorphone 0.5 Mg/0.5 Ml Inj IVP 05/05/25 18:10 0.5 mg ONCE ONE Administration Hydromorphone HCl 0.2 mg 05/05/25 20:48 05/05/25 20:52 Hydromorphone 0.5 Mg/0.5 Ml Inj IVP 05/05/25 20:49 0.2 mg ONCE ONE Administration Sodium Chloride 1,000 mls @ 1,000 mls/hr 05/05/25 17:45 05/05/25 19:34 0.9 % Sodium Chloride 1000 Ml IV 05/05/25 18:44 Infused .Q1H RUBEN Infusion Ondansetron HCl 4 mg 05/05/25 18:13 05/05/25 18:26 Ondansetron 2 Mg/Ml Inj IVP 05/05/25 18:14 4 mg ONCE ONE Administration MDM - Abdominal Pain MDM Narrative Medical decision making narrative: During the evaluation of this patient I considered multiple differential diagnosis including life-threatening differentials which are appendicitis, aortic aneurysm, mesenteric ischemia, bowel perforation, ectopic , volvulus and bowel obstruction, other differential diagnosis include but are not limited to inflammatory bowel disease, cholecystitis, pancreatitis, hepatitis, gastritis, GERD, diverticulitis, peptic ulcer disease, pyelonephritis/UTI, renal colic/stone, pelvic inflammatory disease, cervicitis, endometritis, intrauterine , dysfunctional uterine bleeding, ovarian cyst/torsion, spontaneous as well as other etiologies I think it would be reasonable to do a formal ultrasound, to rule out any issues here as she just had a point of care she has recently had a CT scan I see at the end of February. Which was not showing any evidence of any gallstones or renal stones. We will do laboratory work also, go forward with this. Further workup will be based on this. Medical Records Attestation: I reviewed the patient's medical records. Lab Data Attestation: I reviewed the patient's lab results. Labs: Lab Results 05/05/25 05/05/25 05/05/25 Range/Units 17:15 17:33 18:05 WBC 10.63 (4.50-11.00) K/uL RBC 4.54 (4.00-5.20) m/uL Hgb 14.5 (12.0-16.0) gm/dL Hct 43.5 (33.0-51.0) % MCV 96 (80-100) fL MCH 32 (26-34) pg MCHC 33 (32-36) gm/dL RDW Coeff of Elliott 11.4 L (11.5-15.5) % Plt Count 309 (140-440) K/uL Neut % (Auto) 71.5 (42.0-72.0) % Lymph % (Auto) 19.3 L (20-44) % Providence % (Auto) 6.9 (0.0-11.0) % Eos % (Auto) 1.8 (0.0-7.0) % Baso % (Auto) 0.4 (0.0-3.0) % Neut # (Auto) 7.61 H (1.7-7.0) K/uL Lymph # (Auto) 2.10 (0.90-2.90) K/uL Providence # (Auto) 0.70 (0.00-0.90) K/UL Eos # (Auto) 0.19 (0.00-0.50) K/uL Baso # (Auto) 0.04 (0.00-0.30) K/uL Abs Immat Gran (auto) 0.01 (0.00-0.30) K/uL Imm/Tot Granulo (auto) 0.1 % D-Dimer Quant (PE/DVT) 0.98 H (0.00-0.50) ug/ml Sodium 137 (135-149) mmol/L Potassium 3.8 (3.6-5.1) mmol/L Chloride 97 (96-114) mmol/L Carbon Dioxide 23 (20-32) mmol/L Anion Gap 17 H (7-15) mEq/L BUN 8 (5-24) mg/dL Creatinine 0.6 (0.5-1.5) mg/dL Estimated Creat Clear 137.48 Estimated GFR 118 ml/min Glucose 86 (60-115) mg/dL Calcium 9.7 (8.4-10.6) mg/dL Total Bilirubin 0.9 (0.1-1.5) mg/dL Direct Bilirubin 0.3 (0.0-0.5) mg/dL AST 103 H (12-35) U/L ALT 54 H (4-35) U/L Alkaline Phosphatase 63 (40-150) U/L C-Reactive Protein < 0.5 L (0.5-1.0) mg/dL Total Protein 8.5 H (6.0-8.3) g/dL Albumin 4.6 (3.3-5.0) g/dL Lipase 69 (23-300) U/L Urine Color Yellow (Yellow) Urine Appearance Clear (Clear) Urine pH 6.0 (5.0-8.5) Ur Specific Nash <= 1.005 (1.000-1.030) Urine Protein Negative (Negative) Urine Glucose (UA) Negative (Negative) Urine Ketones Negative (Negative) Urine Blood Negative (Negative) Urine Nitrite Negative (Negative) Urine Bilirubin Negative (Negative) Urine Urobilinogen 0.2 (0.2-1.0) Ur Leukocyte Esterase Negative (Negative) Urine HCG, Qual Negative (Negative) Urine Opiates Screen Negative (Negative) Ur Buprenorphine Scrn Negative (Negative) Ur Oxycodone Screen Negative (Negative) Urine Methadone Screen Negative (Negative) Ur Barbiturates Screen Negative (Negative) U Tricyclic Antidepress Negative (Negative) Ur Phencyclidine Scrn Negative (Negative) Ur Amphetamines Screen Negative (Negative) U Methamphetamines Scrn Negative (Negative) U Benzodiazepines Scrn Negative (Negative) Urine Cocaine Screen Negative (Negative) U Marijuana (THC) Screen Negative (Negative) Ur Drug Screen Comment See Note Ethyl Alcohol 0.02 (0.01-0.03) % POC Troponin I 0.00 L (0.01-0.04) ng/ml ECG Data Attestation: I personally reviewed and interpreted this ECG as follows: ECG interpretation date: 05/05/25 Interpretation: EKG shows normal sinus rhythm, with ventricular rate of 80, QRS is 84 milliseconds, QT is 380, QTC is 438. Discharge Plan Discharge Clinical Impression: Chest wall pain Patient Disposition: Home w/ Parent or Adult Condition: Stable Instructions: Noncardiac Chest Pain (ED), Chest Wall Pain (ED) Additional Instructions: Home rest, use the gabapentin, I gave you a prescription for 30 days but she will need to follow-up with primary care. I gave the names of 2 excellent primary care physician's you can see. Activity Level: Light activity Discharge Diet: Regular Prescriptions: New gabapentin 300 mg capsule 300 mg PO TID Qty: 90 1RF No Action buspirone 5 mg tablet 5 mg PO 3XD levonorgestrel-ethinyl estrad [Vienva] 0.1-20 mg-mcg tablet 1 tab PO DAILY gabapentin 300 mg capsule 300 mg PO TID Qty: 45 1RF gabapentin 300 mg capsule 300 mg PO TID Qty: 90 2RF hydrocodone-acetaminophen 5-325 mg tablet 1 - 2 tab PO BID PRN (Reason: pain) Qty: 8 0RF lidocaine 5 % adhesive patch,medicated 1 patch topical DAILY Qty: 15 0RF Rx Instructions: leave on most painful area for up to 12 hrs Follow Up/Referrals: Provider,Not a Local [Primary Care Provider, Family Practice] Stand Alone Forms: MyHealth Info Instructions
[2025-05-05 18:34] LABS: Albumin* 4.6 g/dL (3.3-5.0); Chloride* 97 mmol/L (96-114); Potassium* 3.8 mmol/L (3.6-5.1); Sodium* 137 mmol/L (135-149)
[2025-05-05 18:36] LABS: Blood Urea Nitrogen* 8 mg/dL (5-24); Creatinine* 0.6 mg/dL (0.5-1.5); Est. Creatinine Clearance* 137.48; Estimated Glomerular Filt Rate 118 ml/min
[2025-05-05 18:37] LABS: Alanine Aminotransferase* 54 U/L (4-35); Alkaline Phosphatase* 63 U/L (40-150); Anion Gap 17 mEq/L (7-15); Aspartate Amino Transferase* 103 U/L (12-35); Bilirubin Direct* 0.3 mg/dL (0.0-0.5); Bilirubin Total* 0.9 mg/dL (0.1-1.5); Calcium* 9.7 mg/dL (8.4-10.6); Carbon Dioxide* 23 mmol/L (20-32); D Dimer Quantitative* 0.98 ug/ml (0.00-0.50); Glucose* 86 mg/dL (60-115); Total Protein* 8.5 g/dL (6.0-8.3)
[2025-05-05 18:38] LABS: Ethanol* 0.02 % (0.01-0.03)
[2025-05-05 19:05] LABS: Cannabinoid Screen Urine Negative (Negative); Methamphetamines Screen Urine Negative (Negative); Tricyclic Antidepressant Urine Negative (Negative)
--- NOTE | 2025-05-05 19:39 | CRLHL7_ITS ---
For Patients: As a result of the Century Cures Act, medical imaging exams and procedure reports are released immediately into your electronic medical record. You may view this report before your referring provider. If you have questions, please contact your health care provider. INDICATION: Right sided chest pain, elevated D-dimer. TECHNIQUE: CT chest angiogram acquired with 95 cc Isovue 370 IV contrast according to the PE protocol. Coronal and sagittal reconstructions. 3D MIPS post-processing was performed. COMPARISON: CT chest 06/22/2024. FINDINGS: Cardiovascular structures: Normal heart size. Ectatic ascending thoracic aorta measuring 3.9 cm in AP dimension. Normal caliber central pulmonary arteries. No acute pulmonary embolism identified. Mediastinum and taylor: No pathologically enlarged lymph nodes. No pericardial effusion. There is a 2.6 x 1.7 cm circumscribed low-density structure along the right heart border which is slightly decreased in size compared to prior exam (series 4, image 143). This likely represents a benign pericardial cyst. Lungs and pleura: No focal consolidation, pleural effusion, or pneumothorax. Bibasilar atelectasis. Mild diffuse bronchial wall thickening. Stable 2 mm noncalcified pulmonary nodule in the anterior right upper lobe (series 5, image 54). Stable 1-2 mm noncalcified pulmonary nodule in the lingula (image 115). Chest wall: No mass or adenopathy. Upper abdomen: Focal fatty infiltration about the gallbladder fossa and falciform ligament. Remainder unremarkable. Bones: Subacute appearing fracture of the left posterolateral 9th rib. IMPRESSION: 1. Negative for acute pulmonary embolism. 2. Ectatic ascending thoracic aorta measuring 3.9 cm in AP dimension. 3. Mild diffuse bronchial wall thickening suggesting bronchitis. No focal lung infiltrates. 4. Stable tiny noncalcified pulmonary nodules measuring up to 2 mm. Please see follow-up guidelines below. 5. Subacute appearing fracture of the left posterolateral 9th rib. [employer] GUID[employer]INES - SOLID NODULES: : MULTIPLE LOW RISK - nodule less than 6 mm: No routine follow-up. - nodule 6-8 mm: CT at 3-6 months, then consider CT at 18-24 months. - nodule greater than 8 mm: CT at 3-6 months, then consider CT at 18-24 months. MULTIPLE HIGH RISK - nodule less than 6 mm: Optional CT at 12 months. - nodule 6-8 mm: CT at 3-6 months, then at 18-24 months. - nodule greater than 8 mm: CT at 3-6 months, then at 18-24 months. Please note that all CT scans at this facility use dose modulation, iterative reconstruction, and/or weight-based dosing when appropriate to reduce radiation dose to as low as reasonably achievable. Dictated by Melanie Evans MD @ 05/05/2025 9:36:42 PM (Electronically Signed)
== END 2025-05-05 22:07 | disposition home or self-care (01) ==
PROVIDERS: Family Medicine; Emergency Provider Family Medicine
DX: R10.11 Right upper quadrant pain (principal)
CPT/HCPCS: 36415; 71275; 76705; 80048; 80076; 80306; 81001; 81003; 81025; 82077; 83690; 84484; 85025; 85379; 86140; 93005; 94761; 96361; 96374; 96375; 96376; 99284; 99285; J1171; J2405; J7030; Q9967

== ENCOUNTER 2025-05-20 00:37 | Emergency (ER) | payer OTHER, SELFPAY ==
--- OUTSIDE RECORDS SUMMARY | 2025-05-20 00:39 | XMS_ITS | Clinical Summary ---
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 Gender Identity Not on file Sexual [...] booster 03/17/2019 03/17/2009, 07/13/1998 COVID-19 vaccine series (2024- season) 2025 Influenza Vaccine (#1) 2025 RSV vaccine for adults or (1 - 1-dose 75+ series) 2061 HPV series for age 9-45 Completed 05/15/20 12, 01/13/2012, 08/02/2007 Pneumococcal series for age 6-49 Aged Out No longer eligible based on patient's age to complete this topic Procedures Procedure Name Priority Date/Time Associated Diagnosis Comments STUDY COORDINATOR THIN PREP PAP DIAGNOSTIC IMAGED Routine 02/23/2012 1:31 PM CDT Screening for malignant neoplasm of the cervix from Last 3 Months or Most Recently Relevant to Health Maintenance Results * STUDY COORDINATOR THIN PREP PAP DIAGNOSTIC IMAGED (02/23/2012 1:31 PM CDT) CYTOLOGY CYTOPATHOLOGY REPORT [facility] Status: Final Status [id number] CLINICAL INFORMATION Last Date of LMP :02/04/2012 Last Pap Date :06/04/2010 Last Pap Result :NIL ABN Marion/Bx Past 5 YRS :None Hormone Usage :None Menstrual Status :Regular Periods Marion/Bx done today :No Additional Information :None given [...] malignant lesions. COLLECTED:02/23/12 ACCESSIONED: 02/24/12 SIGNED: 02/29/12 [facility] PAP [place] CODE NIL [facility] Tissue specimen (specimen) (Cervical/Vagina l) 02/23/2012 1:31 PM CDT 02/23/2012 1:27 PM CDT us Barbara Cassidy MD PATHOLOGY/CYTOLOGY Final Resu lt [facility] [place]IP [id number] [place] [id number] from Last 3 Months or Most Recently Relevant to Health Maintenance Insurance [facility] Care Teams Agriculturist Relationship Specialty Start Date End Date Pcp, No . PCP - General 03/21/16
--- OUTSIDE RECORDS SUMMARY | 2025-05-20 00:39 | XMS_ITS | Encounter Summary ---
Author Organization [facility] Address [address] [place] [address] Care Team Providers Care Director Of Dance Name Role Phone Alex Koo MD Primary Care Provider [phone] Alex Koo MD Unavailable Daniel Yancy Vicki IBRAHIM Unavailable + [phone] Alex Koo MD Unavailable Rosa Moyer APRN CNM Unavailable Unavaila [facility] Barbara Cheng MD Unavailable [phone] Umesh Lima PA-C Unavailable [phone] Umesh Lima PA-C Unavailable [phone] Alex Koo MD Unavailable Umesh Lima PA-C Unavailable [phone] Amanda Ocasio CNM Unavailable [phone] [place] [address] Unavail able Encounter Details Date Type Department Care Team (Late st Contact Info) Description 10/27/2020 Records - [facility] CONVERSION Scan, Non-Provider Social History Tobacco Use Types Packs/Day Years Used Date Smoking Tobacco: Never Assessed PHQ-2 Answer Date Recorded PHQ-2 Score 2 07/31/2020 Comments No Sex and Gender Information Value Date Recorded Sex Assigned at Not on file Legal Sex Female 11:55 AM APPRENTICE EMBALMER Gender Identity Not on file Sexual Orientation Not on file documented as of this encounter Plan of Treatment Not on file documented as of this encounter Visit Diagnoses Not on filedocumented in this encounter Additional Health Concerns Assessment Noted Time PHQ-9 Depression Total Score: 4 07/31/19 21 5:02 PM APPRENTICE EMBALMER documented as of this encounter Care Teams Director Of Dance Relationship Specialty [place] [address] [address] [place] [address] PCP - General Family Practice 10/27/20 [place] [address] [address] [address] [facility] Practice 10/27/20 [place] [address] [place] [address] Assigned PCP 08/16/20 11/21/20 [place] [address] [address] [place] [address] Assigned PCP 11/22/20 05/20/22 Rosa Moyer APRN CNM Assigned OBGYN Provider 12/25/20 04/08/22 Barbara Cheng MD [address] [place] [address] Assigned OBGYN Provider 04/09/22 Umesh Lima PA-C [address] [address] [place] [address] Assigned PCP 05/21/22 10/02/23 Umesh Lima PA-C [address] [address] [address] Assigned Pain Medication Provider 06/20/22 12/09/22 [place] [address] [address] [place] [address] Assigned PCP 10/03/23 01/01/24 Umesh Lima PA[place] [address] [place] [address] Assigned PCP 01/02/24 05/03/25 Amanda Ocasio CNM [address] [place] [address] Assigned OBGYN Provider 10/02/24 [facility] - [address] [address] Assigned PCP 05/04/25 documented as of this encounter
--- OUTSIDE RECORDS SUMMARY | 2025-05-20 00:39 | XMS_ITS | Encounter Summary ---
Author Organization [facility] Address [address] [place] [address] Care Team Providers Care Street Light Servicer Supervisor Name Role Phone Alex Koo MD Primary Care Provider + [phone] Alex Koo MD Primary Care Provider + Alex Koo MD Unavailable + Radha Knight APRN DIRECTOR OF GUIDANCE IN PUBLIC [employer]CHOOLS Unavailable + Alex Koo MD Unavailable + Radha Knight APRN DIRECTOR OF GUIDANCE IN [employer] Unavailable + Alex Koo MD Unavailable + Radha Knight APRN DIRECTOR OF GUIDANCE IN [employer] Unavailable + Dinesh Mac MD Unavailable [facility] Yancy Ramirez MD Unavailable + [phone] Alex Koo MD Unavailable + Rosa Moyer CLAIMS COORDINATOR CNM Unavailable Unavaila Barbara Mckeon MD Unavailable [phone] Umesh Lima-C Unavailable + Umesh Lima-C Unavailable + Alex Koo MD Unavailable + Umesh Lima PA-C Unavailable + Amanda Ocasio CNM Unavailable [phone] [place] [address] Encounter Details Date Type Department Care Team (Late st Contact Info) Description 02/02/2018 My[facility] Medical Advice [facility] [address] [facility], [address] [place] [phone] 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, TEMPORARY OFFICE ASSISTANT Social History Tobacco Use Types Packs/Day Years Used Date Smoking Tobacco: Never Smokeless Tobacco: Never Alcohol Use Standard Drinks/Week Comments Yes 0 (1 standard drink = 0.6 oz pur e alcohol) occasional 2-4 monthly Comments No Sex and Gender Information Value Date Recorded Sex Assigned at Not on file 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 Gender Identity Not on file Sexual Orientation Not on file documented as of this encounter Plan of Treatment Not on file documented as of this encounter Visit Diagnoses Not on filedocumented in this encounter Additional Health Concerns Assessment Noted Time PHQ-9 Depression Total Score: 2 11/17/19 17 7:16 AM CDT documented as of this encounter Care Teams Street Light Servicer Supervisor Relationship Specialty Start Date End Date Alex Koo MD PCP - General Family Practice 04/19/16 10/26/20 [place] [address] [address] [place] [address] PCP - General Family Practice 10/27/20 Radha Knight APRN DIRECTOR OF GUIDANCE IN [employer] [address] [address] [address] PCP - Assigned PCP 11/19/17 07/21/18 [place] [address] [address] [place] [address] PCP - Assigned PCP 07/22/18 08/14/18 Alex Koo MD Family Practice 10/27/20 Radha Knight APRN DIRECTOR OF GUIDANCE [employer] [address] [place], [place] [id number] Assigned PCP 11/19/17 07/21/18 [place] [address] [place] [id number] Assigned PCP 07/22/18 11/16/19 Radha Knight APRN DIRECTOR OF GUIDANCE [employer] [address] [address] [place], [place] [id number] Assigned PCP 11/17/19 03/14/20 Dinesh Mac MD [address] [address] [place] [id number] Assigned PCP 03/15/20 08/15/20 [place] [address] [place], [place] [id number] Assigned PCP 08/16/20 11/21/20 [place] [address] [place] [address] Assigned PCP 11/22/20 05/20/22 Rosa Moyer APRN CNM Assigned OBGYN Provider 12/25/20 04/08/22 Barbara Cheng MD [address] [place] [address] Assigned OBGYN Provider 04/09/22 Umesh Lima PA-C [address] [place] [address] Assigned PCP 05/21/22 10/02/23 Umesh Lima PA-C [address] [place] [address] Assigned Pain Medication Provider 06/20/22 12/09/22 [place] [address] [place] [address] Assigned PCP 10/03/23 01/01/24 Umesh Lima PA-C [address] [place] [address] Assigned PCP 01/02/24 05/03/25 Amanda Ocasio CNM [address] [place] [address] Assigned OBGYN Provider 10/02/24 [facility] [id number] [place] [address] Assigned PCP 05/04/25 documented as of this encounter
--- OUTSIDE RECORDS SUMMARY | 2025-05-20 00:39 | XMS_ITS | Clinical Summary ---
Author Organization [place] Address [address] [place] [address] Care Team Providers Care Dermatology Specialist Name Role Phone Alex Koo MD Primary Care Provider [phone] Alex Koo MD Unavailable Amanda Ocasio [facility] Unavailable [phone] [place] [address] Unavail able Allergies Active Allergy Reactions Criticality [...] for 7 days. 14 tablet 5 Active Active Problems Patient Care Coordination No te Formatting of this note migh t be different from the original. [email or web address] Problem Noted Date Diagnosed Date Recurrent major [...] Department Care Team Description 04/03/2025 Results Follow-Up [facility] [address] [place] [address] Niurka Valladares RN Subj: Test Result 04/02/2025 12:50 PM CDT Office Visit [facility] [address] [place] [address] Tequila Ojeda PA-C Acute non-recurrent maxillary sinusitis (Primary Dx); Throat pain 04/02/2025 Travel 03/19/2025 [place] [id number] [facility] [address] [place] [address] Amanda Ocasio CNM from Last [...] on file 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 Gender Identity Not on file Sexual [...] ORDERS 11/13/2021 11/13/2020 COVID-19 VACCINE ( season) 2025 INFLUENZA VACCINE (#1) 2025 PHQ-9 [...] MICRO GENERAL ORDERABLE S Final Result LABORATORY [facility] [address] [facility] (no room number, 1st floor of clinic) [place] [address] * Group A Streptococcus PCR Throat Swab (04/02/2025 1:00 PM CDT) Pathologist [facility] A strep by PCR Not Detected Not Detected 04/02/2025 8:48 PM CDT [facility] Swab STRUCTURE OF ANTERIOR REGION OF NECK / Unknown Non-blood Collection / Unknown 04/02/2025 1:00 PM CDT 04/02/2025 1:17 PM CDT Narrative [facility] - 04/02/2025 8:48 PM CDT The Xpert Xpress Strep A test, performed on the [employer], is a rapid, qualitative in vitro [...] ORDERABLE S Final Result [facility] Inf. Diseases Diag. Lab [address] [facility], [address] [place] [address], [facility] * HPV and Gynecologic Cytology Panel [...] for high risk HPV DNA. METHODOLOGY: The Zwittle system uses automated extraction, simultaneous amplification of [...] sult SPECIALTY LABS [facility] [address] [facility], [address] [place] [address], [facility] MOLECULAR DIAGNOSTICS Molecular Diagnostics [address] [facility], Room [address] [place] [address], [facility] * Basic metabolic panel (Ca, Cl, [...] PM CDT us Luis Carlos Roblero APRN PROFILING MACHINE SET UP OPERATOR LAB - BLOOD ORDERABLES Meghan urbano Result [facility] Rodney Core Lab [address] [facility], [address] [place] [address], [facility] from Last 3 Months or Most Recently Relevant to Health Maintenance Insurance [employer] Property PA [employer] PA [facility] Address: [address] [place] [id number] Care Teams Dermatology Specialist Relationship Specialty [place] [address] [address] [address] PCP - General Family Practice 10/27/20 [place] [address] [address] [address] Family Practice 10/27/20 [facility] [place] [address] Assigned OBGYN Provider 10/02/24 [facility] [id number] [place] [address] Assigned PCP 05/04/25
--- OUTSIDE RECORDS SUMMARY | 2025-05-20 00:39 | XMS_ITS | Encounter Summary ---
Author Organization [place] Address [address] [place] [address] Care Team Providers Care Sleep Medicine Physician Name Role Phone Alex Koo MD Primary Care Provider + [phone] Alex Koo MD Primary Care Provider + Alex Koo MD Unavailable + Radha Knight APRN STAFF NURSE ANESTHETIST Unavailable + Alex Koo MD Unavailable + Radha Knight APRN STAFF NURSE ANESTHETIST Unavailable + Alex Koo MD Unavailable + Radha Knight APRN STAFF NURSE ANESTHETIST Unavailable + Dinesh Mac MD Unavailable [facility] Yancy Ramirez MD Unavailable + [phone] Alex Koo MD Unavailable + Rosa Moyer FIBER LOCKING SUPERVISOR CNM Unavailable Unavaila Barbara Mckeon MD Unavailable [phone] Umesh Lima-C Unavailable + Umesh Lima-C Unavailable + Alex Koo MD Unavailable + Umesh Lima PA-C Unavailable + Amanda Ocasio CNM Unavailable [phone] [facility] Encounter Details Date Type Department Care Team (Late st Contact Info) Description 07/12/[address] 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 Gender Identity Not on file Sexual Orientation Not on file documented as of this encounter Plan of Treatment Not on file documented as of this encounter Visit Diagnoses Not on filedocumented in this encounter Additional Health Concerns Assessment Noted Time PHQ-9 Depression Total Score: 2 11/17/19 17 7:16 AM CDT documented as of this encounter Care Teams Sleep Medicine Physician Relationship Specialty Start Date End Date Alex Koo MD PCP - General Family Practice 04/19/16 10/26/20 [place] [address] [address] [address] PCP - General Family Practice 10/27/20 Radha Knight APRN STAFF NURSE ANESTHETIST [address] [address] [address] PCP - Assigned PCP 11/19/17 07/21/18 [place] [address] [address] [address] PCP - Assigned PCP 07/22/18 08/14/18 Alex Koo MD Family Practice 10/27/20 Radha Knight APRN STAFF NURSE ANESTHETIST [address] [address] [place], [place] 16[address] Assigned PCP 11/19/17 07/21/18 [place] [address] [place] [place] [id number] Assigned PCP 07/22/18 11/16/19 Radha Knight APRN STAFF NURSE ANESTHETIST [address] [place], [place] [id number] Assigned PCP 11/17/19 03/14/20 Dinesh Mac MD [address] [facility] [address] [address] [place] [id number] Assigned PCP 03/15/20 08/15/20 [place] [address] [place], [place] [id number] Assigned PCP 08/16/20 11/21/20 [place] [address] [place] [address] Assigned PCP 11/22/20 05/20/22 Rosa Moyer APRN CNM Assigned OBGYN Provider 12/25/20 04/08/22 Barbara Cheng MD [address] [place] [address] Assigned OBGYN Provider 04/09/22 Umesh Lima PA-C [address] [place] [address] Assigned PCP 05/21/22 10/02/23 Umesh Lima PA-C [address] [place] [address] Assigned Pain Medication Provider 06/20/22 12/09/22 [place] [address] [place] [address] Assigned PCP 10/03/23 01/01/24 Uemsh Lima PA-C [address] [place] [address] Assigned PCP 01/02/24 05/03/25 Amanda Ocasio CNM [address] [place] [address] Assigned OBGYN Provider 10/02/24 [facility] [id number] [place] [address] Assigned PCP 05/04/25 documented as of this encounter
--- OUTSIDE RECORDS SUMMARY | 2025-05-20 00:39 | XMS_ITS | Encounter Summary ---
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 Female 11:55 AM DIRECTOR OF PUBLIC HEALTH Gender Identity Not on file Sexual Orientation Not on file documented as of this encounter Plan of Treatment Not on file documented as of this encounter Visit Diagnoses Not on filedocumented in this encounter Additional Health Concerns Assessment Noted Time PHQ-9 Depression Total Score: 7 10/03/19 25 3:10 PM CDT documented as of this encounter Care Teams Accounts Receivable Bookkeeper Relationship Specialty [place] [address] [address] [address] PCP - General Family Practice 10/27/20 [place] [address] [address] [address] Family Practice 10/27/20 Umesh Lima PA-C [address] [address] [address] Assigned PCP 01/02/24 05/03/25 Amanda [place]cas[place] [address] Assigned OBGYN Provider 10/02/24 [facility] [address] [place] [address] Assigned PCP 05/04/25 documented as of this encounter
--- OUTSIDE RECORDS SUMMARY | 2025-05-20 00:39 | XMS_ITS | Encounter Summary ---
Author Organization [place] Address [address] [place] [address] Care Team Providers Care Chief Airport Guide Name Role Phone Alex Koo MD Primary Care Provider [phone] Alex Koo MD Primary Care Provider [phone] Alex Koo MD Unavailable Alex Koo MD Unavailable Alex Koo MD Unavailable Radha Knight APRN MAINTENANCE AND ENGINEERING MANAGER Unavailable [phone] Dinesh Mac MD Unavailable [facility] Yancy Ramirez MD Unavailable + [phone] Alex Koo MD Unavailable Rosa Moyer TALENT SOURCING SPECIALIST CNM Unavailable Unavaila [facility] Barbara Cheng MD Unavailable [phone] Umesh Lima PA-C Unavailable [phone] Umesh Lima PA-C Unavailable [phone] Alex Koo MD Unavailable Umesh Lima PA-C Unavailable [phone] Amanda Ocasio CNM Unavailable [phone] [place] [address] Unavail able Encounter Details Date Type Department Care Team (Late st Contact Info) Description 07/24/2018 [facility] [address], [address] [place] [address] Mary Joshi CMA Social History [...] on file Legal Sex Female 11:55 AM PERFORMANCE IMPROVEMENT DIRECTOR Gender Identity Not on file Sexual Orientation Not on file documented as of this encounter Miscellaneous Notes * Telephone Encounter - Mary Joshi CMA - 08/24/2018 2:01 PM CDT Left message on personal RetentionGridmail to return call. 2nd outreach. Mary Joshi CMA (AAMA) documented in this encounter Plan of Treatment Not on file documented as of this encounter Visit Diagnoses Not on filedocumented in this encounter Additional Health Concerns Assessment Noted Time PHQ-9 Depression Total Score: 2 11/17/19 17 7:16 AM CDT documented as of this encounter Care Teams Chief Airport Guide Relationship Specialty Start Date End Date Alex Koo MD PCP - General Family Practice 04/19/16 10/26/20 [place] [address] [address] [address] PCP - General Family Practice 10/27/20 [place] [address] [address] [address] PCP - Assigned PCP 07/22/18 08/14/18 Alex Koo MD Family Practice 10/27/20 [place] [address] [place], [place] [address] Assigned PCP 07/22/18 11/16/19 Radha Knight APRN MAINTENANCE AND ENGINEERING MANAGER [address] [address] [place], [place] [address] Assigned PCP 11/17/19 03/14/20 Dinesh Mac MD [address] [facility] [place] [address] Assigned PCP 03/15/20 08/15/20 [place] [address] [place], [place] [id number] Assigned PCP 08/16/20 11/21/20 [place] [address] [place] [address] Assigned PCP 11/22/20 05/20/22 Rosa Moyer APRN [facility] Assigned OBGYN Provider 12/25/20 04/08/22 Barbara Cheng MD [address] [place] [address] Assigned OBGYN Provider 04/09/22 Umesh Lima PA-C [address] [place] [address] Assigned PCP 05/21/22 10/02/23 Umesh Lima PA-C [address] [place] [address] Assigned Pain Medication Provider 06/20/22 12/09/22 [place] [address] [place] [address] Assigned PCP 10/03/23 01/01/24 Umesh Lima PA-C [address] [place] [address] Assigned PCP 01/02/24 05/03/25 [facility] [place] [address] Assigned OBGYN Provider 10/02/24 [facility] [address] [place] [address] Assigned PCP 05/04/25 documented as of this encounter
[2025-05-20 00:59] VITALS: BP 130/100; PULSE 83; RESP 18; TEMP 36.6; O2SAT 98; BMI 25.8
--- NOTE | 2025-05-20 01:04 | ED.GENADULT ---
HPI - General Adult General Chief complaint: Extremity Pain/Injury, Upper Stated complaint: right hand injury Time Seen by Provider: 05/20/25 00:45 History of Present Illness HPI narrative: Pt. states at 2230 she was attempting to put her horse away for the night. Went to grab the harness and the horse took off with her hand still in the harness. Pt's right hand swollen on top and also thumb going towards wrist. Pain currently 8/10. 39-year-old woman presenting to the emergency department with concern of right hand pain. Works at [email or web address] she was attempting to put her horse away and went to take the harness; her right hand was trapped in the Holter when the horse was startled. Unsure mechanism of injury. The thumb may have been hyper extended. She is thinking is probably not broken; notes the bruising. Just hurts a lot. No other injuries were noted. Related Data Home Medications ?Medication ?Instructions ?Recorded ?Confirmed buspirone 5 mg tablet 5 mg PO 3XD 09/23/24 05/05/25 levonorgestrel-ethinyl estradiol 1 tab PO DAILY 02/07/25 05/05/25 0.1 mg-20 mcg tablet (Vienva) Previous Rx's ?Medication ?Instructions ?Recorded gabapentin 300 mg capsule 300 mg PO TID #45 caps 02/07/25 gabapentin 300 mg capsule 300 mg PO TID #90 caps 03/18/25 hydrocodone 5 mg-acetaminophen 325 1 - 2 tab PO BID PRN pain #8 tabs 03/18/25 mg tablet lidocaine 5 % topical patch 1 patch topical DAILY #15 ea 03/31/25 gabapentin 300 mg capsule 300 mg PO TID #90 caps 05/05/25 Allergies Allergy/AdvReac Type Severity Reaction Status Date / Time No Known Drug Allergies Allergy Verified 05/05/25 16:01 Review of Systems Status of ROS: Reports: 6 or more systems reviewed and unremarkable except as noted in History and below PFSH PFS Social History Smoking Status: Never smoker Do you use any of these nicotine containing products: None Second hand tobacco smoke exposure: No How often do you have a drink containing alcohol: 4 or more times a week How many standard drinks containing alcohol do you have on a typical day: 7 to 9 How often do you have six or more drinks on one occasion: Daily or almost daily AUDIT-C Alcohol total score: 11 Non-prescribed substance use: denies use service: No Exam Narrative: Exam Narrative: Pleasant. Face looks a little flushed, possible windburn. Skin is warm and dry. Examination the right hand question does show bruising along the dorsal aspect of the 2nd and 3rd metacarpals. Some light erythema here to consistent with abrasion. She is able open and close her hand. Causes pain to move. Able to give a thumbs-up. Does not hurt specifically in snuffbox. Pain is primarily over the hypothenar eminence. Const: Vital Signs, click to edit/add: Vital Signs - 24 hr 05/20/25 00:59 Temperature 97.8 F Pulse Rate [Pulse Oximeter] 83 Respiratory Rate 18 Blood Pressure [Le ft Upper Arm] 130/100 H Pulse Oximetry 98 Oxygen Delivery Me thod Room Air Documenting provider has reviewed patient's vital signs: yes Course Vital Signs Vital signs: Initial Vital Signs Temperature 97.8 F 05/20/25 00:59 Temperature Source Temporal Artery Scan 05/20/25 00:59 Pulse Rate 83 05/20/25 00:59 Pulse Rhythm Regular 05/20/25 00:59 Respiratory Rate 18 05/20/25 00:59 Blood Pressure 130/100 H 05/20/25 00:59 Blood Pressure Mean 110 H 05/20/25 00:59 Blood Pressure Position Sitting 05/20/25 00:59 Pulse Oximetry 98 05/20/25 00:59 Oxygen Delivery Method Room Air 05/20/25 00:59 Vital Signs Temperature 97.8 F 05/20/25 00:59 Pulse Rate 83 05/20/25 00:59 Respiratory Rate 18 05/20/25 00:59 Blood Pressure 130/100 H 05/20/25 00:59 Pulse Oximetry 98 05/20/25 00:59 Oxygen Delivery Method Room Air 05/20/25 00:59 Temperature 97.8 F 05/20/25 00:59 Pulse Rate 83 05/20/25 00:59 Respiratory Rate 18 05/20/25 00:59 Blood Pressure 130/100 H 05/20/25 00:59 Pulse Oximetry 98 05/20/25 00:59 Oxygen Delivery Method Room Air 05/20/25 00:59 Medications Administered Medications: Discontinued Medications Generic Name Dose Route Start Last Admin Trade Name Gaurang PRN Reason Stop Dose Admin Ibuprofen 800 mg 05/20/25 01:11 05/20/25 01:24 Ibuprofen 400 Mg Tablet PO 05/20/25 01:12 800 mg ONCE ONE Administration Medical Decision Making MDM Narrative Medical decision making narrative: Appears to have contusion and wonder if some degree of gamekeeper's thumb here. Sprain otherwise? Will check x-rays of the right hand for possible avulsion fracture. Ice pack. Ibuprofen. Anticipate placement in a thumb spica. Three-view hand x-ray independently reviewed by me is without acute bony abnormality. 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 This does seem to improve some symptoms. See patient discharge plan for further discussion Wear this spica splint for comfort over this next week. Continue to ice regularly. Ibuprofen, acetaminophen. Elevation for comfort as well. Would follow up in 7-10 days if simply not improved. Medical Records Medical records reviewed: Yes I reviewed the patient's medical records Discharge Plan Discharge Clinical Impression: Sprain of right thumb, Contusion of hand Patient Disposition: Home w/ Parent or Adult Condition: Improved Additional Instructions: Wear this spica splint for comfort over this next week. Continue to ice regularly. Ibuprofen, acetaminophen. Elevation for comfort as well. Would follow up in 7-10 days if simply not improved. Prescriptions: No Action buspirone 5 mg tablet 5 mg PO 3XD levonorgestrel-ethinyl estrad [Vienva] 0.1-20 mg-mcg tablet 1 tab PO DAILY gabapentin 300 mg capsule 300 mg PO TID Qty: 45 1RF gabapentin 300 mg capsule 300 mg PO TID Qty: 90 2RF hydrocodone-acetaminophen 5-325 mg tablet 1 - 2 tab PO BID PRN (Reason: pain) Qty: 8 0RF lidocaine 5 % adhesive patch,medicated 1 patch topical DAILY Qty: 15 0RF Rx Instructions: leave on most painful area for up to 12 hrs gabapentin 300 mg capsule 300 mg PO TID Qty: 90 1RF Follow Up/Referrals: Provider,Not a Local [Non-Staff, Family Practice] Stand Alone Forms: MyHealth Info Instructions
--- NOTE | 2025-05-20 01:11 | CRLHL7_ITS ---
For Patients: As a result of the Cures Act, medical imaging exams and procedure reports are released immediately into your electronic medical record. You may view this report before your referring provider. If you have questions, please contact your health care provider. INDICATION: Trapped in horse holter, dorsal bruising, sore to move TECHNIQUE: Hand radiograph 3 views right COMPARISON: None FINDINGS: Evaluation of the digits on the lateral examination is moderately degraded due to overlapped digit positioning. Bone: No acute fractures or aggressive bone lesions are identified. 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 Soft tissue: Unremarkable. No radiopaque foreign bodies are seen. IMPRESSION: 1. No acute osseous injuries are noted. Dictated by Kvng Jones MD @ 05/20/2025 1:25:40 AM Dictated by: Kvng Jones MD @ 05/20/2025 01:25:45 (Electronically Signed)
[2025-05-20] MEDS: IBUPROFEN 400 MG TABLET 800 MG PO (01:24)
== END 2025-05-20 02:30 | disposition home or self-care (01) ==
PROVIDERS: Emergency Provider Family Medicine; PCP Family Medicine
DX: S63.601A Unspecified sprain of right thumb, initial encounter (principal); W55.12XA Struck by horse, initial encounter
CPT/HCPCS: 29130; 73130; 99283; 99284; A9270